=== PATIENT | female | born 1955 | race African-American/Black ===

== ENCOUNTER 2016-03-05 12:04 | Day surgery (SDC) | payer OTHER ==
[2016-03-05 13:49] LABS: MCH 26.9 pg (25.7-33.7); MCHC 32.5 g/dl (32.0-36.0); MEAN CELL VOLUME 82.9 fl (80-96); MEAN PLT VOLUME 6.5 fl (7.5-11.1); PLATELET COUNT 962 K/MM3 (134-434); RDW 23.3 % (11.6-15.6); WHITE BLOOD COUNT 10.6 K/mm3 (4.0-10.0)
[2016-03-05 14:25] LABS: PLATELET ESTIMATE INCREASED (NORMAL)
[2016-03-05 14:28] LABS: ANISOCYTOSIS 3+; HYPOCHROMIA 1+; MICROCYTOSIS 2+; POLYCHROMASIA RARE
[2016-03-05 14:29] LABS: FRAGMENTED CELL FEW; OVALOCYTES FEW
--- NOTE | 2016-03-05 14:46 | HP ---
[facility]ellite [facility] - Chief Complaint Chief Complaint: PAtient seen and examined. Denies any complaints. No fever/ chills/cough/s - Past Medical History Allergies/Adverse Reactions: Allergies Allergy/AdvReac Type Severity Reaction Status Date / Time No Known Allergies Allergy Verified 08/14/15 12:17 Gastrointestinal: Yes: Cancer, Ulcerative Colitis Heme/Onc: Yes: Anemia - Current Medications Current Medications: Medication Instructions Recorded Mesalamine [Apriso] 0.375 gm PO DAILY 06/08/13 Amlodipine Besylate [Norvasc -] 5 mg PO DAILY 05/09/15 Pantoprazole Sodium [Protonix] 40 mg PO DAILY 07/09/15 Tramadol HCl 50 mg PO DAILY 08/09/15 Lidocaine 5% Top. Ointment 1 applic TP DAILY #1 tube 08/14/15 [Xylocaine 5% Top. Ointment -] Satellite Physical Exam - Physical Examination General Appearance: Well Nourished, Alert & Oriented x3 Lung: Clear to auscultation, Normal air movement Heart: Regular rate & rhythm, Normal S1, Normal S2 Abdomen: Soft, No tenderness, Normal bowel sounds Extremities: No edema Neurological: Intact [facility]ellite Impression/Plan - Impression/Plan Impression: 60 y/o patient with metastatic breast cancer ER+/DC-/HEr2 - here for symptomatic anemia. To get PRBCs , each unt over 4hrs., irradiated, leukopoor
[2016-03-05 16:01] VITALS: BMI 26.4
[2016-03-05] MEDS ORDERED: ACETAMINOPHEN 325 MG TABLET (FP) PO PRN (20:16)
[2016-03-06 01:39] LABS: MCH 27.2 pg (25.7-33.7); MCHC 32.9 g/dl (32.0-36.0); MEAN CELL VOLUME 82.6 fl (80-96); MEAN PLT VOLUME 6.6 fl (7.5-11.1); PLATELET COUNT 910 K/MM3 (134-434); RDW 20.5 % (11.6-15.6); WHITE BLOOD COUNT 8.8 K/mm3 (4.0-10.0)
[2016-03-06 06:06] VITALS: BP 142/67; PULSE 89; TEMP 98.5
[2016-03-06 09:32] LABS: ALK PHOS 379 U/L (45-117); ANION GAP 15 (8-16); BILIRUBIN,TOTAL 0.4 mg/dL (0.2-1.0); CALCIUM 9.1 mg/dL (8.5-10.1); CO2 24 mmol/L (21-32); CREATININE 0.4 mg/dL (0.55-1.02); GLUCOSE,RANDOM 67 mg/dL (74-106); LDH 291 U/L (84-246); SGOT/AST 45 U/L (15-37); SGPT/ALT 10 U/L (12-78); TOT PROT 5.8 g/dl (6.4-8.2)
== END 2016-03-06 07:27 | disposition home or self-care (01) ==
LOC: JBLOOD 12:04 → J7W 12:06 → JBLOOD 03-06 07:27
PROVIDERS: ATTEND Internal Medicine Hematology & Oncology
PROC: 30233N1 Transfusion of Nonautologous Red Blood Cells into Peripheral Vein, Percutaneous Approach (ICD-10-PCS; principal; 2016-03-05)
DX: C50.919 Malignant neoplasm of unspecified site of unspecified female breast (principal); D63.8 Anemia in other chronic diseases classified elsewhere
CPT/HCPCS: 36415; 36430; 80053; 83010; 83615; 85027; 86850; 86900; 86901; 86922; P9058

== ENCOUNTER 2016-03-13 10:44 | Inpatient (IN) | payer OTHER ==
[2016-03-13] MEDS ORDERED: SODIUM CHLORIDE 1,000 ML IV STA (11:35)
--- NOTE | 2016-03-13 11:35 | PDOC ---
History of Present Illness - General History Source: Patient Exam Limitations: No Limitations - History of Present Illness Initial Comments: 03/13/16 11:45 The patient is a 60 year old female with significant past medical history of metastatic breast cancer, hypertension who presents to the emergency department with left facial palsy for 2 days. The patient saw Dr. Mon two days ago and was referred to the ED for further evaluation. She is currently not in any pain but does state that she feels dehydrated. The patient denies any headaches, vision changes, ear/eye pain, numbness and tingling or loss of sensation. The patient reports associated decreased appetite over the last 2 days and believes she has lost weight. She has never experienced symptoms like this before. She denies any abdominal pain, nausea, or vomiting. She denies any recent travel or sick contacts. She denies any fevers or chills. <Carli Coto - Last Filed: 03/13/16 13:31> <Connie Martinez - Last Filed: 03/17/16 07:41> - General Chief Complaint: Facial Droop Stated Complaint: FACIAL DROOPX2 DAYS Time Seen by Provider: 03/13/16 11:30 Past History <Carli Coto - Last Filed: 03/13/16 13:31> - Past Medical History Anemia: No Asthma: No Cancer: Yes (RT BREAST CA, Bone CA) Cardiac Disorders: No CVA: No COPD: No CHF: No Dementia: No Diabetes: No GI Disorders: Yes (ULCERATIVE COLITIS.) Disorders: No HTN: Yes Hypercholesterolemia: No Liver Disease: No Seizures: No Thyroid Disease: No - Surgical History Abdominal Surgery: No Appendectomy: No Cardiac Surgery: No Cholecystectomy: No Lung Surgery: No Neurologic Surgery: No Orthopedic Surgery: No - Psycho/Social/Smoking Cessation Hx Anxiety: No Suicidal Ideation: No Smoking Status: Yes Smoking History: Former smoker Have you smoked in the past 12 months: Yes Number of Cigarettes Smoked Daily: 0 If you are a former smoker, when did you quit?: 1 yr ago Information on smoking cessation initiated: No 'Breaking Loose' booklet given: 07/09/15 Hx Alcohol Use: No Drug/Substance Use Hx: No Substance Use Type: None Hx Substance Use Treatment: No <Connie Martinez - Last Filed: 03/17/16 07:41> - Past Medical History Allergies/Adverse Reactions: Allergies Allergy/AdvReac Type Severity Reaction Status Date / Time No Known Allergies Allergy Verified 03/13/16 11:04 Home Medications: Ambulatory Orders NK [No Known Home Medication] 03/13/16 Review of Systems - Review of Systems Able to Perform ROS?: Yes Comments:: 03/13/16 11:46 GENERAL/CONSTITUTIONAL: No fever or chills. No weakness. HEAD, EYES, EARS, NOSE AND THROAT: No change in vision. No ear pain or discharge. No sore throat. CARDIOVASCULAR: No chest pain or shortness of breath. RESPIRATORY: No cough, wheezing, or hemoptysis. GASTROINTESTINAL: No nausea, vomiting, diarrhea or constipation. GENITOURINARY: No dysuria, frequency, or change in urination. MUSCULOSKELETAL: No joint or muscle swelling or pain. No neck or back pain. SKIN: No rash NEUROLOGIC: No headache, vertigo, loss of consciousness, or change in strength/ sensation. ENDOCRINE: No increased thirst. No abnormal weight change. HEMATOLOGIC/LYMPHATIC: No anemia, easy bleeding, or history of blood clots. ALLERGIC/IMMUNOLOGIC: No hives or skin allergy. <Carli Coto - Last Filed: 03/13/16 13:31> *Physical Exam - Vital Signs Last Vital Signs Temp Pulse Resp BP Pulse Ox 98.7 F 133 H 19 131/79 97 03/13/16 11:04 03/13/16 11:04 03/13/16 11:04 03/13/16 11:04 03/13/16 11:04 - Physical Exam Comments: 03/13/16 11:46 GENERAL: +Left sided facial droop including the forehead. Awake, alert, and fully oriented, in no acute distress HEAD: No signs of trauma EYES: PERRLA, EOMI, sclera anicteric, conjunctiva clear ENT: Auricles normal inspection, hearing grossly normal, nares patent, oropharynx clear without exudates. Moist mucosa NECK: Normal ROM, supple, no lymphadenopathy, JVD, or masses LUNGS: Breath sounds equal, clear to auscultation bilaterally. No wheezes, and no crackles HEART: Regular rate and rhythm, normal S1 and S2, no murmurs, rubs or gallops ABDOMEN: Soft, nontender, normoactive bowel sounds. No guarding, no rebound. No masses EXTREMITIES: Normal range of motion, no edema. No clubbing or cyanosis. No cords, erythema, or tenderness NEUROLOGICAL: Cranial nerves II through XII grossly intact. Strength and sensation intact throughout. Normal speech, normal gait. SKIN: Warm, Dry, normal turgor, no rashes or lesions noted. <Carli Coto - Last Filed: 03/13/16 13:31> - Vital Signs Last Vital Signs Temp Pulse Resp BP Pulse Ox 98.7 F 133 H 19 131/79 97 03/13/16 11:04 03/13/16 11:04 03/13/16 11:04 03/13/16 11:04 03/13/16 11:04 <Connie Martinez - Last Filed: 03/17/16 07:41> Heart Score/ECG Review - ECG Impressions Comment:: EKG read 12:12- sinus tach 119 bpm, no acute St/T changes. <Connie Martinez - Last Filed: 03/17/16 07:41> ED Treatment Course - LABORATORY CBC & Chemistry Diagram: 03/13/16 11:48 03/13/16 11:48 <Carli Coto - Last Filed: 03/13/16 13:31> - LABORATORY CBC & Chemistry Diagram: 03/16/16 09:30 03/14/16 06:00 <Connie Martinez - Last Filed: 03/17/16 07:41> Medical Decision Making - Medical Decision Making 03/13/16 15:18 Case d/w Dr. Mon, we discussed the CT results, I have paged neuro to discuss MRI. 03/13/16 15:30 Case d/w Dr. Cortez- pt with history of prior brain lesion, unclear if related to current symptoms. However, recommended MRI brain with contrast to r/o mets. I have ordered. Pt agrees to inpatient admission for further workup. <Connie Martinez - Last Filed: 03/17/16 07:41> *DC/Admit/Observation/Transfer - Attestations Scribe Attestion: 03/13/16 11:46 Documentation prepared by Carli Coto, acting as medical services manager for Connie Martinez MD. <Carli Coto - Last Filed: 03/13/16 13:31> - Discharge Dispostion Admit: Yes <Connie Martinez - Last Filed: 03/17/16 07:41> Diagnosis at time of Disposition: Facial droop Breast cancer metastasized to multiple sites Qualifiers: Laterality: left Qualified Code(s): C50.912 - Malignant neoplasm of unspecified site of left female breast - Discharge Dispostion Condition at time of disposition: Stable - Referrals
[2016-03-13 12:33] LABS: MCH 26.7 pg (25.7-33.7); MCHC 31.8 g/dl (32.0-36.0); MEAN CELL VOLUME 83.8 fl (80-96); MEAN PLT VOLUME 6.6 fl (7.5-11.1); PLATELET COUNT 483 K/MM3 (134-434); RDW 20.9 % (11.6-15.6); WHITE BLOOD COUNT 15.9 K/mm3 (4.0-10.0)
[2016-03-13 12:44] LABS: ALBUMIN 2.2 g/dl (3.4-5.0); ANION GAP 16 (8-16); BILIRUBIN,TOTAL 0.6 mg/dL (0.2-1.0); CALCIUM 9.8 mg/dL (8.5-10.1); CO2 24 mmol/L (21-32); CREATININE 0.6 mg/dL (0.55-1.02); GLUCOSE,RANDOM 82 mg/dL (74-106); SGOT/AST 43 U/L (15-37); SGPT/ALT 10 U/L (12-78); TOT PROT 6.8 g/dl (6.4-8.2)
[2016-03-13 12:45] LABS: ALK PHOS 376 U/L (45-117)
[2016-03-13 14:22] LABS: METAMYELOCYTE 1 % (0-2)
--- NOTE | 2016-03-13 17:05 | PN ---
Teaching Attending Note Name of Resident: Susan Ortega ATTENDING PHYSICIAN STATEMENT I saw and evaluated the patient. I reviewed the resident's note and discussed the case with the resident. I agree with the resident's findings and plan as documented. SUBJECTIVE: Patient is lying in bed with no acute distress, left sided facial paralysis that happened 2 days ago when Going to The Dr's office, but patient refused to go to the emergency room . OBJECTIVE: Vital Signs Temperature 98.7 F 03/13/16 11:04 Pulse Rate 104 H 03/13/16 16:56 Respiratory Rate 18 03/13/16 16:56 Blood Pressure 128/79 03/13/16 16:56 O2 Sat by Pulse Oximetry (%) 98 03/13/16 16:56 GENERAL: +Left sided facial droop including the forehead. Awake, alert, and fully oriented, in no acute distress HEAD: No signs of trauma EYES: PERRLA, EOMI,mild Exophothalmos of left eye,unable to close the eye completely, sclera anicteric, conjunctiva clear ENT: oropharynx clear without exudates. Moist mucosa NECK: Normal ROM, supple, no lymphadenopathy, JVD, or masses LUNGS: Breath sounds equal, clear to auscultation bilaterally. No wheezes, and no crackles HEART: Regular rate and rhythm, normal S1 and S2, no murmurs, rubs or gallops ABDOMEN: Soft, nontender, normoactive bowel sounds. No guarding, no rebound. No masses EXTREMITIES: Normal range of motion, no edema. No clubbing or cyanosis. No cords, erythema, or tenderness NEUROLOGICAL: L facial droop, unable to close L eye completely, tongue ML, Cranial nerves VII palsy otherwise grossly intact. Normal gait. SKIN: Warm, Dry, normal turgor, no rashes or lesions noted. CBCD WBC 15.9 K/mm3 (4.0-10.0) H D 03/13/16 11:48 RBC 3.88 M/mm3 (3.60-5.2) 03/13/16 11:48 Hgb 10.3 GM/dL (10.7-15.3) L D 03/13/16 11:48 Hct 32.5 % (32.4-45.2) D 03/13/16 11:48 MCV 83.8 fl (80-96) 03/13/16 11:48 MCHC 31.8 g/dl (32.0-36.0) L 03/13/16 11:48 RDW 20.9 % (11.6-15.6) H 03/13/16 11:48 Plt Count 483 K/MM3 (134-434) H D 03/13/16 11:48 MPV 6.6 fl (7.5-11.1) L 03/13/16 11:48 CMP Sodium 138 mmol/L (136-145) 03/13/16 11:48 Potassium 3.8 mmol/L (3.5-5.1) 03/13/16 11:48 Chloride 98 mmol/L (98-107) 03/13/16 11:48 Carbon Dioxide 24 mmol/L (21-32) 03/13/16 11:48 Anion Gap 16 (8-16) 03/13/16 11:48 BUN 20 mg/dL (7-18) H D 03/13/16 11:48 Creatinine 0.6 mg/dL (0.55-1.02) D 03/13/16 11:48 Creat Clearance w eGFR > 60 (>60) 03/13/16 11:48 Random Glucose 82 mg/dL (74-106) D 03/13/16 11:48 Calcium 9.8 mg/dL (8.5-10.1) 03/13/16 11:48 Total Bilirubin 0.6 mg/dL (0.2-1.0) D 03/13/16 11:48 AST 43 U/L (15-37) H 03/13/16 11:48 ALT 10 U/L (12-78) L 03/13/16 11:48 Alkaline Phosphatase 376 U/L (45-117) H 03/13/16 11:48 Total Protein 6.8 g/dl (6.4-8.2) 03/13/16 11:48 Albumin 2.2 g/dl (3.4-5.0) L 03/13/16 11:48 Home Medications Medication Instructions Recorded NK [No Known Home Medication] 03/13/16 ASSESSMENT AND PLAN: The pt is a 60 year old female with PMHx of metastatic breast cancer, HTN who presents to the hospital referred from Oncologist office- Dr. Yaa when was noticed to have facial asymmetry 2 days ago but patient refused to come to the hospital 2 days ago. # Possible Metastatic Brain Cancer from Breast cancer vs Garner's palsy presentation , on IV steroid as per , IVF, MRI was done waiting for the result. r/o brain mets. f/u MRI brain, elevated Alk Phos. due to extensive mets to the bone -CT head done, no acute pathology, Neurology consultation 's office , Decadron 10mg IVPB once and then 4mg IVPB Q6h -Protonix 40mg po daily # Hx of breast cancer with mets. to the bone and r/o Brain mets on concult. DVT Px; Lovenox sq daily
--- NOTE | 2016-03-13 17:25 | HP ---
CHIEF COMPLAINT: Left facial droop. PCP: HISTORY OF PRESENT ILLNESS: The pt is a 60 year old female with PMH of metastatic breast cancer, HTN who presents to the hospital referred from Oncologist office- Dr. Mon. She noticed the facial asymmetry 2 days ago. On that day she was scheduled to start new chemotherapy treatment. After getting that she was seen by her physician and referred to the hospital. She is also complaining of lower lip numbness. The pt states that for the past several weeks she didn't have appetite and noticed loosing some weight. She denies having headache, vision changes, fever, chills, paresthesias, balance problems, weakness. She denies chest pain, SOB, cough, palpitations, dysuria, increased frequency, urgency. ER course was notable for: (1)CT head (2)WBC 15.9, Hgb 10.3 (3)Alk Phos 376 PAST MEDICAL HISTORY: HTN, breast cancer diagnosed 15-20 years ago,treated with radiation therapy, chemotherapy and lumpectomy. It relapsed last year and was treated with chemotherapy since December 2015. She states that her treatment schedule was 2 weeks on and 1 week off. She doesn't remember the name. PAST SURGICAL HISTORY: in 1992 Social History: Smoking: Former smoker. Quit last year. Smoked for 5 years 1 pack/week. Alcohol: Drinks 1 drink a month Drugs:Denies Family History: Mother: Breast cancer Father:Lung cancer Allergies: No Known Allergies Allergy (Verified 03/13/16 11:04) HOME MEDICATIONS: Home Medications Medication Instructions Recorded NK [No Known Home Medication] 03/13/16 REVIEW OF SYSTEMS CONSTITUTIONAL: loss of appetite Absent: fever, chills, diaphoresis, generalized weakness, malaise, weight change HEENT: Absent: rhinorrhea, nasal congestion, throat pain, throat swelling, difficulty swallowing, mouth swelling, ear pain, eye pain, visual changes CARDIOVASCULAR: Absent: chest pain, syncope, palpitations, irregular heart rate, lightheadedness , peripheral edema RESPIRATORY: Absent: cough, shortness of breath, dyspnea with exertion, orthopnea, wheezing, stridor, hemoptysis GASTROINTESTINAL: Absent: abdominal pain, abdominal distension, nausea, vomiting, diarrhea, constipation, melena, hematochezia GENITOURINARY: Absent: dysuria, frequency, urgency, hesitancy, hematuria, flank pain, genital pain MUSCULOSKELETAL: Absent: myalgia, arthralgia, joint swelling, back pain, neck pain SKIN: Absent: rash, itching, pallor HEMATOLOGIC/IMMUNOLOGIC: Absent: easy bleeding, easy bruising, lymphadenopathy, frequent infections ENDOCRINE: Absent: unexplained weight gain, unexplained weight loss, heat intolerance, cold intolerance NEUROLOGIC: lower lip numbness, left face droop Absent: headache, focal weakness or paresthesias, dizziness, unsteady gait, seizure, mental status changes, bladder or bowel incontinence PSYCHIATRIC: Absent: anxiety, depression, suicidal or homicidal ideation, hallucinations. PHYSICAL EXAMINATION Vital Signs - 24 hr 03/13/16 16:56 Pulse Rate [ 104 H Apical] Respiratory 18 Rate Blood Pressure 128/79 [Left Arm] O2 Sat by Pulse 98 Oximetry (%) GENERAL: Awake, alert, and fully oriented, in no acute distress. HEAD: Normal with no signs of trauma. EYES: Pupils equal, round and reactive to light, extraocular movements intact, sclera anicteric, conjunctiva clear. No lid lag. EARS, NOSE, THROAT: Ears normal, nares patent, oropharynx clear without exudates. Moist mucous membranes. NECK: Normal range of motion, supple without lymphadenopathy, JVD, or masses. LUNGS: Breath sounds equal, diminished bilaterally. No wheezes, and no crackles. No accessory muscle use. HEART: Regular rate and rhythm, normal S1 and S2 without murmur, rub or gallop. ABDOMEN: Soft, nontender, not distended, normoactive bowel sounds, no guarding, no rebound, no masses. No hepatomegaly or splenomegaly. MUSCULOSKELETAL: Normal range of motion at all joints. No bony deformities or tenderness. No CVA tenderness. UPPER EXTREMITIES: No peripheral edema. LOWER EXTREMITIES: No peripheral edema. NEUROLOGICAL: Left sided face paralysis, nasolabial fold absent on left side, no changes in sensation on the face. Normal speech. Romberg negative, Babinski negative, sensation to light touch and pinprick intact B/L. PSYCHIATRIC: Cooperative. Good eye contact. Appropriate mood and affect. SKIN: Warm, dry, normal turgor, no rashes, 2 cm scar on r eyebrow. ASSESSMENT/PLAN: The pt is a 60 year old female with PMH of metastatic breast cancer, HTN who presents to the hospital referred from Oncologist office- Dr. Mon. She noticed the facial asymmetry 2 days ago. On that day she was scheduled to start new chemotherapy treatment. After getting that she was seen by her physician and referred to the hospital. She is also complaining of lower lip numbness. The pt states that for the past several weeks she didn't have appetite and noticed loosing some weight. Left sided face paralysis: -possibly due to mets to the brain, other location or side effect of chemotherapy. -Oncology consultation; the pt is well known to Dr. Mon. According to her note: She was diagnosed with rt. breast cancer > 10 yrs. ago --s/p lumpectomy/ chemotherapy/RT/ hormiones--5yrs. of tamoxifen and 5yrs. of arimidex. She finished that 10 years ago, relepsed 18 months ago when she was found to have hypercalcemia ER35%, [place]-/Her2 neg. Biopsy of Lt. breast mass also revealed ER+/ [place]-/Her2 neg. She was treated with Taxol and them gemzar, zometa. 1 month ago she developed pain in her thighs, CT showed lytic lesions. Now she is complaining of left facial palsy She received taxol and them gemzar and zometa with stable disease over last 18months. Scan in 01/23 showed stable disease More recently over 1minth developed pain over both her thighs. CT scans showed lytic lesions in the thighs She then developed Lt. facial palsy.ast MRI brain was in 12/24 and was being followed by neurology. Lt. perimedullary cistern lesion -f/u MRI brain -elevated Alk Phos:[id number] -CT head done, no acute pathology -f/u Neurology consultation -steroids 10mg IVPB once and then 4mg IVPB Q6h -Protonix HTN: -no on medications F/E/N: NS/No changes/Regular Disposition: Admission to med surg Problem List - Problem (1) Breast cancer metastasized to multiple sites Code(s): C50.919 - MALIGNANT NEOPLASM OF UNSP SITE OF UNSPECIFIED FEMALE BREAST Qualifiers: Laterality: left Qualified Code(s): C50.912 - Malignant neoplasm of unspecified site of left female breast (2) Facial droop Code(s): R29.810 - FACIAL WEAKNESS (3) Dehydration, mild Code(s): E86.0 - DEHYDRATION (4) Depression (emotion) Code(s): F32.9 - MAJOR DEPRESSIVE DISORDER, SINGLE EPISODE, UNSPECIFIED Visit type - Emergency Visit Emergency Visit: Yes ED Registration Date: 03/13/16 Care time: The patient presented to the Emergency Department on the above date and was hospitalized for further evaluation of their emergent condition. - New Patient This patient is new to me today: Yes Date on this admission: 03/16/16 - Critical Care Critical Care patient: No
--- NOTE | 2016-03-13 17:42 | CONSULT ---
Consult - text type - Consultation Consultation Note: The patient is a 60 year old female with significant past medical history of metastatic breast cancer, hypertension who presents to the emergency department with left facial palsy for 2 days. She is currently not in any pain but does state that she feels dehydrated. The patient denies any headaches, vision changes, ear/eye pain, numbness and tingling or loss of sensation. The patient reports associated decreased appetite over the last 2 days and believes she has lost weight. She has never experienced symptoms like this before. She denies any abdominal pain, nausea, or vomiting. She denies any recent travel or sick contacts. She denies any fevers or chills. - Past Medical History Cancer: Yes (RT BREAST CA, Bone CA) GI Disorders: Yes (ULCERATIVE COLITIS.) HTN: Yes colitis - Psycho/Social/Smoking Cessation Hx Smoking Status: Yes Smoking History: Former smoker - Past Medical History Allergies/Adverse Reactions: Allergies Allergy/AdvReac Type Severity Reaction Status Date / Time No Known Allergies Allergy Verified 03/13/16 11:04 Home Medications: Ambulatory Orders NK [No Known Home Medication] 03/13/16 *Physical Exam - Vital Signs Last Vital Signs Temp Pulse Resp BP Pulse Ox 98.7 F 133 H 19 131/79 97 03/13/16 11:04 03/13/16 11:04 03/13/16 11:04 03/13/16 11:04 03/13/16 11:04 Oropharynx: No thrush, No mucositis Cor: RSR, No murmurs, No gallops Lungs: Clear to P&A Abd: Soft, Normal bowel sounds, No organomegaly Ext:No significant edema Skin: No rashes, Integument intact Abnormal Lab Results 03/13/16 03/13/16 11:48 11:48 WBC 15.9 H D Hgb 10.3 L D MCHC 31.8 L RDW 20.9 H Plt Count 483 H D MPV 6.6 L Lymphocytes % 7.0 L D Monocytes % 18.0 H BUN 20 H D AST 43 H ALT 10 L Alkaline Phosphatase 376 H Albumin 2.2 L A/P 60 year old female with significant past medical history of extensive metastatic breast cancer, hypertension who presents to the emergency department with left facial palsy for 2 days. Patient was diagnosed with rt. breast cancer > 10 yrs. ago --s/p lumpectomy/ chemotherapy/RT/ hormiones--5yrs. of tamoxifen and 5yrs. of arimidex. she completed it 10 yrs. ago She came in 18months ago with extensive bony disease and hypercalcemia ER35%, [place] -/Her2 neg. Biopsy of Lt. breast mass also revealed ER+/[place]-/Her2 neg. She received taxol and them gemzar and zometa with stable disease over last 18months. Scan in 01/23 showed stable disease More recently over 1minth developed pain over both her thighs. CT scans showed lytic lesions in the thighs Plan was to get Orthopaedic consult/Rad-onc consult She then developed Lt. facial palsy PAtients last MRI brain was in 01/07/16 and was being followed by neurology. Lt. perimedullary cistern lesion of ? etiology was unchanged Willl need neuro consult MRI brain steroids 10mg IVPB once and then 4mg IVPB Q6h Protonix discussed with neurology Would get orthopaedics consult regarding lytic lesions in the femurs
[2016-03-13] MEDS ORDERED: DEXAMETHASONE SOD PHOSPHATE 10 MG/1 ML VIAL IVPB ONE (18:12)
[2016-03-13 19:00] VITALS: BMI 26.1
[2016-03-13] MEDS ORDERED: SODIUM CHLORIDE 0.45% 1,000 ML IV SCH (20:15)
[2016-03-13] MEDS: SODIUM CHLORIDE 1,000 ML IV SCH (21:11)
[2016-03-13] MEDS: DEXAMETHASONE SOD PHOSPHATE 4 MG/1 ML VIAL IVPB SCH (22:11)
[2016-03-13 23:57] LABS: URINE APPEARANCE SLCLOUDY; URINE BILIRUBIN NEGATIVE (NEGATIVE); URINE BLOOD NEGATIVE (NEGATIVE); URINE COLOR YELLOW; URINE GLUCOSE (UA) NEGATIVE (NEGATIVE); URINE KETONE 1+ (NEGATIVE); URINE LEUK ESTERASE TRACE (NEGATIVE); URINE NITRITE NEGATIVE (NEGATIVE); URINE PROTEIN 1+ (NEGATIVE); URINE UROBILINOGEN 2.0 E.U/dl E.U./dl (0.2-1.0)
[2016-03-13 23:59] LABS: URINE BACTERIA RARE /hpf (NONE SEEN); URINE HYALINE CAST 9 /lpf; URINE MUCUS MANY; URINE RBC 6 /hpf (0-3); URINE WBC 20 /hpf (3-5)
[2016-03-14] MEDS: DEXAMETHASONE SOD PHOSPHATE 4 MG/1 ML VIAL IVPB SCH ×4 (03:11→21:59)
[2016-03-14 08:30] LABS: MCH 26.6 pg (25.7-33.7); MCHC 31.7 g/dl (32.0-36.0); PLATELET COUNT 415 K/MM3 (134-434); RDW 20.8 % (11.6-15.6); WHITE BLOOD COUNT 13.6 K/mm3 (4.0-10.0)
[2016-03-14] MEDS: PANTOPRAZOLE 40 MG TABLET (FP) PO SCH (09:00)
[2016-03-14 09:16] LABS: CALCIUM 9.1 mg/dL (8.5-10.1); CREATININE 0.3 mg/dL (0.55-1.02)
--- NOTE | 2016-03-14 09:37 | PN ---
Progress Note (short form) - Note Progress Note: NEUROSURGERY H/o metastatic R breast cancer, HTN noted with new facial asymmetry 2 days ago. She is also complaining of lower lip numbness. Pt states that for the past several weeks she didn't have appetite and noticed loosing some weight. She denies having headache, diplopia, fever, chills, paresthesias, balance problems , weakness, bowel/bladder incontinence chest pain, SOB. PE: AF, VSS Port in R chest Speech/mentation normal CN- L facial droop, unable to close L eye completely; mild L V2-V3 paresthesia, tongue ML, EMOF Motor- 5/5 without drift Sensation- intact LT DTR- hyporeflexia Brain CT- mild atrophy, no obvious bleed MRI- L lateral lisa-medullary 7 mm ring enhancing lesion; ? 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 whole brain XT vs gamma knife for L lisa-medullary cistern lesion discussed Pros and cons discussed Favor gamma knife given location and size, taking into account side effect profile Rad onc consult (pt treated by [facility] previously)- d/w Dr Hernández
[2016-03-14] MEDS ORDERED: PANTOPRAZOLE SODIUM 100 ML IVPB SCH (10:00)
--- NOTE | 2016-03-14 11:21 | PN ---
Physical Exam: SUBJECTIVE: Patient seen and examined Patient has no new complains, no shortness of breath, no nausea or vomiting, no abdominal pain. no vision changes. no double vision. Stated that she feels better. OBJECTIVE: Vital Signs Temperature 97.7 F 03/14/16 09:45 Pulse Rate 84 03/14/16 09:45 Respiratory Rate 18 03/14/16 09:45 Blood Pressure 142/75 03/14/16 09:45 O2 Sat by Pulse Oximetry (%) 97 03/13/16 21:00 GENERAL: +Left sided facial droop including the forehead. Awake, alert, and fully oriented, in no acute distress HEAD: No signs of trauma EYES: PERRLA, EOMI,mild left Exophothalmos of left eye improving from yesterday ,unable to close the eye completely, sclera anicteric, conjunctiva clear ENT: oropharynx clear without exudates. Moist mucosa NECK: Normal ROM, supple, no lymphadenopathy, JVD, or masses LUNGS: Breath sounds equal, clear to auscultation bilaterally. No wheezes, and no crackles HEART: Regular rate and rhythm, normal S1 and S2, no murmurs, rubs or gallops ABDOMEN: Soft, nontender, normoactive bowel sounds. No guarding, no rebound. No masses EXTREMITIES: Normal range of motion, no edema. No clubbing or cyanosis. No cords, erythema, or tenderness NEUROLOGICAL: L facial droop, unable to close L eye completely, tongue ML, Cranial nerves VII palsy otherwise grossly intact. Normal gait. SKIN: Warm, Dry, normal turgor, no rashes or lesions noted. Laboratory Results - last 24 hr 03/13/16 03/14/16 03/14/16 23:45 06:00 06:00 WBC 13.6 H RBC 3.34 L Hgb 8.9 L D Hct 28.1 L MCV 84.0 MCHC 31.7 L RDW 20.8 H Plt Count 415 MPV 7.0 L Sodium 138 Potassium 4.1 Chloride 99 Carbon Dioxide 22 Anion Gap 17 H BUN 19 H Creatinine 0.3 L D Random Glucose 84 Calcium 9.1 Urine Color Yellow Urine Appearance Slcloudy Urine pH 5.0 Ur Specific [place] 1.029 Urine Protein 1+ H Urine Glucose (UA) Negative Urine Ketones 1+ H Urine Blood Negative Urine Nitrite Negative Urine Bilirubin Negative Urine Urobilinogen 2.0 e.u/dl H Ur Leukocyte Esterase Trace H Urine RBC 6 Urine WBC 20 Ur Epithelial Cells Rare Urine Bacteria Rare Hyaline Casts 9 Urine Mucus Many Active Medications Generic Name Dose Route Start Last Admin Trade Name Brendonq PRN Reason Stop Dose Admin Dexamethasone Sodium Phosphate 4 mg 03/13/16 21:00 03/14/16 09:00 Decadron Injection - IVPB 4 mg Q6H-IV CYNTHIA Administration Sodium Chloride 1,000 mls @ 75 mls/hr 03/13/16 20:30 03/13/16 21:11 Normal Saline - IV 75 mls/hr ASDIR CYNTHIA Administration Pantoprazole Sodium 40 mg 03/14/16 10:00 03/14/16 09:00 Protonix - PO 40 mg DAILY CYNTHIA Administration : 1955 Age: 60 Sex: F [facility] Acct: [id number] Loc: J [id number] [facility] Exam Date: 03/13/16 Status: [place] [address] Unit Number: [id number] EXAM#: TYPE/EXAM: RESULT: [id number] MRI/BRAIN MRI W W/O CONTRAST Rule out brain metastasis. Breast cancer history was provided on prior examinations MRI of the brain without and following intravenous contrast. Multiplanar T1-T2 sequences were obtained followed by postcontrast T1 axial, coronal and sagittal images. 16 mm of Omniscan was intravenously injected Compared to prior CT scan of the head dated 03/13/2016 and prior contrast- enhanced MRI of the brain dated 01/07/2016 There remains [id number] volume loss and ventricular dilatation. Very minimal chronic microvascular ischemic changes are again seen. Previously described small ring-enhancing left perimedullary cistern lesion measuring approximately 7 mm again seen without interval change. Otherwise, no mass lesion, acute infarct or intracranial hemorrhage is identified. There is mild diffuse left meningeal enhancement that may have minimally worsened since the prior exam. Otherwise , no abnormal intracranial enhancement is seen. There is no shift of the midline structures. The craniocervical junction appears unremarkable. Flow voids are present within the central intracranial arterial circulation. There is minimal mucosal thickening in the ethmoid air cells. Right mastoid effusion is present. Note is made of focal increased T2 signal intensity in the left occipital bone, superiorly measuring approximately 8 mm without gross interval change which is nonspecific. Impression: Stable ring-enhancing extra-axial mass lesion measuring approximately 8 mm in the left perimedullary cistern. Mild diffuse left leptomeningeal enhancement that has minimally worsened since the prior exam. Rule out meningeal infiltration in view of the clinical history. Small focal abnormal signal in the left occipital bone, superiorly unchanged since the prior examination which is nonspecific. Technologist: Gee Lee Transcribed Date/Time: 03/13/162203 Burrer Machine: Hamilton Tong ASSESSMENT/PLAN: The pt is a 60 year old female with PMHx of metastatic breast cancer, HTN who presents to the hospital referred from Oncologist office- Dr. Mon when was noticed to have facial asymmetry 2 days ago but patient refused to come to the hospital 2 days ago. 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 whole brain XT vs gamma knife for L lisa-medullary cistern lesion. And was discussed Pros and cons to the patient as per neurosurgery's note. 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 MRI shows increased leptomeningeal enhancement suggesting that her new neurology is attributable to progression of her disease, vs a benign Garner's palsy. Noted that her prior known 8mm parenchymal lesion is unchanged. DVT Px: Lovenox Visit type - Emergency Visit Emergency Visit: Yes ED Registration Date: 03/13/16 Care time: The patient presented to the Emergency Department on the above date and was hospitalized for further evaluation of their emergent condition. - New Patient This patient is new to me today: No - Critical Care Critical Care patient: No - Discharge Referral Referred to [facility] Med P.C.: No
--- NOTE | 2016-03-14 11:31 | CONS ---
DATE OF CONSULTATION: 03/14/2016 CHIEF COMPLAINT: Brain metastasis. HISTORY OF PRESENT ILLNESS: The patient is a 60-year-old right-handed female with history of metastatic breast cancer who complains of left facial palsy for approximately 3 days' duration. The patient stated that she has no headache, diplopia, paresthesia, or numbness to her face. She is known to have right breast cancer, status post mastectomy followed by radiation and chemotherapy. She was also known to have metastatic bone disease. The patient stated that she has no weakness of her extremities nor is there is any imbalance. She has no fever or chills or any sign of recent infections. PAST MEDICAL HISTORY: Significant for breast CA, ulcerative colitis, hypertension even though she is not currently hypertensive by her report. MEDICATIONS: Currently include dexamethasone and Protonix. ALLERGIES: There is no known drug allergy. FAMILY HISTORY: Her mother does have a history of breast cancer as well. SOCIAL HISTORY: She is an ex-smoker. 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 She does not drink alcohol. She lives at home. REVIEW OF SYSTEMS: Otherwise negative for other major cardiovascular, pulmonary , gastrointestinal, genitourinary, endocrinologic, neurological, or psychological problem except for the above. PHYSICAL EXAMINATION:Vital Signs: Temperature is 97.7, blood pressure is 142/ 75 with a pulse rate of 84, O2 saturation is 97% on room air. HEENT: Shows her to be normocephalic, atraumatic, anicteric. Neck: Supple. Coronary: Demonstrated a regular rhythm. Lungs: Clear bilaterally. She has a port in the right chest area. Abdomen: Benign, with active bowel sounds. Extremities: Showed no signs of DVT. Neurologic: She is awake, alert, and oriented x4. Her speech is normal. Her mentation is normal. Cranial nerve examination shows a left facial droop of 3 divisions of the left face. There is slight paresthesia to palpation in the cheek area. Tongue is midline. Hearing is intact. Extraocular movement is also intact. Her deep tendon reflexes are hyporeflexive throughout. There is no pathological long tract sign. Gait is stable. LABORATORY EXAMINATION: Shows the white blood cell count to be 13,600, hemoglobin is 8.9, and hematocrit is 28.1, platelet count is 415,000. BUN is 19, creatinine 0.3, sodium 138, and potassium is 4.1. LFTs show a slight elevation in the alkaline phosphatase at 376 and decreased albumin of 2.2. Urinalysis shows trace leukocyte esterase. There are 6 RBCs and 20 WBCs. Blood culture is pending. CT scan of the head performed yesterday demonstrated no evidence of acute bleed, edema, fracture, or midline shift. There is no infarct. MRI of the brain with and without gadolinium performed yesterday demonstrated a left lateral perimedullary cistern 7-mm ring-enhancing lesion. There is mild leptomeningeal enhancement at the basal cistern. There is no other significant parenchymal lesion or hydrocephalus. IMPRESSION: 1. 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 2. Skeletal metastases. RECOMMENDATIONS: The patient presents with worsening left facial droop. She is not able to close her left eyelid completely even at this time because of the facial droop. Extraocular movement is intact and it does not appear that other cranial nerves are significantly involved. It is likely that the basal meningeal involvement including the left perimedullary cistern lesion is causing irritation to the left VII cranial nerve. The treatment options of microsurgery versus whole-brain radiation versus gamma knife treatment possibly with or without adjuvant whole brain were discussed with patient at bedside. Because of the location and the basal disease process, microsurgery is not recommended at this time. I would favor gamma knife with or without adjuvant regional radiation because of the higher position targeting and less radiation side effects to the surrounding brain tissue and brainstem. The pros and cons of treatment approaches were discussed with the patient in detail , and she appears to understand. Baseline radiation oncology consultation is requested from Dr. Wil Godfrey. The patient had been seen by their practice previously and had reportedly performed the breast radiation previously. JORGE MAHAJAN M.D. [id number] MTDD
--- NOTE | 2016-03-14 13:49 | PN ---
Progress Note (short form) - Note Progress Note: Patient seen in follow up. No new complaints. Believes that the facial weakness is improved. Neurosurgery consult noted. Meds reviewed. Current Medications Generic Name Dose Route Start Last Admin Trade Name Maksim PRN Reason Stop Dose Admin Dexamethasone Sodium Phosphate 4 mg 03/13/16 21:00 03/14/16 09:00 Decadron Injection - IVPB 4 mg Q6H-IV CYNTHIA Administration Sodium Chloride 1,000 mls @ 75 mls/hr 03/13/16 20:30 03/13/16 21:11 Normal Saline - IV 75 mls/hr ASDIR CYNTHIA Administration Pantoprazole Sodium 40 mg 03/14/16 10:00 03/14/16 09:00 Protonix - PO 40 mg DAILY CYNTHIA Administration On exam: Last Vital Signs Temp Pulse Resp BP Pulse Ox 97.7 F 84 18 142/75 97 03/14/16 09:45 03/14/16 09:45 03/14/16 09:45 03/14/16 09:45 03/14/16 09:00 Lying comfortably in bed. Well hydrated, no pallor or icterus. No dependant edema Chest: good AE BL, clear. CVS: S1, S2, no gallop or murmur. Abdomen: soft non-tender, no masses or organomegaly. Neuro: Alert and oriented. L VII paralysis. No other focal neurological signs. CBC, BMP 03/14/16 06:00 03/14/16 06:00 Assessment. Metastatic breast cancer, with new CNVII palsy. MRI shows increased leptomeningeal enhancement suggesting that her new neurology is attributable to progression of her disease, (as opposed to a benign Garner's palsy.) Noted that prior known 8mm parenchymal lesion is unchanged. Awaiting opinion neurology and radiation oncology. Continue steroids. Drs. Lopez/Yaa to consider escalation of systemic therapy if appropriate.
--- NOTE | 2016-03-14 17:47 | PN ---
Progress Note (short form) - Note Progress Note: Ortho Attempted to evaluate pt. She was not in room. Went down to MRI and was in the middle of scan will peform full consult in the near future a/p- lytic lesions distal femur- h/o Breast CA will evaluate for pain RT full consult once pt is able to evaluated
--- NOTE | 2016-03-14 18:56 | PN ---
Progress Note (short form) - Note Progress Note: Radiation Oncology Patient seen and examined. consult dictated. I will discuss case with physicians caring for her and follow up on mri's.
--- NOTE | 2016-03-14 20:02 | CONS ---
DATE OF CONSULTATION: DATE OF DICTATION: 03/14/2016 HISTORY OF PRESENT ILLNESS: She was admitted for left facial weakness, which developed about 2 days ago. She also has numbness on her upper lip. REVIEW OF SYSTEMS: She denies any other neurologic symptoms. No headache, double vision, blurred vision. No history of seizures. No cardiac, respiratory, gastrointestinal, genitourinary, neurologic, musculoskeletal, or allergic complaints. A few days ago, she was complaining of pain over both her thighs. On admission , she had a CAT scan of the brain on March 13 that did not show any evidence of acute intracranial hemorrhage, edema, shift, mass effect or skull fracture and no evidence of infarction. An MRI of the brain was done on the same day and identified a stable, ring-enhancing, extra-axial mass lesion, 8 mm, in the left perimedullary cistern. This was also noted on an MRI done on January 07, 2016. She does show some mild diffuse left leptomeningeal enhancement, minimally worsened since prior examination. There is a lesion in the left occipital bone, unchanged since the prior examination. PAST MEDICAL HISTORY: She has had a breast cancer dating back at least to 1999. She had surgery and postoperative radiation to the breast. She received 6,000 cGy. She has been on a number of medications including 5 years of tamoxifen, 5 years of Arimidex, more recently because of recurrent disease in the bone noted about a year or so ago. She has been on Taxol, Gemzar, and Zometa. 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 She quit smoking more than 20 years ago but she smoked about a pack a week for many years. No alcohol or drugs. ALLERGIES: None. FAMILY HISTORY: Father of throat cancer. Mother of breast cancer. She has one brother who is okay and one son who is healthy. MEDICATIONS: Currently she is not on any medications. PHYSICAL EXAMINATION: Vital Signs: Include blood pressure of 123/78, pulse 72, respiratory rate 20, KPS is 100. Head, Eyes, Ears, Nose, and Throat: Her face shows drooping on the left side. Her eyes show conjugate gaze on visual field testing. It is a full visual field. When she raises her eyebrows, the right one is able to go up, the left not. She has trouble gritting her teeth and blowing out her cheeks, particularly on the left side. LYMPHATICS: No adenopathy in the neck, axilla, or groin. HEART: Normal heart sounds are present. LUNGS: Clear. ABDOMEN: Soft. BREASTS: No masses. NEUROLOGIC: As mentioned above. In addition, she can walk on her heels and toes without a problem. She can also walk in a straight line with some difficulty. She has problems with balance. She can appreciate position sense with soft and sharp objects and Babinski negative. HEART: Normal heart sounds are present. LUNGS: Clear. ABDOMEN: Soft, bowel sounds are present. EXTREMITIES: No edema. IMPRESSION/PLAN: Follow up on her workup of her spine. An MRI was done. Reports are not available. Review the scans of her brain and discuss her case with her primary care doctors. The meningeal findings and the clinical picture suggests disease in the brain and the patient would benefit from palliative radiation. MARIAJOSE FARIA M.D. [id number] MTDD
[2016-03-14] MEDS: SODIUM CHLORIDE 1,000 ML IV SCH (20:37)
[2016-03-15] MEDS: DEXAMETHASONE SOD PHOSPHATE 4 MG/1 ML VIAL IVPB SCH ×4 (03:37→21:20)
[2016-03-15] MEDS: SODIUM CHLORIDE 1,000 ML IV SCH ×2 (06:38→21:19)
[2016-03-15] MEDS: PANTOPRAZOLE 40 MG TABLET (FP) PO SCH (09:04)
--- NOTE | 2016-03-15 10:36 | PN ---
Progress Note (short form) - Note Progress Note: NEUROSURGERY No H/A, N/V Appreciate rad onc input PE: AF, VSS Speech/mentation normal CN- EOMF, L facial droop, unable to close L eye completely; mild L V2-V3 paresthesia, tongue ML Motor- 5/5 without drift Sensation- intact LT DTR- hyporeflexia Brain CT- mild atrophy, no obvious bleed/HCP MRI- L lateral lisa-medullary 7-8 mm ring enhancing lesion; ? 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 whole brain XT vs gamma knife vs no specific tx/observation for L lisa-medullary cistern lesion discussed L Garner's palsy possible but would be too coincidental given brain MRI findings Pros and cons discussed,as well as risks and potential benefits Care d/w Dr Hernández Pt will d/w Dr Mon and Dr Hernández re: tx options
[2016-03-15] MEDS: valACYclovir HCL 500 MG TABLET (FP) PO SCH ×2 (12:23→21:21)
--- NOTE | 2016-03-15 12:29 | PN ---
Progress Note (short form) - Note Progress Note: Patient is doing better, no new symptoms, no shortness of breath, no nausea or vomiting, no headache. very optimistic. Family at bedside. Temperature 98.7 F 03/15/16 05:51 Pulse Rate 68 03/15/16 05:51 Respiratory Rate 18 03/15/16 05:51 Blood Pressure 137/85 03/15/16 05:51 O2 Sat by Pulse Oximetry (%) 97 03/14/16 22:41 GENERAL: +Left sided facial droop including the forehead. Awake, alert, and fully oriented, in no acute distress HEAD: No signs of trauma EYES: PERRLA, EOMI,mild left Exophothalmos of left eye improving from yesterday ,unable to close the eye completely, sclera anicteric, conjunctiva clear ENT: oropharynx clear without exudates. Moist mucosa NECK: Normal ROM, supple, no lymphadenopathy, JVD, or masses LUNGS: Breath sounds equal, clear to auscultation bilaterally. No wheezes, and no crackles HEART: Regular rate and rhythm, normal S1 and S2, no murmurs, rubs or gallops ABDOMEN: Soft, nontender, normoactive bowel sounds. No guarding, no rebound. No masses EXTREMITIES: Normal range of motion, no edema. No clubbing or cyanosis. No cords, erythema, or tenderness NEUROLOGICAL: L facial droop, unable to close L eye completely, tongue ML, Cranial nerves VII palsy otherwise grossly intact. Normal gait. SKIN: Warm, Dry, normal turgor, no rashes or lesions noted. CBCD WBC 13.6 K/mm3 (4.0-10.0) H 03/14/16 06:00 RBC 3.34 M/mm3 (3.60-5.2) L 03/14/16 06:00 Hgb 8.9 GM/dL (10.7-15.3) L D 03/14/16 06:00 Hct 28.1 % (32.4-45.2) L 03/14/16 06:00 MCV 84.0 fl (80-96) 03/14/16 06:00 MCHC 31.7 g/dl (32.0-36.0) L 03/14/16 06:00 RDW 20.8 % (11.6-15.6) H 03/14/16 06:00 Plt Count 415 K/MM3 (134-434) 03/14/16 06:00 MPV 7.0 fl (7.5-11.1) L 03/14/16 06:00 CMP Sodium 138 mmol/L (136-145) 03/14/16 06:00 Potassium 4.1 mmol/L (3.5-5.1) 03/14/16 06:00 Chloride 99 mmol/L (98-107) 03/14/16 06:00 Carbon Dioxide 22 mmol/L (21-32) 03/14/16 06:00 Anion Gap 17 (8-16) H 03/14/16 06:00 BUN 19 mg/dL (7-18) H 03/14/16 06:00 Creatinine 0.3 mg/dL (0.55-1.02) L D 03/14/16 06:00 Creat Clearance w eGFR > 60 (>60) 03/13/16 11:48 Random Glucose 84 mg/dL (74-106) 03/14/16 06:00 Calcium 9.1 mg/dL (8.5-10.1) 03/14/16 06:00 Total Bilirubin 0.6 mg/dL (0.2-1.0) D 03/13/16 11:48 AST 43 U/L (15-37) H 03/13/16 11:48 ALT 10 U/L (12-78) L 03/13/16 11:48 Alkaline Phosphatase 376 U/L (45-117) H 03/13/16 11:48 Total Protein 6.8 g/dl (6.4-8.2) 03/13/16 11:48 Albumin 2.2 g/dl (3.4-5.0) L 03/13/16 11:48 Current Medications Generic Name Dose Route Start Last Admin Trade Name Freq PRN Reason Stop Dose Admin Dexamethasone Sodium Phosphate 4 mg 03/13/16 21:00 03/15/16 08:52 Decadron Injection - IVPB 4 mg Q6H-IV CYNTHIA Administration Sodium Chloride 1,000 mls @ 75 mls/hr 03/13/16 20:30 03/15/16 06:38 Normal Saline - IV 75 mls/hr ASDIR CYNTHIA Administration Pantoprazole Sodium 40 mg 03/14/16 10:00 03/15/16 09:04 Protonix - PO 40 mg DAILY CYNTHIA Administration Valacyclovir HCl 500 mg 03/15/16 12:00 03/15/16 12:23 Valtrex - PO 500 mg BID CYNTHIA Administration Home Medications Medication Instructions Recorded NK [No Known Home Medication] 03/13/16 A/P: The pt is a 60 year old female with PMHx of metastatic breast cancer, HTN who presents to the hospital referred from Oncologist office- Dr. Mno when was noticed to have facial asymmetry 2 days ago but patient refused to come to the hospital 2 days ago. 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 MRI shows increased leptomeningeal enhancement suggesting that her new neurology is attributable to progression of her disease, vs a benign Garner's palsy ; neurology added acyclovir to her regimen. Noted that her prior known 8mm parenchymal lesion is unchanged. Neurosurgeon was consulted Dr.Tom Schmidt, as per Neurosurgeon's recommendation , Dr.Tom Schmidt, Microsurgery vs. whole brain XT vs gamma knife for L lisa-medullary cistern lesion. And was discussed Pros and cons to the patient as per neurosurgery's note. Neurosurgeon Favors gamma knife given location and size, taking into account side effect profile; Rad onc consult requested Dr Hernández DVT Px: Lovenox Visit type - Emergency Visit Emergency Visit: Yes ED Registration Date: 03/13/16 Care time: The patient presented to the Emergency Department on the above date and was hospitalized for further evaluation of their emergent condition. - New Patient This patient is new to me today: No - Critical Care Critical Care patient: No - Discharge Referral Referred to [facility] Med P.C.: No
--- NOTE | 2016-03-15 13:09 | PN ---
Progress Note (short form) - Note Progress Note: Patient seen in follow up. No new complaints. Denies any adverse effects on steroids. Meds reviewed. Current Medications Generic Name Dose Route Start Last Admin Trade Name Maksim PRN Reason Stop Dose Admin Dexamethasone Sodium Phosphate 4 mg 03/13/16 21:00 03/15/16 08:52 Decadron Injection - IVPB 4 mg Q6H-IV CYNTHIA Administration Sodium Chloride 1,000 mls @ 75 mls/hr 03/13/16 20:30 03/15/16 06:38 Normal Saline - IV 75 mls/hr ASDIR CYNTHIA Administration Pantoprazole Sodium 40 mg 03/14/16 10:00 03/15/16 09:04 Protonix - PO 40 mg DAILY CYNTHIA Administration Valacyclovir HCl 500 mg 03/15/16 12:00 03/15/16 12:23 Valtrex - PO 500 mg BID CYNTHIA Administration On exam: Last Vital Signs Temp Pulse Resp BP Pulse Ox 98.7 F 68 18 137/85 97 03/15/16 05:51 03/15/16 05:51 03/15/16 05:51 03/15/16 05:51 03/14/16 22:41 Lying comfortably in bed. Well hydrated, no pallor or icterus. No dependant edema Chest: good AE BL, clear. CVS: S1, S2, no gallop or murmur. Abdomen: soft non-tender, no masses or organomegaly. Neuro: Alert and oriented. L VII paralysis. No other focal neurological signs. CBC, BMP 03/14/16 06:00 03/14/16 06:00 Assessment. Metastatic breast cancer, with new CNVII palsy. MRI shows increased leptomeningeal enhancement suggesting that her new neurology is attributable to progression of her disease, (as opposed to a benign Garner's palsy.) Noted that prior known 8mm parenchymal lesion is unchanged. Awaiting determination neurology, neurosurgery, and radiation oncology regarding appropriate management, RTX vs surgery (unclear benefit surgery - not clear that visible 8mm lesion is progressing or clinically significant) Steroids for possible [place] palsy - unlikely. Drs. Lopez/Yaa to consider escalation of systemic therapy if appropriate.
--- NOTE | 2016-03-15 17:24 | CON.NEURO ---
Consult Consult Specialty:: NEUROLOGY Reason for Consultation:: left facial droop - History of Present Illness History of Present Illness: 60 year old female with significant past medical history of metastatic breast cancer, hypertension who presents to the emergency department with left facial palsy for 2 days. The patient denies any headaches, vision changes, ear/eye pain , numbness and tingling or loss of sensation. She has never experienced symptoms like this before. She denies any abdominal pain, nausea, or vomiting. She denies any recent travel or sick contacts. She denies any fevers or chills. 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 History of Recent Travel: No Home Medications - Allergies Allergies/Adverse Reactions: Allergies Allergy/AdvReac Type Severity Reaction Status Date / Time No Known Allergies Allergy Verified 03/13/16 11:04 - Home Medications Home Medications: Ambulatory Orders NK [No Known Home Medication] 03/13/16 Family Disease History - Family Disease History Family Disease History: CA: Mother Review of Systems - Review of Systems Constitutional: reports: No Symptoms Eyes: reports: No Symptoms HENT: reports: No Symptoms Neck: reports: No Symptoms Cardiovascular: reports: No Symptoms Respiratory: reports: No Symptoms Gastrointestinal: reports: No Symptoms Genitourinary: reports: No Symptoms Breasts: reports: No Symptoms Reported Musculoskeletal: reports: No Symptoms Integumentary: reports: No Symptoms Neurological: reports: No Symptoms Endocrine: reports: No Symptoms Hematology/Lymphatic: reports: No Symptoms Psychiatric: reports: No Symptoms Physical Exam-Neuro Vital Signs: Vital Signs Temperature 97.8 F 03/15/16 14:59 Pulse Rate 78 03/15/16 14:59 Respiratory Rate 20 03/15/16 14:59 Blood Pressure 141/79 03/15/16 14:59 O2 Sat by Pulse Oximetry (%) 97 03/14/16 22:41 Constitutional: Yes: No Distress, Calm Neck: Yes: Supple, Trachea Midline Cardiovascular: Yes: Regular Rate and Rhythm, S1, S2 Respiratory: Yes: Regular, CTA Bilaterally Gastrointestinal: Yes: Normal Bowel Sounds, Soft Renal/: Yes: WNL Musculoskeletal: Yes: WNL Psychiatric: Yes: Alert, Oriented Labs: CBC, BMP 03/14/16 06:00 03/14/16 06:00 - Neuro Exam Level Of Consciousness: Yes: Oriented to Person, Oriented to Place, Oriented to Time Eyes: Yes: PERRLA Speech: WNL Dominant Hand: Right Cranial Nerves II-XII Intact: No (left peripheral Greene's palsy, she can't close completely left eye, left facial droop, left forehead weakness.) Gag: Present DTR's: 1+ Left Bicep, 1+ Right Bicep, 1+ Left Tricep, 1+ Right Tricep, 1+ Left Brachioradialis, 1+ Right Brachioradialis, 1+ Left Achilles, 1+ Right Achilles Babinski: Absent Response to light touch: Normal Response to pain prick: Normal Response to temperature: Normal Response to vibration: Normal Coordination: Normal: Finger to Nose Motor Strength: 5/5: Left Arm, Right Arm, Left Leg, Right Leg Gait: Normal Imaging - Results MRI: Report Reviewed, Image Reviewed Problem List - Problems (1) Breast cancer metastasized to multiple sites Code(s): C50.919 - MALIGNANT NEOPLASM OF UNSP SITE OF UNSPECIFIED FEMALE BREAST Qualifiers: Laterality: left Qualified Code(s): C50.912 - Malignant neoplasm of unspecified site of left female breast (2) Facial droop due to stroke Code(s): I63.9 - CEREBRAL INFARCTION, UNSPECIFIED R29.810 - FACIAL WEAKNESS (3) Greene's palsy Code(s): G51.0 - GREENE'S PALSY Assessment/Plan 60 year old female with significant past medical history of metastatic breast cancer, on radiotherapy, chemotherapy last time time in 2015, hypertension who presents to the emergency department with left facial palsy for 2 days. She was seen in her PMD office and she complained of sudden left facial droop on Wednesday. The patient denies any headaches, vision changes, ear /eye pain, numbness and tingling or loss of sensation. She has never experienced symptoms like this before. She denies any abdominal pain, nausea, or vomiting. She denies any recent travel or sick contacts. She denies any fevers or chills. The patient was started on decadron iv. in the hospital. MRI brain w/wo contrast shows stable left ring enhancement lesion in the left peripeduncular cystern , similar with the previous MRI brain. 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 However the MRI findings are similar with the previous MRI when she didn't have the facial droop so I inclined more to a viral left facial palsy. Plan: - continues steroids iv. for five more days - start Valacyclovir 500mg. po bid for seven days. - it is a little late - her weakness started on wednesday, three days ago but I would like to cover with antiviral medication. - DVT prophylaxis. - follow up with her oncologist. thank you for this consult.
[2016-03-16] MEDS: DEXAMETHASONE SOD PHOSPHATE 4 MG/1 ML VIAL IVPB SCH ×4 (03:13→21:23)
--- NOTE | 2016-03-16 08:59 | CON.ORTH ---
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 History of Recent Travel: No Home Medications - Allergies Allergies/Adverse Reactions: Allergies Allergy/AdvReac Type Severity Reaction Status Date / Time No Known Allergies Allergy Verified 03/13/16 11:04 - Home Medications Home Medications: Ambulatory Orders NK [No Known Home Medication] 03/13/16 Family Disease History - Family Disease History Family Disease History: CA: Mother Physical Exam for Ortho Vital Signs: Vital Signs Temperature 97.5 F L 03/16/16 06:00 Pulse Rate 64 03/16/16 06:00 Respiratory Rate 18 03/16/16 06:00 Blood Pressure 149/63 03/16/16 06:00 O2 Sat by Pulse Oximetry (%) 98 03/15/16 21:00 Labs: CBC, BMP 03/14/16 06:00 03/14/16 06:00 - Lower Extremity Knee: Yes: Exam WNL, Left, Right, Other (nontender, full ROM, nvi) Imaging - Results Cat Scan: Report Reviewed, Image Reviewed Other: Report Reviewed, Image Reviewed Assessment/Plan 60 year old female with PMH of metastatic breast cancer, HTN who presented to the hospital referred from Oncologist office- Dr. Mon. She noticed the facial asymmetry 2 days ago. On that day she was scheduled to start new chemotherapy treatment. After getting that she was seen by her physician and referred to the hospital. Had a bone scan and CT of LE that showed metastatic lesions. Denies any pain. a/p Bilateral femur and proximal tibia metastatic lesions-asymptomatic As patient is having no pain- will observe Heme/Onc f/u eval for RT Orthopedically stable d/w Dr. Calderón
[2016-03-16] MEDS: PANTOPRAZOLE 40 MG TABLET (FP) PO SCH (09:29)
[2016-03-16] MEDS: valACYclovir HCL 500 MG TABLET (FP) PO SCH ×2 (09:29→21:24)
[2016-03-16 09:41] LABS: MCH 26.7 pg (25.7-33.7); MCHC 31.6 g/dl (32.0-36.0); MEAN CELL VOLUME 84.2 fl (80-96); MEAN PLT VOLUME 6.7 fl (7.5-11.1); PLATELET COUNT 424 K/MM3 (134-434); RDW 20.7 % (11.6-15.6); WHITE BLOOD COUNT 19.2 K/mm3 (4.0-10.0)
--- NOTE | 2016-03-16 10:38 | PN ---
Progress Note (short form) - Note Progress Note: NEUROSURGERY No H/A, N/V Neurology input noted PE: AF, VSS Speech/mentation normal CN- EOMF, L facial droop, unable to close L eye completely; mild L V2-V3 paresthesia, tongue ML Motor- 5/5 without drift Sensation- intact LT DTR- hyporeflexia Brain CT- mild atrophy, no obvious bleed/HCP MRI- L lateral lisa-medullary 7-8 mm ring enhancing lesion; ? 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 whole brain XT vs gamma knife vs no specific tx/observation for L lisa-medullary cistern lesion discussed (microsurgery not recommended given location of tumor) L Garner's palsy possible but would be too coincidental given brain MRI findings of L lateral lisa-medullary cistern lesion (though it was previously visualized on the MRI as well) Pros and cons of treatment approaches (including no treatment) discussed,as well as risks and potential benefits Pt will d/w Dr Mon and Dr Hernández re: tx options Eye drops for OS
--- NOTE | 2016-03-16 11:59 | CONSULT ---
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 She has no other neurological complaints and no headache. She was seen by NS who has reviewed the neuro- imaging studies with specific treatment options discussed. Please refer to NS consultation. Per discussion with the oncologist, the team is requesting a neurological opinion regarding the CSF evaluation and empirical methotrexate pending CSF cytology evaluation. 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 History of Recent Travel: No Home Medications - Allergies Allergies/Adverse Reactions: Allergies Allergy/AdvReac Type Severity Reaction Status Date / Time No Known Allergies Allergy Verified 03/13/16 11:04 - Home Medications Home Medications: Ambulatory Orders NK [No Known Home Medication] 03/13/16 Family Disease History - Family Disease History Family Disease History: CA: Mother Physical Exam Vital Signs: Vital Signs Temperature 97.5 F L 03/16/16 06:00 Pulse Rate 64 03/16/16 06:00 Respiratory Rate 18 03/16/16 06:00 Blood Pressure 149/63 03/16/16 06:00 O2 Sat by Pulse Oximetry (%) 98 03/15/16 21:00 Constitutional: Yes: Well Nourished, No Distress, Calm Eyes: Yes: Conjunctiva Clear, EOM Intact, Ptosis (right sided lid weakness with associated severe right sided lower motor neuron facial weakness with sensation intact.) HENT: Yes: Atraumatic Neck: Yes: Supple Neurological: Yes: Alert, Oriented, Babinski negative, Cran Nerves II-XII Intact (except right-sided pure lower motor neuron weakness.). No: Aphasia, Ataxia, Loss of Sensation (MS 5/5 with normal tone. Sensation intact to LT and vibration. DTR 1/4 with downgoing plantar responses. 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 Will assist in arranging IR LP for CSF evaluation. Contact IR and informed radiologist was working with the oncologist for scheduling LP and the delivery of chemotherpeutic agent intrathecially.
[2016-03-16] MEDS: SODIUM CHLORIDE 1,000 ML IV SCH ×2 (13:04→20:52)
--- NOTE | 2016-03-16 14:13 | PN ---
Progress Note (short form) - Note Progress Note: PAtient seen and examined Lt. facial droop is slightly improved Last Vital Signs Temp Pulse Resp BP Pulse Ox 97.5 F L 64 18 149/63 98 03/16/16 06:00 03/16/16 06:00 03/16/16 06:00 03/16/16 06:00 03/15/16 21:00 Cor: RSR, No murmurs, No gallops Lungs: Clear to P&A Abd: Soft, Normal bowel sounds, No organomegaly Ext:No significant edema Skin: No rashes, Integument intact Abnormal Lab Results 03/16/16 09:30 WBC 19.2 H D RBC 3.54 L Hgb 9.4 L Hct 29.8 L MCHC 31.6 L RDW 20.7 H MPV 6.7 L Current Medications Artificial Tears (Artificial Tears) 1 drop OS QID [facility] Dexamethasone Sodium Phosphate (Decadron Injection -) 4 mg IVPB Q6H-IV [facility] Last Admin: 03/16/16 09:29 Dose: 4 mg Sodium Chloride (Normal Saline -) 1,000 mls @ 75 mls/hr IV ASDIR [facility] Last Admin: 03/16/16 13:04 Dose: 75 mls/hr Pantoprazole Sodium (Protonix -) 40 mg PO DAILY [facility] Last Admin: 03/16/16 09:29 Dose: 40 mg Valacyclovir HCl (Valtrex -) 500 mg PO BID [facility] Last Admin: 03/16/16 09:29 Dose: 500 mg A/P 60 y/o patient with extensive metastatic breast cancer, with left facial droop Lt. perimedullary cistern lesion --stable --? cause of symptoms concern for leptomeningeal disease based on MRI discussed with all teams--neuro surgery/neurology/rad-onc and IR Plan for LP on 03/18 Explained in great detail to patient about consideration for RT ? perimedullary lesion + intrathecal chemotherapy. Switching to xeloda for systemic therapy She understands. She is yet to consent to intrathecal chemotherapy She understands her overall situation spent >40mins. coordinating her care and discussing plan with patient
[2016-03-16] MEDS ORDERED: PT OWN MED DRAWER 7, Y5N ONE (15:06)
[2016-03-16 15:07] LABS: INR 1.27 (0.82-1.09)
[2016-03-16 15:10] LABS: ACTIVATED PTT 31.1 SECONDS (26.9-34.4)
--- NOTE | 2016-03-16 15:57 | PN ---
Physical Exam: SUBJECTIVE: Patient seen and examined. She is still complaining of facial asymmetry, dry left eye. She used eye drops for that. Denies numbness in lower lip, dizziness, numbness, paresthesias, LOC. OBJECTIVE: Vital Signs Period Temp Pulse Resp BP Sys/Mulligan Pulse Ox Last 24 Hr 97.4 F-97.6 F 64-86 18-20 138-149/63-82 98 GENERAL: The patient is awake, alert, and fully oriented, in no acute distress. HEAD: Normal with no signs of trauma. EYES: sclera anicteric, conjunctiva clear. No ptosis. ENT: moist mucous membranes. NECK: Trachea midline,supple. LUNGS: Breath sounds equal, clear to auscultation bilaterally, no wheezes, no crackles, no accessory muscle use. HEART: Regular rate and rhythm, S1, S2 without murmur, rub or gallop. ABDOMEN: Soft, nontender, nondistended, normoactive bowel sounds, no guarding, no rebound, no hepatosplenomegaly, no masses. EXTREMITIES: no edema. NEUROLOGICAL: Left nerve palsy, normal speech, gait not observed. PSYCH: Normal mood, normal affect. SKIN: Warm, dry, normal turgor, no rashes. Laboratory Results - last 24 hr 03/16/16 03/16/16 09:30 13:00 WBC 19.2 H D RBC 3.54 L Hgb 9.4 L Hct 29.8 L MCV 84.2 MCHC 31.6 L RDW 20.7 H Plt Count 424 MPV 6.7 L INR 1.27 H PTT (Actin FS) 31.1 Active Medications Generic Name Dose Route Start Last Admin Trade Name Freq PRN Reason Stop Dose Admin Artificial Tears 1 drop 03/16/16 14:00 Artificial Tears OS QID [facility] Dexamethasone Sodium Phosphate 4 mg 03/13/16 21:00 03/16/16 15:10 Decadron Injection - IVPB 4 mg Q6H-IV [facility] Administration Sodium Chloride 1,000 mls @ 75 mls/hr 03/13/16 20:30 03/16/16 13:04 Normal Saline - IV 75 mls/hr ASDIR [facility] Administration Pantoprazole Sodium 40 mg 03/14/16 10:00 03/16/16 09:29 Protonix - PO 40 mg DAILY [facility] Administration Valacyclovir HCl 500 mg 03/15/16 12:00 03/16/16 09:29 Valtrex - PO 500 mg BID [facility] Administration MRI brain was in 12/24 and was being followed by neurology. Lt. perimedullary cistern lesion CT head: no acute pathology. ASSESSMENT/PLAN: The pt is a 60 year old female with PMH of metastatic breast cancer, HTN who presents to the hospital referred from Oncologist office- Dr. Mon. She noticed the facial asymmetry 2 days ago. On that day she was scheduled to start new chemotherapy treatment. After getting that she was seen by her physician and referred to the hospital. She is also complaining of lower lip numbness. The pt states that for the past several weeks she didn't have appetite and noticed loosing some weight. Left sided face paralysis: -possibly due to mets to the brain, will also obtain LP as per neuro recommendation, started on Valacyclovir. MRI shows increased leptomeningeal enhancement suggesting that her new neurology is attributable to progression of her disease, vs a benign Garner's palsy. - Neurosurgeon was consulted Dr.Tom Schmidt. Microsurgery vs. whole brain XT vs gamma knife for L lisa-medullary cistern lesion are recommended. Discussed with the pt. -f/u Oncology consultation; the pt is well known to Dr. Mon. -steroids 4mg IVPB Q6h -Protonix HTN: -no on medications F/E/N: NS/No changes/Regular Disposition: Med surg Problem List - Problems (1) Breast cancer metastasized to multiple sites Code(s): C50.919 - MALIGNANT NEOPLASM OF UNSP SITE OF UNSPECIFIED FEMALE BREAST Qualifiers: Laterality: left Qualified Code(s): C50.912 - Malignant neoplasm of unspecified site of left female breast (2) Facial droop Code(s): R29.810 - FACIAL WEAKNESS (3) Dehydration, mild Code(s): E86.0 - DEHYDRATION (4) Depression (emotion) Code(s): F32.9 - MAJOR DEPRESSIVE DISORDER, SINGLE EPISODE, UNSPECIFIED Visit type - Emergency Visit Emergency Visit: Yes ED Registration Date: 03/13/16 Care time: The patient presented to the Emergency Department on the above date and was hospitalized for further evaluation of their emergent condition. - New Patient This patient is new to me today: No - Critical Care Critical Care patient: No - Discharge Referral Referred to [facility] Med P.C.: No
--- NOTE | 2016-03-16 16:11 | PN ---
Teaching Attending Note Name of Resident: Susan Ortega ATTENDING PHYSICIAN STATEMENT I saw and evaluated the patient. I reviewed the resident's note and discussed the case with the resident. I agree with the resident's findings and plan as documented. SUBJECTIVE: Patient is comfortable has no new complains. Very nice female. OBJECTIVE: Vital Signs Temperature 97.4 F L 03/16/16 14:21 Pulse Rate 68 03/16/16 14:21 Respiratory Rate 20 03/16/16 14:21 Blood Pressure 145/82 03/16/16 14:21 O2 Sat by Pulse Oximetry (%) 98 03/16/16 09:00 GENERAL: +Left sided facial droop including the forehead. Awake, alert, and fully oriented, in no acute distress HEAD: No signs of trauma EYES: PERRLA, EOMI,mild left Exophothalmos of left eye improving from yesterday ,unable to close the eye completely, sclera anicteric, conjunctiva clear ENT: oropharynx clear without exudates. Moist mucosa NECK: Normal ROM, supple, no lymphadenopathy, JVD, or masses LUNGS: Breath sounds equal, clear to auscultation bilaterally. No wheezes, and no crackles HEART: Regular rate and rhythm, normal S1 and S2, no murmurs, rubs or gallops ABDOMEN: Soft, nontender, normoactive bowel sounds. No guarding, no rebound. No masses EXTREMITIES: Normal range of motion, no edema. No clubbing or cyanosis. No erythema, or tenderness NEUROLOGICAL: L facial droop, unable to close L eye completely, tongue ML, Cranial nerves VII palsy otherwise grossly intact. Normal gait. SKIN: Warm, Dry, normal turgor, no rashes or lesions noted. CBCD WBC 19.2 K/mm3 (4.0-10.0) H D 03/16/16 09:30 RBC 3.54 M/mm3 (3.60-5.2) L 03/16/16 09:30 Hgb 9.4 GM/dL (10.7-15.3) L 03/16/16 09:30 Hct 29.8 % (32.4-45.2) L 03/16/16 09:30 MCV 84.2 fl (80-96) 03/16/16 09:30 MCHC 31.6 g/dl (32.0-36.0) L 03/16/16 09:30 RDW 20.7 % (11.6-15.6) H 03/16/16 09:30 Plt Count 424 K/MM3 (134-434) 03/16/16 09:30 MPV 6.7 fl (7.5-11.1) L 03/16/16 09:30 CMP Sodium 138 mmol/L (136-145) 03/14/16 06:00 Potassium 4.1 mmol/L (3.5-5.1) 03/14/16 06:00 Chloride 99 mmol/L (98-107) 03/14/16 06:00 Carbon Dioxide 22 mmol/L (21-32) 03/14/16 06:00 Anion Gap 17 (8-16) H 03/14/16 06:00 BUN 19 mg/dL (7-18) H 03/14/16 06:00 Creatinine 0.3 mg/dL (0.55-1.02) L D 03/14/16 06:00 Creat Clearance w eGFR > 60 (>60) 03/13/16 11:48 Random Glucose 84 mg/dL (74-106) 03/14/16 06:00 Calcium 9.1 mg/dL (8.5-10.1) 03/14/16 06:00 Total Bilirubin 0.6 mg/dL (0.2-1.0) D 03/13/16 11:48 AST 43 U/L (15-37) H 03/13/16 11:48 ALT 10 U/L (12-78) L 03/13/16 11:48 Alkaline Phosphatase 376 U/L (45-117) H 03/13/16 11:48 Total Protein 6.8 g/dl (6.4-8.2) 03/13/16 11:48 Albumin 2.2 g/dl (3.4-5.0) L 03/13/16 11:48 Current Medications Generic Name Dose Route Start Last Admin Trade Name Freq PRN Reason Stop Dose Admin Artificial Tears 1 drop 03/16/16 14:00 Artificial Tears OS QID [facility] Dexamethasone Sodium Phosphate 4 mg 03/13/16 21:00 03/16/16 15:10 Decadron Injection - IVPB 4 mg Q6H-IV [facility] Administration Sodium Chloride 1,000 mls @ 75 mls/hr 03/13/16 20:30 03/16/16 13:04 Normal Saline - IV 75 mls/hr ASDIR [facility] Administration Pantoprazole Sodium 40 mg 03/14/16 10:00 03/16/16 09:29 Protonix - PO 40 mg DAILY [facility] Administration Valacyclovir HCl 500 mg 03/15/16 12:00 03/16/16 09:29 Valtrex - PO 500 mg BID [facility] Administration Home Medications Medication Instructions Recorded NK [No Known Home Medication] 03/13/16 ASSESSMENT AND PLAN: The pt is a 60 year old female with PMHx of metastatic breast cancer, HTN who presents to the hospital referred from Oncologist office- Dr. Mon when was noticed to have facial asymmetry 2 days ago but patient refused to come to the hospital 2 days ago. 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 MRI shows increased leptomeningeal enhancement suggesting that her neurological symptoms facial droop due to the MRI findings vs a benign Garner's palsy ; neurology added acyclovir to her regimen. Noted that her prior known 8mm parenchymal lesion is unchanged. Neurosurgeon was consulted Dr.Tom Schmidt, as per Neurosurgeon's recommendation , Dr.Tom Schmidt, Microsurgery vs. whole brain XT vs gamma knife for L lisa-medullary cistern lesion. And was discussed Pros and cons to the patient as per neurosurgery's note. Neurosurgeon Favors gamma knife given location and size, taking into account side effect profile; Rad onc consult requested Dr Hernández As per Oncologist to have for LP on 03/18, and possible consideration for RT ? perimedullary lesion + intrathecal chemotherapy. and starting the patient as per to Xeloda for systemic therapy. DVT Px: Lovenox
[2016-03-16] MEDS: ARTIFICIAL TEARS (POLYVINYL ALCOHOL 1.4%) OPTH DROPS OS SCH ×3 (18:08→21:24)
[2016-03-17] MEDS: DEXAMETHASONE SOD PHOSPHATE 4 MG/1 ML VIAL IVPB SCH ×4 (02:34→21:20)
[2016-03-17] MEDS: SODIUM CHLORIDE 1,000 ML IV SCH ×2 (02:35→21:20)
--- NOTE | 2016-03-17 08:11 | PN ---
Progress Note (short form) - Note Progress Note: NEUROSURGERY Care d/w Dr Mon yesterday- role of XRT and adjuvant tx No H/A, N/V PE: AF, VSS Speech/mentation normal CN- EOMF, L facial droop, unable to close L eye completely; mild L V2-V3 paresthesia, tongue ML Motor- 5/5 without drift Sensation- intact LT DTR- hyporeflexia Brain CT- mild atrophy, no obvious bleed/HCP MRI- L lateral lisa-medullary 7-8 mm ring enhancing lesion; ? 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 whole brain XT vs gamma knife vs no specific tx/observation for L lisa-medullary cistern lesion discussed (microsurgery not recommended given location of tumor) L Garner's palsy possible but would be too coincidental given brain MRI findings of L lateral lisa-medullary cistern lesion (though it was previously visualized on prior MRI as well) Pros and cons of treatment approaches (including no treatment) discussed,as well as risks and potential benefits Scheduled for LP per Dr Mon this Wednesday Eye drops for OS Q6h
[2016-03-17] MEDS ORDERED: PT OWN MED DRAWER 7, Y5N ONE ×4 (08:50→19:53)
[2016-03-17] MEDS: PANTOPRAZOLE 40 MG TABLET (FP) PO SCH (09:22)
[2016-03-17] MEDS: valACYclovir HCL 500 MG TABLET (FP) PO SCH ×2 (09:22→21:24)
[2016-03-17] MEDS: ARTIFICIAL TEARS (POLYVINYL ALCOHOL 1.4%) OPTH DROPS OS SCH ×4 (09:22→21:24)
--- NOTE | 2016-03-17 15:59 | PN ---
Teaching Attending Note Name of Resident: Susan Ortega ATTENDING PHYSICIAN STATEMENT I saw and evaluated the patient. I reviewed the resident's note and discussed the case with the resident. I agree with the resident's findings and plan as documented. SUBJECTIVE: Patient is feeling better, no new event. Very nice female. OBJECTIVE: Vital Signs Temperature 98.4 F 03/17/16 15:05 Pulse Rate 63 03/17/16 15:05 Respiratory Rate 18 03/17/16 15:05 Blood Pressure 137/73 03/17/16 15:05 O2 Sat by Pulse Oximetry (%) 100 03/17/16 09:00 GENERAL: +Left sided facial droop including the forehead. Awake, alert, and fully oriented, in no acute distress HEAD: No signs of trauma EYES: PERRLA, EOMI, mild left Exophothalmos of left eye improving from yesterday ,unable to close the eye completely, sclera anicteric, conjunctiva clear ENT: oropharynx clear without exudates. Moist mucosa NECK: Normal ROM, supple, no lymphadenopathy, JVD, or masses LUNGS: Breath sounds equal, clear to auscultation bilaterally. No wheezes, and no crackles HEART: Regular rate and rhythm, normal S1 and S2, no murmurs, rubs or gallops ABDOMEN: Soft, nontender, normoactive bowel sounds. No guarding, no rebound. No masses EXTREMITIES: Normal range of motion, no edema. No clubbing or cyanosis. No erythema, or tenderness NEUROLOGICAL: L facial droop no change , unable to close L eye completely, tongue ML, Cranial nerves VII palsy otherwise grossly intact. Normal gait. SKIN: Warm, Dry, normal turgor, no rashes or lesions noted. CBCD WBC 19.2 K/mm3 (4.0-10.0) H D 03/16/16 09:30 RBC 3.54 M/mm3 (3.60-5.2) L 03/16/16 09:30 Hgb 9.4 GM/dL (10.7-15.3) L 03/16/16 09:30 Hct 29.8 % (32.4-45.2) L 03/16/16 09:30 MCV 84.2 fl (80-96) 03/16/16 09:30 MCHC 31.6 g/dl (32.0-36.0) L 03/16/16 09:30 RDW 20.7 % (11.6-15.6) H 03/16/16 09:30 Plt Count 424 K/MM3 (134-434) 03/16/16 09:30 MPV 6.7 fl (7.5-11.1) L 03/16/16 09:30 CMP Sodium 138 mmol/L (136-145) 03/14/16 06:00 Potassium 4.1 mmol/L (3.5-5.1) 03/14/16 06:00 Chloride 99 mmol/L (98-107) 03/14/16 06:00 Carbon Dioxide 22 mmol/L (21-32) 03/14/16 06:00 Anion Gap 17 (8-16) H 03/14/16 06:00 BUN 19 mg/dL (7-18) H 03/14/16 06:00 Creatinine 0.3 mg/dL (0.55-1.02) L D 03/14/16 06:00 Creat Clearance w eGFR > 60 (>60) 03/13/16 11:48 Random Glucose 84 mg/dL (74-106) 03/14/16 06:00 Calcium 9.1 mg/dL (8.5-10.1) 03/14/16 06:00 Total Bilirubin 0.6 mg/dL (0.2-1.0) D 03/13/16 11:48 AST 43 U/L (15-37) H 03/13/16 11:48 ALT 10 U/L (12-78) L 03/13/16 11:48 Alkaline Phosphatase 376 U/L (45-117) H 03/13/16 11:48 Total Protein 6.8 g/dl (6.4-8.2) 03/13/16 11:48 Albumin 2.2 g/dl (3.4-5.0) L 03/13/16 11:48 Current Medications Generic Name Dose Route Start Last Admin Trade Name Freq PRN Reason Stop Dose Admin Artificial Tears 1 drop 03/16/16 14:00 03/17/16 09:22 Artificial Tears OS 1 drop QID CYNTHIA Administration Dexamethasone Sodium Phosphate 4 mg 03/13/16 21:00 03/17/16 09:22 Decadron Injection - IVPB 4 mg Q6H-IV CYNTHIA Administration Sodium Chloride 1,000 mls @ 75 mls/hr 03/13/16 20:30 03/17/16 02:35 Normal Saline - IV 75 mls/hr ASDIR CYNTHIA Administration Pantoprazole Sodium 40 mg 03/14/16 10:00 03/17/16 09:22 Protonix - PO 40 mg DAILY CYNTHIA Administration Valacyclovir HCl 500 mg 03/15/16 12:00 03/17/16 09:22 Valtrex - PO 500 mg BID CYNTHIA Administration Home Medications Medication Instructions Recorded NK [No Known Home Medication] 03/13/16 ASSESSMENT AND PLAN: The pt is a 60 year old female with PMHx of metastatic breast cancer, HTN who presents to the hospital referred from Oncologist office- Dr. Mon when was noticed to have facial asymmetry 2 days ago but patient refused to come to the hospital. 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 MRI shows increased leptomeningeal enhancement suggesting that her neurological symptoms facial droop due to the MRI findings vs a benign Garner's palsy ; neurology added acyclovir to her regimen will continue. is unchanged. Neurosurgeon was consulted Dr.Tom Schmidt, as per Neurosurgeon's recommendation , Dr.Tom Schmidt, Microsurgery vs. whole brain XT vs gamma knife for L lisa-medullary cistern lesion. And was discussed Pros and cons to the patient as per neurosurgery's note. Neurosurgeon Favors gamma knife given location and size, taking into account side effect profile; Rad onc consult requested Dr Hernández Noted that her prior study known to have 8mm parenchymal lesion is unchanged. As per Oncologist wants the patient to have for LP in am , and possible consideration for RT ? perimedullary lesion + intrathecal chemotherapy. and starting the patient as per to Xeloda for systemic therapy. Discussed with the patient will discuss with again. DVT Px: Lovenox will hold ot for LP
--- NOTE | 2016-03-17 17:25 | PN ---
Physical Exam: SUBJECTIVE: Patient seen and examined. She is feeling good. She denies weakness , vision problems,dizziness, numbness. OBJECTIVE: Vital Signs Period Temp Pulse Resp BP Sys/Mulligan Pulse Ox Last 24 Hr 97.4 F-98.4 F 60-66 18-18 137-146/72-84 100-100 GENERAL: The patient is awake, alert, and fully oriented, in no acute distress. HEAD: Normal with no signs of trauma. EYES: sclera anicteric, conjunctiva clear. ENT: oropharynx clear without exudates, moist mucous membranes. NECK: Trachea midline, supple. LUNGS: Breath sounds equal, clear to auscultation bilaterally, no wheezes, no crackles, no accessory muscle use, SQ post in right chest. HEART: Regular rate and rhythm, S1, S2 without murmur, rub or gallop. ABDOMEN: Soft, nontender, nondistended, normoactive bowel sounds, no guarding, no rebound, no hepatosplenomegaly, no masses. EXTREMITIES: no edema. NEUROLOGICAL: L facial palsy, left nasolabial fold absent, normal speech, gait not observed. PSYCH: Normal mood, normal affect. SKIN: Warm, dry, normal turgor, no rashes or lesions noted Active Medications Generic Name Dose Route Start Last Admin Trade Name Freq PRN Reason Stop Dose Admin Artificial Tears 1 drop 03/16/16 14:00 03/17/16 16:12 Artificial Tears OS 1 drop QID CYNTHIA Administration Dexamethasone Sodium Phosphate 4 mg 03/13/16 21:00 03/17/16 16:12 Decadron Injection - IVPB 4 mg Q6H-IV CYNTHIA Administration Sodium Chloride 1,000 mls @ 75 mls/hr 03/13/16 20:30 03/17/16 02:35 Normal Saline - IV 75 mls/hr ASDIR CYNTHIA Administration Pantoprazole Sodium 40 mg 03/14/16 10:00 03/17/16 09:22 Protonix - PO 40 mg DAILY CYNTHIA Administration Valacyclovir HCl 500 mg 03/15/16 12:00 03/17/16 09:22 Valtrex - PO 500 mg BID CYNTHIA Administration MRI brain was in 12/24 and was being followed by neurology. Lt. perimedullary cistern lesion CT head: no acute pathology. ASSESSMENT/PLAN: The pt is a 60 year old female with PMH of metastatic breast cancer, HTN who presents to the hospital referred from Oncologist office- Dr. Mon. She noticed the facial asymmetry 2 days ago. On that day she was scheduled to start new chemotherapy treatment. After getting that she was seen by her physician and referred to the hospital. She is also complaining of lower lip numbness. The pt states that for the past several weeks she didn't have appetite and noticed loosing some weight. Left sided face paralysis: -possibly due to mets to the brain, will obtain LP tomorrow (cytology and MTX inj.) -as per neuro recommendation, started on Valacyclovir. MRI shows increased leptomeningeal enhancement suggesting that her new neurology is attributable to progression of her disease, vs a benign Garner's palsy. - Neurosurgeon was consulted Dr.Tom Schmidt. Microsurgery vs. whole brain XT vs gamma knife for L lisa-medullary cistern lesion are recommended. Discussed with the pt. -f/u Oncology consultation; the pt is well known to Dr. Mon. -steroids 4mg IVPB Q6h -Protonix HTN: -no on medications F/E/N: NS/No changes/Regular Disposition: Med surg Problem List - Problems (1) Breast cancer metastasized to multiple sites Code(s): C50.919 - MALIGNANT NEOPLASM OF UNSP SITE OF UNSPECIFIED FEMALE BREAST Qualifiers: Laterality: left Qualified Code(s): C50.912 - Malignant neoplasm of unspecified site of left female breast (2) Facial droop Code(s): R29.810 - FACIAL WEAKNESS (3) Dehydration, mild Code(s): E86.0 - DEHYDRATION (4) Depression (emotion) Code(s): F32.9 - MAJOR DEPRESSIVE DISORDER, SINGLE EPISODE, UNSPECIFIED Visit type - Emergency Visit Emergency Visit: Yes ED Registration Date: 03/13/16 Care time: The patient presented to the Emergency Department on the above date and was hospitalized for further evaluation of their emergent condition. - New Patient This patient is new to me today: No - Critical Care Critical Care patient: No - Discharge Referral Referred to [facility] Med P.C.: No
--- NOTE | 2016-03-17 18:07 | PN ---
Progress Note (short form) - Note Progress Note: Patient seen and examined. Last Vital Signs Temp Pulse Resp BP Pulse Ox 98.4 F 63 18 137/73 100 03/17/16 15:05 03/17/16 15:05 03/17/16 15:05 03/17/16 15:05 03/17/16 09:00 Small 8 mm [employer] tumor. ? 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 For L.P. for cytology . If feasible for IT methotrexate at same time . Unfortunately a negative LP does not rule out the diagnosis of leptomeningeal carcinomatosis, since it may take multiple taps to get a positive cytology. HEENT: Widened palpebral fissure Oropharynx: No thrush, No mucositis Neck: Supple Cor: RSR, No murmurs, No gallop Lungs: Clear to P&A Abd: Soft, Normal bowel sounds, No organomegaly Ext:No significant edema Skin: No rashes, Integument intact Tongue deviated to left Facial VII weakness CBC, BMP 03/16/16 09:30 03/14/16 06:00 Impression: For L.P for CSF cytology and hopefully IT MTX at same time.
[2016-03-18] MEDS: DEXAMETHASONE SOD PHOSPHATE 4 MG/1 ML VIAL IVPB SCH ×2 (03:45→09:18)
[2016-03-18] MEDS: SODIUM CHLORIDE 1,000 ML IV SCH (06:09)
[2016-03-18 08:53] LABS: MCH 26.8 pg (25.7-33.7); MEAN CELL VOLUME 83.5 fl (80-96); MEAN PLT VOLUME 6.8 fl (7.5-11.1); PLATELET COUNT 438 K/MM3 (134-434); RDW 21.2 % (11.6-15.6); WHITE BLOOD COUNT 20.7 K/mm3 (4.0-10.0)
[2016-03-18] MEDS ORDERED: PT OWN MED DRAWER 7, Y5N ONE (08:58)
[2016-03-18] MEDS: ARTIFICIAL TEARS (POLYVINYL ALCOHOL 1.4%) OPTH DROPS OS SCH ×4 (09:19→22:21)
[2016-03-18] MEDS: PANTOPRAZOLE 40 MG TABLET (FP) PO SCH (09:19)
[2016-03-18] MEDS: valACYclovir HCL 500 MG TABLET (FP) PO SCH ×2 (09:19→22:18)
[2016-03-18 10:32] LABS: INR 1.26 (0.82-1.09); PROTHROMBIN TIME (PATIENT) 13.9 SEC (9.98-11.88)
[2016-03-18 10:35] LABS: ACTIVATED PTT 29.4 SECONDS (26.9-34.4)
--- NOTE | 2016-03-18 10:46 | PN ---
Progress Note (short form) - Note Progress Note: Ortho Pt seen and examined, denies any knee or LE pain nontender, full rom nvi a/p NTD RT orthopedically stable d/w Dr. Calderón
--- NOTE | 2016-03-18 11:06 | PN ---
Progress Note (short form) - Note Progress Note: NEUROSURGERY Care d/w Dr Mon previously No H/A, N/V PE: AF, VSS Speech/mentation normal CN- EOMF, L facial droop, unable to close L eye completely; mild L V2-V3 paresthesia, tongue ML Motor- 5/5 without drift Sensation- intact LT DTR- hyporeflexia Brain CT- mild atrophy, no obvious bleed/HCP MRI- L lateral lisa-medullary 7-8 mm ring enhancing lesion; ? minimal basal meningeal enhancement WBC 13.6; Hgb 8.9 Metastatic CA to brain from breast LP pending for cytology pending/mtx per oncology Eye drops for OS Q6h
[2016-03-18 12:51] LABS: METAMYELOCYTE 4 % (0-2)
[2016-03-18 12:52] LABS: PLATELET ESTIMATE ADEQUATE (NORMAL)
--- NOTE | 2016-03-18 13:59 | EKG ---
Test Reason : Blood Pressure : / mmHG Vent. Rate : 119 BPM Atrial Rate : 119 BPM P-R Int : 148 ms QRS Dur : 078 ms QT Int : 344 ms P-R-T Axes : -16 005 014 degrees QTc Int : 483 ms SINUS TACHYCARDIA MINIMAL VOLTAGE CRITERIA FOR LVH, MAY BE NORMAL VARIANT NONSPECIFIC ST ABNORMALITY ABNORMAL ECG WHEN COMPARED WITH ECG OF 01-DEC-2014 12:16, VENT. RATE HAS INCREASED BY [address] NOW DEPRESSED IN INFERIOR LEADS T WAVE INVERSION NOW EVIDENT IN INFERIOR LEADS Confirmed by RENAY SANTOS, MAICOL ([id number]) on 03/18/2016 1:59:19 PM Referred By: Confirmed By:MAICOL NIÑO MD
--- NOTE | 2016-03-18 14:25 | PN ---
Physical Exam: SUBJECTIVE: Patient seen and examined. She is feeling good today. Denies vision problems, numbness, balance problems, headache, weakness, problems with swallowing, fever, chills. OBJECTIVE: Vital Signs Period Temp Pulse Resp BP Sys/Mulligan Pulse Ox Last 24 Hr 97.8 F-98.4 F 59-72 18-18 137-143/55-78 98 GENERAL: The patient is awake, alert, and fully oriented, in no acute distress. HEAD: Normal with no signs of trauma. EYES: PERRL, extraocular movements intact, sclera anicteric, conjunctiva clear. Left eye-difficulty closing. ENT: moist mucous membranes. NECK: Trachea midline, full range of motion, supple. LUNGS: Breath sounds equal, clear to auscultation bilaterally, no wheezes, no crackles, no accessory muscle use. HEART: Regular rate and rhythm, S1, S2 without murmur, rub or gallop. BREAST: left breast mass, left axillary adenopathy ABDOMEN: Soft, nontender, nondistended, normoactive bowel sounds, no guarding, no rebound, no hepatosplenomegaly, no masses. EXTREMITIES: 2+ pulses, warm, well-perfused, no edema. NEUROLOGICAL: Nerve VII paralysis, left nasolabial fold absent, left eye has difficulty with closing, no sensation changes to light touch,the rest of CN intact. Nl DTR: brachial, knee achilles. Motor strenth 5/5 in all 4 extremities. Normal speech, gait not observed. PSYCH: Normal mood, normal affect. SKIN: Warm, dry, normal turgor, no rashes, port in right chest. Laboratory Results - last 24 hr 03/18/16 03/18/16 08:25 09:55 WBC 20.7 H RBC 3.59 L Hgb 9.6 L Hct 30.0 L MCV 83.5 MCHC 32.0 RDW 21.2 H Plt Count 438 H MPV 6.8 L Neutrophils % 70.0 Lymphocytes % 8.0 Monocytes % 3.0 L D Eosinophils % 0.0 D Basophils % 0.0 Band Neutrophils 4.0 D Metamyelocytes 4 H D Myelocytes 10 H D Differential Comment Manual diff done Platelet Estimate Adequate INR 1.26 H PTT (Actin FS) 29.4 Active Medications Generic Name Dose Route Start Last Admin Trade Name Freq PRN Reason Stop Dose Admin Artificial Tears 1 drop 03/16/16 14:00 03/18/16 09:19 Artificial Tears OS 1 drop QID CYNTHIA Administration Dexamethasone Sodium Phosphate 4 mg 03/13/16 21:00 03/18/16 09:18 Decadron Injection - IVPB 4 mg Q6H-IV CYNTHIA Administration Pantoprazole Sodium 40 mg 03/14/16 10:00 03/18/16 09:19 Protonix - PO 40 mg DAILY CYNTHIA Administration Valacyclovir HCl 500 mg 03/15/16 12:00 03/18/16 09:19 Valtrex - PO 500 mg BID CYNTHIA Administration MRI brain- L lateral lisa-medullary 7-8 mm ring enhancing lesion; ? minimal basal meningeal enhancement CT head: no acute pathology. ASSESSMENT/PLAN: The pt is a 60 year old female with PMH of metastatic breast cancer, HTN who presents to the hospital referred from Oncologist office- Dr. Mon. She noticed the facial asymmetry 2 days ago. On that day she was scheduled to start new chemotherapy treatment. After getting that she was seen by her physician and referred to the hospital. Adfmitted to med surg for left face drooping. Left sided face paralysis: -possibly due to mets to the brain, will obtain LP results. The procedure was done today. MTX injections done as well. -as per neuro recommendation, started on Valacyclovir for possible Garner's palsy due to viral infection. - Neurosurgeon was consulted Dr.Tom Schmidt. Microsurgery vs. whole brain XT vs gamma knife for L lisa-medullary cistern lesion are recommended. Discussed with the pt. -consulted IR, -f/u Oncology consultation; the pt is well known to Dr. Mon. She will start new chemotherapy. -steroids 4mg IVPB Q6h, will continue -cont. Protonix Leucotytosis: -increased over the course of hospitalization to 20.7 -possibly due to steroids, no sign of infection Mild dehydration; -IVF stopped today -will recheck BMP HTN: -no on medications F/E/N: NS/No changes/Regular Disposition: Med surg Problem List - Problems (1) Breast cancer metastasized to multiple sites Code(s): C50.919 - MALIGNANT NEOPLASM OF UNSP SITE OF UNSPECIFIED FEMALE BREAST Qualifiers: Laterality: left Qualified Code(s): C50.912 - Malignant neoplasm of unspecified site of left female breast (2) Facial droop Code(s): R29.810 - FACIAL WEAKNESS (3) Dehydration, mild Code(s): E86.0 - DEHYDRATION (4) Depression (emotion) Code(s): F32.9 - MAJOR DEPRESSIVE DISORDER, SINGLE EPISODE, UNSPECIFIED Visit type - Emergency Visit Emergency Visit: Yes ED Registration Date: 03/13/16 Care time: The patient presented to the Emergency Department on the above date and was hospitalized for further evaluation of their emergent condition. - New Patient This patient is new to me today: No - Critical Care Critical Care patient: No - Discharge Referral Referred to [facility] Med P.C.: No
--- NOTE | 2016-03-18 15:21 | PN ---
Progress Note (short form) - Note Progress Note: PAtient seen and examined Lt. facial droop persistent. slightly improved Last Vital Signs Temp Pulse Resp BP Pulse Ox 98.3 F 59 L 18 143/78 98 03/18/16 05:32 03/18/16 05:32 03/18/16 05:32 03/18/16 05:32 03/17/16 21:00 Cor: RSR, No murmurs, No gallops Lungs: Clear to P&A Abd: Soft, Normal bowel sounds, No organomegaly Ext:No significant edema Skin: No rashes, Integument intact Abnormal Lab Results 03/16/16 09:30 WBC 19.2 H D RBC 3.54 L Hgb 9.4 L Hct 29.8 L MCHC 31.6 L RDW 20.7 H MPV 6.7 L Current Medications Artificial Tears (Artificial Tears) 1 drop OS QID [facility] Dexamethasone Sodium Phosphate (Decadron Injection -) 4 mg IVPB Q6H-IV [facility] Last Admin: 03/16/16 09:29 Dose: 4 mg Sodium Chloride (Normal Saline -) 1,000 mls @ 75 mls/hr IV ASDIR [facility] Last Admin: 03/16/16 13:04 Dose: 75 mls/hr Pantoprazole Sodium (Protonix -) 40 mg PO DAILY [facility] Last Admin: 03/16/16 09:29 Dose: 40 mg Valacyclovir HCl (Valtrex -) 500 mg PO BID [facility] Last Admin: 03/16/16 09:29 Dose: 500 mg A/P 60 y/o patient with extensive metastatic breast cancer, with left facial droop Lt. perimedullary cistern lesion --stable --? cause of symptoms concern for leptomeningeal disease based on MRI discussed with all teams--neuro surgery/neurology/rad-onc and IR on 03/16 Explained in great detail to patient about consideration for RT ? perimedullary lesion + intrathecal chemotherapy. Switching to xeloda for systemic therapy discussed side effects of intrathecal chemotherapy including low blood counts, confusion, sizures, coma, blindness, paresis, headache, infection etc. she consented and procedure was done by IR. IT MTX was administered. Patietn tolerated procedure well will switch to xeloda for systemic rherapy
[2016-03-18] MEDS ORDERED: ONDANSETRON 4 MG/2 ML VIAL IVPB ONE (15:35)
[2016-03-18 15:50] LABS: CSF APPEARANCE CLEAR; CSF COLOR COLORLESS; CSF RBC 14 /mm3
[2016-03-18 15:55] LABS: GLUCOSE,CSF 65 mg/dL (50-80)
--- NOTE | 2016-03-18 15:56 | PN ---
Teaching Attending Note Name of Resident: Susan Ortega ATTENDING PHYSICIAN STATEMENT I saw and evaluated the patient. I reviewed the resident's note and discussed the case with the resident. I agree with the resident's findings and plan as documented. SUBJECTIVE: seen at around 11 am no fever ro chills, feels a little better today , denies any weakness , numbness or tingling in ext or in face. no diplopia . OBJECTIVE: NAD CV: RRR, no MRG Lungs : CATB Ext : shreya nidhi or erythema Neuro : L lower facial droop, can't close L eye completely , flat fore head. unable to elevate L eye brow. nl sensation of the face.EOMI, round equal pupils, tongue at mid line . and reactive to light . strength 5/5 in upper and lower ext proximally and distally, sensation to light touch NL. reflexes : 2+ knee jerk and biceps b/l . Breast exam: L breast solid mass measuring 2x2 cm at 2 Oclock. with 3x2 cm Lymph node in L axilla . no discharge form nipple . no masses in R breast. ASSESSMENT AND PLAN: 60 y/o lady with h/o Breast cancer s/p lumpectomy who presented with L facial asymmetry . 1- L upper and lower facial droop, which is due to peripheral CNVII injury. Likely due to metastatic disease given MRI findings . unlikely HSV infection . - cont steroids - cont valcyclovir empirically - systemic chemo/intrathecal chemo - LP today , will follow results . send for cyto 2-Breast cancer , with mass in L breast and LAP in L axilla . mets to meninges - appreciate Onc help - systemic and intrathecal chemo 3- leukocytosis : likely due to steroids . no evidence of infection urine with 20 WBC but no urinary sx . monitor dispo " HLOC
[2016-03-18] MEDS: DEXAMETHASONE 4 MG TABLET (FP) PO SCH ×2 (16:40→22:18)
[2016-03-19] MEDS: DEXAMETHASONE 4 MG TABLET (FP) PO SCH ×3 (06:37→21:10)
[2016-03-19 08:31] LABS: MCH 26.8 pg (25.7-33.7); MCHC 32.3 g/dl (32.0-36.0); MEAN CELL VOLUME 82.9 fl (80-96); MEAN PLT VOLUME 6.9 fl (7.5-11.1); PLATELET COUNT 518 K/MM3 (134-434); WHITE BLOOD COUNT 22.4 K/mm3 (4.0-10.0)
[2016-03-19 08:50] LABS: CALCIUM 8.8 mg/dL (8.5-10.1); CREATININE 0.5 mg/dL (0.55-1.02)
[2016-03-19] MEDS ORDERED: PT OWN MED DRAWER 7, Y5N ONE ×2 (09:47→20:12)
[2016-03-19] MEDS: ARTIFICIAL TEARS (POLYVINYL ALCOHOL 1.4%) OPTH DROPS OS SCH ×4 (09:51→21:11)
[2016-03-19] MEDS: LEUCOVORIN CALCIUM 5 MG TABLET PO SCH ×2 (09:52→21:12)
[2016-03-19] MEDS: valACYclovir HCL 500 MG TABLET (FP) PO SCH ×2 (09:53→21:10)
[2016-03-19] MEDS: PANTOPRAZOLE 40 MG TABLET (FP) PO SCH (09:53)
--- NOTE | 2016-03-19 12:34 | PATH ---
Cytology Non-Gynecological Report Patient Name: TWIN TOTH Med. Rec. #: [id number] /Age/Gender: 1955 (Age: 60) / F Account: [id number] Location: [facility] MED/SURG Taken: 03/18/2016 Received: 03/18/2016 Reported: 03/19/2016 Physicians: Yaa Seals M.D. Specimen(s) Received CEREBRAL SPINAL FLUID Clinical History Meningitis carcinomatosis Final Diagnosis CSF FOR CYTOLOGY: SATISFACTORY FOR EVALUATION. BENIGN (NO MALIGNANT CELLS IDENTIFIED). HYPOCELLULAR SPECIMEN WITH SCANT LYMPHOCYTES AND RED BLOOD CELLS PRESENT. Comment: Recommend correlation with clinical and radiologic findings and follow up as clinically indicated. Electronically Signed Prince Howell M.D. Gross Description Approximately 4 cc of yellow fluid received fresh. Four cytofunnels prepared (3 pap and 1 diff-quik).
--- NOTE | 2016-03-19 13:52 | PN ---
Teaching Attending Note Name of Resident: Susan Ortega ATTENDING PHYSICIAN STATEMENT I saw and evaluated the patient. I reviewed the resident's note and discussed the case with the resident. I agree with the resident's findings and plan as documented. SUBJECTIVE: no fever or chills, no Abd pain , no new weakness or tingling . OBJECTIVE: NAD CV: RRR, no MRG Lungs : CATB Ext : no edema or erythema Neuro : L lower facial droop, can't close L eye completely , flat fore head. unable to elevate L eye brow. nl sensation of the face.EOMI, round equal pupils , tongue at mid line . and reactive to light . strength 5/5 in upper and lower ext proximally and distally, sensation to light touch NL. reflexes : 1+ knee jerk and 2+ biceps b/l . ASSESSMENT AND PLAN: 60 y/o lady with h/o Breast cancer s/p lumpectomy who presented with L facial asymmetry . 1- L upper and lower facial droop, which is due to peripheral CNVII injury. Likely due to metastatic disease given MRI findings . unlikely HSV infection . - cont steroids - cont valcyclovir empirically - systemic chemo/intrathecal chemo - CSF analysis reviewed, no evidence of infection . Cytology pending 2-Breast cancer , with mass in L breast and LAP in L axilla . mets to meninges - appreciate Onc help - systemic and intrathecal chemo 3- leukocytosis : likely due to steroids . no evidence of infection urine with 20 WBC but no urinary sx . monitor dispo : HLOC
--- NOTE | 2016-03-19 15:29 | PN ---
Physical Exam: SUBJECTIVE: Patient seen and examined. She denies numbness, paresthesias, weakness, balance problems. OBJECTIVE: Vital Signs Period Temp Pulse Resp BP Sys/Mulligan Pulse Ox Last 24 Hr 97.5 F-98.7 F 59-69 18-18 125-149/74-94 98 GENERAL: The patient is awake, alert, and fully oriented, in no acute distress. HEAD: Normal with no signs of trauma. EYES: PERRL, extraocular movements intact, sclera anicteric, conjunctiva clear. Left eye:difficulty closing. ENT: oropharynx clear without exudates, moist mucous membranes. NECK: full range of motion, supple. LUNGS: Breath sounds equal, clear to auscultation bilaterally, no wheezes, no crackles, no accessory muscle use. HEART: Regular rate and rhythm, S1, S2 without murmur, rub or gallop. ABDOMEN: Soft, nontender, nondistended, normoactive bowel sounds, no guarding, no rebound. EXTREMITIES: no edema. NEUROLOGICAL: CN VII; left sided paralysis, no nasolabial fold on left side. CN 2-6, 8-12 intact. Normal speech, gait not observed. Motor; normal 5/5 in all4 extremities, Sensation: no changes to light touch. DTRs intact: biceps and knee. Romberg negative. PSYCH: Normal mood, normal affect. SKIN: Warm, dry, normal turgor, no rashes or lesions noted Laboratory Results - last 24 hr 03/18/16 03/19/16 03/19/16 15:15 08:10 08:10 WBC 22.4 H RBC 3.61 Hgb 9.7 L Hct 30.0 L MCV 82.9 MCHC 32.3 RDW 21.0 H Plt Count 518 H MPV 6.9 L Sodium 137 Potassium 4.0 Chloride 100 Carbon Dioxide 27 D Anion Gap 10 BUN 13 D Creatinine 0.5 L D Random Glucose 89 Calcium 8.8 CSF Appearance Clear CSF Color Colorless CSF WBC 0 CSF RBC 14 CSF Neutrophils Y CSF Glucose 65 CSF Total Protein 26 Active Medications Generic Name Dose Route Start Last Admin Trade Name Freq PRN Reason Stop Dose Admin Artificial Tears 1 drop 03/16/16 14:00 03/19/16 09:51 Artificial Tears OS 1 drop QID CYNTHIA Administration Dexamethasone 4 mg 03/18/16 15:30 03/19/16 06:37 Decadron - PO 4 mg TID CYNTHIA Administration Leucovorin Calcium 10 mg 03/19/16 10:00 03/19/16 09:52 Leucovorin - PO 03/20/16 22:01 10 mg BID CYNTHIA Administration Pantoprazole Sodium 40 mg 03/14/16 10:00 03/19/16 09:53 Protonix - PO 40 mg DAILY CYNTHIA Administration Valacyclovir HCl 500 mg 03/15/16 12:00 03/19/16 09:53 Valtrex - PO 500 mg BID CYNTHIA Administration MRI brain- L lateral lisa-medullary 7-8 mm ring enhancing lesion; ? minimal basal meningeal enhancement CT head: no acute pathology. ASSESSMENT/PLAN: The pt is a 60 year old female with PMH of metastatic breast cancer, HTN who presents to the hospital referred from Oncologist office- Dr. Mon. She noticed the facial asymmetry 2 days ago. Admitted to med surg for left face drooping. Left sided face paralysis: -possibly due to mets to the brain, LP results: CSF cell count and cytology nl. MTX injections done as well, Leucovorin started. 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 -Neurosurgeon was consulted Dr.Tom Schmidt. Microsurgery vs. whole brain XT vs gamma knife for L lisa-medullary cistern lesion are recommended. -consulted IR, -f/u Oncology consultation; the pt is well known to Dr. Mon. I called her, she will start new chemotherapy;Xeloda. -steroids 4mg IVPB Q6h, will continue -cont. Protonix Leucotytosis: -increased over the course of hospitalization to 22.4. -due to steroids, no sign of infection Mild dehydration; -IVF stopped -f/u BMP HTN: -no ambulatory medications F/E/N: NS/No changes/Regular Disposition: Med surg, possible discharge tomorrow Problem List - Problems (1) Breast cancer metastasized to multiple sites Code(s): C50.919 - MALIGNANT NEOPLASM OF UNSP SITE OF UNSPECIFIED FEMALE BREAST Qualifiers: Laterality: left Qualified Code(s): C50.912 - Malignant neoplasm of unspecified site of left female breast (2) Facial droop Code(s): R29.810 - FACIAL WEAKNESS (3) Dehydration, mild Code(s): E86.0 - DEHYDRATION (4) Depression (emotion) Code(s): F32.9 - MAJOR DEPRESSIVE DISORDER, SINGLE EPISODE, UNSPECIFIED Visit type - Emergency Visit Emergency Visit: Yes ED Registration Date: 03/13/16 Care time: The patient presented to the Emergency Department on the above date and was hospitalized for further evaluation of their emergent condition. - New Patient This patient is new to me today: No - Critical Care Critical Care patient: No - Discharge Referral Referred to [facility] Med P.C.: No
--- NOTE | 2016-03-19 19:36 | PN ---
Progress Note (short form) - Note Progress Note: NEUROSURGERY Care d/w Dr Carmen S/p LP for cytology and IT MTX PE: AF, VSS Speech/mentation normal CN- EOMF, L facial droop, unable to close L eye completely; mild L V2-V3 paresthesia Motor- 5/5 without drift Sensation- intact LT MRI- L lateral lisa-medullary 7-8 mm ring enhancing lesion; ? 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
--- NOTE | 2016-03-19 23:23 | PN ---
Progress Note (short form) - Note Progress Note: PAtient seen and examined Lt. facial droop persistent. slightly improved afvss Cor: RSR, No murmurs, No gallops Lungs: Clear to P&A Abd: Soft, Normal bowel sounds, No organomegaly Ext:No significant edema Skin: No rashes, Integument intact Current Medications Artificial Tears (Artificial Tears) 1 drop OS QID [facility] Last Admin: 03/19/16 21:11 Dose: 1 drop Dexamethasone (Decadron -) 4 mg PO TID [facility] Last Admin: 03/20/16 06:21 Dose: 4 mg Leucovorin Calcium (Leucovorin -) 10 mg PO BID [facility] Stop: 03/20/16 22:01 Last Admin: 03/19/16 21:12 Dose: 10 mg Pantoprazole Sodium (Protonix -) 40 mg PO DAILY [facility] Last Admin: 03/19/16 09:53 Dose: 40 mg Valacyclovir HCl (Valtrex -) 500 mg PO BID [facility] Last Admin: 03/19/16 21:10 Dose: 500 mg Abnormal Lab Results 03/19/16 03/19/16 03/20/16 08:10 08:10 06:00 WBC 22.4 H 21.1 H Hgb 9.7 L 9.6 L Hct 30.0 L 30.6 L MCHC 31.3 L RDW 21.0 H 21.0 H Plt Count 518 H 529 H MPV 6.9 L 7.0 L Creatinine 0.5 L D A/P 60 y/o patient with extensive metastatic breast cancer, with left facial droop Lt. perimedullary cistern lesion --stable --? cause of symptoms concern for leptomeningeal disease based on MRI discussed with all teams--neuro surgery/neurology/rad-onc and IR on 03/16 Explained in great detail to patient about consideration for RT ? perimedullary lesion + intrathecal chemotherapy. will switch to xeloda for systemic rherapy IT MTX ---given 03/19 patient deciding about IT versus ommaya will discuss with rui-onc regarding rt to perimedullary lesion taper steroid to 4mg q12h
[2016-03-20] MEDS: DEXAMETHASONE 4 MG TABLET (FP) PO SCH (06:21)
[2016-03-20 07:42] LABS: MCH 26.4 pg (25.7-33.7); MCHC 31.3 g/dl (32.0-36.0); MEAN CELL VOLUME 84.3 fl (80-96); PLATELET COUNT 529 K/MM3 (134-434); WHITE BLOOD COUNT 21.1 K/mm3 (4.0-10.0)
--- NOTE | 2016-03-20 08:04 | PN ---
Progress Note (short form) - Note Progress Note: NEUROSURGERY Care d/w Dr Mon previously S/p LP for cytology and IT MTX; cytology pending PE: AF, VSS Speech/mentation normal CN- EOMF, L facial droop, unable to close L eye completely; mild L V2-V3 paresthesia Motor- 5/5 without drift Sensation- intact LT MRI- L lateral lisa-medullary 7-8 mm ring enhancing lesion; ? minimal basal meningeal enhancement CSF- 0 WBC 14 RBC; G/P 65/26; gram stain negative; culture pending; cytology pending Metastatic CA to brain Eye drops for OS Q6h
[2016-03-20] MEDS ORDERED: PT OWN MED DRAWER 7, Y5N ONE (09:11)
[2016-03-20] MEDS: ARTIFICIAL TEARS (POLYVINYL ALCOHOL 1.4%) OPTH DROPS OS SCH (09:53)
[2016-03-20] MEDS: LEUCOVORIN CALCIUM 5 MG TABLET PO SCH (09:53)
[2016-03-20] MEDS: valACYclovir HCL 500 MG TABLET (FP) PO SCH (09:54)
[2016-03-20] MEDS: PANTOPRAZOLE 40 MG TABLET (FP) PO SCH (09:54)
[2016-03-20] MEDS ORDERED: DEXAMETHASONE 4 MG TABLET (FP) PO SCH ×2 (10:00→18:00)
--- NOTE | 2016-03-20 13:28 | PN ---
Progress Note (short form) - Note Progress Note: Patient seen and examined Offers no complaints . No difficulty swallowing, vision improved with eye patch, no headches, nausea , emesis. No untoward effect of L.P. Last Vital Signs Temp Pulse Resp BP Pulse Ox 97.9 F 65 20 128/71 99 03/20/16 10:00 03/20/16 10:00 03/20/16 10:00 03/20/16 10:00 03/20/16 09:00 HEENT: left eye patch Oropharynx: No thrush, No mucositis, right facial Cor: RSR, No murmurs, No gallops Lungs: Clear to P&A Abd: Soft, Normal bowel sounds, No organomegaly Ext:No significant edema Skin: No rashes, Integument intact CBC, BMP 03/20/16 06:00 03/19/16 08:10 Abnormal Lab Results 03/20/16 06:00 WBC 21.1 H Hgb 9.6 L Hct 30.6 L MCHC 31.3 L RDW 21.0 H Plt Count 529 H MPV 7.0 L CSF cytology -pending Current Medications Generic Name Dose Route Start Last Admin Trade Name Freq PRN Reason Stop Dose Admin Artificial Tears 1 drop 03/16/16 14:00 03/20/16 09:53 Artificial Tears OS 1 drop QID CYNTHIA Administration Dexamethasone 4 mg 03/20/16 18:00 Decadron - PO BID@0600,1800 CYNTHIA Leucovorin Calcium 10 mg 03/19/16 10:00 03/20/16 09:53 Leucovorin - PO 03/20/16 22:01 10 mg BID CYNTHIA Administration Pantoprazole Sodium 40 mg 03/14/16 10:00 03/20/16 09:54 Protonix - PO 40 mg DAILY CYNTHIA Administration Valacyclovir HCl 500 mg 03/15/16 12:00 03/20/16 09:54 Valtrex - PO 500 mg BID CYNTHIA Administration Impression: Breast ca [employer] involvement Cortical/leptomeningeal involvement S/P LP and I.T. MTX Plan: Outpatient follow up Awaiting CSF cytology.
--- NOTE | 2016-03-20 13:58 | PN ---
Teaching Attending Note Name of Resident: Susan Ortega ATTENDING PHYSICIAN STATEMENT I saw and evaluated the patient. I reviewed the resident's note and discussed the case with the resident. I agree with the resident's findings and plan as documented. SUBJECTIVE: no fever or chills, no abd pain , no weakness or numbness in limbs . no new weakness in face OBJECTIVE: NAD CV: RRR, no MRG Lungs : CATB Ext : no edema or erythema Neuro : L lower facial droop, can't close L eye completely , flat fore head. unable to elevate L eye brow. nl sensation of the face.EOMI, round equal pupils , tongue at mid line . and reactive to light . strength 5/5 in upper and lower ext proximally and distally, sensation to light touch NL. reflexes : 1+ knee jerk and 2+ biceps b/l . ASSESSMENT AND PLAN: 60 y/o lady with h/o Breast cancer s/p lumpectomy who presented with L facial asymmetry . 1- L upper and lower facial droop, which is due to peripheral CNVII injury. Likely due to metastatic disease given MRI findings . less likely HSV infection . - cont steroids . orally at dc . to be tapered by ONC - cont valcyclovir empirically fro total of 10 days - systemic chemo/intrathecal chemo -CSF cytology prelim report , Neg for malignancy . final to be followed 2-Breast cancer , with mass in L breast and LAP in L axilla . mets to meninges - appreciate Onc help - systemic and intrathecal chemo 3- leukocytosis : likely due to steroids . no evidence of infection monitor as outpt dispo : sd home today
[2016-03-20 14:51] VITALS: BP 136/69; PULSE 68; TEMP 98.8
--- NOTE | 2016-03-20 17:41 | DS ---
Physical Exam: SUBJECTIVE: Patient seen and examined. The pt is feeling good today. She denies numbness, dizziness, balance problems. OBJECTIVE: Vital Signs Period Temp Pulse Resp BP Sys/Mulligan Pulse Ox Last 24 Hr 97.9 F-98.8 F 65-72 16-20 125-136/63-72 99-99 PHYSICAL EXAM GENERAL: The patient is awake, alert, and fully oriented, in no acute distress. HEAD: Normal with no signs of trauma. EYES: PERRL, extraocular movements intact, sclera anicteric, conjunctiva clear. Left eye:difficulty closing. ENT: oropharynx clear without exudates, moist mucous membranes. NECK: full range of motion, supple. LUNGS: Breath sounds equal, clear to auscultation bilaterally, no wheezes, no crackles, no accessory muscle use. HEART: Regular rate and rhythm, S1, S2 without murmur, rub or gallop. ABDOMEN: Soft, nontender, nondistended, normoactive bowel sounds, no guarding, no rebound. EXTREMITIES: no edema. NEUROLOGICAL: CN VII; left sided paralysis, no nasolabial fold on left side. CN 2-6, 8-12 intact. Normal speech, gait not observed. Motor; normal 5/5 in all4 extremities, Sensation: no changes to light touch. DTRs intact: biceps and knee. Romberg negative. PSYCH: Normal mood, normal affect. SKIN: Warm, dry, normal turgor, no rashes or lesions noted LABS Laboratory Results - last 24 hr 03/20/16 06:00 WBC 21.1 H RBC 3.64 Hgb 9.6 L Hct 30.6 L MCV 84.3 MCHC 31.3 L RDW 21.0 H Plt Count 529 H MPV 7.0 L HOSPITAL COURSE: Date of Admission:03/13/16 Date of Discharge: 03/20/16 Minutes to complete discharge: 50 Discharge Summary Reason For Visit: CARCINOMA OF BREAST TO MULTIPLE SITES, FACIAL WEAK Hospital Course: The pt is a 60 year old female with PMH of metastatic breast cancer, HTN who presents to the hospital referred from Oncologist office- Dr. Mon. She noticed the facial asymmetry 2 days ago. On that day she was scheduled to start new chemotherapy treatment. After getting that she was seen by her physician and referred to the hospital. She is also complaining of lower lip numbness. The pt states that for the past several weeks she didn't have appetite and noticed loosing some weight. She denies having headache, vision changes, fever, chills, paresthesias, balance problems, weakness. She denies chest pain, SOB, cough, palpitations, dysuria, increased frequency, urgency. Hospital course:Left sided face paralysis due to mets to the brain, LP cytology and cell count was nl. Ct no acute pathology. As per neurology recommendation, started Valacyclovir. MRI shows increased leptomeningeal enhancement suggesting that her new neurology is attributable to progression of her disease, vs a benign Garner's palsy. Neurosurgeon was consulted Dr.Tom Schmidt, no surgery recommended now. Oncology consultated. Will f/u as outpatient, continue steroids and Valacyclovir. Condition: Improved - Instructions Diet, Activity, Other Instructions: Please see Oncologist and your primary care doctor within a week. Take your medications everyday. Please put eye drops on your left eye and gauze at night to prevent drying of your eye. If you have weakness, numbness, problems with swallowing, blurred vision, balance problems, bleeding, come to Emergency Room as soon as possible. TAke dexamethasone and valacyclovir as prescribed Blood work in 1 week to be faxed to Dr. Lopez Referrals: Dat Linder MD [Primary Care Provider] - 1 Week Dave Schmidt MD [Staff Physician] - 1 Week Yaa Seals MD [Staff Physician] - 1 Week Disposition: HOME - Home Medications Comprehensive Discharge Medication List: Ambulatory Orders Dexamethasone [Decadron -] 4 mg PO BID #30 tablet 03/20/16 Leucovorin - 10 mg PO BID #30 tablet 03/20/16 Miscellaneous Drug Not In Syst [Outpatient Lab Test] 1 each ASDIR #1 misc 11/24 Polyvinyl Alcohol [Artificial Tears] 1 drop OS QID #1 drops 03/20/16 Valacyclovir HCl [Valtrex -] 500 mg PO BID #8 tablet 03/20/16 Problem List - Problems (1) Breast cancer metastasized to multiple sites Code(s): C50.919 - MALIGNANT NEOPLASM OF UNSP SITE OF UNSPECIFIED FEMALE BREAST Qualifiers: Laterality: left Qualified Code(s): C50.912 - Malignant neoplasm of unspecified site of left female breast (2) Facial droop Code(s): R29.810 - FACIAL WEAKNESS (3) Dehydration, mild Code(s): E86.0 - DEHYDRATION This patient is new to me today: No Emergency Visit: Yes ED Registration Date: 03/13/16 Care time: The patient presented to the Emergency Department on the above date and was hospitalized for further evaluation of their emergent condition. Critical Care patient: No - Discharge Referral Referred to [facility] Med P.C.: No
== END 2016-03-20 17:15 | disposition home or self-care (01) | DRG 55 ==
LOC: JER 10:44 → JERBED 15:49 → J7W 18:08
PROVIDERS: ADMIT Internal Medicine; ATTEND Internal Medicine
PROC: 009U3ZX Drainage of Spinal Canal, Percutaneous Approach, Diagnostic (ICD-10-PCS; principal; 2016-03-18)
PROC: B01BZZZ Fluoroscopy of Spinal Cord (ICD-10-PCS; 2016-03-18)
DX: C79.31 Secondary malignant neoplasm of brain (principal); K51.80 Other ulcerative colitis without complications; C50.919 Malignant neoplasm of unspecified site of unspecified female breast; I10 Essential (primary) hypertension; F32.9 Major depressive disorder, single episode, unspecified; E86.0 Dehydration; E83.52 Hypercalcemia; G51.0 Bell's palsy; Z87.891 Personal history of nicotine dependence
CPT/HCPCS: 36415; 62272; 70450-TC; 70553-TC; 72156-TC; 72157-TC; 72158-TC; 76000-TC; 76098-TC; 80048; 80053; 81003; 81015; 82945; 84157; 85025; 85027; 85610; 85730; 87040; 87070; 87205; 87899; 88108; 89050; 93005; 93010; 99285-25; A9576; C1887

== ENCOUNTER 2016-04-02 06:20 | Day surgery (SDC) | payer OTHER ==
[2016-04-02] MEDS ORDERED: ZOLEDRONIC ACID 4 MG in SODIUM CHLORIDE 100 ML IVPB ONE (08:00)
[2016-04-02 11:22] LABS: MCH 27.9 pg (25.7-33.7); MCHC 32.2 g/dl (32.0-36.0); MEAN CELL VOLUME 86.5 fl (80-96); MEAN PLT VOLUME 7.3 fl (7.5-11.1)
[2016-04-02 11:45] LABS: ALBUMIN 2.6 g/dl (3.4-5.0); ALK PHOS 750 U/L (45-117); ANION GAP 12 (8-16); BILIRUBIN,TOTAL 0.9 mg/dL (0.2-1.0); CALCIUM 8.1 mg/dL (8.5-10.1); CO2 22 mmol/L (21-32); CREATININE 0.5 mg/dL (0.55-1.02); GLUCOSE,RANDOM 70 mg/dL (74-106); SGOT/AST 23 U/L (15-37); SGPT/ALT 15 U/L (12-78); TOT PROT 5.8 g/dl (6.4-8.2)
[2016-04-02] MEDS ORDERED: SODIUM CHLORIDE 1,000 ML IV SCH (12:45)
[2016-04-02 13:30] LABS: ANISOCYTOSIS 3+; HYPOCHROMIA 2+; PLATELET ESTIMATE ADEQUATE (NORMAL); POIKILOCYTOSIS 2+
[2016-04-02 13:31] LABS: MICROCYTOSIS 1+; OVALOCYTES 1+; TEAR DROP CELLS 1+
[2016-04-02 16:55] VITALS: BP 111/62; PULSE 81; TEMP 98.2; BMI 25.5
== END 2016-04-02 08:00 | disposition home or self-care (01) ==
LOC: JONCCHEMO 06:20 → J7W 11:22
PROVIDERS: ATTEND Internal Medicine Hematology & Oncology
PROC: 3E03305 Introduction of Other Antineoplastic into Peripheral Vein, Percutaneous Approach (ICD-10-PCS; principal; 2016-04-02)
PROC: 3E0337Z Introduction of Electrolytic and Water Balance Substance into Peripheral Vein, Percutaneous Approach (ICD-10-PCS; 2016-04-02)
DX: Z51.11 Encounter for antineoplastic chemotherapy (principal); C50.412 Malignant neoplasm of upper-outer quadrant of left female breast
CPT/HCPCS: 36415; 80053; 85025; 96361; 96368; 96413; 96417; J3489

== ENCOUNTER 2016-04-30 07:00 | Day surgery (SDC) | payer OTHER ==
[2016-04-30] MEDS ORDERED: ZOLEDRONIC ACID 4 MG in SODIUM CHLORIDE 100 ML IVPB ONE (08:00)
[2016-04-30 10:41] LABS: MCH 30.8 pg (25.7-33.7); MCHC 32.2 g/dl (32.0-36.0); MEAN CELL VOLUME 95.6 fl (80-96); MEAN PLT VOLUME 7.4 fl (7.5-11.1); PLATELET COUNT 218 K/MM3 (134-434); RDW 30.2 % (11.6-15.6); WHITE BLOOD COUNT 6.5 K/mm3 (4.0-10.0)
[2016-04-30 11:14] LABS: ALBUMIN 2.6 g/dl (3.4-5.0); ANION GAP 11 (8-16); CALCIUM 8.5 mg/dL (8.5-10.1); CO2 20 mmol/L (21-32); CREATININE 0.5 mg/dL (0.55-1.02); GLUCOSE,RANDOM 97 mg/dL (74-106); MAGNESIUM 2.4 mg/dL (1.8-2.4); SGOT/AST 30 U/L (15-37); SGPT/ALT 18 U/L (12-78); TOT PROT 5.7 g/dl (6.4-8.2)
[2016-04-30 11:16] LABS: BILIRUBIN,DIRECT < 0.1 mg/dL (0.0-0.2); BILIRUBIN,TOTAL 0.5 mg/dL (0.2-1.0)
[2016-04-30 12:09] LABS: METAMYELOCYTE 1 % (0-2)
[2016-04-30 12:13] LABS: PLATELET ESTIMATE ADEQUATE (NORMAL)
[2016-04-30 12:14] LABS: ANISOCYTOSIS 3+; HYPOCHROMIA 1+; MICROCYTOSIS 2+; POLYCHROMASIA 1+; TEAR DROP CELLS 1+
[2016-04-30 12:23] LABS: ALK PHOS 1409 U/L (45-117)
[2016-04-30 14:30] VITALS: TEMP 97.7
[2016-04-30 14:32] VITALS: BP 125/60; PULSE 90
[2016-04-30] MEDS ORDERED: PORTA CATH FLUSH 10 ML IVPUSH ONE (14:32)
== END 2016-04-30 12:00 | disposition home or self-care (01) ==
LOC: JONCCHEMO 07:00 → J7W 11:00 → JONCCHEMO 12:00
PROVIDERS: ATTEND Internal Medicine Hematology & Oncology
DX: C50.412 Malignant neoplasm of upper-outer quadrant of left female breast (principal)
CPT/HCPCS: 96365; J3489; 36415; 80053; 80076; 83735; 85025

== ENCOUNTER 2016-05-28 07:11 | Day surgery (SDC) | payer OTHER ==
[2016-05-28] MEDS ORDERED: ZOLEDRONIC ACID 4 MG in SODIUM CHLORIDE 100 ML IVPB ONE (08:00)
[2016-05-28 10:12] LABS: BASOPHIL 1.1 % (0-2.0); EOSINOPHIL 1.8 % (0-4.5); MCH 31.6 pg (25.7-33.7); MCHC 33.3 g/dl (32.0-36.0); MEAN PLT VOLUME 7.3 fl (7.5-11.1); NEUTROPHILS 52.4 % (42.8-82.8); PLATELET COUNT 199 K/MM3 (134-434); RDW 23.9 % (11.6-15.6); WHITE BLOOD COUNT 4.3 K/mm3 (4.0-10.0)
[2016-05-28 11:20] VITALS: BP 124/69; PULSE 81; TEMP 98.9
[2016-05-28 11:30] LABS: ALBUMIN 2.8 g/dl (3.4-5.0); ANION GAP 7 (8-16); CALCIUM 8.5 mg/dL (8.5-10.1); CO2 23 mmol/L (21-32); CREATININE 0.4 mg/dL (0.55-1.02); GLUCOSE,RANDOM 83 mg/dL (74-106); MAGNESIUM 2.4 mg/dL (1.8-2.4); SGPT/ALT 15 U/L (12-78); TOT PROT 5.7 g/dl (6.4-8.2)
[2016-05-28 11:32] LABS: SGOT/AST 25 U/L (15-37)
[2016-05-28 11:35] LABS: BILIRUBIN,TOTAL 0.5 mg/dL (0.2-1.0)
[2016-05-28 11:56] LABS: ALK PHOS 105 U/L (45-117)
== END 2016-05-28 18:58 | disposition home or self-care (01) ==
LOC: JONCCHEMO 07:11 → J7W 10:39 → JONCCHEMO 18:58
PROVIDERS: ATTEND Internal Medicine Hematology & Oncology
PROC: 3E033GC Introduction of Other Therapeutic Substance into Peripheral Vein, Percutaneous Approach (ICD-10-PCS; principal; 2016-05-28)
DX: C50.412 Malignant neoplasm of upper-outer quadrant of left female breast (principal)
CPT/HCPCS: 96365; J3489; 36415; 80053; 83735; 85025

== ENCOUNTER 2016-06-25 07:38 | Day surgery (SDC) | payer OTHER ==
[2016-06-25] MEDS ORDERED: ZOLEDRONIC ACID 4 MG in SODIUM CHLORIDE 100 ML IVPB ONE (08:00)
[2016-06-25 11:10] LABS: MCH 30.9 pg (25.7-33.7); MCHC 33.1 g/dl (32.0-36.0); MEAN CELL VOLUME 93.3 fl (80-96); MEAN PLT VOLUME 6.9 fl (7.5-11.1); PLATELET COUNT 259 K/MM3 (134-434); RDW 20.5 % (11.6-15.6); WHITE BLOOD COUNT 4.5 K/mm3 (4.0-10.0)
[2016-06-25 11:31] LABS: ANION GAP 10 (8-16); BILIRUBIN,TOTAL 0.5 mg/dL (0.2-1.0); CO2 24 mmol/L (21-32); COCKROFT - GAULT 140.5305; CREATININE 0.5 mg/dL (0.55-1.02); GLUCOSE,RANDOM 83 mg/dL (74-106); MAGNESIUM 2.4 mg/dL (1.8-2.4); SGOT/AST 23 U/L (15-37); SGPT/ALT 9 U/L (12-78); TOT PROT 6.3 g/dl (6.4-8.2)
[2016-06-25 11:43] LABS: ALK PHOS 945 U/L (45-117)
[2016-06-25 12:18] VITALS: PULSE 81
[2016-06-25] MEDS ORDERED: PORTA CATH FLUSH 10 ML IVPUSH ONE (13:18)
[2016-06-25 13:30] VITALS: BP 120/74; TEMP 98.7
[2016-06-25 14:38] LABS: METAMYELOCYTE 1 % (0-2); PLATELET ESTIMATE ADEQUATE (NORMAL)
== END 2016-06-25 14:01 | disposition home or self-care (01) ==
LOC: JONCCHEMO 07:38 → J7W 12:03 → JONCCHEMO 14:01
PROVIDERS: ATTEND Internal Medicine Hematology & Oncology
PROC: 3E033GC Introduction of Other Therapeutic Substance into Peripheral Vein, Percutaneous Approach (ICD-10-PCS; principal; 2016-06-25)
DX: C79.51 Secondary malignant neoplasm of bone (principal)
CPT/HCPCS: 36415; 80053; 83735; 85025; 96365; J3489

== ENCOUNTER 2016-07-23 07:39 | Day surgery (SDC) | payer OTHER ==
[2016-07-23] MEDS ORDERED: ZOLEDRONIC ACID 4 MG in SODIUM CHLORIDE 100 ML IVPB ONE (10:00)
[2016-07-23 10:33] LABS: MCHC 32.2 g/dl (32.0-36.0); MEAN CELL VOLUME 93.1 fl (80-96); MEAN PLT VOLUME 6.4 fl (7.5-11.1); PLATELET COUNT 296 K/MM3 (134-434); RDW 19.8 % (11.6-15.6); WHITE BLOOD COUNT 5.2 K/mm3 (4.0-10.0)
[2016-07-23 11:27] LABS: COCKROFT - GAULT 117.1045; CREATININE 0.6 mg/dL (0.55-1.02); GLUCOSE,RANDOM 87 mg/dL (74-106)
[2016-07-23] MEDS ORDERED: PORTA CATH FLUSH 10 ML IVPUSH ONE (11:27)
[2016-07-23 11:28] LABS: ALBUMIN 2.6 g/dl (3.4-5.0); ANION GAP 9 (8-16); BILIRUBIN,TOTAL 0.4 mg/dL (0.2-1.0); CALCIUM 8.8 mg/dL (8.5-10.1); CO2 25 mmol/L (21-32); MAGNESIUM 2.4 mg/dL (1.8-2.4); SGOT/AST 21 U/L (15-37); SGPT/ALT 8 U/L (12-78); TOT PROT 6.5 g/dl (6.4-8.2)
[2016-07-23 11:29] LABS: ALK PHOS 856 U/L (45-117)
[2016-07-23 11:37] LABS: HYPOCHROMIA 2+; METAMYELOCYTE 3 % (0-2); PLATELET ESTIMATE ADEQUATE (NORMAL); POLYCHROMASIA 1+
[2016-07-23 11:38] LABS: ANISOCYTOSIS 1+; TEAR DROP CELLS 2+
[2016-07-23 12:07] LABS: BILIRUBIN,DIRECT 0.1 mg/dL (0.0-0.2)
[2016-07-23 13:14] VITALS: BP 102/62; PULSE 83; TEMP 98.4
== END 2016-07-23 13:35 | disposition home or self-care (01) ==
LOC: JONCCHEMO 07:39 → J7W 10:55 → JONCCHEMO 13:35
PROVIDERS: ATTEND Internal Medicine Hematology & Oncology
PROC: 3E033GC Introduction of Other Therapeutic Substance into Peripheral Vein, Percutaneous Approach (ICD-10-PCS; principal; 2016-07-23)
DX: C50.919 Malignant neoplasm of unspecified site of unspecified female breast (principal); C79.51 Secondary malignant neoplasm of bone
CPT/HCPCS: 36415; 80053; 80076; 83735; 85025; 96365; 96417; J3489

== ENCOUNTER 2016-08-20 07:28 | Day surgery (SDC) | payer OTHER ==
[2016-08-20] MEDS ORDERED: ZOLEDRONIC ACID 4 MG in SODIUM CHLORIDE 100 ML IVPB ONE (08:00)
[2016-08-20 11:46] VITALS: PULSE 86
[2016-08-20] MEDS ORDERED: PORTA CATH FLUSH 10 ML IVPUSH ONE (11:46)
[2016-08-20 12:05] LABS: MCH 29.8 pg (25.7-33.7); MCHC 33.1 g/dl (32.0-36.0); MEAN CELL VOLUME 90.1 fl (80-96); MEAN PLT VOLUME 6.4 fl (7.5-11.1); PLATELET COUNT 325 K/MM3 (134-434); RDW 21.4 % (11.6-15.6); WHITE BLOOD COUNT 3.2 K/mm3 (4.0-10.0)
[2016-08-20 12:32] LABS: ALBUMIN 2.9 g/dl (3.4-5.0); ANION GAP 8 (8-16); BILIRUBIN,TOTAL 0.7 mg/dL (0.2-1.0); CALCIUM 8.9 mg/dL (8.5-10.1); CO2 23 mmol/L (21-32); CREATININE 0.6 mg/dL (0.55-1.02); GLUCOSE,RANDOM 79 mg/dL (74-106); SGOT/AST 21 U/L (15-37); SGPT/ALT 7 U/L (12-78); TOT PROT 6.6 g/dl (6.4-8.2)
[2016-08-20 12:33] LABS: ALK PHOS 833 U/L (45-117)
[2016-08-20] MEDS ORDERED: ACETAMINOPHEN 325 MG TABLET (FP) PO ONE (12:45)
[2016-08-20 13:33] VITALS: BP 103/60; TEMP 98.6
== END 2016-08-20 14:48 | disposition home or self-care (01) ==
LOC: JONCCHEMO 07:28 → J7W 11:30 → JONCCHEMO 14:48
PROVIDERS: ATTEND Internal Medicine Hematology & Oncology
PROC: 3E033GC Introduction of Other Therapeutic Substance into Peripheral Vein, Percutaneous Approach (ICD-10-PCS; principal; 2016-08-20)
DX: C50.919 Malignant neoplasm of unspecified site of unspecified female breast (principal); C79.51 Secondary malignant neoplasm of bone
CPT/HCPCS: 36415; 80053; 85027; 96365; 96417; J3489

== ENCOUNTER 2016-09-17 07:40 | Day surgery (SDC) | payer OTHER ==
[2016-09-17 09:52] LABS: BASOPHIL 0.4 % (0-2.0); EOSINOPHIL 1.2 % (0-4.5); MCH 28.8 pg (25.7-33.7); MCHC 32.3 g/dl (32.0-36.0); MEAN CELL VOLUME 89.1 fl (80-96); MEAN PLT VOLUME 6.3 fl (7.5-11.1); NEUTROPHILS 48.5 % (42.8-82.8); PLATELET COUNT 413 K/MM3 (134-434)
[2016-09-17] MEDS ORDERED: ZOLEDRONIC ACID 4 MG in SODIUM CHLORIDE 100 ML IVPB ONE (10:00)
[2016-09-17 10:18] LABS: ALK PHOS 853 U/L (45-117); ANION GAP 9 (8-16); BILIRUBIN,DIRECT 0.2 mg/dL (0.0-0.2); BILIRUBIN,TOTAL 0.8 mg/dL (0.2-1.0); CALCIUM 9.3 mg/dL (8.5-10.1); CO2 24 mmol/L (21-32); CREATININE 0.6 mg/dL (0.55-1.02); GLUCOSE,RANDOM 87 mg/dL (74-106); MAGNESIUM 2.3 mg/dL (1.8-2.4); SGOT/AST 17 U/L (15-37); SGPT/ALT 7 U/L (12-78); TOT PROT 6.9 g/dl (6.4-8.2)
[2016-09-17] MEDS ORDERED: SODIUM CHLORIDE 1,000 ML IV SCH (11:45)
[2016-09-17] MEDS ORDERED: ACETAMINOPHEN 325 MG TABLET (FP) PO ONE (12:28)
[2016-09-17 14:44] VITALS: BP 122/79; PULSE 98; TEMP 98.8
== END 2016-09-17 15:20 | disposition home or self-care (01) ==
LOC: JONCCHEMO 07:40 → J7W 11:20 → JONCCHEMO 15:20
PROVIDERS: ATTEND Internal Medicine Hematology & Oncology
PROC: 3E033GC Introduction of Other Therapeutic Substance into Peripheral Vein, Percutaneous Approach (ICD-10-PCS; principal; 2016-09-17)
PROC: 3E0337Z Introduction of Electrolytic and Water Balance Substance into Peripheral Vein, Percutaneous Approach (ICD-10-PCS; 2016-09-17)
DX: C50.519 Malignant neoplasm of lower-outer quadrant of unspecified female breast (principal); C79.51 Secondary malignant neoplasm of bone
CPT/HCPCS: 36415; 80053; 80076; 83735; 85025; 96361; 96365; 96366; 96417; J3489

== ENCOUNTER 2016-10-20 07:26 | Day surgery (SDC) | payer OTHER ==
[~2016-10-20 07:26] MED LIST: ZOLEDRONIC ACID 4 MG in SODIUM CHLORIDE 100 ML IVPB ONE
[2016-10-20] MEDS ORDERED: ZOLEDRONIC ACID 4 MG in SODIUM CHLORIDE 100 ML IVPB ONE (08:00)
[2016-10-20 08:53] LABS: BASOPHIL 0.5 % (0-2.0); MCH 27.6 pg (25.7-33.7); MCHC 31.8 g/dl (32.0-36.0); MEAN CELL VOLUME 86.9 fl (80-96); MEAN PLT VOLUME 6.6 fl (7.5-11.1); NEUTROPHILS 71.2 % (42.8-82.8); PLATELET COUNT 301 K/MM3 (134-434); RDW 23.2 % (11.6-15.6); WHITE BLOOD COUNT 3.1 K/mm3 (4.0-10.0)
[2016-10-20 09:19] LABS: ALBUMIN 2.5 g/dl (3.4-5.0); ALK PHOS 456 U/L (45-117); ANION GAP 12 (8-16); CALCIUM 9.4 mg/dL (8.5-10.1); CO2 23 mmol/L (21-32); CREATININE 0.8 mg/dL (0.55-1.02); GLUCOSE,RANDOM 138 mg/dL (74-106); MAGNESIUM 2.3 mg/dL (1.8-2.4); SGOT/AST 20 U/L (15-37); SGPT/ALT < 6 U/L (12-78); TOT PROT 6.6 g/dl (6.4-8.2)
[2016-10-20 09:53] LABS: BILIRUBIN,DIRECT 0.2 mg/dL (0.0-0.2)
[2016-10-20] MEDS ORDERED: SODIUM CHLORIDE 1,000 ML IV SCH (10:00)
[2016-10-20 10:31] LABS: ANISOCYTOSIS 2+; HYPOCHROMIA 2+; MACROCYTOSIS 2+
[2016-10-20 11:32] VITALS: TEMP 98.5
[2016-10-20] MEDS ORDERED: PORTA CATH FLUSH 10 ML IVPUSH ONE (11:32)
[2016-10-20 15:42] VITALS: BP 115/78; PULSE 85
== END 2016-10-20 15:51 | disposition home or self-care (01) ==
LOC: JONCCHEMO 07:26 → J7W 09:38 → JONCCHEMO 15:51
PROVIDERS: ATTEND Internal Medicine Hematology & Oncology
PROC: 3E033GC Introduction of Other Therapeutic Substance into Peripheral Vein, Percutaneous Approach (ICD-10-PCS; principal; 2016-10-20)
PROC: 3E0337Z Introduction of Electrolytic and Water Balance Substance into Peripheral Vein, Percutaneous Approach (ICD-10-PCS; 2016-10-20)
DX: C50.519 Malignant neoplasm of lower-outer quadrant of unspecified female breast (principal); C79.51 Secondary malignant neoplasm of bone
CPT/HCPCS: 36415; 80053; 80076; 83735; 85025; 96361; 96417; J3489

== ENCOUNTER 2016-10-30 12:09 | Day surgery (SDC) | payer OTHER ==
[2016-10-30 12:58] LABS: MCH 27.4 pg (25.7-33.7); MCHC 31.7 g/dl (32.0-36.0); MEAN CELL VOLUME 86.7 fl (80-96); MEAN PLT VOLUME 6.3 fl (7.5-11.1); PLATELET COUNT 296 K/MM3 (134-434); RDW 25.1 % (11.6-15.6); WHITE BLOOD COUNT 7.7 K/mm3 (4.0-10.0)
--- NOTE | 2016-10-30 13:39 | HP ---
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 Here for blood transfusion. She says she feels tired and fatigued. Also feels she has poor appetite. History Source: Patient, Medical Record Limitations to Obtaining History: No Limitations - Past Medical History Allergies/Adverse Reactions: Allergies Allergy/AdvReac Type Severity Reaction Status Date / Time No Known Allergies Allergy Verified 03/13/16 11:04 Gastrointestinal: Yes: Cancer, Ulcerative Colitis Heme/Onc: Yes: Anemia - Current Medications Current Medications: Home Medications Medication Instructions Recorded Dexamethasone [Decadron -] 4 mg PO BID #30 tablet 03/20/16 Leucovorin - 10 mg PO BID #30 tablet 03/20/16 Polyvinyl Alcohol [Artificial 1 drop OS QID #1 drops 03/20/16 Tears] Valacyclovir HCl [Valtrex -] 500 mg PO BID #8 tablet 03/20/16 [facility] Physical Exam - Physical Examination General Appearance: Well Developed, Alert & Oriented x3, Calm Lung: Clear to auscultation Heart: Regular rate & rhythm, Normal S1, Normal S2 Abdomen: Soft, No tenderness Extremities: No edema [facility]ellite Impression/Plan - Impression/Plan Impression: for 2 U PRBC. anticipated d/c in the am
[2016-10-30] MEDS ORDERED: ACETAMINOPHEN 325 MG TABLET (FP) PO ONE (18:15)
[2016-10-31] MEDS ORDERED: ONDANSETRON 4 MG/2 ML VIAL IVPB ONE (03:30)
[2016-10-31] MEDS ORDERED: ACETAMINOPHEN 325 MG TABLET (FP) PO ONE (07:10)
[2016-10-31 09:15] VITALS: BP 119/68; PULSE 97; TEMP 98.7
== END 2016-10-31 09:19 | disposition home or self-care (01) ==
LOC: JONCCHEMO 12:09 → J7W 12:10 → JONCCHEMO 10-31 09:19
PROVIDERS: ATTEND Internal Medicine Hematology & Oncology
PROC: 30233N1 Transfusion of Nonautologous Red Blood Cells into Peripheral Vein, Percutaneous Approach (ICD-10-PCS; principal; 2016-10-30)
DX: D64.9 Anemia, unspecified (principal); C50.919 Malignant neoplasm of unspecified site of unspecified female breast; C79.49 Secondary malignant neoplasm of other parts of nervous system
CPT/HCPCS: 36415; 36430; 85027; 86850; 86900; 86901; 86922; P9038; P9058

== ENCOUNTER 2016-11-17 07:40 | Day surgery (SDC) | payer OTHER ==
[2016-11-17] MEDS ORDERED: ZOLEDRONIC ACID 4 MG in SODIUM CHLORIDE 100 ML IVPB ONE (08:00)
[2016-11-17 09:19] LABS: BASOPHIL 0.4 % (0-2.0); EOSINOPHIL 0.9 % (0-4.5); MCHC 31.8 g/dl (32.0-36.0); MEAN PLT VOLUME 6.4 fl (7.5-11.1); NEUTROPHILS 58.2 % (42.8-82.8); PLATELET COUNT 293 K/MM3 (134-434); RDW 20.4 % (11.6-15.6); WHITE BLOOD COUNT 2.6 K/mm3 (4.0-10.0)
[2016-11-17 09:50] LABS: ALBUMIN 2.5 g/dl (3.4-5.0); ANION GAP 12 (8-16); BILIRUBIN,DIRECT 0.2 mg/dL (0.0-0.2); BILIRUBIN,TOTAL 0.6 mg/dL (0.2-1.0); CALCIUM 8.9 mg/dL (8.5-10.1); CO2 28 mmol/L (21-32); CREATININE 0.9 mg/dL (0.55-1.02); GLUCOSE,RANDOM 113 mg/dL (74-106); MAGNESIUM 2.6 mg/dL (1.8-2.4); SGOT/AST 80 U/L (15-37); SGPT/ALT 8 U/L (12-78)
[2016-11-17 09:51] LABS: ALK PHOS 370 U/L (45-117)
[2016-11-17] MEDS ORDERED: SODIUM CHLORIDE 1,000 ML IV SCH (11:00)
[2016-11-17] MEDS ORDERED: POTASSIUM CHLORIDE TABS 20 MEQ TABLET.ER (FP) PO ONE ×2 (11:45→15:45)
[2016-11-17] MEDS ORDERED: ACETAMINOPHEN 325 MG TABLET (FP) PO ONE (13:30)
[2016-11-17 13:47] VITALS: TEMP 98.5
[2016-11-17] MEDS ORDERED: PORTA CATH FLUSH 10 ML IVPUSH ONE (14:17)
[2016-11-17 16:23] VITALS: BP 100/59; PULSE 94
== END 2016-11-17 15:42 | disposition home or self-care (01) ==
LOC: JONCCHEMO 07:40 → J7W 10:23 → JONCCHEMO 15:42
PROVIDERS: ATTEND Internal Medicine Hematology & Oncology
PROC: 3E033GC Introduction of Other Therapeutic Substance into Peripheral Vein, Percutaneous Approach (ICD-10-PCS; principal; 2016-11-17)
DX: C50.519 Malignant neoplasm of lower-outer quadrant of unspecified female breast (principal); C79.51 Secondary malignant neoplasm of bone
CPT/HCPCS: 36415; 80053; 80076; 83735; 85025; 96361; 96417; J3489

== ENCOUNTER 2016-12-15 06:58 | Day surgery (SDC) | payer OTHER ==
[2016-12-15 09:44] LABS: MCHC 32.4 g/dl (32.0-36.0); MEAN CELL VOLUME 83.4 fl (80-96); MEAN PLT VOLUME 6.1 fl (7.5-11.1); PLATELET COUNT 336 K/MM3 (134-434); RDW 23.2 % (11.6-15.6); WHITE BLOOD COUNT 5.7 K/mm3 (4.0-10.0)
[2016-12-15] MEDS ORDERED: ZOLEDRONIC ACID 4 MG in SODIUM CHLORIDE 100 ML IVPB ONE (10:00)
[2016-12-15 10:21] LABS: ALBUMIN 2.2 g/dl (3.4-5.0); ALK PHOS 489 U/L (45-117); ANION GAP 11 (8-16); BILIRUBIN,DIRECT 0.2 mg/dL (0.0-0.2); BILIRUBIN,TOTAL 0.5 mg/dL (0.2-1.0); CALCIUM 8.7 mg/dL (8.5-10.1); CO2 25 mmol/L (21-32); CREATININE 0.7 mg/dL (0.55-1.02); GLUCOSE,RANDOM 101 mg/dL (74-106); MAGNESIUM 2.2 mg/dL (1.8-2.4); SGOT/AST 30 U/L (15-37); SGPT/ALT < 6 U/L (12-78); TOT PROT 6.7 g/dl (6.4-8.2)
[2016-12-15] MEDS ORDERED: PORTA CATH FLUSH 10 ML IVPUSH ONE (11:29)
[2016-12-15] MEDS ORDERED: SODIUM CHLORIDE 1,000 ML IV SCH (11:30)
[2016-12-15 12:50] LABS: ANISOCYTOSIS 3+; METAMYELOCYTE 2 % (0-2); MYELOCYTE 6 % (0-2); NUCLEATED RED BLOOD CELL 2 % (0-0); TOTAL CELLS COUNTED 100
[2016-12-15 12:51] LABS: MICROCYTOSIS 1+
[2016-12-15 20:58] VITALS: BP 124/66; PULSE 97; TEMP 98.6
== END 2016-12-15 21:00 | disposition home or self-care (01) ==
LOC: JONCCHEMO 06:58 → J7W 10:26 → JONCCHEMO 21:00
PROVIDERS: ATTEND Internal Medicine Hematology & Oncology
PROC: 3E033GC Introduction of Other Therapeutic Substance into Peripheral Vein, Percutaneous Approach (ICD-10-PCS; principal; 2016-12-15)
PROC: 30233N1 Transfusion of Nonautologous Red Blood Cells into Peripheral Vein, Percutaneous Approach (ICD-10-PCS; 2016-12-15)
DX: C50.519 Malignant neoplasm of lower-outer quadrant of unspecified female breast (principal); C79.51 Secondary malignant neoplasm of bone; D64.81 Anemia due to antineoplastic chemotherapy
CPT/HCPCS: 36415; 36430; 80053; 80076; 83735; 85025; 86850; 86900; 86901; 86922; 96417; J3489; P9038; P9058

== ENCOUNTER 2017-01-06 14:17 | Inpatient (IN) | payer OTHER ==
--- NOTE | 2017-01-06 14:23 | PDOC ---
Rapid Medical Evaluation Time Seen by Provider: 01/06/17 14:21 Medical Evaluation: Allergies Allergy/AdvReac Type Severity Reaction Status Date / Time No Known Allergies Allergy Verified 03/13/16 11:04 01/06/17 14:22 I have performed a brief in-person evaluation of this patient. The patient presents with a chief complaint of:sob,weakness and anorexia. H/o metastatic breast cancer on chemo, f/u with Dr Mon who referred pt to ED Pertinent physical exam findings:chronically ill appearing female w/ hypotension to 70s/40s, triage nurse unable to get temp I have ordered the following:cbc/chem/ua/ekg/cxr The patient will proceed to the ED for further evaluation. 01/06/17 14:23 01/06/17 14:25 01/06/17 14:27
--- NOTE | 2017-01-06 14:55 | PDOC ---
History of Present Illness - General Chief Complaint: Weakness Stated Complaint: Weakness Time Seen by Provider: 01/06/17 14:21 - History of Present Illness Initial Comments: 01/06/17 16:29 Ms. 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 Per she has not eaten / drinked anything for the last 2-3 days. Patient reports she has stomach pains whenever she eats and she has not made urine in at least a day or two. The patient denies chest pain, shortness of breath, headache and dizziness. Denies fever, chills, nausea, vomit, diarrhea and constipation. Denies dysuria, frequency, urgency and hematuria. Allergies: NKDA Past History - Past Medical History Allergies/Adverse Reactions: Allergies Allergy/AdvReac Type Severity Reaction Status Date / Time No Known Allergies Allergy Verified 01/06/17 14:28 Home Medications: Ambulatory Orders Amlodipine Besylate 5 mg PO DAILY 01/06/17 Capecitabine 500 mg PO ASDIR 01/06/17 Loperamide HCl [Loperamide] 2 mg PO PRN 01/06/17 Pantoprazole Sodium 40 mg PO DAILY 01/06/17 Potassium Chloride 20 meq PO ASDIR 01/06/17 Anemia: No Asthma: No Cancer: Yes (RT BREAST CA, Bone CA) Cardiac Disorders: No CVA: No COPD: No CHF: No Dementia: No Diabetes: No GI Disorders: Yes (ULCERATIVE COLITIS.) Disorders: No HTN: Yes Hypercholesterolemia: No Liver Disease: No Seizures: No Thyroid Disease: No - Surgical History Abdominal Surgery: No Appendectomy: No Cardiac Surgery: No Cholecystectomy: No Lung Surgery: No Neurologic Surgery: No Orthopedic Surgery: No - Suicide/Smoking/Psychosocial Hx Smoking Status: Yes Smoking History: Former smoker Have you smoked in the past 12 months: No Number of Cigarettes Smoked Daily: 0 If you are a former smoker, when did you quit?: 15 YRS Information on smoking cessation initiated: No 'Breaking Loose' booklet given: 07/09/15 Hx Alcohol Use: No Drug/Substance Use Hx: No Substance Use Type: None Hx Substance Use Treatment: No Review of Systems - Review of Systems Comments:: 01/06/17 16:32 GENERAL/CONSTITUTIONAL: +Generalized weakness as described. HEAD, EYES, EARS, NOSE AND THROAT: No change in vision. No ear pain or discharge. No sore throat. CARDIOVASCULAR: No chest pain or shortness of breath RESPIRATORY: No cough, wheezing, or hemoptysis. GASTROINTESTINAL: No nausea, vomiting, diarrhea or constipation. GENITOURINARY: No dysuria, frequency, or change in urination. MUSCULOSKELETAL: No joint or muscle swelling or pain. No neck or back pain. SKIN: No rash NEUROLOGIC: No headache, vertigo, loss of consciousness, or change in strength/ sensation. ENDOCRINE: No increased thirst. No abnormal weight change HEMATOLOGIC/LYMPHATIC: No anemia, easy bleeding, or history of blood clots. ALLERGIC/IMMUNOLOGIC: No hives or skin allergy. *Physical Exam - Vital Signs Last Vital Signs Temp Pulse Resp BP Pulse Ox 84 20 75/42 97 01/06/17 14:21 01/06/17 14:21 01/06/17 14:21 01/06/17 14:21 - Physical Exam Comments: 01/06/17 16:33 GENERAL: +Frail appearing requiring assistance to sit up. Awake, alert, and fully oriented HEAD: No signs of trauma, normocephalic, atraumatic EYES: PERRLA, EOMI, sclera anicteric, conjunctiva clear ENT: Auricles normal inspection, hearing grossly normal, nares patent, oropharynx clear without exudates. Moist mucosa NECK: Normal ROM, supple, no lymphadenopathy, JVD, or masses LUNGS: No distress, speaks full sentences, clear to auscultation bilaterally HEART: +Tachycardic. Regular rhythm, normal S1 and S2, no murmurs, rubs or gallops, peripheral pulses normal and equal bilaterally. ABDOMEN: Soft, nontender, normoactive bowel sounds. No guarding, no rebound. No masses EXTREMITIES: Normal inspection, Normal range of motion, no edema. No clubbing or cyanosis. NEUROLOGICAL: Cranial nerves II through XII grossly intact. Normal speech, normal gait, no focal sensorimotor deficits SKIN: Warm, Dry, normal turgor, no rashes or lesions noted. ED Treatment Course - LABORATORY CBC & Chemistry Diagram: 01/06/17 14:36 01/06/17 14:36 Medical Decision Making - Medical Decision Making 01/06/17 18:32 Discussed patient with oncologist (Dr. Mon). Related that patient has had metastatic cancer for 2 1/2 years and was found to have brain mets by MRI on the . Patient is as yet unaware as Dr. Mon did not want to ruin her thanksgiving. Patient has known leptomeningeal disease for the last 8-9 months but had no mass effect as of [address] Mon would like to involve neurology (Jose Manuel), rad onc (Shakeel), and GI (Heydi) in care. Upon reinterview patient related she has not made urine in at least a day or two. Patient's blood pressure increased significantly with fluids. Concern for sepsis lessoned. Will admit patient for failure to thrive, hypokalemia, and prolonged QTc. 01/06/17 19:53 Updated oncologist regarding new onset headache. Recommended Decadron 4mg Q8. Will comply. *DC/Admit/Observation/Transfer Diagnosis at time of Disposition: Hypokalemia, Long QT interval Failure to thrive Qualifiers: Failure to thrive age range: in adult Qualified Code(s): R62.7 - Adult failure to thrive - Discharge Dispostion Admit: Yes - Referrals Referrals: Dat Linder MD [Primary Care Provider] - - Patient Instructions - Post Discharge Activity
[2017-01-06 14:58] LABS: MCH 27.2 pg (25.7-33.7); MCHC 31.2 g/dl (32.0-36.0); MEAN CELL VOLUME 87.3 fl (80-96); MEAN PLT VOLUME 6.5 fl (7.5-11.1); PLATELET COUNT 185 K/MM3 (134-434); RDW 19.8 % (11.6-15.6)
[2017-01-06] MEDS ORDERED: PIPERACIL/TAZOB 3.375 GM 3.375 GM/50 ML PREMIX IVPB ONE (15:17)
[2017-01-06] MEDS ORDERED: VANCOMYCIN 1 GRAM (PRE-DOCKED) 1,000 MG/250 ML BAG IVPB ONE ×2 (15:18→15:58)
[2017-01-06 15:22] LABS: ALBUMIN 2.1 g/dl (3.4-5.0); ANION GAP 19 (8-16); BILIRUBIN,TOTAL 0.9 mg/dL (0.2-1.0); CALCIUM 8.9 mg/dL (8.5-10.1); CO2 23 mmol/L (21-32); CREATININE 1.7 mg/dL (0.55-1.02); GLUCOSE,RANDOM 182 mg/dL (74-106); SGOT/AST 45 U/L (15-37); SGPT/ALT 6 U/L (12-78); TOT PROT 6.1 g/dl (6.4-8.2)
[2017-01-06 15:25] LABS: ALK PHOS 463 U/L (45-117); CPK 47 IU/L (26-192); TROPONIN I < 0.02 ng/ml (0.00-0.05)
[2017-01-06] MEDS ORDERED: PIPERACILLIN/TAZOB 3.375 GM 3.375 GM in DEXTROSE 5%-WATER - 50 ML IVPB ONE (15:30)
[2017-01-06] MEDS ORDERED: SODIUM CHLORIDE 0.9% 500 ML INFUS.BAG IV ONE (15:38)
[2017-01-06] MEDS ORDERED: POTASSIUM CHLORIDE TABS 20 MEQ TABLET.ER (FP) PO ONE (16:21)
[2017-01-06] MEDS ORDERED: POTASSIUM CHLORIDE TABS 10 MEQ TABLET.ER (FP) ONE (16:25)
--- NOTE | 2017-01-06 16:40 | PDOC ---
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 She presents 4 day history of extreme generalized weakness. <Dwayne David - Last Filed: 01/06/17 18:59> - Resident Resident Name: Jack Velásquez - ED Attending Attestation I have performed the following: I have examined & evaluated the patient, The case was reviewed & discussed with the resident, I agree w/resident's findings & plan, Exceptions are as noted - Physicial Exam PE: 01/06/17 20:45 Patient is awake and alert, frail-appearing, in no distress. On initial evaluation, patient noted to be hypotensive. nc, atr perrla, eomi, proptosis b/l cta rrr sft, nt, nd - Medical Decision Making 01/06/17 20:46 Patient is a frail-appearing 61-year-old female with history of metastatic breast CA who presents to the ER with decreased intake of by mouth liquids and solids, increased weakness, somnolence and malaise. In the ER, patient is afebrile, hypotensive on initial evaluation with signs of clinical dehydration. Blood and urine cultures been obtained. Patient received IV Zosyn and vancomycin for suspected sepsis. IV fluid resuscitation was initiated. EKG revealed prolonged QTC likely related to hypokalemia of 3.1. By mouth Kader and IV KCl was administered. Hematology/oncology consulted regarding Decadron for brain metastases. Will admit. <Cam Cook - Last Filed: 01/06/17 20:47>
[2017-01-06 16:59] LABS: MAGNESIUM 2.2 mg/dL (1.8-2.4); URIC ACID 9.9 mg/dL (2.6-7.2)
[2017-01-06] MEDS ORDERED: ACETAMINOPHEN 1000 MG/100 ML VIAL (NON FORMULARY) IVPB ONE (18:16)
[2017-01-06] MEDS ORDERED: ACETAMINOPHEN INJECTION 100 ML IVPB ONE (18:17)
[2017-01-06] MEDS ORDERED: D5-1/2NS+40 MEQ KCL - 40 MEQ/1,000 ML INFUS.BAG IV SCH (19:00)
[2017-01-06] MEDS ORDERED: SODIUM CHLORIDE 500 ML IV STA (19:14)
--- NOTE | 2017-01-06 19:58 | HP ---
CHIEF COMPLAINT: Generalized weakness; PO intolerance PCP: Dr. Linder HISTORY OF PRESENT ILLNESS: 61yo F with significant history of Rt. Breast carcinoma (first diagnosed in 1998 via lumpectomy followed by RT/chemo/5yrs of tamoxifen and arimedex with multiple mets including brain found in 03/2016) who presented to the ED for PO intolerance and generalized weakness. Pt states she hasn't felt like eating or drinking for the past 3-4 days. She states she had some dull minimal transient stomach pain during this course. Pt states she also hasn't voided or had a BM in about 1-2 days, but attributes it to not eating or drinking. Pt is also reporting maxillary sinus pressure with new onset L frontal headache. Pt states she was given tylenol in ED and her headache has improved since she was first seen. Pt denies fever/chills, diplopia, ear ache, rhinorrhea, sore throat, dysphagia, nausea/vomiting, CP/discomfort, SOB, and current abdominal pain. ER course was notable for: (1) LA showing 7.8, K showing 3.1, Hgb showing 7.8 (2) EKG - prolonged Qtc (3) Recent Travel: Denies PAST MEDICAL HISTORY: Rt Breast Carcinoma with extensive metastases including brain (first dx 1998 , brain mets found in 03/2016) PAST SURGICAL HISTORY: Social History: Smoking: Former smoker; quit 1 year previously, smoked 5 years about 1pack per week Alcohol: None Drugs: None Family History: Mother: Breast Ca Father: Lung Ca Allergies No Known Allergies Allergy (Verified 01/06/17 14:28) HOME MEDICATIONS: Home Medications Medication Instructions Recorded Amlodipine Besylate 5 mg PO DAILY 01/06/17 Capecitabine 500 mg PO ASDIR 01/06/17 Loperamide HCl [Loperamide] 2 mg PO PRN 01/06/17 Pantoprazole Sodium 40 mg PO DAILY 01/06/17 Potassium Chloride 20 meq PO ASDIR 01/06/17 REVIEW OF SYSTEMS CONSTITUTIONAL: Present: Loss of appetite, generalized weakness Absent: fever, chills, diaphoresis, malaise HEENT: Absent: rhinorrhea, nasal congestion, throat pain, throat swelling, difficulty swallowing, mouth swelling, ear pain, eye pain, visual changes CARDIOVASCULAR: Absent: chest pain, syncope, palpitations, irregular heart rate, lightheadedness , peripheral edema RESPIRATORY: Absent: cough, shortness of breath, dyspnea with exertion, orthopnea, wheezing, stridor, hemoptysis GASTROINTESTINAL: Absent: abdominal distension, nausea, vomiting, diarrhea, constipation, melena, hematochezia GENITOURINARY: Absent: dysuria, frequency, urgency, hesitancy, hematuria, flank pain MUSCULOSKELETAL: Absent: myalgia, arthralgia, joint swelling, back pain, neck pain SKIN: Absent: rash, itching, pallor HEMATOLOGIC/IMMUNOLOGIC: Absent: easy bleeding, easy bruising, lymphadenopathy, frequent infections ENDOCRINE: Absent: unexplained weight gain, unexplained weight loss, heat intolerance, cold intolerance NEUROLOGIC: Present: Headache Absent: focal weakness or paresthesias, dizziness, unsteady gait, seizure, mental status changes, bladder or bowel incontinence PSYCHIATRIC: Absent: anxiety, depression, suicidal or homicidal ideation, hallucinations. PHYSICAL EXAMINATION Vital Signs - 24 hr 01/06/17 01/06/17 01/06/17 14:21 15:39 15:46 Temperature Pulse Rate 84 Pulse Rate [ 116 H Apical] Respiratory 20 20 Rate Blood Pressure 75/42 Blood Pressure 101/75 [Right Arm] O2 Sat by Pulse 97 98 99 Oximetry (%) 01/06/17 01/06/17 01/06/17 15:54 17:00 18:35 Temperature 98 F Pulse Rate Pulse Rate [ 98 H Apical] Respiratory 18 Rate Blood Pressure Blood Pressure 115/86 [Right Arm] O2 Sat by Pulse 100 100 Oximetry (%) 01/06/17 19:39 Temperature 98.1 F Pulse Rate Pulse Rate [ 99 H Apical] Respiratory 16 Rate Blood Pressure Blood Pressure 126/71 [Right Arm] O2 Sat by Pulse 96 Oximetry (%) GENERAL: NAD, awake, alert, lying comfortably in bed, Thin appearing HEENT: EOMI, DEXTER, No JVD, No sinus pain upon palpation of maxillary or frontal sinus, Dry mucous membranes with normal structures of mouth LUNGS: CTA bilaterally. No wheezes, rhonchi, rales. No accessory muscle use. HEART: RRR, normal S1 and S2 without murmur Breast: L outer upper quadrant nodule noted ABDOMEN: Soft, nontender, nondistended, hypoactive bowel sounds, no guarding. No hepatomegaly. MUSCULOSKELETAL: No CVA tenderness. EXTREMITIES: 2+ pulses throughout, No edema noted, cap refill<2sec NEUROLOGICAL: Cranial nerves II-XII intact. Strength symmetrical with 4/5 throughout. Sensation intact diffusely. Normal speech. Gait not observed PSYCHIATRIC: Cooperative. Good eye contact. Appropriate mood and affect. SKIN: Thin skin, Warm, no rashes noted, L vulvar open lesion without any purulence or erythema noted. Laboratory Results - last 24 hr 01/06/17 01/06/17 01/06/17 14:36 14:36 16:00 WBC 16.8 H D RBC 2.89 L Hgb 7.9 L Hct 25.2 L MCV 87.3 MCH 27.2 MCHC 31.2 L RDW 19.8 H D Plt Count 185 D MPV 6.5 L Neutrophils % No Result Required. Lymphocytes % No Result Required. Sodium 135 L Potassium 3.1 L Chloride 93 L Carbon Dioxide 23 Anion Gap 19 H BUN 57 H D Creatinine 1.7 H D Creat Clearance w eGFR 30.76 Random Glucose 182 H D Lactic Acid Uric Acid Calcium 8.9 Magnesium Total Bilirubin 0.9 D AST 45 H D ALT 6 L Alkaline Phosphatase 463 H LD Total 505 H D Creatine Kinase 47 Troponin I < 0.02 Total Protein 6.1 L Albumin 2.1 L 01/06/17 01/06/17 01/06/17 16:00 16:00 16:24 WBC RBC Hgb Hct MCV MCH MCHC RDW Plt Count MPV Neutrophils % Lymphocytes % Sodium Potassium Chloride Carbon Dioxide Anion Gap BUN Creatinine Creat Clearance w eGFR Random Glucose Lactic Acid 7.8 H* Uric Acid 9.9 H Calcium Magnesium 2.2 Cancelled Total Bilirubin AST ALT Alkaline Phosphatase LD Total Creatine Kinase Troponin I Total Protein Albumin ASSESSMENT/PLAN: 61yo F with significant history of Rt. Breast carcinoma (first diagnosed in 1998 via lumpectomy followed by RT/chemo/5yrs of tamoxifen and arimedex with multiple mets including brain found in 03/2016) who presented to the ED for PO intolerance and generalized weakness. 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 Carmen consulted --Pt is currently taking Xeloda, however unknown dosing --Defer to Oncology and appreciate recommendations; palliative treatment at this point 5) Microcytic anemia --Acute decrease in Hgb with transfusion threshold of <7.0 --Component of chronic disease 6) Genital Ulcer --Rougly 4-cm nonhealing lesion with clean margins --No purulence or other signs of infection noted --Bactroban ointment to area with clean bandag --Will cover with PO Augmentin in light of leukocystosis of 16 currently despite lack of infectious symptoms; no fevers noted --Wound Cx ordered FEN: Fluids: D5-1/2NS + 40mEq of potassium @ 100cc/hr Electrolyte abnormalities: Hypokalemia as above Nutrition: Regular diet; unrestrictd PPX DVT - Heparin 5000U SQ TID; no evidence of active bleeding and pt in hypercoaguable state GI - Not indicated but pt on home Protonix anyway Dispo: M/S Case discussed with Dr. Paul Thomas, DO - Internal Medicine PGY-1 Visit type - Emergency Visit Emergency Visit: Yes ED Registration Date: 01/06/17 Care time: The patient presented to the Emergency Department on the above date and was hospitalized for further evaluation of their emergent condition. - New Patient This patient is new to me today: Yes Date on this admission: 01/06/17 - Critical Care Critical Care patient: No
[2017-01-06] MEDS ORDERED: DEXAMETHASONE SOD PHOSPHATE 4 MG/1 ML VIAL IVPUSH ONE ×2 (20:13→20:45)
[2017-01-06] MEDS ORDERED: DEXAMETHASONE 4 MG TABLET (FP) PO ONE (20:15)
--- NOTE | 2017-01-06 20:25 | PN ---
Teaching Attending Note Name of Resident: Dakota Thomas ATTENDING PHYSICIAN STATEMENT I saw and evaluated the patient. I reviewed the resident's note and discussed the case with the resident. I agree with the resident's findings and plan as documented. SUBJECTIVE: 61 year old female with PMH below presents today after being seen by her oncologist with c/o worsening generalized weakness, decreased appetite and progressive weight loss. ROS is significant for genital labial wound no fevers no cough no dysuria she has chronic Left facial weakness since 03/27 when she was first diagnosed with brain metastatic disease PMH Breast Cancer Diagnosed in 1998 via biopsy ( ER+/MO-/Her2-)=> Right Lumpectomy+ adj XRT + tamoxifen followed 5 years of Arimidex 11/2014 - relapse , new Left Breast Mass and bone metastatic disease ( skull/ femur/ribs/pelvis)=> gemzar + zometa 03/2016 - progression of the disease manifested as Left facial palsy with newly diagnosed brain metastatic disease and suspected meningeal carcinomatosis=> intrathecal methotrexate and XRT HTN DM Home Medication List Medication Instructions Recorded Confirmed Type Amlodipine Besylate 5 mg PO DAILY 01/06/17 01/06/17 History Capecitabine 500 mg PO ASDIR 01/06/17 01/06/17 History Loperamide HCl [Loperamide] 2 mg PO PRN 01/06/17 01/06/17 History Pantoprazole Sodium 40 mg PO DAILY 01/06/17 01/06/17 History Potassium Chloride 20 meq PO ASDIR 01/06/17 01/06/17 History Active Medications Generic Name Dose Route Start Last Admin Trade Name Freq PRN Reason Stop Dose Admin Amlodipine Besylate 5 mg 01/07/17 10:00 Norvasc - PO DAILY CYNTHIA Dextrose/Sodium Chloride 40 meq in 1,000 mls @ 125 mls/hr 01/06/17 19:00 20:08 D5-1/2ns+40 Meq Kcl - IV 125 mls/hr ASDIR CYNTHIA Administration Mupirocin 1 applic 01/06/17 20:15 Bactroban 2% Ointment - TP BID CYNTHIA Pantoprazole Sodium 40 mg 01/07/17 10:00 Protonix - PO DAILY CYNTHIA OBJECTIVE: Vital Signs Temperature 98.1 F 01/06/17 19:39 Pulse Rate 99 H 01/06/17 19:39 Respiratory Rate 16 01/06/17 19:39 Blood Pressure 126/71 01/06/17 19:39 O2 Sat by Pulse Oximetry (%) 96 01/06/17 19:39 HEENT - PERRL, Dry mucous membranes CVS S1 S2 WNL, No MRG , RRR RS CTA b/l Abd soft NT , BS positive , ? incontinence Gen : left labial ulcer , approc 4 cm in diameter, clean base , deep not heeling Neuro mild left nasolabial fold flattening , CMP Sodium 135 mmol/L (136-145) L 01/06/17 14:36 Potassium 3.1 mmol/L (3.5-5.1) L 01/06/17 14:36 Chloride 93 mmol/L (98-107) L 01/06/17 14:36 Carbon Dioxide 23 mmol/L (21-32) 01/06/17 14:36 Anion Gap 19 (8-16) H 01/06/17 14:36 BUN 57 mg/dL (7-18) H D 01/06/17 14:36 Creatinine 1.7 mg/dL (0.55-1.02) H D 01/06/17 14:36 Creat Clearance w eGFR 30.76 (>60) 01/06/17 14:36 Random Glucose 182 mg/dL (74-106) H D 01/06/17 14:36 Lactic Acid 7.8 mmol/L (0.4-2.0) H* 01/06/17 16:00 Uric Acid 9.9 mg/dL (2.6-7.2) H 01/06/17 16:00 Calcium 8.9 mg/dL (8.5-10.1) 01/06/17 14:36 Magnesium Cancelled 01/06/17 16:24 Total Bilirubin 0.9 mg/dL (0.2-1.0) D 01/06/17 14:36 AST 45 U/L (15-37) H D 01/06/17 14:36 ALT 6 U/L (12-78) L 01/06/17 14:36 Alkaline Phosphatase 463 U/L (45-117) H 01/06/17 14:36 LD Total 505 U/L (84-246) H D 01/06/17 16:00 Creatine Kinase 47 IU/L (26-192) 01/06/17 14:36 Troponin I < 0.02 ng/ml (0.00-0.05) 01/06/17 14:36 Total Protein 6.1 g/dl (6.4-8.2) L 01/06/17 14:36 Albumin 2.1 g/dl (3.4-5.0) L 01/06/17 14:36 CBC, BMP 01/06/17 14:36 01/06/17 14:36 ASSESSMENT AND PLAN: 1. Acute Renal Failure - likely pre renal/dehydration . This is secondary to decreased PO intake. - IVF -UA - if no improvement will obtain US renal 2. Advanced metastatic breast cancer with meningeal carcinomatosis - no acute neurological deficit. Paliative treatment per oncology team . 3. Hypokalemia - - will supplement 4. HTN - appropriately controlled 5. Anemia - AOCD - transfuse if drop less then 7 6. Genital Ulcer - non healing - wound care consult - Augmentin PO although does not appear infected 7. DVT PPX - - heparin SC
[2017-01-06 21:04] LABS: PLATELET COMMENTS NO CLUMPING NOTED
[2017-01-06 21:05] LABS: METAMYELOCYTE 5 % (0-2)
[2017-01-06 21:06] LABS: HYPOCHROMIA 2+; NUCLEATED RED BLOOD CELL 12 % (0-0); POLYCHROMASIA 2+; SMUDGE CELLS FEW
[2017-01-06 21:07] LABS: ANISOCYTOSIS 2+
[2017-01-06] MEDS ORDERED: DEXAMETHASONE SOD PHOSPHATE 4 MG/1 ML VIAL ONE (21:24)
[2017-01-06] MEDS ORDERED: morphine CARPU-JECT 2 MG/1 ML DISP.SYRIN IVPUSH ONE (22:22)
[2017-01-06] MEDS ORDERED: morphine SULFATE 4 MG/ML VIAL ONE (22:31)
[2017-01-06] MEDS: AMOX TR/POT CLAV 500MG/125MG TABLETS (FP) PO SCH (23:08)
[2017-01-06] MEDS: MUPIROCIN 2% TOPICAL OINTMENT 22 GM TUBE TP SCH ×2 (23:10)
--- NOTE | 2017-01-06 23:33 | CONSULT ---
Consult - text type - Consultation Consultation Note: Patient seen and examined at 8:30pm Says she is feeling slightly better since hydration. comes in with generalized weakness, poor appetite, failure to thrive. Declining performance status No fever/chills/SOB/Cough/SOB/abdominal pain/diarrhea/urinary symptoms PMH metastatic breast cancer Ulcerative colitis HTN PSH lumpectomy Last Vital Signs Temp Pulse Resp BP Pulse Ox 98.1 F 99 H 16 126/71 96 01/06/17 19:39 01/06/17 19:39 01/06/17 19:39 01/06/17 19:39 01/06/17 19:39 Breasts: Left breast mass Cor: RSR, No murmurs, No gallops Lungs: Clear to P&A Abd: Soft, Normal bowel sounds, No organomegaly Ext:No significant edema Skin: No rashes, Integument intact Abnormal Lab Results 01/06/17 01/06/17 01/06/17 14:36 14:36 16:00 WBC 19.0 H D RBC 2.89 L Hgb 7.9 L Hct 25.2 L MCHC 31.2 L RDW 19.8 H D MPV 6.5 L Nucleated RBC % 12 H* Metamyelocytes 5 H D Sodium 135 L Potassium 3.1 L Chloride 93 L Anion Gap 19 H BUN 57 H D Creatinine 1.7 H D Random Glucose 182 H D Lactic Acid Uric Acid AST 45 H D ALT 6 L Alkaline Phosphatase 463 H LD Total 505 H D Total Protein 6.1 L Albumin 2.1 L 01/06/17 01/06/17 16:00 16:00 WBC RBC Hgb Hct MCHC RDW MPV Nucleated RBC % Metamyelocytes Sodium Potassium Chloride Anion Gap BUN Creatinine Random Glucose Lactic Acid 7.8 H* Uric Acid 9.9 H AST ALT Alkaline Phosphatase LD Total Total Protein Albumin A/P 61 y/o female with extensive , metastatic breast cancer, with several bone mets diagnosed 11/22 when she presented with severe hypercalcemia. She has remote h/ o r.t breast cancer s/p lumpectomy/RT/chemotherapy and 10 yrs. off hormonal therapy. She presented 11/22 with severe hypercalcemia/extensive bone mets. ER+/MI+/Her2- s/p taxol weekly, s/p gemzar and most recently 03/27 developed progression of leptomeningeal disease Had been on xeloda for 9 months with good control and quality of life. also got RT to Rt. femur Now comes in with failure to thrive over last month. worsening functional status. Recnet scans 12/22 showed progression of brain mets--multiple , small foci. no edema. Also with extensive skeletal mets/new pleural nodularity/no visceral mets/+ colitis Would get rad-omc consult regarding progressiv ebrain/leptomeningeal disease Hold Xeloda renal failure--? pre renal due topoor PO intake IV hydration Anemia of chronic disease--transfuse PRBCS Colitis--check stool for c.diff/ ova and parastites GI DR. Soliz consult as patient with h/o colitis discussed with patient==made her aware of CT findings will follow
[2017-01-07 00:39] LABS: ANION GAP 10 (8-16); CALCIUM 8.4 mg/dL (8.5-10.1); CO2 27 mmol/L (21-32); CREATININE 1.3 mg/dL (0.55-1.02); GLUCOSE,RANDOM 119 mg/dL (74-106); PHOSPHOROUS 2.2 mg/dL (2.5-4.9)
[2017-01-07 01:05] LABS: URINE APPEARANCE CLOUDY; URINE BILIRUBIN NEGATIVE (NEGATIVE); URINE BLOOD 1+ (NEGATIVE); URINE COLOR AMBER; URINE GLUCOSE (UA) NEGATIVE (NEGATIVE); URINE KETONE NEGATIVE (NEGATIVE); URINE NITRITE NEGATIVE (NEGATIVE)
[2017-01-07 01:07] LABS: URINE PROTEIN 1+ (NEGATIVE)
[2017-01-07 01:08] LABS: URINE HYALINE CAST 16 /lpf; URINE MUCUS RARE; URINE RBC 4 /hpf (0-3); URINE WBC 12 /hpf (3-5)
[2017-01-07 03:50] VITALS: BMI 23.9
[2017-01-07] MEDS: HEPARIN NA (PORCINE) 5,000 UNITS/ML 1ML VIAL SQ SCH ×3 (07:03→23:41)
[2017-01-07] MEDS: AMOX TR/POT CLAV 500MG/125MG TABLETS (FP) PO SCH ×2 (07:33→18:02)
[2017-01-07 08:11] LABS: MCH 27.8 pg (25.7-33.7); MCHC 32.6 g/dl (32.0-36.0); MEAN CELL VOLUME 85.3 fl (80-96); MEAN PLT VOLUME 6.7 fl (7.5-11.1); PLATELET COUNT 143 K/MM3 (134-434); RDW 19.8 % (11.6-15.6); WHITE BLOOD COUNT 17.7 K/mm3 (4.0-10.0)
[2017-01-07 08:38] LABS: URIC ACID 8.2 mg/dL (2.6-7.2)
[2017-01-07] MEDS: PANTOPRAZOLE 40 MG TABLET (FP) PO SCH (09:47)
[2017-01-07] MEDS: amLODIPine BESYLATE 5 MG TABLET (FP) PO SCH (09:47)
[2017-01-07 09:52] LABS: ANION GAP 9 (8-16); CO2 26 mmol/L (21-32); GLUCOSE,RANDOM 134 mg/dL (74-106); TOTAL CELLS COUNTED 100
[2017-01-07 09:53] LABS: METAMYELOCYTE 4 % (0-2); NUCLEATED RED BLOOD CELL 3 % (0-0)
[2017-01-07 11:22] LABS: URINE LEUK ESTERASE 1+ (NEGATIVE)
--- NOTE | 2017-01-07 12:58 | EKG ---
Test Reason : Blood Pressure : / mmHG Vent. Rate : 116 BPM Atrial Rate : 116 BPM P-R Int : 136 ms QRS Dur : 078 ms QT Int : 370 ms P-R-T Axes : 074 025 076 degrees QTc Int : 514 ms SINUS TACHYCARDIA NONSPECIFIC T WAVE ABNORMALITY ABNORMAL ECG WHEN COMPARED WITH ECG OF 13-MAR-2016 11:59, ST NO LONGER DEPRESSED IN INFERIOR LEADS NON-SPECIFIC CHANGE IN ST SEGMENT IN ANTERIOR LEADS T WAVE INVERSION NO LONGER EVIDENT IN INFERIOR LEADS NONSPECIFIC T WAVE ABNORMALITY, WORSE IN LATERAL LEADS Confirmed by STEFANY SANTOS, DONNIE ([id number]) on 01/07/2017 12:57:48 PM Referred By: Confirmed By:DONNIE MCCALL MD
--- NOTE | 2017-01-07 15:25 | PN ---
Physical Exam: SUBJECTIVE: Patient seen and examined. States she feels much better, less weak. Appetite not completey back to normal. Labial ulcer has been there since "forever". OBJECTIVE: Vital Signs Period Temp Pulse Resp BP Sys/Mulligan Pulse Ox Last 24 Hr 97.4 F-98.1 F 76-116 16-20 101-128/71-86 96-100 GEN: AAOx3, NAD, Not ill appearing, not cachectic HEENT: PERRLA, EOMi CV: S1, S2, RRR LUNG: CTABL ABD: Soft, NT, ND, normoactive BS : 4cm soft tissue ulceration in the external labial skin, not in the vulva. Non purulent, non erythematous. No surrounding erythema or pustules MSK: No edema, no erythema NEURO: No sensation or MSK deficits. No facial droop Laboratory Last Values WBC 17.7 K/mm3 (4.0-10.0) H 01/07/17 06:00 Corrected WBC (auto) 16.96 K/mm3 01/06/17 14:36 RBC 2.35 M/mm3 (3.60-5.2) L 01/07/17 06:00 Hgb 6.6 GM/dL (10.7-15.3) L* D 01/07/17 06:00 Hct 20.1 % (32.4-45.2) L D 01/07/17 06:00 MCV 85.3 fl (80-96) 01/07/17 06:00 MCH 27.8 pg (25.7-33.7) 01/07/17 06:00 MCHC 32.6 g/dl (32.0-36.0) 01/07/17 06:00 RDW 19.8 % (11.6-15.6) H 01/07/17 06:00 Plt Count 143 K/MM3 (134-434) D 01/07/17 06:00 MPV 6.7 fl (7.5-11.1) L 01/07/17 06:00 Total Counted 100 01/07/17 06:00 Neutrophils % No Result Required. 01/07/17 06:00 Neutrophils % (Manual) 81.0 % (42.8-82.8) D 01/07/17 06:00 Band Neutrophils % 11.0 % 01/07/17 06:00 Lymphocytes % No Result Required. 01/07/17 06:00 Lymphocytes % (Manual) 3.0 % (8-40) L D 01/07/17 06:00 Monocytes % (Manual) 5 % (3.8-10.2) 01/06/17 14:36 Nucleated RBC % 3 % (0-0) H 01/07/17 06:00 Metamyelocytes 4 % (0-2) H 01/07/17 06:00 Smudge Cells Few 01/06/17 14:36 Other Cell Type 1 01/06/17 14:36 Hypochromia 2+ 01/06/17 14:36 Platelet Comment No clumping noted 01/06/17 14:36 Polychromasia 2+ 01/06/17 14:36 Anisocytosis 2+ 01/06/17 14:36 Sodium 134 mmol/L (136-145) L 01/07/17 06:00 Potassium 4.1 mmol/L (3.5-5.1) 01/07/17 06:00 Chloride 99 mmol/L (98-107) 01/07/17 06:00 Carbon Dioxide 26 mmol/L (21-32) 01/07/17 06:00 Anion Gap 9 (8-16) 01/07/17 06:00 BUN 53 mg/dL (7-18) H 01/07/17 06:00 Creatinine 1.0 mg/dL (0.55-1.02) D 01/07/17 06:00 Creat Clearance w eGFR 30.76 (>60) 01/06/17 14:36 Random Glucose 134 mg/dL (74-106) H 01/07/17 06:00 Lactic Acid 1.7 mmol/L (0.4-2.0) 01/06/17 23:40 Uric Acid 8.2 mg/dL (2.6-7.2) H 01/07/17 06:00 Calcium 8.0 mg/dL (8.5-10.1) L 01/07/17 06:00 Phosphorus 2.2 mg/dL (2.5-4.9) L D 01/06/17 23:40 Magnesium Cancelled 01/06/17 16:24 Total Bilirubin 0.9 mg/dL (0.2-1.0) D 01/06/17 14:36 AST 45 U/L (15-37) H D 01/06/17 14:36 ALT 6 U/L (12-78) L 01/06/17 14:36 Alkaline Phosphatase 463 U/L (45-117) H 01/06/17 14:36 LD Total 505 U/L (84-246) H D 01/06/17 16:00 Creatine Kinase 47 IU/L (26-192) 01/06/17 14:36 Troponin I < 0.02 ng/ml (0.00-0.05) 01/06/17 14:36 Total Protein 6.1 g/dl (6.4-8.2) L 01/06/17 14:36 Albumin 2.1 g/dl (3.4-5.0) L 01/06/17 14:36 Urine Color Aundrea 01/07/17 00:53 Urine Appearance Cloudy 01/07/17 00:53 Urine pH 5.0 (5.0-8.0) 01/07/17 00:53 Ur Specific Benton 1.026 (1.001-1.035) 01/07/17 00:53 Urine Protein 1+ (NEGATIVE) H 01/07/17 00:53 Urine Glucose (UA) Negative (NEGATIVE) 01/07/17 00:53 Urine Ketones Negative (NEGATIVE) 01/07/17 00:53 Urine Blood 1+ (NEGATIVE) H 01/07/17 00:53 Urine Nitrite Negative (NEGATIVE) 01/07/17 00:53 Urine Bilirubin Negative (NEGATIVE) 01/07/17 00:53 Urine Urobilinogen 2.0 mg/dL (0.2-1.0) H 01/07/17 00:53 Ur Leukocyte Esterase 1+ (NEGATIVE) H 01/07/17 00:53 Urine WBC (Auto) 12 /hpf (3-5) 01/07/17 00:53 Urine RBC (Auto) 4 /hpf (0-3) 01/07/17 00:53 Ur Epithelial Cells Rare /HPF (FEW) 01/07/17 00:53 Hyaline Casts 16 /lpf 01/07/17 00:53 Urine Mucus Rare 01/07/17 00:53 Blood Type A POSITIVE 01/07/17 01:20 Antibody Screen Negative 01/07/17 01:20 Direct Antiglob Test Negative (NEGATIVE) 01/07/17 06:00 Crossmatch See Detail 01/07/17 06:00 Generic Name Dose Route Start Last Admin Trade Name Maksim PRN Reason Stop Dose Admin Amlodipine Besylate 5 mg 01/07/17 10:00 01/07/17 09:47 Norvasc - PO 5 mg DAILY CYNTHIA Administration Amoxicillin/Clavulanate Potassium 1 tab 01/06/17 23:00 01/07/17 07:33 Augmentin - 500mg Tablet PO 1 tab BID@0800,1730 CYNTHIA Administration Heparin Sodium (Porcine) 5,000 unit 01/07/17 06:00 01/07/17 14:01 Heparin - SQ 5,000 unit TID CYNTHIA Administration Dextrose/Sodium Chloride 40 meq in 1,000 mls @ 75 mls/hr 01/07/17 10:00 D5-1/2ns+40 Meq Kcl - IV ASDIR CYNTHIA Mupirocin 1 applic 01/06/17 20:15 01/06/17 23:10 Bactroban 2% Ointment - TP 1 applic BID CYNTHIA Administration Pantoprazole Sodium 40 mg 01/07/17 10:00 01/07/17 09:47 Protonix - PO 40 mg DAILY CYNTHIA Administration ASSESSMENT/PLAN: 61yo F with significant history of Rt. Breast carcinoma (first diagnosed in 1998 via lumpectomy followed by RT/chemo/5yrs of tamoxifen and arimedex with multiple mets including brain found in 03/2016) who presented to the ED for PO intolerance and generalized weakness. # Dehydration- secondary to loss of appetite and poor PO intake. Doing better on IVF. Reduced IVF to 75cc/hr. Appetite has improved slightly, but not returned to normal. Discussed possibility of Marinol as an appetite stimulant. Pt will consider for now. # Prerenal LUIS ALBERTO - secondary to prerenal dehydration. Improving well with IVF, will continue to monitor # R Breast CA with Advanced Mets - Mets to leptomeninges, brain. Patient is unaware of these mets at this time. Oncology consulted who asked Rad-Onc to see patient and palliative to recommend further care. Currently off Xeloda for time being. # Normocytic Anemia - Likely mix between anemia of chronic disease and dilution from IVF. s/p 2u PRBC. Will repeat CBC this evening. # Labial Ulcer - Superficial, doesnt appear infected. F/u GC and Chlamydia. Pt is immunocompromised, so infection is on differential. Patient may not be able to mount WBC and fever. Will continue Augmentin 500 BID for now. F/u wound culture # FEN - D5 1/2 NS + 40meq K at 75cc/hr; elec wnl; regular diet # PPx - HSQ TID, no bleeds, PT ordered # Dispo - Acute dehydration has improved. On PO abx for labial ulcer. f/u Onc, rad-onc, and palliative care Tanya Underwood MD - PGY1 Internal Medicine Visit type - Emergency Visit Emergency Visit: No - New Patient This patient is new to me today: No - Critical Care Critical Care patient: No - Discharge Referral Referred to [facility] Med [facility] No
[2017-01-07] MEDS ORDERED: PT OWN MED DRAWER 7, Y5N ONE ×2 (16:33→18:01)
--- NOTE | 2017-01-07 17:38 | PN ---
Teaching Attending Note Name of Resident: Tanya Underwood ATTENDING PHYSICIAN STATEMENT I saw and evaluated the patient. I reviewed the resident's note and discussed the case with the resident. I agree with the resident's findings and plan as documented. SUBJECTIVE:asymptomatic. requesting to go home. admits to poor appetite over the past few weeks. states she has vaginal sore that opens up every few months and then heals on its own. denies any vaginal vessicles or denies CP, SOB, fever , chills, N/V/C/D OBJECTIVE: Last Vital Signs Temp Pulse Resp BP Pulse Ox 98.2 F 80 16 124/62 100 01/07/17 15:24 01/07/17 15:24 01/07/17 15:24 01/07/17 15:24 01/07/17 09:00 General NAD CV S1 S2 RRR no murmur/rub/gallop Lungs CTA B/L no wheezing/rales/rhonchi Abdomen soft NT/ND Genital large 2x2 cm ulcer on external L labia majora. good granulation tissue no active drainage. area not painful. +LN R groin. ASSESSMENT AND PLAN: 61yo F with PMH R breast ca with (mets to brain, bone, pleura) s/p lumpectomy, RTx and Chemo whom completed hormonal therapy and on Xeloda currently every other week presented with generalized weakness and anorexia 1. Generalized weakness- likely due to dehydration vs progression of disease. currently feeling improve with IVF. will cont until eating well. 2. Lactic acidosis- due to high tumor burden. elevated LD. now resolved 3. Acute anemia- likely anemia of chronic disease with dilutional component. reports no bleeding. will transfuse 1 unit PRBC and repeat 4. Genital ulcer- area not painful. denies STD in past. high concern for syphillis based on single appearance and hx of it self resolving and returning. check GC/chlamydia/ RPR. will d/c augmentin. consider ID consult pending RPR result 5. Anorexia- likely due to malignancy. offered to start appetite stimulant of which pt refused. stated she thinks her appetite will improve.will wait for now. 6. LUIS ALBERTO- dehydration. now improved 7. Hypokalemia- Kcl in IVF. now resolved 8. Leukocytosis- less likely reactive vs from malignancy. CXR negative. no current source. Cx sent. hold abx at this time 9. Hypotension- likely dehydration. now resolved 10. DVT ppx- place SCD. hold pharmacolgic anticoagulation.
[2017-01-07] MEDS: D5-1/2NS+40 MEQ KCL - 40 MEQ/1,000 ML INFUS.BAG IV SCH (18:36)
[2017-01-07] MEDS: MUPIROCIN 2% TOPICAL OINTMENT 22 GM TUBE TP SCH ×2 (18:36→23:41)
--- NOTE | 2017-01-07 19:16 | PN ---
Progress Note (short form) - Note Progress Note: Patient seen and examined Feels well Denies any complaints Last Vital Signs Temp Pulse Resp BP Pulse Ox 98.0 F 84 20 132/73 100 01/07/17 18:20 01/07/17 18:20 01/07/17 18:20 01/07/17 18:20 01/07/17 09:00 Cor: RSR, No murmurs, No gallops Lungs: Clear to P&A Abd: Soft, Normal bowel sounds, No organomegaly Ext:No significant edema Abnormal Lab Results 01/06/17 01/06/17 01/07/17 14:36 23:40 00:53 WBC 19.0 H D RBC Hgb Hct RDW MPV Lymphocytes % (Manual) Nucleated RBC % 12 H* Metamyelocytes 5 H D Sodium 135 L BUN 56 H Creatinine 1.3 H D Random Glucose 119 H D Uric Acid Calcium 8.4 L Phosphorus 2.2 L D Urine Protein 1+ H Urine Blood 1+ H Urine Urobilinogen 2.0 H Ur Leukocyte Esterase 1+ H Crossmatch 01/07/17 01/07/17 01/07/17 01:20 06:00 06:00 WBC 17.7 H RBC 2.35 L Hgb 6.6 L* D Hct 20.1 L D RDW 19.8 H MPV 6.7 L Lymphocytes % (Manual) 3.0 L D Nucleated RBC % 3 H Metamyelocytes 4 H Sodium BUN Creatinine Random Glucose Uric Acid Calcium Phosphorus Urine Protein Urine Blood Urine Urobilinogen Ur Leukocyte Esterase Crossmatch See Detail See Detail 01/07/17 06:00 WBC RBC Hgb Hct RDW MPV Lymphocytes % (Manual) Nucleated RBC % Metamyelocytes Sodium 134 L BUN 53 H Creatinine Random Glucose 134 H Uric Acid 8.2 H Calcium 8.0 L Phosphorus Urine Protein Urine Blood Urine Urobilinogen Ur Leukocyte Esterase Crossmatch Active Medications Generic Name Dose Route Start Last Admin Trade Name Freq PRN Reason Stop Dose Admin Amlodipine Besylate 5 mg 01/07/17 10:00 01/07/17 09:47 Norvasc - PO 5 mg DAILY CYNTHIA Administration Heparin Sodium (Porcine) 5,000 unit 01/07/17 06:00 01/07/17 14:01 Heparin - SQ 5,000 unit TID CYNTHIA Administration Dextrose/Sodium Chloride 40 meq in 1,000 mls @ 75 mls/hr 01/07/17 10:00 01/07 18:36 D5-1/2ns+40 Meq Kcl - IV 75 mls/hr ASDIR CYNTHIA Administration Mupirocin 1 applic 01/06/17 20:15 01/07/17 18:36 Bactroban 2% Ointment - TP 1 applic BID CYNTHIA Administration Pantoprazole Sodium 40 mg 01/07/17 10:00 01/07/17 09:47 Protonix - PO 40 mg DAILY CYNTHIA Administration A?P 61 y/o patient with metastatic breast cancer, progressive brain mets, comes in with failure to thrive gentle hydration Rad-onc consult
[2017-01-07 19:53] LABS: MCHC 33.2 g/dl (32.0-36.0); MEAN CELL VOLUME 87.3 fl (80-96); MEAN PLT VOLUME 7.2 fl (7.5-11.1); PLATELET COUNT 148 K/MM3 (134-434); RDW 18.3 % (11.6-15.6)
[2017-01-08 00:12] LABS: METAMYELOCYTE 3 % (0-2); MYELOCYTE 7 % (0-2); NUCLEATED RED BLOOD CELL 10 % (0-0); PROMYELOCYTE 3 % (0-2); REACTIVE LYMPHOCYTES 6 % (0-80); TOTAL CELLS COUNTED 100
[2017-01-08 00:13] LABS: PLATELET ESTIMATE ADEQUATE
[2017-01-08] MEDS: D5-1/2NS+40 MEQ KCL - 40 MEQ/1,000 ML INFUS.BAG IV SCH ×2 (03:02→10:06)
[2017-01-08] MEDS: HEPARIN NA (PORCINE) 5,000 UNITS/ML 1ML VIAL SQ SCH ×2 (06:54→13:24)
[2017-01-08 08:04] LABS: MCH 28.5 pg (25.7-33.7); MCHC 32.6 g/dl (32.0-36.0); MEAN CELL VOLUME 87.7 fl (80-96); MEAN PLT VOLUME 6.7 fl (7.5-11.1); PLATELET COUNT 135 K/MM3 (134-434)
[2017-01-08 08:33] LABS: ANION GAP 7 (8-16); CO2 27 mmol/L (21-32); GLUCOSE,RANDOM 68 mg/dL (74-106)
[2017-01-08 08:34] LABS: CREATININE 0.6 mg/dL (0.55-1.02)
--- NOTE | 2017-01-08 08:44 | PN ---
Physical Exam: SUBJECTIVE: Patient seen and examined. Appetite is the same. Ate half of her lunch, half of her dinner. Will consider Marinol again, wants to wait till breakfast. No fevers, chills. No SOB, CP. Rad onc and palliative to see. New complaint of bloody BM, similar to prior UC flairs. OBJECTIVE: Vital Signs Period Temp Pulse Resp BP Sys/Mulligan Pulse Ox Last 24 Hr 97.4 F-98.6 F 78-89 16-20 122-132/62-77 100-100 GEN: AAOx3, NAD, Not ill appearing, not cachectic HEENT: PERRLA, EOMi CV: S1, S2, RRR LUNG: CTABL ABD: Soft, NT, ND, normoactive BS : 4cm soft tissue ulceration in the external labial skin, not in the vulva. Non purulent, non erythematous. No surrounding erythema or pustules MSK: No edema, no erythema NEURO: No sensation or MSK deficits. No facial droop Active Medications Generic Name Dose Route Start Last Admin Trade Name Maksim PRN Reason Stop Dose Admin Amlodipine Besylate 5 mg 01/07/17 10:00 01/08/17 10:06 Norvasc - PO 5 mg DAILY CYNTHIA Administration Dronabinol 2.5 mg 01/08/17 10:00 01/08/17 10:06 Marinol - PO 2.5 mg DAILY@0800 CYNTHIA Administration Dextrose/Sodium Chloride 40 meq in 1,000 mls @ 75 mls/hr 01/07/17 10:00 01/08 10:06 D5-1/2ns+40 Meq Kcl - IV Not Given ASDIR CYNTHIA Mesalamine 800 mg 01/08/17 13:15 Asacol Hd - PO TID CYNTHIA Mupirocin 1 applic 01/06/17 20:15 01/08/17 10:07 Bactroban 2% Ointment - TP 1 applic BID CYNTHIA Administration Pantoprazole Sodium 40 mg 01/07/17 10:00 01/08/17 10:06 Protonix - PO 40 mg DAILY CYNTHIA Administration ASSESSMENT/PLAN: 61yo F with significant history of Rt. Breast carcinoma (first diagnosed in 1998 via lumpectomy followed by RT/chemo/5yrs of tamoxifen and arimedex with multiple mets including brain found in 03/2016) who presented to the ED for PO intolerance and generalized weakness which has improved with diet and fluids. 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 Rad-Onc seen patient, explained to patient about brain mets, recommends WBRT as an outpatient. Currently off Xeloda for time being. # Ulcerative Colitis - Hx of UC as per patient, not on maintenance therapy. GI started patient on Mesalamine 800 TID. Colonoscopy for Wednesday # Dehydration - Secondary to loss of appetite and poor PO intake likely from cancer + chemo. Doing better with diet and IVF 75cc/hr. Will start low dose Marinol to increase appetite, patient in agreement # Prerenal LUIS ALBERTO - Resolved with fluids and increased appetite. # Normocytic Anemia - Anemia of chronic disease, improved s/p 1 PRBC. COntinue to monitor with bloody BM # Labial Ulcer - Superficial, doesn't appear infected. But growing pending organism, very rare. F/u GC and Chlamydia. RPR nonreactive. Pt is immunocompromised. Not on abx for time being. Will follow for now # FEN - D5 02/09 NS + 40meq K at 75cc/hr; elec wnl; regular diet # PPx - No pharmacologic AC due to extensive brain mets as per Onc, PT ordered # Dispo - Acute dehydration and LUIS ALBERTO has resolved, however GI to do colonoscopy on Wednesday d/w Dr Lane Underwood MD - PGY1 Internal Medicine Visit type - Emergency Visit Emergency Visit: No - New Patient This patient is new to me today: No - Critical Care Critical Care patient: No - Discharge Referral Referred to [facility] Med P.C.: No
[2017-01-08] MEDS: amLODIPine BESYLATE 5 MG TABLET (FP) PO SCH (10:06)
[2017-01-08] MEDS: PANTOPRAZOLE 40 MG TABLET (FP) PO SCH (10:06)
[2017-01-08] MEDS: DRONABINOL 2.5 MG CAPSULE PO SCH (10:06)
[2017-01-08] MEDS: MUPIROCIN 2% TOPICAL OINTMENT 22 GM TUBE TP SCH ×2 (10:07→21:55)
--- NOTE | 2017-01-08 10:43 | CON.GI ---
Consult Consult Specialty:: GI Referred by:: Hospitalist - History of Present Illness History of Present Illness: Chart reviewed. Events and consults noted. 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 Clinically improved with hydration and supportive care. Being evaluated for metastatic ca treatment options. The patient reported to medical records secretary an episode of of hematochezia overnight, as per note. The patient has history of ulcerative colitis treated with uceris and 5 ASA "years" ago. She had a colonoscopy at the time of diagnosis. Stopped taking the medication when run out and never went back to refill or follow up. Reports occasionally brown-colored blood in otherwise brown stools. The patient' s nurse reports no melena, hematochezia overnight. 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 History of Recent Travel: No Home Medications - Allergies Allergies/Adverse Reactions: Allergies Allergy/AdvReac Type Severity Reaction Status Date / Time No Known Allergies Allergy Verified 01/06/17 14:28 - Home Medications Home Medications: Ambulatory Orders Amlodipine Besylate 5 mg PO DAILY 01/06/17 Capecitabine 500 mg PO ASDIR 01/06/17 Loperamide HCl [Loperamide] 2 mg PO PRN 01/06/17 Pantoprazole Sodium 40 mg PO DAILY 01/06/17 Potassium Chloride 20 meq PO ASDIR 01/06/17 Family Disease History - Family Disease History Family History: Unremarkable (non-contributory) Family Disease History: CA: Mother Review of Systems Findings/Remarks: please refer to H&P Physical Exam-GI Vital Signs: Vital Signs Temperature 98.4 F 01/08/17 10:00 Pulse Rate 90 01/08/17 10:00 Respiratory Rate 20 01/08/17 10:00 Blood Pressure 127/74 01/08/17 10:00 O2 Sat by Pulse Oximetry (%) 100 01/07/17 21:00 Constitutional: Yes: No Distress, Calm Eyes: Yes: Conjunctiva Clear HENT: Yes: Atraumatic Neck: Yes: Supple Cardiovascular: Yes: Regular Rate and Rhythm Respiratory: Yes: Regular ...Auscultate: Yes: Normoactive Bowel Sounds ...Palpate: Yes: Soft. No: Firm/Rigid, Guarding, Mass, Tenderness Neurological: Yes: Alert, Oriented Labs: CBC, BMP 01/08/17 06:00 01/08/17 06:00 Laboratory Results - last 24 hr 01/07/17 01/07/17 01/07/17 00:53 06:00 18:20 WBC RBC 2.94 L D Hgb 8.5 L D Hct 25.7 L D MCV 87.3 MCH 29.0 MCHC 33.2 RDW 18.3 H Plt Count 148 MPV 7.2 L Total Counted 100 Neutrophils % (Manual) 81.0 D 58.0 D Band Neutrophils % 14.0 Lymphocytes % (Manual) 10.0 D Monocytes % (Manual) 4 Myelocytes % (Man) 7 H Promyelocytes % (Man) 3 H Nucleated RBC % 10 H Metamyelocytes 3 H D Differential Comment Man diff performed Manual Slide Review Platelet Estimate Adequate Sodium Potassium Chloride Carbon Dioxide Anion Gap BUN Creatinine Random Glucose Calcium Ur Leukocyte Esterase 1+ H RPR Titer 01/07/17 01/08/17 01/08/17 18:20 06:00 06:00 WBC 17.0 H RBC 2.91 L Hgb 8.3 L Hct 25.5 L MCV 87.7 MCH 28.5 MCHC 32.6 RDW 18.0 H Plt Count 135 MPV 6.7 L Total Counted Neutrophils % (Manual) Band Neutrophils % Lymphocytes % (Manual) Monocytes % (Manual) Myelocytes % (Man) Promyelocytes % (Man) Nucleated RBC % Metamyelocytes Differential Comment Manual Slide Review Platelet Estimate Sodium 134 L Potassium 4.8 Chloride 100 Carbon Dioxide 27 Anion Gap 7 L BUN 36 H D Creatinine 0.6 D Random Glucose 68 L D Calcium 8.0 L Ur Leukocyte Esterase RPR Titer Nonreactive Imaging - Results Cat Scan: Report Reviewed (A CT on Dec 19 showed thickened left colon and unchanged from 08/24 dilated intrahepatic biliary ducts.) Problem List - Problems (1) Hematochezia Code(s): K92.1 - MELENA (2) Anemia Code(s): D64.9 - ANEMIA, UNSPECIFIED (3) Ulcerative colitis Code(s): K51.90 - ULCERATIVE COLITIS, UNSPECIFIED, WITHOUT COMPLICATIONS Assessment/Plan A 61 yof with hematochezia and history of UC. Not on maintenance medications and not up to date on surveillance. A colonoscopy is indicated and can be either done on this admission, or as an outpatient in the next 1-2 weeks. This was discussed with the patient and she is in agreement. I would start a mall dose 5-ASA now pending colonoscopy results. The management will be contingent on underlying metastatic disease prognosis and management. Isolated, elevated ALP is likely related to metastatic bone disease. Mets to the liver also possible and can present with an isolated ALP. Metastatic breast carcinoma to GI tract i.e colon is rear, but can occur. A CT on Dec 19 showed thickened left colon and unchanged from 08/24 dilated intrahepatic biliary ducts, no other liver findings reported. Do not suspect upper GI bleeding. Monitor for worsening bleeding Asacol HD 800 mg po TID and follow with lipase, and Cr in 1 week Colonoscopy on Wednesday Discussed with the patient and oncology
[2017-01-08 11:01] LABS: WHITE BLOOD COUNT 16.3 K/mm3 (4.0-10.0)
--- NOTE | 2017-01-08 13:02 | PN ---
Progress Note (short form) - Note Progress Note: pt seen and examined, Pt feels tired. General Appearance: thin Lung: Clear to auscultation, Normal air movement Heart: Regular rate & rhythm, Normal S1, Normal S2 Abdomen: Soft, No tenderness, Normal bowel sounds Extremities: Other Neurological: AAOX3. CN intact. LE motor 5/5 Chronic facial droop present. Last Vital Signs Temp Pulse Resp BP Pulse Ox 98.4 F 90 20 127/74 100 01/08/17 10:00 01/08/17 10:00 01/08/17 10:00 01/08/17 10:00 01/07/17 21:00 CBC, BMP 01/08/17 06:00 01/08/17 06:00 Current Medications Generic Name Dose Route Start Last Admin Trade Name Freq PRN Reason Stop Dose Admin Amlodipine Besylate 5 mg 01/07/17 10:00 01/08/17 10:06 Norvasc - PO 5 mg DAILY CYNTHIA Administration Dronabinol 2.5 mg 01/08/17 10:00 01/08/17 10:06 Marinol - PO 2.5 mg DAILY@0800 CYNTHIA Administration Heparin Sodium (Porcine) 5,000 unit 01/07/17 06:00 01/08/17 06:54 Heparin - SQ 5,000 unit TID CYNTHIA Administration Dextrose/Sodium Chloride 40 meq in 1,000 mls @ 75 mls/hr 01/07/17 10:00 01/08 10:06 D5-1/2ns+40 Meq Kcl - IV Not Given ASDIR CYNTHIA Mupirocin 1 applic 01/06/17 20:15 01/08/17 10:07 Bactroban 2% Ointment - TP 1 applic BID CYNTHIA Administration Pantoprazole Sodium 40 mg 01/07/17 10:00 01/08/17 10:06 Protonix - PO 40 mg DAILY CYNTHIA Administration 61 y/o patient with metastatic breast cancer, progressive brain mets, comes in with failure to thrive gentle hydration Rad-onc consult appreciate GI c/s In the setting of bleeding (GI) and multiple new brain mets, favor DC DVT Heparin ppx. for SCD repeat labs. ( added LDH/Uric acid). transfusion as needed palliative care for support.
--- NOTE | 2017-01-08 14:07 | PN ---
Progress Note (short form) - Note Progress Note: Radiation Oncology Seen last night and this morning, full consult dictated. 61 yo with progressive metastatic breast cancer on xeloda s/p RT to RLE with increasing ANIMAL KEEPER HEAD mets admitted for FTT. MRI shows multiple new small brain mets without edema, reviewed with Dr. Tello who felt LMD is equivocal on MR and LP would be more definitive. I spoke to patient about WBRT vs GKS (would need to r/ o LMD however) and she is favoring WBRT to help control ANIMAL KEEPER HEAD disease. Discussed with Dr. Seals and given rapidly declining PS, will consider inpatient RT if she cannot be safely discharged. Await hospital approval.
[2017-01-08] MEDS: MESALAMINE 800 MG TABLET.DR PO SCH ×3 (14:59→21:56)
--- NOTE | 2017-01-08 16:06 | PN ---
Teaching Attending Note Name of Resident: Tanya Underwood ATTENDING PHYSICIAN STATEMENT I saw and evaluated the patient. I reviewed the resident's note and discussed the case with the resident. I agree with the resident's findings and plan as documented. SUBJECTIVE:asymptomatic. states she was told by nursing informatics analyst she had bloody BM this am but does not recall having any at home. has hx of UC but not on medications. unclear why. states her appetite improved but willing to try appetite stimulant. denies CP, SOB, fever, chills, N/V/C/D or abdominal pain OBJECTIVE: Last Vital Signs Temp Pulse Resp BP Pulse Ox 98.1 F 70 16 111/82 100 01/08/17 15:06 01/08/17 15:06 01/08/17 15:06 01/08/17 15:06 01/07/17 21:00 General NAD CV S1 S2 RRR no murmur/rub/gallop Lungs CTA B/L no wheezing/rales/rhonchi Abdomen soft NT/ND rectal no bleeding noted, no hemrrhoids. brown stool in rectal vault. subcentimeter ulceration on gluteal fold, non tender no bleeding or oozing ASSESSMENT AND PLAN: 61yo F with PMH R breast ca with (mets to brain, bone, pleura) s/p lumpectomy, RTx and Chemo whom completed hormonal therapy and on Xeloda currently every other week presented with generalized weakness and anorexia 1. Generalized weakness- likely due to dehydration vs progression of disease. improved. PT assessment. dietary assessment 2. Lactic acidosis- due to high tumor burden. elevated LD. now resolved 3. Acute anemia- likely anemia of chronic disease with dilutional component. s/ p 1 unit PRBC this admission with good response. Hgb stable despite report of BRBPR. will repeat CBC this afternoon. no indication for txn at this time. 4. BRBPR- hx of ulcerative colitis not on medications. no abdominal pain, 1 episode. GI consult. 5. Genital ulcer- stable. RPR negative. will monitor. 6. Anorexia- likely due to malignancy. improved. ate half her meals since yesterday. start marinol. 7. LUIS ALBERTO- dehydration. now improved 8. Hypokalemia- resolved 9. Leukocytosis- less likely reactive vs from malignancy. CXR negative. no current source. Cx sent. hold abx at this time 10. Hypotension- likely dehydration. now resolved 11. DVT ppx- place SCD. hold pharmacolgic anticoagulation.
--- NOTE | 2017-01-08 16:28 | CONS ---
DATE OF CONSULTATION: 01/08/2017 REFERRING PHYSICIAN: Yaa Seals MD REASON FOR CONSULTATION: Progressive brain metastases. HISTORY OF PRESENT ILLNESS: The patient is a 61-year-old woman with history of stage IV breast cancer with bone and brain metastases. She received palliative radiation therapy to right lower extremity bone metastases earlier this year with good relief of her hip pain. She had a periventricular brain metastasis that has been monitored. She has been receiving Xeloda most recently. She is admitted for a 1-month history of failure to thrive. She has progressively gotten weaker and is admitted for further management. Recent MRI of the brain showed increasing brain metastases measuring 2-3 mm each and up to 5-6 lesions that are enhancing without surrounding edema or mass effect. The left perimedullary cistern enhancing nodule is stable, measuring 8 mm without edema. She again has persistent dural thickening and enhancement diffusely, suggestive of leptomeningeal involvement. She denies headaches, dizziness, nausea, vomiting, or blurry vision. She does note loss of appetite. Denies recent fevers, chills, chest pain, cough, shortness of breath, abdominal pain, diarrhea , or dysuria. PAST MEDICAL HISTORY: Ulcerative colitis, hypertension. PAST SURGICAL HISTORY: Breast conservation therapy including lumpectomy, followed by postoperative radiation therapy in 1999, when she received 6000 cGy to the right breast. PAST CHEMOTHERAPY HISTORY: Five years of tamoxifen, followed by 5 years of Arimidex, Taxol, Gemzar, Zometa, and most recently Xeloda. ALLERGIES: No known drug allergies. CURRENT MEDICATIONS: Bactroban, Norvasc, Protonix. SOCIAL HISTORY: She is . She worked for [employer]. She quit smoking over 20 years ago, one pack per day. No significant alcohol use. FAMILY HISTORY: Father of a throat cancer. Mother of a breast cancer. She has a son who is healthy. PHYSICAL EXAMINATION: General: Well-appearing female appearing her stated age, in no acute distress. Vital Signs: Temperature 97.4, blood pressure 122/74, pulse 78, respiratory rate 20, SaO2 of 100% on room air. HEENT: Normocephalic, atraumatic. Moist mucous membranes. Mild pallor. No scleral icterus. Oral cavity is clear. Neck: No adenopathy. Chest: Clear. Cardiovascular: Regular. Abdomen: Soft, nontender, nondistended, with active bowel sounds. Extremities: No significant edema. Musculoskeletal: No spine tenderness. Neurologic: Alert and oriented. Cranial nerves 2-12 are intact. Sensation to light touch is intact. Deep tendon reflex: Toes mute. Motor 5/5 in the upper extremities, 4/5 in the left lower extremity, 3/5 in the right lower extremity. RADIOLOGIC DATA: MRI of the brain: See HPI. CT C/A/P: Right breast skin thickening with a 1.3-cm nodule in the upper outer quadrant of the right breast. Pleural nodularity, nonspecific. No evidence of intrathoracic, intraabdominal, or pelvic metastasis. Diffuse osseous metastatic disease, unchanged from August 28, 2016. Long-segment bowel wall thickening in the descending colon through the rectum consistent with infectious versus inflammatory proctocolitis. Prominent perirectal lymph node, may be reactive. Biliary ductal dilatation is unchanged. LABORATORY DATA: WBC 17, hemoglobin 8.3, platelets 135,000. BUN 36, creatinine is 0.6. Electrolytes within normal limits. Calcium 8.0. IMPRESSION: A 61-year-old woman with metastatic breast cancer status post palliative radiation to the right lower extremity with good symptom control, now with progressive brain metastases and possibility of leptomeningeal disease. She has had recent declining performance status on chemotherapy. Her medical workup is ongoing. I recommended palliative radiation therapy for her progressive central nervous system metastases. Although the lesions are small and not causing mass effect, she may have more diffuse disease, i.e. leptomeningeal involvement. I will review the MRI with the radiologist to confirm or r/o LMD. She will likely be a candidate for whole-brain radiation therapy versus Gamma Knife radiosurgery. Treatment as inpatient versus outpatient will be determined based on her progress and improvement of performance status. I will further discuss her care the medical oncologist. As always, I appreciate the opportunity to participate in the care of this patient. GEORGE DUPONT M.D. [id number] MTDD
[2017-01-08] MEDS: DEXTROSE 5%-0.45% SALINE 1,000 ML IV SCH (16:49)
[2017-01-08] MEDS: AMINO ACIDS/PROTEIN HYDROLYS 30 ML LIQUID.PKT PO SCH (16:50)
[2017-01-08 17:02] LABS: MEAN CELL VOLUME 87.7 fl (80-96); MEAN PLT VOLUME 7.3 fl (7.5-11.1); PLATELET COUNT 144 K/MM3 (134-434); RDW 18.3 % (11.6-15.6); WHITE BLOOD COUNT 14.8 K/mm3 (4.0-10.0)
[2017-01-08 18:44] LABS: LDH 1183 U/L (91-180); URIC ACID 5.9 mg/dl (2.6-7.2)
[2017-01-09] MEDS: MESALAMINE 800 MG TABLET.DR PO SCH ×3 (06:31→22:34)
[2017-01-09] MEDS: DRONABINOL 2.5 MG CAPSULE PO SCH (08:03)
[2017-01-09] MEDS: AMINO ACIDS/PROTEIN HYDROLYS 30 ML LIQUID.PKT PO SCH ×2 (08:03→17:08)
[2017-01-09 08:14] LABS: MCH 28.8 pg (25.7-33.7); MCHC 32.6 g/dl (32.0-36.0); MEAN CELL VOLUME 88.3 fl (80-96); MEAN PLT VOLUME 6.5 fl (7.5-11.1); PLATELET COUNT 112 K/MM3 (134-434); RDW 18.5 % (11.6-15.6)
[2017-01-09 08:23] LABS: ANION GAP 11 (8-16); CALCIUM 8.1 mg/dL (8.5-10.1); CO2 27 mmol/L (21-32); CREATININE 0.6 mg/dL (0.55-1.02); GLUCOSE,RANDOM 62 mg/dL (74-106)
--- NOTE | 2017-01-09 09:12 | PN ---
Progress Note (short form) - Note Progress Note: currently asymptomatic. states her appetite has improved. denies Cp, SOB, fever , chills, N/V/C/D, melena or BRBPR. RN confirms no BRBPR Current Medications Generic Name Dose Route Start Last Admin Trade Name Freq PRN Reason Stop Dose Admin Amino Acids 30 ml 01/08/17 17:30 01/09/17 08:03 Prosource No Carb Liquid Pkt PO 30 ml BID@0800,1730 CYNTHIA Administration Amlodipine Besylate 5 mg 01/07/17 10:00 01/08/17 10:06 Norvasc - PO 5 mg DAILY CYNTHIA Administration Bisacodyl 20 mg 01/10/17 16:15 Dulcolax - PO 01/10/17 16:16 ONCE ONE Dronabinol 2.5 mg 01/08/17 10:00 01/09/17 08:03 Marinol - PO 2.5 mg DAILY@0800 CYNTHIA Administration IV Flush 10 ml 01/08/17 19:00 Kirill-Cath Flush IVPUSH PRN PRN flush kirill cath Dextrose/Sodium Chloride 1,000 mls @ 42 mls/hr 01/08/17 16:15 01/08/17 16:49 D5-1/2ns - IV 42 mls/hr ASDIR CYNTHIA Administration Mesalamine 800 mg 01/08/17 13:15 01/09/17 06:31 Asacol Hd - PO 800 mg TID CYNTHIA Administration Mupirocin 1 applic 01/06/17 20:15 01/08/17 21:55 Bactroban 2% Ointment - TP 1 applic BID CYNTHIA Administration Pantoprazole Sodium 40 mg 01/07/17 10:00 01/08/17 10:06 Protonix - PO 40 mg DAILY CYNTHIA Administration Polyethylene Glycol/Electrolytes 4,000 ml 01/10/17 18:00 Golytely Solution - PO 01/10/17 18:01 ONCE ONE Last Vital Signs Temp Pulse Resp BP Pulse Ox 98.5 F 95 H 20 116/68 100 01/09/17 07:44 01/09/17 07:44 01/09/17 07:44 01/09/17 07:44 01/08/17 21:00 General NAD CV S1 S2 RRR no murmur/rub/gallop Lungs CTA B/L no wheezing/rales/rhonchi Abdomen soft NT/ND CBCD WBC 14.0 K/mm3 (4.0-10.0) H 01/09/17 06:00 RBC 2.68 M/mm3 (3.60-5.2) L 01/09/17 06:00 Hgb 7.7 GM/dL (10.7-15.3) L 01/09/17 06:00 Hct 23.6 % (32.4-45.2) L 01/09/17 06:00 MCV 88.3 fl (80-96) 01/09/17 06:00 MCHC 32.6 g/dl (32.0-36.0) 01/09/17 06:00 RDW 18.5 % (11.6-15.6) H 01/09/17 06:00 Plt Count 112 K/MM3 (134-434) L D 01/09/17 06:00 MPV 6.5 fl (7.5-11.1) L D 01/09/17 06:00 CMP Sodium 138 mmol/L (136-145) 01/09/17 06:00 Potassium 4.1 mmol/L (3.5-5.1) 01/09/17 06:00 Chloride 100 mmol/L (98-107) 01/09/17 06:00 Carbon Dioxide 27 mmol/L (21-32) 01/09/17 06:00 Anion Gap 11 (8-16) 01/09/17 06:00 BUN 23 mg/dL (7-18) H D 01/09/17 06:00 Creatinine 0.6 mg/dL (0.55-1.02) 01/09/17 06:00 Creat Clearance w eGFR 30.76 (>60) 01/06/17 14:36 Calcium 8.1 mg/dL (8.5-10.1) L 01/09/17 06:00 Total Bilirubin 0.9 mg/dL (0.2-1.0) D 01/06/17 14:36 AST 45 U/L (15-37) H D 01/06/17 14:36 ALT 6 U/L (12-78) L 01/06/17 14:36 Alkaline Phosphatase 463 U/L (45-117) H 01/06/17 14:36 Total Protein 6.1 g/dl (6.4-8.2) L 01/06/17 14:36 Albumin 2.1 g/dl (3.4-5.0) L 01/06/17 14:36 Microbiology 01/06/17 16:00 Blood Culture - Preliminary Blood - Peripheral Venous NO GROWTH OBTAINED AFTER 48 HOURS, INCUBATION TO CONTINUE FOR 3 DAYS. 01/06/17 16:00 Blood Culture - Preliminary Blood - Peripheral Venous NO GROWTH OBTAINED AFTER 48 HOURS, INCUBATION TO CONTINUE FOR 3 DAYS. 01/06/17 23:39 Gram Stain - Final Wound Wound Culture - Preliminary Pending Organism 01/07/17 00:53 Urine Culture - Final Urine - Urine Clean Catch ASSESSMENT AND PLAN: 61yo F with PMH R breast ca with (mets to brain, bone, pleura) s/p lumpectomy, RTx and Chemo whom completed hormonal therapy and on Xeloda currently every other week presented with generalized weakness and anorexia 1. Generalized weakness- likely due to dehydration vs progression of disease. improved. PT assessment. dietary assessment 2. Lactic acidosis- due to high tumor burden. elevated LD. oncology on board 3. Acute anemia- likely anemia of chronic disease with dilutional component. s/ p 1 unit PRBC this admission with good response. Hgb slowly trending down. had BRBPR yesterday. no repeat episodes. pt is asymptoamtic at this time. will repeat CBC this afternoon. txn as needed. 4. BRBPR- hx of ulcerative colitis not on medications. no repeat BRBPR. NPO tomorrow night for colonoscopy on Wednesday. re-started on mesalamine 5. Genital ulcer- stable. RPR negative. will monitor. 6. Malnutrition- due to body habitus with temporal wasting, prominent clavicles and significant weight loss. likely due to malignancy. started on marinol will titrate to optimize response. cont ensures and prosource 7. LUIS ALBERTO- dehydration. now improved 8. Hypokalemia- resolved 9. Leukocytosis- less likely reactive vs from malignancy. CXR negative. no current source. Cx sent. hold abx at this time 10. Hypotension- likely dehydration. now resolved 11. DVT ppx- place SCD. hold pharmacolgic anticoagulation. Visit type - Emergency Visit Emergency Visit: Yes ED Registration Date: 01/06/17 Care time: The patient presented to the Emergency Department on the above date and was hospitalized for further evaluation of their emergent condition. - New Patient This patient is new to me today: No - Critical Care Critical Care patient: No - Discharge Referral Referred to [facility] No
[2017-01-09] MEDS: amLODIPine BESYLATE 5 MG TABLET (FP) PO SCH (10:05)
[2017-01-09] MEDS: PANTOPRAZOLE 40 MG TABLET (FP) PO SCH (10:05)
[2017-01-09] MEDS: MUPIROCIN 2% TOPICAL OINTMENT 22 GM TUBE TP SCH ×2 (10:05→22:35)
[2017-01-09 11:03] LABS: METAMYELOCYTE 8 % (0-2); NUCLEATED RED BLOOD CELL 5 % (0-0); PLATELET ESTIMATE DECREASED; TOTAL CELLS COUNTED 100
--- NOTE | 2017-01-09 12:22 | PN ---
Progress Note, Physician History of Present Illness: feels tired. no events, no melena, hematochezia, per patient - Current Medication List Current Medications: Active Medications Amino Acids (Prosource No Carb Liquid Pkt) 30 ml PO BID@0800,1730 [facility] Last Admin: 01/09/17 08:03 Dose: 30 ml Amlodipine Besylate (Norvasc -) 5 mg PO DAILY [facility] Last Admin: 01/09/17 10:05 Dose: 5 mg Bisacodyl (Dulcolax -) 20 mg PO ONCE ONE Stop: 01/10/17 16:16 Dronabinol (Marinol -) 2.5 mg PO DAILY@0800 [facility] Last Admin: 01/09/17 08:03 Dose: 2.5 mg IV Flush (Kirill-Cath Flush) 10 ml IVPUSH PRN PRN PRN Reason: flush kirill cath Dextrose/Sodium Chloride (D5-1/2ns -) 1,000 mls @ 42 mls/hr IV ASDIR [facility] Last Admin: 01/08/17 16:49 Dose: 42 mls/hr Mesalamine (Asacol Hd -) 800 mg PO TID [facility] Last Admin: 01/09/17 06:31 Dose: 800 mg Mupirocin (Bactroban 2% Ointment -) 1 applic TP BID [facility] Last Admin: 01/09/17 10:05 Dose: 1 applic Pantoprazole Sodium (Protonix -) 40 mg PO DAILY [facility] Last Admin: 01/09/17 10:05 Dose: 40 mg Polyethylene Glycol/Electrolytes (Golytely Solution -) 4,000 ml PO ONCE ONE Stop: 01/10/17 18:01 - Objective Vital Signs: Vital Signs Temperature 98.1 F 01/09/17 08:15 Pulse Rate 101 H 01/09/17 08:15 Respiratory Rate 18 01/09/17 08:15 Blood Pressure 124/70 01/09/17 08:15 O2 Sat by Pulse Oximetry (%) 100 01/08/17 21:00 Constitutional: Yes: No Distress, Cachectic Eyes: Yes: Conjunctiva Clear Neck: Yes: Supple Cardiovascular: Yes: Regular Rate and Rhythm Respiratory: Yes: Regular Gastrointestinal: Yes: Soft. No: Melena, Rectal Bleeding, Tenderness Neurological: Yes: Alert, Oriented Labs: CBC, BMP 01/09/17 06:00 01/09/17 06:00 Laboratory Results - last 24 hr 01/06/17 01/08/17 01/08/17 16:00 06:00 13:40 WBC Corrected WBC (auto) RBC Hgb Hct MCV MCH MCHC RDW Plt Count MPV Total Counted Neutrophils % Neutrophils % (Manual) Band Neutrophils % Lymphocytes % Lymphocytes % (Manual) Monocytes % (Manual) Nucleated RBC % Metamyelocytes Manual Slide Review Platelet Estimate Platelet Comment Haptoglobin 234 H Sodium 134 L Potassium 4.8 Chloride 100 Carbon Dioxide 27 Anion Gap 7 L BUN 36 H D Creatinine 0.6 D Random Glucose 68 L D Uric Acid 5.9 Cancelled Calcium 8.0 L LD Total 1183 H* Cancelled 01/08/17 01/08/17 01/09/17 15:00 17:00 06:00 WBC 14.8 H Cancelled 14.0 H Corrected WBC (auto) Cancelled RBC 2.77 L Cancelled 2.68 L Hgb 8.0 L Cancelled 7.7 L Hct 24.3 L Cancelled 23.6 L MCV 87.7 Cancelled 88.3 MCH 29.0 Cancelled 28.8 MCHC 33.0 Cancelled 32.6 RDW 18.3 H Cancelled 18.5 H Plt Count 144 Cancelled 112 L D MPV 7.3 L Cancelled 6.5 L D Total Counted 100 Neutrophils % No Result Required. Neutrophils % (Manual) 68.0 Band Neutrophils % 1.0 Lymphocytes % No Result Required. Lymphocytes % (Manual) 10.0 Monocytes % (Manual) 9 D Nucleated RBC % 5 H Metamyelocytes 8 H D Manual Slide Review Cancelled Platelet Estimate Decreased Platelet Comment Cancelled Haptoglobin Sodium Potassium Chloride Carbon Dioxide Anion Gap BUN Creatinine Random Glucose Uric Acid Calcium LD Total 01/09/17 06:00 WBC Corrected WBC (auto) RBC Hgb Hct MCV MCH MCHC RDW Plt Count MPV Total Counted Neutrophils % Neutrophils % (Manual) Band Neutrophils % Lymphocytes % Lymphocytes % (Manual) Monocytes % (Manual) Nucleated RBC % Metamyelocytes Manual Slide Review Platelet Estimate Platelet Comment Haptoglobin Sodium 138 Potassium 4.1 Chloride 100 Carbon Dioxide 27 Anion Gap 11 BUN 23 H D Creatinine 0.6 Random Glucose 62 L Uric Acid Calcium 8.1 L LD Total Problem List - Problems (1) Hematochezia Code(s): K92.1 - MELENA (2) Anemia Code(s): D64.9 - ANEMIA, UNSPECIFIED (3) Ulcerative colitis Code(s): K51.90 - ULCERATIVE COLITIS, UNSPECIFIED, WITHOUT COMPLICATIONS Assessment/Plan Monitor for worsening bleeding Asacol HD 800 mg po TID and follow with lipase, and Cr in 1 week Colonoscopy on Wednesday Discussed with the patient, and the nurse
[2017-01-09 13:09] LABS: MCH 28.4 pg (25.7-33.7); MCHC 32.4 g/dl (32.0-36.0); MEAN CELL VOLUME 87.6 fl (80-96); MEAN PLT VOLUME 6.5 fl (7.5-11.1); PLATELET COUNT 112 K/MM3 (134-434); WHITE BLOOD COUNT 14.2 K/mm3 (4.0-10.0)
[2017-01-09] MEDS: DEXTROSE 5%-0.45% SALINE 1,000 ML IV SCH (17:10)
[2017-01-09] MEDS ORDERED: PT OWN MED DRAWER 7, Y5N ONE (21:21)
[2017-01-10] MEDS ORDERED: PT OWN MED DRAWER 7, Y5N ONE ×3 (05:42→13:40)
[2017-01-10] MEDS: MESALAMINE 800 MG TABLET.DR PO SCH ×3 (05:45→21:11)
[2017-01-10] MEDS: AMINO ACIDS/PROTEIN HYDROLYS 30 ML LIQUID.PKT PO SCH ×2 (08:23→17:26)
[2017-01-10] MEDS: DRONABINOL 2.5 MG CAPSULE PO SCH ×2 (08:23→17:26)
--- NOTE | 2017-01-10 08:31 | PN ---
Teaching Attending Note Name of Resident: Norma Arriola ATTENDING PHYSICIAN STATEMENT I saw and evaluated the patient. I reviewed the resident's note and discussed the case with the resident. I agree with the resident's findings and plan as documented. SUBJECTIVE:asymptomatic. deneis Cp, SOB, fever, chills, N/V/C/D. no repeated episdoes of melena or BRBPR OBJECTIVE: Last Vital Signs Temp Pulse Resp BP Pulse Ox 98.7 F 91 H 18 108/75 96 01/10/17 00:00 01/10/17 00:00 01/10/17 00:00 01/10/17 00:00 01/09/17 21:00 General NAD CV S1 S2 RRR no murmur/rub/gallop Lungs CTA B/L no wheezing/crackles/rales ASSESSMENT AND PLAN: 61yo F with PMH R breast ca with (mets to brain, bone, pleura) s/p lumpectomy, RTx and Chemo whom completed hormonal therapy and on Xeloda currently every other week presented with generalized weakness and anorexia 1. Generalized weakness- likely due to dehydration vs progression of disease. improved. PT assessment. dietary assessment 2. Lactic acidosis- due to high tumor burden. elevated LD. oncology on board 3. Acute anemia- likely anemia of chronic disease with dilutional component. s/ p 1 unit PRBC this admission with good response. Hgb stable. f/u todays Hgb. txn as needed. no repeated episodes of melena. plan for colonoscopy tomorrow. txn as needed. 4. BRBPR- hx of ulcerative colitis not on medications. no repeat BRBPR. NPO tonight for colonoscopy tomorrow. on mesalamine 5. Genital ulcer- +MSSA from the wound. will re-start augmentin although doesnt look infected as pt is immunocompromised. RPR negative. 6. Malnutrition- due to body habitus with temporal wasting, prominent clavicles and significant weight loss. likely due to malignancy. started on marinol will titrate to optimize response. cont ensures and prosource, gentle hydration. 7. LUIS ALBERTO- dehydration. now improved 8. Hypokalemia- resolved 9. Leukocytosis- less likely reactive vs from malignancy. CXR negative. started augmentin for +MSSA in genital wound 10. Hypotension- likely dehydration. now resolved 11. DVT ppx- place SCD. hold pharmacolgic anticoagulation.
[2017-01-10 08:34] LABS: MCH 28.7 pg (25.7-33.7); MCHC 32.7 g/dl (32.0-36.0); MEAN CELL VOLUME 87.7 fl (80-96); MEAN PLT VOLUME 6.6 fl (7.5-11.1); PLATELET COUNT 86 K/MM3 (134-434); RDW 18.6 % (11.6-15.6); WHITE BLOOD COUNT 12.9 K/mm3 (4.0-10.0)
[2017-01-10] MEDS: PANTOPRAZOLE 40 MG TABLET (FP) PO SCH (09:42)
[2017-01-10] MEDS: amLODIPine BESYLATE 5 MG TABLET (FP) PO SCH (09:42)
[2017-01-10] MEDS: AMOX TR/POT CLAV 875MG/125MG TABLETS (FP) PO SCH ×2 (09:42→17:25)
[2017-01-10] MEDS: MUPIROCIN 2% TOPICAL OINTMENT 22 GM TUBE TP SCH ×2 (09:42→21:12)
--- NOTE | 2017-01-10 15:38 | PN ---
Progress Note, Physician History of Present Illness: no events, no melena, hematochezia, per patient - Current Medication List Current Medications: Active Medications Amino Acids (Prosource No Carb Liquid Pkt) 30 ml PO BID@0800,1730 [facility] Last Admin: 01/10/17 08:23 Dose: 30 ml Amlodipine Besylate (Norvasc -) 5 mg PO DAILY [facility] Last Admin: 01/10/17 09:42 Dose: 5 mg Amoxicillin/Clavulanate Potassium (Augmentin - 875mg Tablet) 1 tab PO BID@0800, 1730 [facility] Last Admin: 01/10/17 09:42 Dose: 1 tab Bisacodyl (Dulcolax -) 20 mg PO ONCE ONE Stop: 01/10/17 16:16 Dronabinol (Marinol -) 2.5 mg PO BIDWM [facility] IV Flush (Kirill-Cath Flush) 10 ml IVPUSH PRN PRN PRN Reason: flush kirill cath Dextrose/Sodium Chloride (D5-1/2ns -) 1,000 mls @ 42 mls/hr IV ASDIR [facility] Last Admin: 01/09/17 17:10 Dose: 42 mls/hr Mesalamine (Asacol Hd -) 800 mg PO TID [facility] Last Admin: 01/10/17 13:43 Dose: 800 mg Mupirocin (Bactroban 2% Ointment -) 1 applic TP BID [facility] Last Admin: 01/10/17 09:42 Dose: 1 applic Pantoprazole Sodium (Protonix -) 40 mg PO DAILY [facility] Last Admin: 01/10/17 09:42 Dose: 40 mg Polyethylene Glycol/Electrolytes (Golytely Solution -) 4,000 ml PO ONCE ONE Stop: 01/10/17 18:01 - Objective Vital Signs: Vital Signs Temperature 98.1 F 01/10/17 08:00 Pulse Rate 107 H 01/10/17 08:00 Respiratory Rate 18 01/10/17 08:00 Blood Pressure 122/66 01/10/17 08:00 O2 Sat by Pulse Oximetry (%) 96 01/09/17 21:00 Gastrointestinal: Yes: Soft. No: Melena, Rectal Bleeding, Tenderness Labs: CBC, BMP 01/10/17 06:00 01/09/17 06:00 Problem List - Problems (1) Hematochezia Code(s): K92.1 - MELENA (2) Anemia Code(s): D64.9 - ANEMIA, UNSPECIFIED (3) Ulcerative colitis Code(s): K51.90 - ULCERATIVE COLITIS, UNSPECIFIED, WITHOUT COMPLICATIONS Assessment/Plan Monitor for worsening bleeding Asacol HD 800 mg po TID and follow with lipase, and Cr in 1 week Colonoscopy on Wednesday Discussed with the patient, and the nurse
[2017-01-10] MEDS ORDERED: BISACODYL 5 MG TABLET.DR (FP) PO ONE (16:15)
[2017-01-10] MEDS: DEXTROSE 5%-0.45% SALINE 1,000 ML IV SCH (18:00)
[2017-01-10] MEDS ORDERED: PEG 3350/NA SULF BICARB CL/KCL 4000 ML SOLN.RECON PO ONE (18:00)
--- NOTE | 2017-01-10 18:04 | PN ---
Physical Exam: SUBJECTIVE: Patient seen and examined, no events overnight, no new complaints. Admits to slightly improved appetite. Afebrile, denies nausea, vomiting, abdominal pain, leg edema. OBJECTIVE: Vital Signs Period Temp Pulse Resp BP Sys/Mulligan Pulse Ox Last 24 Hr 97.9 F-98.7 F 91-119 18-20 108-122/63-75 96 GENERAL: The patient is awake, alert, and fully oriented, in no acute distress. LUNGS: Breath sounds equal, clear to auscultation bilaterally, no wheezes, no crackles, no accessory muscle use. HEART: tachy and reg rhythm, S1, S2 without murmur, rub or gallop. ABDOMEN: Soft, nontender, nondistended, normoactive bowel sounds, no guarding, no rebound, no hepatosplenomegaly, no masses. EXTREMITIES: 2+ pulses, warm, well-perfused, no edema. NEUROLOGICAL: Cranial nerves II through XII grossly intact. Normal speech, gait not observed. PSYCH: Normal mood, normal affect. SKIN: Warm, dry, normal turgor, no rashes or lesions noted Laboratory Results - last 24 hr 01/07/17 01/10/17 01:20 06:00 WBC 12.9 H RBC 2.66 L Hgb 7.6 L Hct 23.3 L MCV 87.7 MCH 28.7 MCHC 32.7 RDW 18.6 H Plt Count 86 L D MPV 6.6 L Blood Type A POSITIVE Antibody Screen Negative Crossmatch See Detail Active Medications Generic Name Dose Route Start Last Admin Trade Name Freq PRN Reason Stop Dose Admin Amino Acids 30 ml 01/08/17 17:30 01/10/17 17:26 Prosource No Carb Liquid Pkt PO 30 ml BID@0800,1730 CYNTHIA Administration Amlodipine Besylate 5 mg 01/07/17 10:00 01/10/17 09:42 Norvasc - PO 5 mg DAILY CYNTHIA Administration Amoxicillin/Clavulanate Potassium 1 tab 01/10/17 09:45 01/10/17 17:25 Augmentin - 875mg Tablet PO 1 tab BID@0800,1730 CYNTHIA Administration Dronabinol 2.5 mg 01/10/17 17:30 01/10/17 17:26 Marinol - PO 2.5 mg BIDWM CYNTHIA Administration IV Flush 10 ml 01/08/17 19:00 Kirill-Cath Flush IVPUSH PRN PRN flush kirill cath Dextrose/Sodium Chloride 1,000 mls @ 42 mls/hr 01/08/17 16:15 01/10/17 18:00 D5-1/2ns - IV 42 mls/hr ASDIR CYNTHIA Administration Mesalamine 800 mg 01/08/17 13:15 01/10/17 13:43 Asacol Hd - PO 800 mg TID CYNTHIA Administration Mupirocin 1 applic 01/06/17 20:15 01/10/17 09:42 Bactroban 2% Ointment - TP 1 applic BID CYNTHIA Administration Pantoprazole Sodium 40 mg 01/07/17 10:00 01/10/17 09:42 Protonix - PO 40 mg DAILY CYNTHIA Administration ASSESSMENT/PLAN: This is a 61 year old female with right breast cancer with mets to the brain, bone treated with radiation and chemotherapy. #generalized weakness/failure thrive secondary to dehydration/malnutrition/ disease progression: improving -appetite has slightly improved; on marinol 2.5mg po bid, ensure, prosource -dietary consult\ -slight improvement with PT; #Lactic acidosis secondary to tumor burden vs +MSSA from vaginal ulcer -cont augmentin 875po bid #anemia;chronic vs ulcerative colitis: -for colonoscopy tomorrow -npo after midnight -cont asacol 800mg po tid #genital ulcer: MSSA +; cont po antibiotic DVT proph: scds GI proph: ppi Disposition: colonscopy stefan Visit type - Emergency Visit Emergency Visit: Yes ED Registration Date: 01/06/17 Care time: The patient presented to the Emergency Department on the above date and was hospitalized for further evaluation of their emergent condition. - New Patient This patient is new to me today: Yes Date on this admission: 01/10/17 - Critical Care Critical Care patient: No
[2017-01-11] MEDS: MESALAMINE 800 MG TABLET.DR PO SCH ×3 (06:07→21:31)
[2017-01-11 07:49] LABS: MCH 29.4 pg (25.7-33.7); MCHC 33.9 g/dl (32.0-36.0); MEAN CELL VOLUME 86.9 fl (80-96); MEAN PLT VOLUME 6.7 fl (7.5-11.1); PLATELET COUNT 85 K/MM3 (134-434); RDW 18.1 % (11.6-15.6); WHITE BLOOD COUNT 8.9 K/mm3 (4.0-10.0)
[2017-01-11 08:07] LABS: INR 1.47 (0.82-1.09); PROTHROMBIN TIME (PATIENT) 16.6 SEC (9.98-11.88)
[2017-01-11 08:15] LABS: ALBUMIN 1.3 g/dl (3.4-5.0); ANION GAP 12 (8-16); BILIRUBIN,TOTAL 0.7 mg/dL (0.2-1.0); CO2 26 mmol/L (21-32); GLUCOSE,RANDOM 72 mg/dL (74-106); PHOSPHOROUS 2.7 mg/dL (2.5-4.9); TOT PROT 4.5 g/dl (6.4-8.2)
[2017-01-11 08:20] LABS: ALK PHOS 603 U/L (45-117); CREATININE 0.5 mg/dL (0.55-1.02); MAGNESIUM 1.3 mg/dL (1.8-2.4); SGOT/AST 54 U/L (15-37); SGPT/ALT 10 U/L (12-78)
[2017-01-11] MEDS: AMOX TR/POT CLAV 875MG/125MG TABLETS (FP) PO SCH ×2 (08:21→17:45)
[2017-01-11] MEDS: AMINO ACIDS/PROTEIN HYDROLYS 30 ML LIQUID.PKT PO SCH ×2 (08:21→17:44)
[2017-01-11] MEDS ORDERED: BISACODYL 5 MG TABLET.DR (FP) PO ONE ×2 (08:21→13:15)
--- NOTE | 2017-01-11 08:21 | PN ---
Progress Note (short form) - Note Progress Note: No events. Drank 1/2 of the prep. last BM last night was formed, per patient. Continue to drink golyte today Dulcolax Clear liquid diet today, NPO after midnight. Colonoscopy tomorrow. Discussed with the patient and the nurse Problem List - Problems (1) Hematochezia Code(s): K92.1 - MELENA (2) Anemia Code(s): D64.9 - ANEMIA, UNSPECIFIED (3) Ulcerative colitis Code(s): K51.90 - ULCERATIVE COLITIS, UNSPECIFIED, WITHOUT COMPLICATIONS
--- NOTE | 2017-01-11 08:22 | PN ---
Physical Exam: SUBJECTIVE: Patient seen and examined. Doing well, asymptomatic. Not anxious. Feels as if appetite has improved. Patient did not drink all the prep last night. Encouraged her to drink prep. Dr Bell will do scope tmrw. OBJECTIVE: Vital Signs Period Temp Pulse Resp BP Sys/Mulligan Pulse Ox Last 24 Hr 98.0 F-98.3 F 112-120 18-18 109-120/63-71 98 GEN: AAOx3, NAD, Not ill appearing, not cachectic HEENT: PERRLA, EOMi CV: S1, S2, tachycardic rate and rhythm LUNG: CTABL ABD: Soft, NT, ND, normoactive BS : 4cm soft tissue ulceration in the external labial skin, not in the vulva. Non purulent, non erythematous. No surrounding erythema or pustules MSK: No edema, no erythema NEURO: No sensation or MSK deficits. No facial droop Active Medications Generic Name Dose Route Start Last Admin Trade Name Freq PRN Reason Stop Dose Admin Amino Acids 30 ml 01/08/17 17:30 01/11/17 08:21 Prosource No Carb Liquid Pkt PO 30 ml BID@0800,1730 CYNTHIA Administration Amlodipine Besylate 5 mg 01/07/17 10:00 01/11/17 10:21 Norvasc - PO 5 mg DAILY CYNTHIA Administration Amoxicillin/Clavulanate Potassium 1 tab 01/10/17 09:45 01/11/17 08:21 Augmentin - 875mg Tablet PO 1 tab BID@0800,1730 CYNTHIA Administration IV Flush 10 ml 01/08/17 19:00 Mikel-Cath Flush IVPUSH PRN PRN flush mikel cath Dextrose/Sodium Chloride 40 meq in 1,000 mls @ 42 mls/hr 01/11/17 08:30 D5-1/2ns+40 Meq Kcl - IV ASDIR CYNTHIA Megestrol Acetate 40 mg 01/11/17 14:00 Megace - PO QID CYNTHIA Mesalamine 800 mg 01/08/17 13:15 01/11/17 06:07 Asacol Hd - PO Not Given TID CYNTHIA Mupirocin 1 applic 01/06/17 20:15 01/11/17 10:22 Bactroban 2% Ointment - TP 1 applic BID CYNTHIA Administration Ranitidine HCl 150 mg 01/12/17 10:00 Zantac - PO DAILY CYNTHIA ASSESSMENT/PLAN: 61yo F with significant history of Rt. Breast carcinoma (first diagnosed in 1998 via lumpectomy followed by RT/chemo/5yrs of tamoxifen and arimedex with multiple mets including brain found in 03/2016) who presented to the ED for PO intolerance and generalized weakness which has improved with diet and fluids. # Weakness - Secondary to dehydration from loss of appetite and poor PO intake likely from cancer + chemo. Started marinol for malnutrition. But since then has been tachycardic, possible sfx, so Marinol was d/c'd switched to Megace 40 TID. # Sinus Tachycardia - 110s-120s for past 3 days. EKG shows sinus tach. Not anxious. BP stable. Could be sfx of Marinol, dc'd. Could be related to possible underlying hemolytic process but H/H is stable. # Hypokalemia - Likely from the bowel prep and BMs. Added 40meq to fluids, and 3 runs of 10meq KCl. # Normocytic Anemia - Anemia of chronic disease, improved s/p 1 PRBC. Had one bloody BM this hospitalization, resolved. # Ulcerative Colitis - Hx of UC as per patient, not on maintenance therapy. GI started patient on Mesalamine 800 TID. No further bleeds. Colonoscopy tmrw if patient can drink her PO golytly prep. # Thrombocytopenia - PLTs are 86, below her baseline. Switched protonix to ranitidine. Discussed with Dr Mon who states that though LDH is high, it is unlikely hemolysis because haptoglobin would be low. It is likely due to tumor burden and end-stage disease. 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 Rad-Onc recommends outpatient WBRT. Currently off Xeloda for time being. # Prerenal LUIS ALBERTO - Resolved with fluids and increased appetite. # Labial Ulcer - Cultures growing MSSA, doesn't look infected, ?skin marilou, restarted Augmentin due to immunocomp state # FEN - D5 1/2 NS w/ 40meq KCl at 42 cc/hr; elec wnl; regular diet # PPx - No pharmacologic AC due to extensive brain mets as per Onc, PT ordered # Dispo - Colonoscopy tomorrow bc patient did not drink prep. Will discuss thrombocytopenia with heme d/w Dr Sherman and Dr Arabella Underwood MD - PGY1 Internal Medicine Visit type - Emergency Visit Emergency Visit: No - New Patient This patient is new to me today: No - Critical Care Critical Care patient: No - Discharge Referral Referred to [facility] No
[2017-01-11] MEDS ORDERED: KCL 10 MEQ IVPB 10 MEQ/100 ML INFUS.BAG IVPB SCH (08:30)
[2017-01-11] MEDS ORDERED: MAGNESIUM SULF 50% (8.12 MEQ/2 ML-1 GM VIAL) IVPB ONE (08:31)
[2017-01-11] MEDS ORDERED: POTASSIUM CHLORIDE 30 MEQ in SODIUM CHLORIDE 300 ML IVPB ONE (08:45)
[2017-01-11] MEDS: amLODIPine BESYLATE 5 MG TABLET (FP) PO SCH (10:21)
[2017-01-11] MEDS: MUPIROCIN 2% TOPICAL OINTMENT 22 GM TUBE TP SCH ×2 (10:22→21:31)
[2017-01-11] MEDS: DRONABINOL 2.5 MG CAPSULE PO SCH (10:22)
[2017-01-11] MEDS: PANTOPRAZOLE 40 MG TABLET (FP) PO SCH (10:23)
[2017-01-11 11:15] LABS: METAMYELOCYTE 7 % (0-2); MYELOCYTE 6 % (0-2)
[2017-01-11 11:16] LABS: NUCLEATED RED BLOOD CELL 5 % (0-0); PLATELET COMMENTS NO CLUMPING NOTED; PLATELET ESTIMATE DECREASED
--- NOTE | 2017-01-11 12:48 | PN ---
Teaching Attending Note Name of Resident: Tanya Underwood ATTENDING PHYSICIAN STATEMENT I saw and evaluated the patient. I reviewed the resident's note and discussed the case with the resident. I agree with the resident's findings and plan as documented. SUBJECTIVE:c/o generalized weakness. denies CP, SOB, fever, chills, N/V/C/D. was unable to complete bowel prep. As per RN pt is not eating well. no more melanotic stools OBJECTIVE: Last Vital Signs Temp Pulse Resp BP Pulse Ox 98.3 F 112 H 18 109/63 98 01/11/17 06:00 01/11/17 06:00 01/11/17 06:00 01/11/17 06:00 01/10/17 21:00 General NAD CV S1 S2 RRR no murmur/rub/gallop Lungs CTA B/L no wheezing/crackles/rales ASSESSMENT AND PLAN: 61yo F with PMH R breast ca with (mets to brain, bone, pleura) s/p lumpectomy, RTx and Chemo whom completed hormonal therapy and on Xeloda currently every other week presented with generalized weakness and anorexia 1. Generalized weakness- likely due to dehydration vs progression of disease. will transfuse 1 unit PRBC for symptomatic anemia. PT assessment today 2. Thrombocytopenia- no active bleeding. will d/c protonix. switch to H2 roly. augmentin can also lead to thrombocytopenia however onyl started yesterday and less likely cause. all other abx could also cause same reaction. will cont at this time but may need to consider switching. no indication for txn as no active bleeding. will d/c hematology 3. Acute anemia- likely anemia of chronic disease. now symptomatic. will transfuse 1 unit PRBC. no repeat episodes of melena however high concern bleeding or hemolyzing. will speak with hematology. check post-txn CBC. 4. BRBPR- hx of ulcerative colitis not on medications. no repeat BRBPR. unable to complete bowel prep. NPO tonight for colonoscopy tomorrow. on mesalamine 5. Genital ulcer- +MSSA from the wound. on augmentin day 2. will treat despite it not appearing infected due to leukocytosis and immunocomprimsed. RPR negative. 6. Malnutrition- due to body habitus with temporal wasting, prominent clavicles and significant weight loss. likely due to malignancy. no response to marinol. will switch to megace as pt is tachycardic which may be side effect. cont ensures and prosource, gentle hydration. 7. Hypomagnesemia- Mg 2g 8. Hypokalemia- possible due to GI losses. KCl IV. repeat. 9. Leukocytosis- less likely reactive vs from malignancy. CXR negative. started augmentin for +MSSA in genital wound. now resolved 10. Hypotension- likely dehydration. now resolved 11. DVT ppx- place SCD. hold pharmacolgic anticoagulation.
--- NOTE | 2017-01-11 13:12 | EKG ---
Test Reason : Blood Pressure : / mmHG Vent. Rate : 108 BPM Atrial Rate : 108 BPM P-R Int : 132 ms QRS Dur : 072 ms QT Int : 378 ms P-R-T Axes : 049 011 071 degrees QTc Int : 506 ms SINUS TACHYCARDIA OTHERWISE NORMAL ECG WHEN COMPARED WITH ECG OF 06-JAN-2017 15:27, T WAVE VARIATION Confirmed by HANNA NEWBERRY MD ([id number]) on 01/11/2017 1:12:24 PM Referred By: Confirmed By:HANNA NEWBERRY MD
[2017-01-11] MEDS: MEGESTROL ACETATE 40 MG TABLET PO SCH ×3 (14:09→21:31)
[2017-01-11] MEDS ORDERED: PT OWN MED DRAWER 7, Y5N ONE ×2 (17:43→21:06)
[2017-01-11] MEDS: D5-1/2NS+40 MEQ KCL - 40 MEQ/1,000 ML INFUS.BAG IV SCH (17:44)
--- NOTE | 2017-01-11 22:53 | PN ---
Progress Note (short form) - Note Progress Note: Patient seen and examined Feels well Denies any complaints AFVSS Cor: RSR, No murmurs, No gallops Lungs: Clear to P&A Abd: Soft, Normal bowel sounds, No organomegaly Ext:No significant edema Labs/meds reviewed A/P 61 y/o patient with metastatic breast cancer, progressive brain mets, comes in with failure to thrive gentle hydration Rad-onc consult For gi w/u will discuss with rad-onc patient with advnced disease, extensive bony disease suspect anemia of chronic disease elevated LDH from disease burden Haptoglobin high No obvious hemolysis Need to monitor
[2017-01-12 01:15] LABS: MCH 29.1 pg (25.7-33.7); MCHC 33.5 g/dl (32.0-36.0); MEAN CELL VOLUME 86.8 fl (80-96); RDW 17.7 % (11.6-15.6); WHITE BLOOD COUNT 6.9 K/mm3 (4.0-10.0)
[2017-01-12 01:45] LABS: ANION GAP 11 (8-16); CALCIUM 7.3 mg/dL (8.5-10.1); CO2 28 mmol/L (21-32); CREATININE 0.4 mg/dL (0.55-1.02); GLUCOSE,RANDOM 86 mg/dL (74-106)
[2017-01-12 02:16] LABS: MEAN PLT VOLUME 7.2 fl (7.5-11.1); METAMYELOCYTE 1 % (0-2); NUCLEATED RED BLOOD CELL 8 % (0-0); PLATELET COUNT 91 K/MM3 (134-434)
[2017-01-12] MEDS ORDERED: POTASSIUM CHLORIDE 30 MEQ in SODIUM CHLORIDE 300 ML IVPB ONE ×2 (02:30→02:45)
[2017-01-12] MEDS ORDERED: KCL 10 MEQ IVPB 10 MEQ/100 ML INFUS.BAG IVPB SCH ×2 (02:30→02:45)
[2017-01-12] MEDS ORDERED: PT OWN MED DRAWER 7, Y5N ONE ×5 (05:24→21:46)
[2017-01-12] MEDS: MESALAMINE 800 MG TABLET.DR PO SCH ×3 (06:05→21:54)
[2017-01-12 07:42] LABS: MCHC 33.9 g/dl (32.0-36.0); MEAN CELL VOLUME 85.5 fl (80-96); MEAN PLT VOLUME 6.8 fl (7.5-11.1); PLATELET COUNT 95 K/MM3 (134-434); RDW 18.3 % (11.6-15.6)
--- NOTE | 2017-01-12 07:59 | PN ---
Physical Exam: SUBJECTIVE: Patient seen and examined. Slept well last night. Did not drink full prep but had enemas with clear output. States she is asymptomatic. Says she will try to walk well with PT today OBJECTIVE: Vital Signs Period Temp Pulse Resp BP Sys/Mulligan Pulse Ox Last 24 Hr 97.3 F-99.2 F 103-120 16-20 107-128/55-74 98-98 GEN: AAOx3, NAD, Not ill appearing, not cachectic HEENT: PERRLA, EOMi CV: S1, S2, tachycardic rate and rhythm LUNG: CTABL ABD: Soft, NT, ND, normoactive BS : 4cm soft tissue ulceration in the external labial skin, not in the vulva. Non purulent, non erythematous. No surrounding erythema or pustules MSK: No edema, no erythema NEURO: No sensation or MSK deficits. No facial droop Active Medications Generic Name Dose Route Start Last Admin Trade Name Freq PRN Reason Stop Dose Admin Amino Acids 30 ml 01/08/17 17:30 01/11/17 17:44 Prosource No Carb Liquid Pkt PO 30 ml BID@0800,1730 CYNTHIA Administration Amlodipine Besylate 5 mg 01/07/17 10:00 01/11/17 10:21 Norvasc - PO 5 mg DAILY CYNTHIA Administration Amoxicillin/Clavulanate Potassium 1 tab 01/10/17 09:45 01/11/17 17:45 Augmentin - 875mg Tablet PO 1 tab BID@0800,1730 CYNTHIA Administration IV Flush 10 ml 01/08/17 19:00 Mikel-Cath Flush IVPUSH PRN PRN flush mikel cath Dextrose/Sodium Chloride 40 meq in 1,000 mls @ 42 mls/hr 01/11/17 08:30 01/11 17:44 D5-1/2ns+40 Meq Kcl - IV 42 mls/hr ASDIR CYNTHIA Administration Megestrol Acetate 40 mg 01/11/17 14:00 01/11/17 21:31 Megace - PO 40 mg QID CYNTHIA Administration Mesalamine 800 mg 01/08/17 13:15 01/12/17 06:05 Asacol Hd - PO 800 mg TID CYNTHIA Administration Mupirocin 1 applic 01/06/17 20:15 01/11/17 21:31 Bactroban 2% Ointment - TP 1 applic BID CYNTHIA Administration Ranitidine HCl 150 mg 01/12/17 10:00 Zantac - PO DAILY [facility] ASSESSMENT/PLAN: 61yo F with significant history of Rt. Breast carcinoma (first diagnosed in 1998 via lumpectomy followed by RT/chemo/5yrs of tamoxifen and arimedex with multiple mets including brain found in 03/2016) who presented to the ED for PO intolerance and generalized weakness which has improved with diet and fluids. # Weakness - Secondary to dehydration from loss of appetite and poor PO intake likely from cancer + chemo. Started marinol for malnutrition. But since then has been tachycardic, possible sfx, so Marinol was d/c'd switched to Megace 40 TID. # Ulcerative Colitis - Colonoscopy shows moderate colitis from distal sigmoid to rectum. Needs to take Mesalamine PO 800 TID and enema as outpatient as per GI , f/u as outpatient # Sinus Tachycardia - Improved since we switched Marinol to Megace. Could have been side effect of Marinol. Now 100s instead of 120s. Less likely PE since good O2 sat and no chest pain # Hypokalemia - Likely from the bowel prep and BMs. Repleting slowly. # Normocytic Anemia - Anemia of chronic disease, improved s/p 1 PRBC. Had one bloody BM this hospitalization, resolved. # Thrombocytopenia - PLTs are below her baseline. Switched protonix to ranitidine. 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 Rad-Onc recommends outpatient WBRT. Currently off Xeloda for time being. # Prerenal LUIS ALBERTO - Resolved with fluids and increased appetite. # Labial Ulcer - Cultures growing MSSA, doesn't look infected, ?skin marilou, can complete 7 day course of Augmentin. # FEN - D5 1/2 NS w/ 40meq KCl at 42 cc/hr; elec wnl; regular diet # PPx - No pharmacologic AC due to extensive brain mets as per Onc, Not walking well with PT, continue PT # Dispo - Discussed with Dr Harper (Radiation Oncology) and Dr. Hobson ( Medical Oncology). Options for dispo include Inpatient whole brain radiation therapy with physical therapy (awaiting approval by administration). If patient goes to an inpatient subacute rehabilitation facility, she will likely not get radiation for a couple of weeks. Ideally, would like to start radiation therapy sooner. Will await approval. d/w Dr Rachel Underwood MD - PGY1 Internal Medicine Visit type - Emergency Visit Emergency Visit: No - New Patient This patient is new to me today: No - Critical Care Critical Care patient: No - Discharge Referral Referred to [facility] Med P.C.: No
[2017-01-12 08:04] LABS: CALCIUM 7.8 mg/dL (8.5-10.1)
[2017-01-12 08:09] LABS: ALBUMIN 1.3 g/dl (3.4-5.0); ALK PHOS 513 U/L (45-117); ANION GAP 10 (8-16); BILIRUBIN,TOTAL 1.4 mg/dL (0.2-1.0); CO2 28 mmol/L (21-32); CREATININE 0.4 mg/dL (0.55-1.02); GLUCOSE,RANDOM 78 mg/dL (74-106); MAGNESIUM 1.7 mg/dL (1.8-2.4); PHOSPHOROUS 1.9 mg/dL (2.5-4.9); SGOT/AST 59 U/L (15-37); SGPT/ALT 10 U/L (12-78); TOT PROT 4.5 g/dl (6.4-8.2)
[2017-01-12] MEDS: AMOX TR/POT CLAV 875MG/125MG TABLETS (FP) PO SCH ×2 (08:46→18:01)
[2017-01-12] MEDS: AMINO ACIDS/PROTEIN HYDROLYS 30 ML LIQUID.PKT PO SCH ×2 (08:48→18:01)
--- NOTE | 2017-01-12 10:17 | PROC ---
Endoscopy Procedure Endoscopy procedure completed. Please see scanned procedure report. Moderate colitis from distal sigmoid to rectum, biopsied taken from total colon and terminal ileum. Add mesalamine enema to the regiment
[2017-01-12] MEDS: RANITIDINE HCL 150 MG TABLET (FP) PO SCH (10:44)
[2017-01-12] MEDS: MEGESTROL ACETATE 40 MG TABLET PO SCH ×4 (10:44→21:54)
[2017-01-12] MEDS: amLODIPine BESYLATE 5 MG TABLET (FP) PO SCH (10:44)
[2017-01-12] MEDS: MUPIROCIN 2% TOPICAL OINTMENT 22 GM TUBE TP SCH ×2 (10:45→22:02)
[2017-01-12] MEDS: D5-1/2NS+40 MEQ KCL - 40 MEQ/1,000 ML INFUS.BAG IV SCH (10:45)
[2017-01-12 11:27] LABS: METAMYELOCYTE 7 % (0-2); TOTAL CELLS COUNTED 100
--- NOTE | 2017-01-12 13:04 | PN ---
Teaching Attending Note Name of Resident: Tanya Underwood ATTENDING PHYSICIAN STATEMENT Time of evaluation: 11:30 AM I saw and evaluated the patient. I reviewed the resident's note and discussed the case with the resident. I agree with the resident's findings and plan as documented. SUBJECTIVE: Patient seen and examined, just got back from colonoscopy, reports some lower abdominal pain, attributes to procedure, no chest pain, palpitations, dyspnea, leg pain, or urinary symptoms. OBJECTIVE: Vital Signs Period Temp Pulse Resp BP Sys/Mulligan Pulse Ox Last 24 Hr 98 F-99.2 F 103-120 18-20 100-128/55-77 98-99 Intake & Output 01/09/17 01/10/17 01/11/17 01/12/17 23:59 23:59 23:59 23:59 Intake Total 2692 1020 1390 700 Balance 2692 1020 1390 700 General: sitting in bed in no acute distress, tired from colonoscopy CVS:S1s2 regular Chest: CTAB, no rales or wheezing Abdomen: soft, mild lower abdominal tenderness, no voluntary or involuntary guarding or rigidity, positive bowel sounds extremities: no edema Genitals; Left labial clean base ulcer with granulation, non warm non tender, no discharge noted Home Medication List Medication Instructions Recorded Confirmed Type Amlodipine Besylate 5 mg PO DAILY 01/06/17 01/06/17 History Capecitabine 500 mg PO ASDIR 01/06/17 01/07/17 History Loperamide HCl [Loperamide] 2 mg PO PRN 01/06/17 01/07/17 History Pantoprazole Sodium 40 mg PO DAILY 01/06/17 01/06/17 History Potassium Chloride 20 meq PO ASDIR 01/06/17 01/07/17 History Active Medications Generic Name Dose Route Start Last Admin Trade Name Freq PRN Reason Stop Dose Admin Amino Acids 30 ml 01/08/17 17:30 01/12/17 08:48 Prosource No Carb Liquid Pkt PO Not Given BID@0800,1730 CYNTHIA Amlodipine Besylate 5 mg 01/07/17 10:00 01/12/17 10:44 Norvasc - PO Not Given DAILY [facility] Amoxicillin/Clavulanate Potassium 1 tab 01/10/17 09:45 01/12/17 08:46 Augmentin - 875mg Tablet PO Not Given BID@0800,1730 CYNTHIA IV Flush 10 ml 01/08/17 19:00 Mikel-Cath Flush IVPUSH PRN PRN flush mikel cath Dextrose/Sodium Chloride 40 meq in 1,000 mls @ 42 mls/hr 01/11/17 08:30 01/12 10:45 D5-1/2ns+40 Meq Kcl - IV Not Given ASDIR [facility] Megestrol Acetate 40 mg 01/11/17 14:00 01/12/17 10:44 Megace - PO Not Given QID [facility] Mesalamine 800 mg 01/08/17 13:15 01/12/17 06:05 Asacol Hd - PO 800 mg TID [facility] Administration Mesalamine 4 gm 01/12/17 21:00 Rowasa Enema - [place] DAILY [facility] Mupirocin 1 applic 01/06/17 20:15 01/12/17 10:45 Bactroban 2% Ointment - TP Not Given BID [facility] Ranitidine HCl 150 mg 01/12/17 10:00 01/12/17 10:44 Zantac - PO Not Given DAILY [facility] Microbiology 01/06/17 16:00 Blood - Peripheral Venous Blood Culture - Final NO GROWTH AFTER 5 DAYS INCUBATION 01/06/17 16:00 Blood - Peripheral Venous Blood Culture - Final NO GROWTH AFTER 5 DAYS INCUBATION 01/06/17 23:39 Wound Gram Stain - Final 01/06/17 23:39 Wound Wound Culture - Final Staphylococcus Aureus 01/07/17 00:53 Urine - Urine Clean Catch Urine Culture - Final ASSESSMENT AND PLAN: 61yo F with significant history of Rt. Breast carcinoma (first diagnosed in 1998 via lumpectomy followed by RT/chemo/5yrs of tamoxifen and arimedex with multiple mets including brain found in 03/2016) who presented to the ED for PO intolerance and generalized weakness which has improved with diet and fluids. also with ulcerative colitis flare, electrolyte abnormalities. -Generalized weakness -Failure to thrive -ACute ulcerative colitis flare -Acute on chronic anemia, suspect from hematochezia/Anemia of chronic disease -Thrombocytopenia -Genital ulcer, healed with no concerns for infection -severe hypokalemia, from bowel prep -Hypomagnesemia -Hypophosphatemia -Leucocytosis, likely reactive, resolved, -Hypotension, from hypovolumia -Sinus tachycardia, suspect multifactorial from hypovolumia, marinol, BRBPR, anemia, UC flare. No hypoxia, chest pain, respiratory symptoms and with a strong explanation for her tachycardia currently make PE unlikely Plan: Approprite response to PRBC transfusion, H/h stable. Colonoscopy suggestive of UC flare, patient informed. Start mesalamine enema, continue PO mesalamine. Oncology input appreciated. CBC stable now, further w/u and follow up outpatient. No concerns for hemolysis. ?chemotherapy contributory. PLan for outpatient WBRT. Augmentin 2 week course, outpatient follow up Replete K, phos, Mg aggressively. Encourage oral intake, marinol d/alyson. Megace, nutrition input. PT eval. D/c planning in 24 hours pending PT eval if no new concerns. Plan discussed with patient in detail, all questions answered.
[2017-01-12 13:44] LABS: WHITE BLOOD COUNT 7.1 K/mm3 (4.0-10.0)
[2017-01-12 13:45] LABS: NUCLEATED RED BLOOD CELL 10 % (0-0)
[2017-01-12] MEDS ORDERED: MAGNESIUM SULF 50% (8.12 MEQ/2 ML-1 GM VIAL) IVPB ONE (14:12)
[2017-01-12] MEDS ORDERED: NAPH,MB-DB/K PH,MBDB POWDER PACKET PO ONE (14:12)
[2017-01-12] MEDS: PORTA CATH FLUSH 10 ML IVPUSH PRN (14:41)
[2017-01-12] MEDS ORDERED: PORTA CATH FLUSH 10 ML IVPUSH PRN (16:14)
--- NOTE | 2017-01-12 17:12 | PN ---
Progress Note (short form) - Note Progress Note: Progress Note: Patient seen and examined Cor: RSR, No murmurs, No gallops Lungs: Clear to P&A Abd: Soft, Normal bowel sounds, No organomegaly Ext:No significant edema Labs/meds reviewed Last Vital Signs Temp Pulse Resp BP Pulse Ox 98.5 F 100 H 20 122/66 99 01/12/17 17:01 01/12/17 17:01 01/12/17 17:01 01/12/17 17:01 01/12/17 11:00 CBC, BMP 01/12/17 07:21 01/12/17 07:21 INR, PTT INR 1.47 (0.82-1.09) H 01/11/17 06:40 A/P RadOnc c/s PT eval TSH high , order T4 Current Medications Generic Name Dose Route Start Last Admin Trade Name Freq PRN Reason Stop Dose Admin Amino Acids 30 ml 01/08/17 17:30 01/12/17 08:48 Prosource No Carb Liquid Pkt PO Not Given BID@0800,1730 [facility] Amlodipine Besylate 5 mg 01/07/17 10:00 01/12/17 10:44 Norvasc - PO Not Given DAILY [facility] Amoxicillin/Clavulanate Potassium 1 tab 01/10/17 09:45 01/12/17 08:46 Augmentin - 875mg Tablet PO Not Given BID@0800,1730 CYNTHIA IV Flush 10 ml 01/08/17 19:00 01/12/17 14:41 Kirill-Cath Flush IVPUSH 10 ml PRN PRN Administration flush kirill cath IV Flush 10 ml 01/12/17 16:14 Kirill-Cath Flush IVPUSH PRN PRN after each use Dextrose/Sodium Chloride 40 meq in 1,000 mls @ 42 mls/hr 01/11/17 08:30 01/12 10:45 D5-1/2ns+40 Meq Kcl - IV Not Given ASDIR CYNTHIA Megestrol Acetate 40 mg 01/11/17 14:00 01/12/17 14:37 Megace - PO 40 mg QID CYNTHIA Administration Mesalamine 800 mg 01/08/17 13:15 01/12/17 14:41 Asacol Hd - PO Not Given TID CYNTHIA Mesalamine 4 gm 01/12/17 21:00 Rowasa Enema - [place] DAILY [facility] Mupirocin 1 applic 01/06/17 20:15 01/12/17 10:45 Bactroban 2% Ointment - TP Not Given BID [facility] Ranitidine HCl 150 mg 01/12/17 10:00 01/12/17 10:44 Zantac - PO Not Given DAILY CYNTHIA for likely IP RT supportive care
[2017-01-12] MEDS: MESALAMINE 4 GM/60 ML ENEMA PR SCH ×2 (21:53→22:16)
[2017-01-13] MEDS ORDERED: PT OWN MED DRAWER 7, Y5N ONE (05:20)
[2017-01-13] MEDS: MESALAMINE 800 MG TABLET.DR PO SCH ×3 (05:52→21:46)
[2017-01-13] MEDS: D5-1/2NS+40 MEQ KCL - 40 MEQ/1,000 ML INFUS.BAG IV SCH ×2 (05:53→12:24)
--- NOTE | 2017-01-13 07:36 | PN ---
Physical Exam: SUBJECTIVE: Patient seen and examined. Appetite still poor. Asymptomatic. OBJECTIVE: Vital Signs Period Temp Pulse Resp BP Sys/Mulligan Pulse Ox Last 24 Hr 97.4 F-98.6 F 97-116 16-20 100-130/65-77 96-99 GEN: AAOx3, NAD, Not ill appearing, not cachectic HEENT: PERRLA, EOMi CV: S1, S2, tachycardic rate and rhythm LUNG: CTABL ABD: Soft, NT, ND, normoactive BS : 4cm soft tissue ulceration in the external labial skin, not in the vulva. Non purulent, non erythematous. No surrounding erythema or pustules MSK: No edema, no erythema NEURO: No sensation or MSK deficits. No facial droop Active Medications Generic Name Dose Route Start Last Admin Trade Name Freq PRN Reason Stop Dose Admin Amino Acids 30 ml 01/08/17 17:30 01/12/17 18:01 Prosource No Carb Liquid Pkt PO 30 ml BID@0800,1730 CYNTHIA Administration Amlodipine Besylate 5 mg 01/07/17 10:00 01/12/17 10:44 Norvasc - PO Not Given DAILY [facility] Amoxicillin/Clavulanate Potassium 1 tab 01/10/17 09:45 01/12/17 18:01 Augmentin - 875mg Tablet PO 1 tab BID@0800,1730 CYNTHIA Administration IV Flush 10 ml 01/08/17 19:00 01/12/17 14:41 Mikel-Cath Flush IVPUSH 10 ml PRN PRN Administration flush mikel cath IV Flush 10 ml 01/12/17 16:14 Mikel-Cath Flush IVPUSH PRN PRN after each use Dextrose/Sodium Chloride 40 meq in 1,000 mls @ 42 mls/hr 01/11/17 08:30 01/13 05:53 D5-1/2ns+40 Meq Kcl - IV 42 mls/hr ASDIR CYNTHIA Administration Megestrol Acetate 40 mg 01/11/17 14:00 01/12/17 21:54 Megace - PO 40 mg QID [facility] Administration Mesalamine 800 mg 01/08/17 13:15 01/13/17 05:52 Asacol Hd - PO 800 mg TID CYNTHIA Administration Mesalamine 4 gm 01/12/17 21:00 01/12/17 22:16 Rowasa Enema - [place] Not Given DAILY [facility] Mupirocin 1 applic 01/06/17 20:15 01/12/17 22:02 Bactroban 2% Ointment - TP Not Given BID [facility] Ranitidine HCl 150 mg 01/12/17 10:00 01/12/17 10:44 Zantac - PO Not Given DAILY [facility] ASSESSMENT/PLAN: 61yo F with significant history of Rt. Breast carcinoma (first diagnosed in 1998 via lumpectomy followed by RT/chemo/5yrs of tamoxifen and arimedex with multiple mets including brain found in 03/2016) who presented to the ED for PO intolerance and generalized weakness which has improved with diet and fluids. # Weakness - Secondary to dehydration from loss of appetite and poor PO intake likely from cancer + chemo. On Megace 40 TID for low PO intake, slowly improving. # Ulcerative Colitis - Colonoscopy shows moderate colitis from distal sigmoid to rectum. 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 Undergoing WBRT. Currently off Xeloda for time being. Not on prednisone. # Sinus Tachycardia - Improved since we switched Marinol to Megace. # Hypokalemia - Likely from the bowel prep and BMs. Repleting daily # Normocytic Anemia - Anemia of chronic disease, improved s/p 1 PRBC. Had one bloody BM this hospitalization, resolved. # Thrombocytopenia - Improving. Switched protonix to ranitidine. Likely from tumor burden not hemolysis # Labial Ulcer - Cultures growing MSSA, doesn't look infected, ?skin marilou, can complete 7 day course of Augmentin. # FEN - D5 1/2 NS w/ 40meq KCl at 42 cc/hr; elec wnl; regular diet # PPx - No pharmacologic AC due to extensive brain mets as per Onc. # Dispo - Patient will have daily whole brain radiation treatments x10. First treatment 01/13. Will continue PT while in house. After 10 days, will d/c home or SNF depending on PT eval. to d/w Dr Rachel Underwood MD - PGY1 Internal Medicine Visit type - Emergency Visit Emergency Visit: No - New Patient This patient is new to me today: No - Critical Care Critical Care patient: No - Discharge Referral Referred to [facility] Med P.C.: No
--- NOTE | 2017-01-13 08:05 | PN ---
Progress Note (short form) - Note Progress Note: Radiation Oncology Chart reviewed. Colonoscopic eval for BRBPR reveals rectosigmoid colitis. No further bleeding episodes. s/p transfusion. No headaches but appetite remains poor. Has tried to ambulate with assistance. 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 Discussed previously with Dr. Mon and also with housestaff. Inpt RT was approved and will begin today for total of 10 treatments. Risks, benefits, side effects discussed with pt who agrees. Cont decadron. Cont PT. D/C planning.
--- NOTE | 2017-01-13 08:41 | PN ---
Progress Note, Physician History of Present Illness: no events, no melena, hematochezia - Current Medication List Current Medications: Active Medications Amino Acids (Prosource No Carb Liquid Pkt) 30 ml PO BID@0800,1730 [facility] Last Admin: 01/12/17 18:01 Dose: 30 ml Amlodipine Besylate (Norvasc -) 5 mg PO DAILY [facility] Last Admin: 01/12/17 10:44 Dose: Not Given Amoxicillin/Clavulanate Potassium (Augmentin - 875mg Tablet) 1 tab PO BID@0800, 1730 [facility] Last Admin: 01/12/17 18:01 Dose: 1 tab IV Flush (Kirill-Cath Flush) 10 ml IVPUSH PRN PRN PRN Reason: flush kirill cath Last Admin: 01/12/17 14:41 Dose: 10 ml IV Flush (Kirill-Cath Flush) 10 ml IVPUSH PRN PRN PRN Reason: after each use Dextrose/Sodium Chloride (D5-1/2ns+40 Meq Kcl -) 40 meq in 1,000 mls @ 42 mls/ hr IV ASDIR [facility] Last Admin: 01/13/17 05:53 Dose: 42 mls/hr Megestrol Acetate (Megace -) 40 mg PO QID [facility] Last Admin: 01/12/17 21:54 Dose: 40 mg Mesalamine (Asacol Hd -) 800 mg PO TID [facility] Last Admin: 01/13/17 05:52 Dose: 800 mg Mesalamine (Rowasa Enema -) 4 gm AR DAILY [facility] Last Admin: 01/12/17 22:16 Dose: Not Given Mupirocin (Bactroban 2% Ointment -) 1 applic TP BID [facility] Last Admin: 01/12/17 22:02 Dose: Not Given Ranitidine HCl (Zantac -) 150 mg PO DAILY [facility] Last Admin: 01/12/17 10:44 Dose: Not Given - Objective Vital Signs: Vital Signs Temperature 97.7 F 01/13/17 05:56 Pulse Rate 97 H 01/13/17 05:56 Respiratory Rate 18 01/13/17 05:56 Blood Pressure 130/74 01/13/17 05:56 O2 Sat by Pulse Oximetry (%) 96 01/12/17 21:00 Constitutional: Yes: No Distress, Calm, Cachectic Eyes: Yes: Conjunctiva Clear HENT: Yes: Atraumatic Neck: Yes: Supple Cardiovascular: Yes: Regular Rate and Rhythm Respiratory: Yes: Regular Neurological: Yes: Alert Labs: INR, PTT INR 1.47 (0.82-1.09) H 01/11/17 06:40 Laboratory Results - last 24 hr 01/12/17 01/12/17 07:21 07:21 WBC 7.1 Corrected WBC (auto) 6.50 Total Counted 100 Neutrophils % (Manual) 70.0 Band Neutrophils % 4.0 Lymphocytes % (Manual) 16.0 D Monocytes % (Manual) 3 L Nucleated RBC % 10 H Metamyelocytes 7 H D TSH 4.13 H D Problem List - Problems (1) Ulcerative colitis Code(s): K51.90 - ULCERATIVE COLITIS, UNSPECIFIED, WITHOUT COMPLICATIONS (2) Hematochezia Code(s): K92.1 - MELENA (3) Anemia Code(s): D64.9 - ANEMIA, UNSPECIFIED Assessment/Plan Asacol HD 800 mg po TID +Rowasa qhd. Monitor lipase, and Cr
[2017-01-13 08:44] LABS: MCH 28.6 pg (25.7-33.7); MCHC 33.2 g/dl (32.0-36.0); MEAN CELL VOLUME 86.1 fl (80-96); MEAN PLT VOLUME 6.8 fl (7.5-11.1); PLATELET COUNT 109 K/MM3 (134-434); RDW 18.1 % (11.6-15.6); WHITE BLOOD COUNT 6.7 K/mm3 (4.0-10.0)
[2017-01-13] MEDS: AMOX TR/POT CLAV 875MG/125MG TABLETS (FP) PO SCH ×2 (08:44→16:36)
[2017-01-13] MEDS: AMINO ACIDS/PROTEIN HYDROLYS 30 ML LIQUID.PKT PO SCH ×3 (08:44→16:37)
--- NOTE | 2017-01-13 09:22 | PN ---
Progress Note (short form) - Note Progress Note: Patient seen and examined Cor: RSR, No murmurs, No gallops Lungs: Clear to P&A Abd: Soft, Normal bowel sounds, No organomegaly Ext:No significant edema Labs/meds reviewed Last Vital Signs Temp Pulse Resp BP Pulse Ox 97.7 F 97 H 18 130/74 96 01/13/17 05:56 01/13/17 05:56 01/13/17 05:56 01/13/17 05:56 01/12/17 21:00 CBC, BMP 01/13/17 08:10 Current Medications Generic Name Dose Route Start Last Admin Trade Name Freq PRN Reason Stop Dose Admin Amino Acids 30 ml 01/08/17 17:30 01/13/17 08:44 Prosource No Carb Liquid Pkt PO 30 ml BID@0800,1730 CYN[facility] Administration Amlodipine Besylate 5 mg 01/07/17 10:00 01/12/17 10:44 Norvasc - PO Not Given DAILY [facility] Amoxicillin/Clavulanate Potassium 1 tab 01/10/17 09:45 01/13/17 08:44 Augmentin - 875mg Tablet PO 1 tab BID@0800,1730 CYN[facility] Administration IV Flush 10 ml 01/08/17 19:00 01/12/17 14:41 Kirill-Cath Flush IVPUSH 10 ml PRN PRN Administration flush kirill cath IV Flush 10 ml 01/12/17 16:14 Kirill-Cath Flush IVPUSH PRN PRN after each use Dextrose/Sodium Chloride 40 meq in 1,000 mls @ 42 mls/hr 01/11/17 08:30 01/13 05:53 D5-1/2ns+40 Meq Kcl - IV 42 mls/hr ASDIR CYNTHIA Administration Megestrol Acetate 40 mg 01/11/17 14:00 01/12/17 21:54 Megace - PO 40 mg QID [facility] Administration Mesalamine 800 mg 01/08/17 13:15 01/13/17 05:52 Asacol Hd - PO 800 mg TID [facility] Administration Mesalamine 4 gm 01/12/17 21:00 01/12/17 22:16 Rowasa Enema - [place] Not Given DAILY [facility] Mupirocin 1 applic 01/06/17 20:15 01/12/17 22:02 Bactroban 2% Ointment - TP Not Given BID [facility] Ranitidine HCl 150 mg 01/12/17 10:00 01/12/17 10:44 Zantac - PO Not Given DAILY [facility] Assessment/Plan: metastatic Breast Ca (advanced disease, extensive bony disease) Brain mets ( likely LMD too) FTT Anemia/Thrombocytopenia UC flare -appreciate GI/RadOnc -UC flare Rx per GI -supportive transfusions as needed -for IP WBRT to be started today
[2017-01-13 09:40] LABS: ALBUMIN 1.2 g/dl (3.4-5.0); ALK PHOS 462 U/L (45-117); ANION GAP 11 (8-16); BILIRUBIN,TOTAL 0.6 mg/dL (0.2-1.0); CALCIUM 7.8 mg/dL (8.5-10.1); CO2 27 mmol/L (21-32); CREATININE 0.3 mg/dL (0.55-1.02); GLUCOSE,RANDOM 63 mg/dL (74-106); MAGNESIUM 1.7 mg/dL (1.8-2.4); SGOT/AST 39 U/L (15-37); SGPT/ALT 8 U/L (12-78); TOT PROT 4.8 g/dl (6.4-8.2)
[2017-01-13] MEDS ORDERED: NAPH,MB-DB/K PH,MBDB POWDER PACKET PO SCH (10:00)
[2017-01-13] MEDS ORDERED: KCL 10 MEQ IVPB 10 MEQ/100 ML INFUS.BAG IVPB SCH (10:00)
[2017-01-13] MEDS: RANITIDINE HCL 150 MG TABLET (FP) PO SCH (10:04)
[2017-01-13] MEDS: amLODIPine BESYLATE 5 MG TABLET (FP) PO SCH (10:04)
[2017-01-13] MEDS: MEGESTROL ACETATE 40 MG TABLET PO SCH ×4 (10:05→21:46)
[2017-01-13] MEDS ORDERED: POTASSIUM CHLORIDE 30 MEQ in SODIUM CHLORIDE 300 ML IVPB ONE (10:30)
[2017-01-13] MEDS ORDERED: MAGNESIUM OXIDE 400 MG TABLET (FP) PO ONE (10:30)
[2017-01-13] MEDS ORDERED: POTASSIUM CHLORIDE TABS 20 MEQ TABLET.ER (FP) PO ONE (10:30)
[2017-01-13 11:24] LABS: TOTAL CELLS COUNTED 100
[2017-01-13 11:25] LABS: METAMYELOCYTE 7 % (0-2); MYELOCYTE 6 % (0-2); NUCLEATED RED BLOOD CELL 5 % (0-0); PLATELET ESTIMATE DECREASED
[2017-01-13] MEDS: PORTA CATH FLUSH 10 ML IVPUSH PRN (12:20)
[2017-01-13] MEDS: MUPIROCIN 2% TOPICAL OINTMENT 22 GM TUBE TP SCH ×2 (12:20→21:44)
[2017-01-13] MEDS: MESALAMINE 4 GM/60 ML ENEMA PR SCH (12:21)
--- NOTE | 2017-01-13 13:13 | PN ---
Teaching Attending Note Name of Resident: Tanya Underwood ATTENDING PHYSICIAN STATEMENT Time of evaluation : 10:25 AM I saw and evaluated the patient. I reviewed the resident's note and discussed the case with the resident. I agree with the resident's findings and plan as documented. SUBJECTIVE: Patient seen and examined. No complaints, denies any pain currently, overall weakness better. OBJECTIVE: Vital Signs Period Temp Pulse Resp BP Sys/Mulligan Pulse Ox Last 24 Hr 97.4 F-98.5 F 97-108 18-20 122-130/65-74 96 Intake & Output 01/10/17 01/11/17 01/12/17 01/13/17 23:59 23:59 23:59 23:59 Intake Total 1020 1390 1874 200 Balance 1020 1390 1874 200 General: Sitting in bed in no acute distress CVS:S1S2 regular Chest: CTAB, no rales or wheezing Abdomen: soft, NT currently, ND, positive bowel sounds Home Medication List Medication Instructions Recorded Confirmed Type Amlodipine Besylate 5 mg PO DAILY 01/06/17 01/06/17 History Capecitabine 500 mg PO ASDIR 01/06/17 01/07/17 History Loperamide HCl [Loperamide] 2 mg PO PRN 01/06/17 01/07/17 History Pantoprazole Sodium 40 mg PO DAILY 01/06/17 01/06/17 History Potassium Chloride 20 meq PO ASDIR 01/06/17 01/07/17 History Active Medications Generic Name Dose Route Start Last Admin Trade Name Freq PRN Reason Stop Dose Admin Amino Acids 30 ml 01/08/17 17:30 01/13/17 08:44 Prosource No Carb Liquid Pkt PO 30 ml BID@0800,1730 CYNTHIA Administration Amlodipine Besylate 5 mg 01/07/17 10:00 01/13/17 10:04 Norvasc - PO 5 mg DAILY CYNTHIA Administration Amoxicillin/Clavulanate Potassium 1 tab 01/10/17 09:45 01/13/17 08:44 Augmentin - 875mg Tablet PO 1 tab BID@0800,1730 CYNTHIA Administration IV Flush 10 ml 01/08/17 19:00 01/13/17 12:20 Mikel-Cath Flush IVPUSH 10 ml PRN PRN Administration flush mikel cath IV Flush 10 ml 01/12/17 16:14 Mikel-Cath Flush IVPUSH PRN PRN after each use Dextrose/Sodium Chloride 40 meq in 1,000 mls @ 42 mls/hr 01/11/17 08:30 01/13 12:24 D5-1/2ns+40 Meq Kcl - IV 42 mls/hr ASDIR CYNTHIA Administration Potassium Chloride 30 meq/ 315 mls @ 105 mls/hr 01/13/17 10:30 01/13/17 12:24 Sodium Chloride IVPB 01/13/17 13:29 105 mls/hr ONCE ONE Administration Megestrol Acetate 40 mg 01/11/17 14:00 01/13/17 10:05 Megace - PO 40 mg QID CYNTHIA Administration Mesalamine 800 mg 01/08/17 13:15 01/13/17 05:52 Asacol Hd - PO 800 mg TID CYNTHIA Administration Mesalamine 4 gm 01/12/17 21:00 01/13/17 12:21 Rowasa Enema - [place] 4 gm DAILY CYNTHIA Administration Mupirocin 1 applic 01/06/17 20:15 01/13/17 12:20 Bactroban 2% Ointment - TP 1 applic BID CYNTHIA Administration Ranitidine HCl 150 mg 01/12/17 10:00 01/13/17 10:04 Zantac - PO 150 mg DAILY CYNTHIA Administration Laboratory Results - last 24 hr 01/12/17 01/12/17 01/13/17 07:21 07:21 08:10 WBC 7.1 6.7 Corrected WBC (auto) 6.50 RBC 2.83 L Hgb 8.1 L Hct 24.4 L MCV 86.1 MCH 28.6 MCHC 33.2 RDW 18.1 H Plt Count 109 L MPV 6.8 L Total Counted 100 100 Neutrophils % No Result Required. Neutrophils % (Manual) 70.0 73.0 Band Neutrophils % 4.0 2.0 Lymphocytes % No Result Required. Lymphocytes % (Manual) 16.0 D 12.0 D Monocytes % (Manual) 3 L Myelocytes % (Man) 6 H Nucleated RBC % 10 H 5 H Metamyelocytes 7 H D 7 H Platelet Estimate Decreased Sodium Potassium Chloride Carbon Dioxide Anion Gap BUN Creatinine Creat Clearance w eGFR Random Glucose Calcium Phosphorus Magnesium Total Bilirubin AST ALT Alkaline Phosphatase Total Protein Albumin TSH 4.13 H D Free T4 01/13/17 01/13/17 08:10 08:10 WBC Corrected WBC (auto) RBC Hgb Hct MCV MCH MCHC RDW Plt Count MPV Total Counted Neutrophils % Neutrophils % (Manual) Band Neutrophils % Lymphocytes % Lymphocytes % (Manual) Monocytes % (Manual) Myelocytes % (Man) Nucleated RBC % Metamyelocytes Platelet Estimate Sodium 138 Potassium 2.6 L* D Chloride 100 Carbon Dioxide 27 Anion Gap 11 BUN 10 D Creatinine 0.3 L D Creat Clearance w eGFR > 60 Random Glucose 63 L Calcium 7.8 L Phosphorus 2.0 L Magnesium 1.7 L Total Bilirubin 0.6 D AST 39 H D ALT 8 L Alkaline Phosphatase 462 H Total Protein 4.8 L Albumin 1.2 L TSH Free T4 1.26 ASSESSMENT AND PLAN: 61yo F with significant history of Rt. Breast carcinoma (first diagnosed in 1998 via lumpectomy followed by RT/chemo/5yrs of tamoxifen and arimedex with multiple mets including brain found in 03/2016) who presented to the ED for PO intolerance and generalized weakness which has improved with diet and fluids. also with ulcerative colitis flare, electrolyte abnormalities. -Generalized weakness -Failure to thrive -ACute ulcerative colitis flare -Acute on chronic anemia, suspect from hematochezia/Anemia of chronic disease -Thrombocytopenia -Genital ulcer, healed with no concerns for infection -severe hypokalemia, from bowel prep -Hypomagnesemia -Hypophosphatemia -Leucocytosis, likely reactive, resolved, -Hypotension, from hypovolumia -Sinus tachycardia, suspect multifactorial from hypovolumia, marinol, BRBPR, anemia, UC flare. No hypoxia, chest pain, respiratory symptoms and with a strong explanation for her tachycardia currently make PE unlikely Plan: Started on WBRT inpatient, discuss with oncology to place on decadron as mentioned by rad onc. Approprite response to PRBC transfusion, H/h stable. Colonoscopy suggestive of UC flare, patient informed. continue PO mesalamine, refused mesalamine enema, encouraged, agreable to try. Oncology input appreciated. CBC stable now, further w/u and follow up outpatient. No concerns for hemolysis. ?chemotherapy contributory. PLan for outpatient WBRT. Augmentin 2 week course, outpatient follow up Replete K, phos, Mg aggressively. Encourage oral intake, marinol d/alyson. Megace, nutrition input. PT eval. D/c planning to SNF when disposition arranged. Inpatient WBRT for now. Plan discussed with patient in detail, all questions answered.
--- NOTE | 2017-01-13 15:51 | PATH ---
Surgical Pathology Report Patient Name: [facility]. Rec. #: [id number] /Age/Gender: 1955 (Age: 61) / F Account: [id number] Location: [facility] MED/SURG Taken: 01/12/2017 Received: 01/12/2017 Reported: 01/13/2017 Physicians: Eliel Bell M.D. Specimen(s) Received A: BX TERMINAL ILEUM B: ASCENDING COLON POLYP C: BX TRANSVERSE COLON D: BX DESENDING COLON E: BX PROXIMAL SIGMOID F: BX DISTAL SIGMOID G: BX RECTUM Clinical History Preoperative diagnosis: Ulcerative colitis Final Diagnosis A. TERMINAL ILEUM, BIOPSY: ILEAL MUCOSA WITH NO PATHOLOGIC FINDINGS. B. ASCENDING COLON, POLYP, BIOPSY: COLONIC MUCOSA SHOWING FOCAL ACTIVE COLITIS AND MILD SURFACE HYPERPLASTIC CHANGE. C. TRANSVERSE COLON, BIOPSY: MILD CHRONIC ACTIVE COLITIS. NEGATIVE FOR DYSPLASIA. D. DESCENDING COLON, BIOPSY: MODERATE CHRONIC ACTIVE COLITIS. NEGATIVE FOR DYSPLASIA. E. PROXIMAL SIGMOID, BIOPSY: MODERATE CHRONIC ACTIVE COLITIS. NEGATIVE FOR DYSPLASIA. F. DISTAL SIGMOID, BIOPSY: SEVERE CHRONIC ACTIVE COLITIS. NEGATIVE FOR DYSPLASIA. G. RECTUM, BIOPSY: SEVERE CHRONIC ACTIVE PROCTITIS. NEGATIVE FOR DYSPLASIA. Electronically Signed Aundrea Mosher M.D. Gross Description A. Received in formalin, labeled "biopsy terminal ileum" is a sheriff, irregular portion of soft tissue measuring 0.5 cm. in greatest dimension. The specimen is submitted in toto in one cassette. B. Received in formalin, labeled "biopsy ascending colon" are 4 sheriff, irregular portions of soft tissue ranging from 0.1-0.2 cm. in greatest dimension. The specimens are submitted in toto in one cassette. C. Received in formalin, labeled "biopsy transverse colon" is a sheriff, irregular portion of soft tissue measuring 0.4 cm. in greatest dimension. The specimen is submitted in toto in one cassette. D. Received in formalin, labeled "biopsy descending colon" are 3 sheriff, irregular portions of soft tissue ranging from 0.1-0.3 cm. in greatest dimension. The specimens are submitted in toto in one cassette. E. Received in formalin, labeled "biopsy proximal sigmoid" are 2 sheriff, irregular portions of soft tissue averaging 0.2 cm. in greatest dimension. The specimens are submitted in toto in one cassette. F. Received in formalin, labeled "biopsy distal sigmoid" are 3 sheriff, irregular portions of soft tissue ranging from 0.1-0.3 cm. in greatest dimension. The specimens are submitted in toto in one cassette. G. Received in formalin, labeled "biopsy rectum" are 5 sheriff, irregular portions of soft tissue ranging from 0.1-0.3 cm. in greatest dimension. The specimens are submitted in toto in one cassette. 01/12/201701/12/2017
[2017-01-13 21:13] LABS: ANION GAP 6 (8-16); CALCIUM 7.3 mg/dL (8.5-10.1); CO2 28 mmol/L (21-32); CREATININE 0.3 mg/dL (0.55-1.02); GLUCOSE,RANDOM 78 mg/dL (74-106); MAGNESIUM 1.7 mg/dL (1.8-2.4)
[2017-01-14] MEDS ORDERED: MAGNESIUM SULF 50% (8.12 MEQ/2 ML-1 GM VIAL) IVPB ONE (00:30)
[2017-01-14] MEDS ORDERED: POTASSIUM CHLORIDE TABS 20 MEQ TABLET.ER (FP) PO ONE ×2 (06:08→13:00)
[2017-01-14] MEDS: MESALAMINE 800 MG TABLET.DR PO SCH ×3 (06:51→22:18)
[2017-01-14 08:00] LABS: MCH 28.8 pg (25.7-33.7); MCHC 33.5 g/dl (32.0-36.0); MEAN CELL VOLUME 86.1 fl (80-96); PLATELET COUNT 123 K/MM3 (134-434); RDW 18.3 % (11.6-15.6); WHITE BLOOD COUNT 6.3 K/mm3 (4.0-10.0)
[2017-01-14 08:07] LABS: ALBUMIN 1.3 g/dl (3.4-5.0); ANION GAP 9 (8-16); CALCIUM 7.5 mg/dL (8.5-10.1); CO2 26 mmol/L (21-32); GLUCOSE,RANDOM 63 mg/dL (74-106); MAGNESIUM 1.9 mg/dL (1.8-2.4); SGOT/AST 31 U/L (15-37)
[2017-01-14 08:10] LABS: ALK PHOS 381 U/L (45-117); BILIRUBIN,TOTAL 0.5 mg/dL (0.2-1.0); CREATININE 0.2 mg/dL (0.55-1.02); PHOSPHOROUS 2.1 mg/dL (2.5-4.9); SGPT/ALT 8 U/L (12-78); TOT PROT 4.5 g/dl (6.4-8.2)
--- NOTE | 2017-01-14 08:10 | PN ---
Teaching Attending Note Name of Resident: Tanya Underwood ATTENDING PHYSICIAN STATEMENT I saw and evaluated the patient. I reviewed the resident's note and discussed the case with the resident. I agree with the resident's findings and plan as documented. SUBJECTIVE: Patient seen and examined. No complaints, ABout to have some breakfast. Encouraged working with PT, agreable. OBJECTIVE: Vital Signs Period Temp Pulse Resp BP Sys/Mulligan Pulse Ox Last 24 Hr 98 F-99.1 F 98-110 16-20 117-135/69-79 96-96 Intake & Output 01/11/17 01/12/17 01/13/17 01/14/17 23:59 23:59 23:59 23:59 Intake Total 1390 1874 1760 322 Balance 1390 1874 1760 322 General: sitting in bed in no acute distress Chest: decreased effort, no rales or wheezing Abdomen:soft, NT, ND, positive bowel sounds Extremities: no edema Home Medication List Medication Instructions Recorded Confirmed Type Amlodipine Besylate 5 mg PO DAILY 01/06/17 01/06/17 History Capecitabine 500 mg PO ASDIR 01/06/17 01/07/17 History Loperamide HCl [Loperamide] 2 mg PO PRN 01/06/17 01/07/17 History Pantoprazole Sodium 40 mg PO DAILY 01/06/17 01/06/17 History Potassium Chloride 20 meq PO ASDIR 01/06/17 01/07/17 History Active Medications Generic Name Dose Route Start Last Admin Trade Name Freq PRN Reason Stop Dose Admin Amino Acids 30 ml 01/08/17 17:30 01/13/17 16:37 Prosource No Carb Liquid Pkt PO Not Given BID@0800,1730 CYNTHIA Amlodipine Besylate 5 mg 01/07/17 10:00 01/13/17 10:04 Norvasc - PO 5 mg DAILY CYNTHIA Administration Amoxicillin/Clavulanate Potassium 1 tab 01/10/17 09:45 01/13/17 16:36 Augmentin - 875mg Tablet PO 1 tab BID@0800,1730 CYNTHIA Administration IV Flush 10 ml 01/08/17 19:00 01/13/17 12:20 Mikel-Cath Flush IVPUSH 10 ml PRN PRN Administration flush mikel cath IV Flush 10 ml 01/12/17 16:14 Mikel-Cath Flush IVPUSH PRN PRN after each use Dextrose/Sodium Chloride 40 meq in 1,000 mls @ 42 mls/hr 01/11/17 08:30 01/13 12:24 D5-1/2ns+40 Meq Kcl - IV 42 mls/hr ASDIR CYNTHIA Administration Megestrol Acetate 40 mg 01/11/17 14:00 01/13/17 21:46 Megace - PO 40 mg QID CYNTHIA Administration Mesalamine 800 mg 01/08/17 13:15 01/14/17 06:51 Asacol Hd - PO 800 mg TID CYNTHIA Administration Mesalamine 4 gm 01/12/17 21:00 01/13/17 12:21 Rowasa Enema - [place] 4 gm DAILY CYNTHIA Administration Mupirocin 1 applic 01/06/17 20:15 01/13/17 21:44 Bactroban 2% Ointment - TP 1 applic BID CYNTHIA Administration Ranitidine HCl 150 mg 01/12/17 10:00 01/13/17 10:04 Zantac - PO 150 mg DAILY CYNTHIA Administration Microbiology Laboratory Results - last 24 hr 01/13/17 01/13/17 01/13/17 08:10 08:10 08:10 WBC 6.7 RBC 2.83 L Hgb 8.1 L Hct 24.4 L MCV 86.1 MCH 28.6 MCHC 33.2 RDW 18.1 H Plt Count 109 L MPV 6.8 L Total Counted 100 Neutrophils % No Result Required. Neutrophils % (Manual) 73.0 Band Neutrophils % 2.0 Lymphocytes % No Result Required. Lymphocytes % (Manual) 12.0 D Myelocytes % (Man) 6 H Nucleated RBC % 5 H Metamyelocytes 7 H Platelet Estimate Decreased Sodium 138 Potassium 2.6 L* D Chloride 100 Carbon Dioxide 27 Anion Gap 11 BUN 10 D Creatinine 0.3 L D Creat Clearance w eGFR > 60 Random Glucose 63 L Calcium 7.8 L Phosphorus 2.0 L Magnesium 1.7 L Total Bilirubin 0.6 D AST 39 H D ALT 8 L Alkaline Phosphatase 462 H Total Protein 4.8 L Albumin 1.2 L Free T4 1.26 01/13/17 01/14/17 20:15 06:00 WBC 6.3 RBC 2.69 L Hgb 7.7 L Hct 23.1 L MCV 86.1 MCH 28.8 MCHC 33.5 RDW 18.3 H Plt Count 123 L MPV 7.0 L Total Counted Neutrophils % No Result Required. Neutrophils % (Manual) Band Neutrophils % Lymphocytes % No Result Required. Lymphocytes % (Manual) Myelocytes % (Man) Nucleated RBC % Metamyelocytes Platelet Estimate Sodium 136 Potassium 3.4 L D Chloride 102 Carbon Dioxide 28 Anion Gap 6 L BUN 14 D Creatinine 0.3 L Creat Clearance w eGFR Random Glucose 78 D Calcium 7.3 L Phosphorus Magnesium 1.7 L Total Bilirubin AST ALT Alkaline Phosphatase Total Protein Albumin Free T4 01/06/17 16:00 Blood - Peripheral Venous Blood Culture - Final NO GROWTH AFTER 5 DAYS INCUBATION 01/06/17 16:00 Blood - Peripheral Venous Blood Culture - Final NO GROWTH AFTER 5 DAYS INCUBATION 01/06/17 23:39 Wound Gram Stain - Final 01/06/17 23:39 Wound Wound Culture - Final Staphylococcus Aureus 01/07/17 00:53 Urine - Urine Clean Catch Urine Culture - Final ASSESSMENT AND PLAN: 61yo F with significant history of Rt. Breast carcinoma (first diagnosed in 1998 via lumpectomy followed by RT/chemo/5yrs of tamoxifen and arimedex with multiple mets including brain found in 03/2016) who presented to the ED for PO intolerance and generalized weakness which has improved with diet and fluids. also with ulcerative colitis flare, electrolyte abnormalities. -Generalized weakness -Failure to thrive -Acute ulcerative colitis flare -Acute on chronic anemia, suspect from hematochezia/Anemia of chronic disease -Thrombocytopenia -Genital ulcer, healed with no concerns for infection -severe hypokalemia, from bowel prep -Hypomagnesemia -Hypophosphatemia -Leucocytosis, likely reactive, resolved, -Hypotension, from hypovolumia -Sinus tachycardia, improved, suspect multifactorial from hypovolumia, marinol, BRBPR, anemia, UC flare. No hypoxia, chest pain, respiratory symptoms and with a strong explanation for her tachycardia currently make PE unlikely Plan: Started on WBRT inpatient 01/13, discuss with oncology if needs steroids. Approprite response to PRBC transfusion, H/h stable. Colonoscopy suggestive of UC flare, patient informed. continue PO mesalamine, mesalamine enema. Oncology input appreciated. CBC stable now, further w/u and follow up outpatient. No concerns for hemolysis. ?chemotherapy contributory. PLan for outpatient WBRT. Augmentin 2 week course, outpatient follow up Replete K, phos, Mg aggressively as needed Encourage oral intake, marinol d/alyson. Sully, nutrition input. PT sagar. Encouraged patient to work with PT D/c planning to SNF when disposition arranged. Inpatient WBRT for now. Plan discussed with patient in detail, all questions answered.
--- NOTE | 2017-01-14 08:36 | PN ---
Physical Exam: SUBJECTIVE: Patient seen and examined. Appetite still not improving. States she feels weak. Refused PT yesterday. No bloody BM yesterday OBJECTIVE: Vital Signs Period Temp Pulse Resp BP Sys/Mulligan Pulse Ox Last 24 Hr 98 F-99.1 F 98-110 16-20 117-135/69-79 96-96 GEN: AAOx3, NAD, Not ill appearing, not cachectic HEENT: PERRLA, EOMi CV: S1, S2, tachycardic rate and rhythm LUNG: CTABL ABD: Soft, NT, ND, normoactive BS : 4cm soft tissue ulceration in the external labial skin, not in the vulva. Non purulent, non erythematous. No surrounding erythema or pustules MSK: No edema, no erythema NEURO: No sensation or MSK deficits. No facial droop Active Medications Generic Name Dose Route Start Last Admin Trade Name Freq PRN Reason Stop Dose Admin Amino Acids 30 ml 01/08/17 17:30 01/13/17 16:37 Prosource No Carb Liquid Pkt PO Not Given BID@0800,1730 CYNTHIA Amlodipine Besylate 5 mg 01/07/17 10:00 01/13/17 10:04 Norvasc - PO 5 mg DAILY CYNTHIA Administration Amoxicillin/Clavulanate Potassium 1 tab 01/10/17 09:45 01/13/17 16:36 Augmentin - 875mg Tablet PO 1 tab BID@0800,1730 CYNTHIA Administration IV Flush 10 ml 01/08/17 19:00 01/13/17 12:20 Mikel-Cath Flush IVPUSH 10 ml PRN PRN Administration flush mikel cath IV Flush 10 ml 01/12/17 16:14 Mikel-Cath Flush IVPUSH PRN PRN after each use Dextrose/Sodium Chloride 40 meq in 1,000 mls @ 42 mls/hr 01/11/17 08:30 01/13 12:24 D5-1/2ns+40 Meq Kcl - IV 42 mls/hr ASDIR CYNTHIA Administration Megestrol Acetate 40 mg 01/11/17 14:00 01/13/17 21:46 Megace - PO 40 mg QID CYNTHIA Administration Mesalamine 800 mg 01/08/17 13:15 01/14/17 06:51 Asacol Hd - PO 800 mg TID CYNTHIA Administration Mesalamine 4 gm 01/12/17 21:00 01/13/17 12:21 Rowasa Enema - [place] 4 gm DAILY CYNTHIA Administration Mupirocin 1 applic 01/06/17 20:15 01/13/17 21:44 Bactroban 2% Ointment - TP 1 applic BID CYNTHIA Administration Ranitidine HCl 150 mg 01/12/17 10:00 01/13/17 10:04 Zantac - PO 150 mg DAILY CYNTHIA Administration ASSESSMENT/PLAN: 61yo F with significant history of Rt. Breast carcinoma (first diagnosed in 1998 via lumpectomy followed by RT/chemo/5yrs of tamoxifen and arimedex with multiple mets including brain found in 03/2016) who presented to the ED for PO intolerance and generalized weakness which has improved with diet and fluids. # Weakness - Poor appetite, likely from metastatic cancer, on Megace 40 TID # Ulcerative Colitis - Panulcerative rectosigmoid colitis on scope. On Mesalamine PO 800 TID and enema. # R Breast CA with Mets - Includes multiple brain mets. Undergoing WBRT. Currently off Xeloda for time being. Not on prednisone. # Sinus Tachycardia - Improved since we switched Marinol to Megace. # Hypokalemia - Likely from the bowel prep and BMs. Repleting daily # Normocytic Anemia - Anemia of chronic disease, improved s/p 1 PRBC. Had one bloody BM this hospitalization, resolved. # Thrombocytopenia - Improving. Switched protonix to ranitidine. Likely from tumor burden not hemolysis # Labial Ulcer - Cultures growing MSSA, doesn't look infected, ?skin marilou, can complete 7 day course of Augmentin. # FEN - D5 1/2 NS w/ 40meq KCl at 42 cc/hr; elec wnl; regular diet # PPx - No pharmacologic AC due to extensive brain mets as per Onc. # Dispo - Patient will have daily whole brain radiation treatments x10. First treatment 01/13. After encouragement with PT pt walked 35 feet. d/w Dr Rachel Underwood MD - PGY1 Internal Medicine Visit type - Emergency Visit Emergency Visit: No - New Patient This patient is new to me today: No - Critical Care Critical Care patient: No - Discharge Referral Referred to [facility] Med P.C.: No
[2017-01-14] MEDS: AMINO ACIDS/PROTEIN HYDROLYS 30 ML LIQUID.PKT PO SCH ×2 (08:46→17:23)
[2017-01-14] MEDS: AMOX TR/POT CLAV 875MG/125MG TABLETS (FP) PO SCH ×2 (08:46→17:22)
[2017-01-14] MEDS: D5-1/2NS+40 MEQ KCL - 40 MEQ/1,000 ML INFUS.BAG IV SCH (08:46)
--- NOTE | 2017-01-14 10:01 | PN ---
Progress Note (short form) - Note Progress Note: Biopsies reviewed. Gregorio-ulerative colitis. Contineu current medication regiment ( PO/KS) as prescribed. Low residual diet. Problem List - Problems (1) Ulcerative colitis Code(s): K51.90 - ULCERATIVE COLITIS, UNSPECIFIED, WITHOUT COMPLICATIONS (2) Hematochezia Code(s): K92.1 - MELENA (3) Anemia Code(s): D64.9 - ANEMIA, UNSPECIFIED
[2017-01-14 11:43] LABS: ANISOCYTOSIS 1+; BAND % 12.4 %; HYPOCHROMIA 0; MACROCYTOSIS 0; METAMYELOCYTE 1 % (0-2); MICROCYTOSIS 1+; MYELOCYTE 2 % (0-2); OVALOCYTE 1+; POIKILOCYTOSIS 0; POLYCHROMASIA 0; REACTIVE LYMPHOCYTES 1 % (0-80)
[2017-01-14 11:46] LABS: PLATELET COMMENTS PRESENT
[2017-01-14] MEDS: amLODIPine BESYLATE 5 MG TABLET (FP) PO SCH (12:06)
[2017-01-14] MEDS: RANITIDINE HCL 150 MG TABLET (FP) PO SCH (12:06)
[2017-01-14] MEDS ORDERED: PT OWN MED DRAWER 7, Y5N ONE ×2 (12:15→17:31)
[2017-01-14] MEDS: MUPIROCIN 2% TOPICAL OINTMENT 22 GM TUBE TP SCH ×2 (12:18→22:18)
[2017-01-14] MEDS: MESALAMINE 4 GM/60 ML ENEMA PR SCH (12:18)
[2017-01-14] MEDS: MEGESTROL ACETATE 40 MG TABLET PO SCH ×4 (12:18→22:18)
--- NOTE | 2017-01-14 12:48 | PN ---
Progress Note (short form) - Note Progress Note: Patient seen and examined Feels well Denies any complaints Last Vital Signs Temp Pulse Resp BP Pulse Ox 98 F 101 H 18 132/75 96 01/14/17 05:59 01/14/17 05:59 01/14/17 05:59 01/14/17 05:59 01/13/17 21:00 Cor: RSR, No murmurs, No gallops Lungs: Clear to P&A Abd: Soft, Normal bowel sounds, No organomegaly Ext:No significant edema Abnormal Lab Results 01/13/17 01/14/17 01/14/17 20:15 06:00 06:00 RBC 2.69 L Hgb 7.7 L Hct 23.1 L RDW 18.3 H Plt Count 123 L MPV 7.0 L Monocytes % (Manual) 0 L D Potassium 3.4 L D 3.1 L Anion Gap 6 L Creatinine 0.3 L 0.2 L D Random Glucose 63 L Calcium 7.3 L 7.5 L Phosphorus 2.1 L Magnesium 1.7 L ALT 8 L Alkaline Phosphatase 381 H Total Protein 4.5 L Albumin 1.3 L Active Medications Generic Name Dose Route Start Last Admin Trade Name Freq PRN Reason Stop Dose Admin Amino Acids 30 ml 01/08/17 17:30 01/14/17 08:46 Prosource No Carb Liquid Pkt PO 30 ml BID@0800,1730 CYNTHIA Administration Amlodipine Besylate 5 mg 01/07/17 10:00 01/14/17 12:06 Norvasc - PO 5 mg DAILY CYNTHIA Administration Amoxicillin/Clavulanate Potassium 1 tab 01/10/17 09:45 01/14/17 08:46 Augmentin - 875mg Tablet PO 1 tab BID@0800,1730 CYNTHIA Administration IV Flush 10 ml 01/08/17 19:00 01/13/17 12:20 Kirill-Cath Flush IVPUSH 10 ml PRN PRN Administration flush kirill cath IV Flush 10 ml 01/12/17 16:14 Kirill-Cath Flush IVPUSH PRN PRN after each use Dextrose/Sodium Chloride 40 meq in 1,000 mls @ 42 mls/hr 01/11/17 08:30 01/14 08:46 D5-1/2ns+40 Meq Kcl - IV Not Given ASDIR CYNTHIA Megestrol Acetate 40 mg 01/11/17 14:00 01/14/17 12:18 Megace - PO 40 mg QID CYNTHIA Administration Mesalamine 800 mg 01/08/17 13:15 01/14/17 06:51 Asacol Hd - PO 800 mg TID CYNTHIA Administration Mesalamine 4 gm 01/12/17 21:00 01/14/17 12:18 Rowasa Enema - [place] Not Given DAILY [facility] Mupirocin 1 applic 01/06/17 20:15 01/14/17 12:18 Bactroban 2% Ointment - TP 1 applic BID CYNTHIA Administration Potassium Chloride 40 meq 01/14/17 13:00 01/14/17 12:06 K-Dur - PO 01/14/17 13:01 40 meq ONCE ONE Administration Ranitidine HCl 150 mg 01/12/17 10:00 01/14/17 12:06 Zantac - PO 150 mg DAILY CYNTHIA Administration A/P 61 y/o patient with metastatic breast cancer, progressive brain mets, comes in with failure to thrive gentle hydration Rad-onc consult For gi w/u will discuss with rad-onc patient with advnced disease, extensive bony disease suspect anemia of chronic disease elevated LDH from disease burden Haptoglobin high No obvious hemolysis Need to monitor
--- NOTE | 2017-01-14 13:42 | PN ---
Progress Note, Physician History of Present Illness: no events, no melena, hematochezia. Pancolitis including rectum sparing TI. UC - Current Medication List Current Medications: Active Medications Amino Acids (Prosource No Carb Liquid Pkt) 30 ml PO BID@0800,1730 [facility] Last Admin: 01/14/17 08:46 Dose: 30 ml Amlodipine Besylate (Norvasc -) 5 mg PO DAILY [facility] Last Admin: 01/14/17 12:06 Dose: 5 mg Amoxicillin/Clavulanate Potassium (Augmentin - 875mg Tablet) 1 tab PO BID@0800, 1730 [facility] Last Admin: 01/14/17 08:46 Dose: 1 tab IV Flush (Kirill-Cath Flush) 10 ml IVPUSH PRN PRN PRN Reason: flush kirill cath Last Admin: 01/13/17 12:20 Dose: 10 ml IV Flush (Kirill-Cath Flush) 10 ml IVPUSH PRN PRN PRN Reason: after each use Dextrose/Sodium Chloride (D5-1/2ns+40 Meq Kcl -) 40 meq in 1,000 mls @ 42 mls/ hr IV ASDIR [facility] Last Admin: 01/14/17 08:46 Dose: Not Given Megestrol Acetate (Megace -) 40 mg PO QID [facility] Last Admin: 01/14/17 12:18 Dose: 40 mg Mesalamine (Asacol Hd -) 800 mg PO TID [facility] Last Admin: 01/14/17 06:51 Dose: 800 mg Mesalamine (Rowasa Enema -) 4 gm [place] DAILY [facility] Last Admin: 01/14/17 12:18 Dose: Not Given Mupirocin (Bactroban 2% Ointment -) 1 applic TP BID [facility] Last Admin: 01/14/17 12:18 Dose: 1 applic Ranitidine HCl (Zantac -) 150 mg PO DAILY [facility] Last Admin: 01/14/17 12:06 Dose: 150 mg - Objective Vital Signs: Vital Signs Temperature 98.8 F 01/14/17 10:00 Pulse Rate 101 H 01/14/17 10:00 Respiratory Rate 18 01/14/17 10:00 Blood Pressure 130/76 01/14/17 10:00 O2 Sat by Pulse Oximetry (%) 96 01/13/17 21:00 Constitutional: Yes: No Distress, Calm Gastrointestinal: Yes: Soft. No: Melena, Rectal Bleeding, Tenderness, Tenderness, Rebound, Vomiting Neurological: Yes: Alert, Oriented Labs: CBC, BMP 01/14/17 06:00 01/14/17 06:00 INR, PTT INR 1.47 (0.82-1.09) H 01/11/17 06:40 Laboratory Results - last 24 hr 01/13/17 01/14/17 01/14/17 20:15 06:00 06:00 WBC 6.3 RBC 2.69 L Hgb 7.7 L Hct 23.1 L MCV 86.1 MCH 28.8 MCHC 33.5 RDW 18.3 H Plt Count 123 L MPV 7.0 L Neutrophils % No Result Required. Neutrophils % (Manual) 74.2 Band Neutrophils % 12.4 Lymphocytes % No Result Required. Lymphocytes % (Manual) 8.3 D Monocytes % (Manual) 0 L D Basophils % (Manual) 1.0 D Myelocytes % (Man) 2 D Metamyelocytes 1 D Hypochromia 0 Platelet Estimate l Platelet Comment Present Polychromasia 0 Poikilocytosis 0 Anisocytosis 1+ Microcytosis 1+ Macrocytosis 0 Ovalocytes 1+ Sodium 136 138 Potassium 3.4 L D 3.1 L Chloride 102 103 Carbon Dioxide 28 26 Anion Gap 6 L 9 BUN 14 D 12 Creatinine 0.3 L 0.2 L D Creat Clearance w eGFR > 60 Random Glucose 78 D 63 L Calcium 7.3 L 7.5 L Phosphorus 2.1 L Magnesium 1.7 L 1.9 Total Bilirubin 0.5 AST 31 D ALT 8 L Alkaline Phosphatase 381 H Total Protein 4.5 L Albumin 1.3 L Problem List - Problems (1) Ulcerative colitis Code(s): K51.90 - ULCERATIVE COLITIS, UNSPECIFIED, WITHOUT COMPLICATIONS (2) Hematochezia Code(s): K92.1 - MELENA (3) Anemia Code(s): D64.9 - ANEMIA, UNSPECIFIED Assessment/Plan Biopsy results were discussed with the patient Asacol HD 800 mg po TID +Rowasa qhd. Monitor lipase, and Cr Office in 1-2 weeks
[2017-01-14] MEDS ORDERED: SODIUM PHOSPHATE IVPB ONE (15:00)
[2017-01-14] MEDS ORDERED: SODIUM CHLORIDE IVPB ONE (15:00)
--- NOTE | 2017-01-14 20:44 | PN ---
Progress Note (short form) - Note Progress Note: Radiation Oncology Tolerating WBRT @ 6Gy No headaches but appetite remains poor. Stage IV breast cancer with progression of [employer] mets and probable LMD. Will cont RT as tolerated, 8 fx remaining. Cont PT. D/C planning.
--- NOTE | 2017-01-14 22:20 | PN ---
Progress Note (short form) - Note Progress Note: Patient seen and examined Feels well Denies any complaints Last Vital Signs Temp Pulse Resp BP Pulse Ox 98 F 101 H 18 132/75 96 01/14/17 05:59 01/14/17 05:59 01/14/17 05:59 01/14/17 05:59 01/13/17 21:00 Cor: RSR, No murmurs, No gallops Lungs: Clear to P&A Abd: Soft, Normal bowel sounds, No organomegaly Ext:No significant edema Abnormal Lab Results 01/13/17 01/14/17 01/14/17 20:15 06:00 06:00 RBC 2.69 L Hgb 7.7 L Hct 23.1 L RDW 18.3 H Plt Count 123 L MPV 7.0 L Monocytes % (Manual) 0 L D Potassium 3.4 L D 3.1 L Anion Gap 6 L Creatinine 0.3 L 0.2 L D Random Glucose 63 L Calcium 7.3 L 7.5 L Phosphorus 2.1 L Magnesium 1.7 L ALT 8 L Alkaline Phosphatase 381 H Total Protein 4.5 L Albumin 1.3 L Active Medications Generic Name Dose Route Start Last Admin Trade Name Freq PRN Reason Stop Dose Admin Amino Acids 30 ml 01/08/17 17:30 01/14/17 08:46 Prosource No Carb Liquid Pkt PO 30 ml BID@0800,1730 CYNTHIA Administration Amlodipine Besylate 5 mg 01/07/17 10:00 01/14/17 12:06 Norvasc - PO 5 mg DAILY CYNTHIA Administration Amoxicillin/Clavulanate Potassium 1 tab 01/10/17 09:45 01/14/17 08:46 Augmentin - 875mg Tablet PO 1 tab BID@0800,1730 CYNTHIA Administration IV Flush 10 ml 01/08/17 19:00 01/13/17 12:20 Kirill-Cath Flush IVPUSH 10 ml PRN PRN Administration flush kirill cath IV Flush 10 ml 01/12/17 16:14 Kirill-Cath Flush IVPUSH PRN PRN after each use Dextrose/Sodium Chloride 40 meq in 1,000 mls @ 42 mls/hr 01/11/17 08:30 01/14 08:46 D5-1/2ns+40 Meq Kcl - IV Not Given ASDIR CYNTHIA Megestrol Acetate 40 mg 01/11/17 14:00 01/14/17 12:18 Megace - PO 40 mg QID CYNTHIA Administration Mesalamine 800 mg 01/08/17 13:15 01/14/17 06:51 Asacol Hd - PO 800 mg TID CYNTHIA Administration Mesalamine 4 gm 01/12/17 21:00 01/14/17 12:18 Rowasa Enema - CT Not Given DAILY [facility] Mupirocin 1 applic 01/06/17 20:15 01/14/17 12:18 Bactroban 2% Ointment - TP 1 applic BID CYNTHIA Administration Potassium Chloride 40 meq 01/14/17 13:00 01/14/17 12:06 K-Dur - PO 01/14/17 13:01 40 meq ONCE ONE Administration Ranitidine HCl 150 mg 01/12/17 10:00 01/14/17 12:06 Zantac - PO 150 mg DAILY [facility]IA Administration A/P 61 y/o patient with metastatic breast cancer, progressive brain mets, comes in with failure to thrive started WBRT--will discuss with rad-onc diarrhea inproved physical therapy ? stop augmentin
[2017-01-15] MEDS: MESALAMINE 800 MG TABLET.DR PO SCH ×3 (06:15→22:49)
[2017-01-15 07:45] LABS: MCH 29.2 pg (25.7-33.7); MCHC 33.7 g/dl (32.0-36.0); MEAN CELL VOLUME 86.7 fl (80-96); MEAN PLT VOLUME 6.9 fl (7.5-11.1); PLATELET COUNT 129 K/MM3 (134-434); RDW 18.3 % (11.6-15.6); WHITE BLOOD COUNT 6.4 K/mm3 (4.0-10.0)
[2017-01-15 08:03] LABS: CALCIUM 7.2 mg/dL (8.5-10.1)
[2017-01-15 08:06] LABS: ANION GAP 8 (8-16); CO2 25 mmol/L (21-32); CREATININE 0.2 mg/dL (0.55-1.02); GLUCOSE,RANDOM 61 mg/dL (74-106); MAGNESIUM 1.8 mg/dL (1.8-2.4)
[2017-01-15] MEDS: AMOX TR/POT CLAV 875MG/125MG TABLETS (FP) PO SCH (08:27)
[2017-01-15] MEDS: AMINO ACIDS/PROTEIN HYDROLYS 30 ML LIQUID.PKT PO SCH ×2 (08:27→18:45)
[2017-01-15 08:55] LABS: PHOSPHOROUS 3.7 mg/dL (2.5-4.9)
[2017-01-15] MEDS: MESALAMINE 4 GM/60 ML ENEMA PR SCH (11:26)
[2017-01-15] MEDS: D5-1/2NS+40 MEQ KCL - 40 MEQ/1,000 ML INFUS.BAG IV SCH (11:26)
[2017-01-15] MEDS ORDERED: PT OWN MED DRAWER 7, Y5N ONE ×4 (11:33→22:16)
[2017-01-15] MEDS: MEGESTROL ACETATE 40 MG TABLET PO SCH ×4 (11:36→22:49)
[2017-01-15] MEDS: amLODIPine BESYLATE 5 MG TABLET (FP) PO SCH (11:36)
[2017-01-15] MEDS: RANITIDINE HCL 150 MG TABLET (FP) PO SCH (11:36)
[2017-01-15] MEDS: MUPIROCIN 2% TOPICAL OINTMENT 22 GM TUBE TP SCH ×2 (11:36→22:49)
[2017-01-15] MEDS: PORTA CATH FLUSH 10 ML IVPUSH PRN (11:37)
--- NOTE | 2017-01-15 13:50 | PN ---
Physical Exam: SUBJECTIVE: Patient seen and examined. Feels the same. States appetite is the same. No new complaints. OBJECTIVE: Vital Signs Period Temp Pulse Resp BP Sys/Mulligan Pulse Ox Last 24 Hr 97.7 F-99.3 F 98-116 18-20 101-137/53-78 96 GEN: AAOx3, NAD, Not ill appearing, not cachectic HEENT: PERRLA, EOMi CV: S1, S2, tachycardic rate and rhythm LUNG: CTABL ABD: Soft, NT, ND, normoactive BS : 4cm soft tissue ulceration in the external labial skin, not in the vulva. Non purulent, non erythematous. No surrounding erythema or pustules MSK: No edema, no erythema NEURO: No sensation or MSK deficits. No facial droop Active Medications Generic Name Dose Route Start Last Admin Trade Name Freq PRN Reason Stop Dose Admin Amino Acids 30 ml 01/08/17 17:30 01/15/17 08:27 Prosource No Carb Liquid Pkt PO 30 ml BID@0800,1730 CYNTHIA Administration Amlodipine Besylate 5 mg 01/07/17 10:00 01/15/17 11:36 Norvasc - PO 5 mg DAILY [facility] Administration Amoxicillin/Clavulanate Potassium 1 tab 01/10/17 09:45 01/15/17 08:27 Augmentin - 875mg Tablet PO 1 tab BID@0800,1730 CYNTHIA Administration IV Flush 10 ml 01/08/17 19:00 01/15/17 11:37 Mikel-Cath Flush IVPUSH 10 ml PRN PRN Administration flush mikel cath IV Flush 10 ml 01/12/17 16:14 Mikel-Cath Flush IVPUSH PRN PRN after each use Dextrose/Sodium Chloride 40 meq in 1,000 mls @ 42 mls/hr 01/11/17 08:30 01/15 11:26 D5-1/2ns+40 Meq Kcl - IV Not Given ASDIR CYNTHIA Megestrol Acetate 40 mg 01/11/17 14:00 01/15/17 11:36 Megace - PO 40 mg QID CYNTHIA Administration Mesalamine 800 mg 01/08/17 13:15 01/15/17 06:15 Asacol Hd - PO 800 mg TID CYNTHIA Administration Mesalamine 4 gm 01/12/17 21:00 01/15/17 11:26 Rowasa Enema - [place] Not Given DAILY [facility] Mupirocin 1 applic 01/06/17 20:15 01/15/17 11:36 Bactroban 2% Ointment - TP 1 applic BID [facility] Administration Ranitidine HCl 150 mg 01/12/17 10:00 01/15/17 11:36 Zantac - PO 150 mg DAILY [facility] Administration ASSESSMENT/PLAN: 61yo F with significant history of Rt. Breast carcinoma (first diagnosed in 1998 via lumpectomy followed by RT/chemo/5yrs of tamoxifen and arimedex with multiple mets including brain found in 03/2016) who presented to the ED for PO intolerance and generalized weakness which has improved with diet and fluids. # Weakness - Poor appetite, likely from metastatic cancer, on Megace 40 TID # Ulcerative Colitis - Panulcerative rectosigmoid colitis on scope. On Mesalamine PO 800 TID and enema. # R Breast CA with Mets - Includes multiple brain mets. Undergoing WBRT. Currently off Xeloda for time being. Not on prednisone. # Labial Ulcer - Cultures growing MSSA, doesn't look infected, ?skin marilou, can d/c after tomorrow will have completed 7 day course # Sinus Tachycardia - Improved since we switched Marinol to Megace. # Hypokalemia - Likely from the bowel prep and BMs. Repleting daily # Normocytic Anemia - Anemia of chronic disease, improved s/p 1 PRBC. Had one bloody BM this hospitalization, resolved. # Thrombocytopenia - Improved after switching to ranitidine. Likely from tumor burden not hemolysis # FEN - D5 1/2 NS w/ 40meq KCl at 42 cc/hr; elec wnl; regular diet # PPx - No pharmacologic AC due to extensive brain mets # Dispo - Patient will have daily whole brain radiation treatments x10. First treatment 01/13. Walked 35 feet with PT yest, if walks +50 feet, can safely dc home and complete WBRT as outpatient d/w Dr Rachel Underwood MD - PGY1 Internal Medicine Visit type - Emergency Visit Emergency Visit: No - New Patient This patient is new to me today: No - Critical Care Critical Care patient: No - Discharge Referral Referred to [facility] No
--- NOTE | 2017-01-15 14:31 | PN ---
Progress Note, Physician History of Present Illness: no events, no melena, hematochezia. Refuses enema. - Current Medication List Current Medications: Active Medications Amino Acids (Prosource No Carb Liquid Pkt) 30 ml PO BID@0800,1730 [facility] Last Admin: 01/15/17 08:27 Dose: 30 ml Amlodipine Besylate (Norvasc -) 5 mg PO DAILY [facility] Last Admin: 01/15/17 11:36 Dose: 5 mg Amoxicillin/Clavulanate Potassium (Augmentin - 875mg Tablet) 1 tab PO BID@0800, 1730 [facility] Last Admin: 01/15/17 08:27 Dose: 1 tab IV Flush (Kirill-Cath Flush) 10 ml IVPUSH PRN PRN PRN Reason: flush kirill cath Last Admin: 01/15/17 11:37 Dose: 10 ml IV Flush (Kirill-Cath Flush) 10 ml IVPUSH PRN PRN PRN Reason: after each use Dextrose/Sodium Chloride (D5-1/2ns+40 Meq Kcl -) 40 meq in 1,000 mls @ 42 mls/ hr IV ASDIR [facility] Last Admin: 01/15/17 11:26 Dose: Not Given Megestrol Acetate (Megace -) 40 mg PO QID [facility] Last Admin: 01/15/17 11:36 Dose: 40 mg Mesalamine (Asacol Hd -) 800 mg PO TID [facility] Last Admin: 01/15/17 06:15 Dose: 800 mg Mesalamine (Rowasa Enema -) 4 gm [place] DAILY [facility] Last Admin: 01/15/17 11:26 Dose: Not Given Mupirocin (Bactroban 2% Ointment -) 1 applic TP BID [facility] Last Admin: 01/15/17 11:36 Dose: 1 applic Ranitidine HCl (Zantac -) 150 mg PO DAILY [facility] Last Admin: 01/15/17 11:36 Dose: 150 mg - Objective Vital Signs: Vital Signs Temperature 97.7 F 01/15/17 11:05 Pulse Rate 99 H 01/15/17 11:05 Respiratory Rate 18 01/15/17 11:05 Blood Pressure 135/78 01/15/17 11:05 O2 Sat by Pulse Oximetry (%) 96 01/14/17 21:00 Constitutional: Yes: No Distress, Calm Gastrointestinal: Yes: Soft. No: Melena, Rectal Bleeding, Tenderness Labs: CBC, BMP 01/15/17 07:20 01/15/17 07:20 INR, PTT INR 1.47 (0.82-1.09) H 01/11/17 06:40 Laboratory Results - last 24 hr 01/11/17 01/14/17 01/15/17 12:45 22:00 07:20 WBC 6.4 RBC 2.52 L Hgb 7.4 L Hct 21.9 L MCV 86.7 MCH 29.2 MCHC 33.7 RDW 18.3 H Plt Count 129 L MPV 6.9 L Sodium Potassium Chloride Carbon Dioxide Anion Gap BUN Creatinine Random Glucose Calcium Phosphorus Magnesium Stool O & P Wet Mount Cancelled O & P Permanent Slide Cancelled Blood Type A POSITIVE Antibody Screen Negative Crossmatch See Detail 01/15/17 01/15/17 07:20 08:10 WBC RBC Hgb Hct MCV MCH MCHC RDW Plt Count MPV Sodium 136 Potassium 3.6 Chloride 103 Carbon Dioxide 25 Anion Gap 8 BUN 13 Creatinine 0.2 L Random Glucose 61 L Calcium 7.2 L Phosphorus 3.7 D Cancelled Magnesium 1.8 Stool O & P Wet Mount O & P Permanent Slide Blood Type Antibody Screen Crossmatch Problem List - Problems (1) Ulcerative colitis Code(s): K51.90 - ULCERATIVE COLITIS, UNSPECIFIED, WITHOUT COMPLICATIONS (2) Hematochezia Code(s): K92.1 - MELENA (3) Anemia Code(s): D64.9 - ANEMIA, UNSPECIFIED Assessment/Plan Asacol HD 800 mg po TID +Rowasa qhd. Monitor lipase, and Cr Office in 1-2 weeks
--- NOTE | 2017-01-15 16:30 | PN ---
Teaching Attending Note Name of Resident: Tanya Underwood ATTENDING PHYSICIAN STATEMENT Time of evaluation: 7:30 AM I saw and evaluated the patient. I reviewed the resident's note and discussed the case with the resident. I agree with the resident's findings and plan as documented. SUBJECTIVE: Patient seen and examined. no complaints, worked with PT yesterday. OBJECTIVE: Vital Signs Period Temp Pulse Resp BP Sys/Mulligan Pulse Ox Last 24 Hr 97.4 F-99.3 F 98-112 18-20 101-135/53-78 96 Intake & Output 01/12/17 01/13/17 01/14/17 01/15/17 23:59 23:59 23:59 23:59 Intake Total 1874 1760 1880 920 Balance 1874 1760 1880 920 General: sitting in bed in no acute distress CVS:S1S2 regular Chest: CTAB, no rales or wheezing abdomen: soft, NT, ND Home Medication List Medication Instructions Recorded Confirmed Type Amlodipine Besylate 5 mg PO DAILY 01/06/17 01/06/17 History Capecitabine 500 mg PO ASDIR 01/06/17 01/07/17 History Loperamide HCl [Loperamide] 2 mg PO PRN 01/06/17 01/07/17 History Pantoprazole Sodium 40 mg PO DAILY 01/06/17 01/06/17 History Potassium Chloride 20 meq PO ASDIR 01/06/17 01/07/17 History Active Medications Generic Name Dose Route Start Last Admin Trade Name Freq PRN Reason Stop Dose Admin Amino Acids 30 ml 01/08/17 17:30 01/15/17 08:27 Prosource No Carb Liquid Pkt PO 30 ml BID@0800,1730 CYNTHIA Administration Amlodipine Besylate 5 mg 01/07/17 10:00 01/15/17 11:36 Norvasc - PO 5 mg DAILY CYNTHIA Administration Amoxicillin/Clavulanate Potassium 1 tab 01/10/17 09:45 01/15/17 08:27 Augmentin - 875mg Tablet PO 1 tab BID@0800,1730 CYNTHIA Administration IV Flush 10 ml 01/08/17 19:00 01/15/17 11:37 Mikel-Cath Flush IVPUSH 10 ml PRN PRN Administration flush mikel cath IV Flush 10 ml 01/12/17 16:14 Mikel-Cath Flush IVPUSH PRN PRN after each use Dextrose/Sodium Chloride 40 meq in 1,000 mls @ 42 mls/hr 01/11/17 08:30 01/15 11:26 D5-1/2ns+40 Meq Kcl - IV Not Given ASDIR CYNTHIA Megestrol Acetate 40 mg 01/11/17 14:00 01/15/17 16:28 Megace - PO 40 mg QID CYNTHIA Administration Mesalamine 800 mg 01/08/17 13:15 01/15/17 16:28 Asacol Hd - PO 800 mg TID CYNTHIA Administration Mesalamine 4 gm 01/12/17 21:00 01/15/17 11:26 Rowasa Enema - [place] Not Given DAILY [facility] Mupirocin 1 applic 01/06/17 20:15 01/15/17 11:36 Bactroban 2% Ointment - TP 1 applic BID CYNTHIA Administration Ranitidine HCl 150 mg 01/12/17 10:00 01/15/17 11:36 Zantac - PO 150 mg DAILY CYNTHIA Administration Laboratory Results - last 24 hr 01/11/17 01/14/17 01/15/17 12:45 22:00 07:20 WBC 6.4 RBC 2.52 L Hgb 7.4 L Hct 21.9 L MCV 86.7 MCH 29.2 MCHC 33.7 RDW 18.3 H Plt Count 129 L MPV 6.9 L Sodium Potassium Chloride Carbon Dioxide Anion Gap BUN Creatinine Random Glucose Calcium Phosphorus Magnesium Stool O & P Wet [place] Cancelled O & P Permanent Slide Cancelled Blood Type A POSITIVE Antibody Screen Negative Crossmatch See Detail 01/15/17 01/15/17 07:20 08:10 WBC RBC Hgb Hct MCV MCH MCHC RDW Plt Count MPV Sodium 136 Potassium 3.6 Chloride 103 Carbon Dioxide 25 Anion Gap 8 BUN 13 Creatinine 0.2 L Random Glucose 61 L Calcium 7.2 L Phosphorus 3.7 D Cancelled Magnesium 1.8 Stool O & P Wet [place] O & P Permanent Slide Blood Type Antibody Screen Crossmatch ASSESSMENT AND PLAN: 61yo F with significant history of Rt. Breast carcinoma (first diagnosed in 1998 via lumpectomy followed by RT/chemo/5yrs of tamoxifen and arimedex with multiple mets including brain found in 03/2016) who presented to the ED for PO intolerance and generalized weakness which has improved with diet and fluids. also with ulcerative colitis flare, electrolyte abnormalities. -Generalized weakness -Failure to thrive -Acute ulcerative colitis flare -Acute on chronic anemia, suspect from hematochezia/Anemia of chronic disease -Thrombocytopenia -Genital ulcer, healed with no concerns for infection -severe hypokalemia, from bowel prep -Hypomagnesemia -Hypophosphatemia -Leucocytosis, likely reactive, resolved, -Hypotension, from hypovolumia -Sinus tachycardia, improved, suspect multifactorial from hypovolumia, marinol, BRBPR, anemia, UC flare. No hypoxia, chest pain, respiratory symptoms and with a strong explanation for her tachycardia currently make PE unlikely Plan: Started on WBRT inpatient 01/13, discuss with oncology if needs steroids. Approprite response to PRBC transfusion, H/h stable. Colonoscopy suggestive of UC flare, patient informed. continue PO mesalamine, mesalamine enema. Oncology input appreciated. CBC stable now, further w/u and follow up outpatient. No concerns for hemolysis. ?chemotherapy contributory. PLan for outpatient WBRT. Augmentin day 6, however, no fevers, leucocytosis or concerns for infection. D/ c antibiotics and monitor. Replete K, phos, Mg aggressively as needed. Lytes overall improved. D/c IVF. Encourage oral intake, marinol d/alyson. Megace, nutrition input. PT eval. Encouraged patient to work with PT D/c planning to SNF when disposition arranged vs home with PT if continues to improve over next few days. Inpatient WBRT for now. Plan discussed with patient in detail, all questions answered.
--- NOTE | 2017-01-15 21:38 | PN ---
Progress Note (short form) - Note Progress Note: Patient seen and examined feels slightly better afvss Cor: RSR, No murmurs, No gallops Lungs: Clear to P&A Abd: Soft, Normal bowel sounds, No organomegaly Ext:No significant edema Abnormal Lab Results 01/15/17 01/15/17 07:20 07:20 RBC 2.52 L Hgb 7.4 L Hct 21.9 L RDW 18.3 H Plt Count 129 L MPV 6.9 L Creatinine 0.2 L Random Glucose 61 L Calcium 7.2 L Active Medications Generic Name Dose Route Start Last Admin Trade Name Freq PRN Reason Stop Dose Admin Acetaminophen 650 mg 01/16/17 01:35 01/16/17 01:59 Tylenol - PO 650 mg Q6H PRN Administration FEVER OR PAIN Amino Acids 30 ml 01/08/17 17:30 01/15/17 18:45 Prosource No Carb Liquid Pkt PO 30 ml BID@0800,1730 CYNTHIA Administration Amlodipine Besylate 5 mg 01/07/17 10:00 01/15/17 11:36 Norvasc - PO 5 mg DAILY CYNTHIA Administration IV Flush 10 ml 01/08/17 19:00 01/15/17 11:37 Kirill-Cath Flush IVPUSH 10 ml PRN PRN Administration flush kirill cath IV Flush 10 ml 01/12/17 16:14 Kirill-Cath Flush IVPUSH PRN PRN after each use Dextrose/Sodium Chloride 40 meq in 1,000 mls @ 42 mls/hr 01/11/17 08:30 01/15 11:26 D5-1/2ns+40 Meq Kcl - IV Not Given ASDIR CYNTHIA Megestrol Acetate 40 mg 01/11/17 14:00 01/15/17 22:49 Megace - PO 40 mg QID CYNTHIA Administration Mesalamine 800 mg 01/08/17 13:15 01/15/17 22:49 Asacol Hd - PO 800 mg TID CYNTHIA Administration Mesalamine 4 gm 01/12/17 21:00 01/15/17 11:26 Rowasa Enema - [place] Not Given DAILY CYNTHIA Mupirocin 1 applic 01/06/17 20:15 01/15/17 22:49 Bactroban 2% Ointment - TP 1 applic BID CYNTHIA Administration Ranitidine HCl 150 mg 01/12/17 10:00 01/15/17 11:36 Zantac - PO 150 mg DAILY CYNTHIA Administration a/p 61 y/o patient with metastatic breast cancer, brain mets, getting wbrt start dexamethasone 4mg bid physicl therapy
[2017-01-16] MEDS: ACETAMINOPHEN 325 MG TABLET (FP) PO PRN (01:59)
[2017-01-16] MEDS ORDERED: PT OWN MED DRAWER 7, Y5N ONE ×6 (06:16→21:49)
[2017-01-16] MEDS: MESALAMINE 800 MG TABLET.DR PO SCH ×3 (06:28→21:51)
[2017-01-16 07:13] LABS: MCH 29.3 pg (25.7-33.7); MCHC 33.6 g/dl (32.0-36.0); MEAN CELL VOLUME 87.1 fl (80-96); MEAN PLT VOLUME 6.6 fl (7.5-11.1); PLATELET COUNT 142 K/MM3 (134-434); RDW 18.2 % (11.6-15.6); WHITE BLOOD COUNT 7.5 K/mm3 (4.0-10.0)
[2017-01-16 07:45] LABS: ALBUMIN 1.5 g/dl (3.4-5.0); ALK PHOS 334 U/L (45-117); ANION GAP 8 (8-16); BILIRUBIN,TOTAL 0.5 mg/dL (0.2-1.0); CALCIUM 8.2 mg/dL (8.5-10.1); CO2 27 mmol/L (21-32); CREATININE 0.3 mg/dL (0.55-1.02); GLUCOSE,RANDOM 62 mg/dL (74-106); MAGNESIUM 1.5 mg/dL (1.8-2.4); PHOSPHOROUS 2.3 mg/dL (2.5-4.9); SGOT/AST 28 U/L (15-37); SGPT/ALT 10 U/L (12-78); TOT PROT 4.7 g/dl (6.4-8.2)
[2017-01-16] MEDS: AMINO ACIDS/PROTEIN HYDROLYS 30 ML LIQUID.PKT PO SCH ×2 (09:19→18:07)
[2017-01-16] MEDS: amLODIPine BESYLATE 5 MG TABLET (FP) PO SCH (09:20)
[2017-01-16] MEDS: RANITIDINE HCL 150 MG TABLET (FP) PO SCH (09:22)
[2017-01-16 09:35] LABS: ANISOCYTOSIS 1+; HYPOCHROMIA 1+; METAMYELOCYTE 4 % (0-2); MICROCYTOSIS 1+; NUCLEATED RED BLOOD CELL 1 % (0-0); PLATELET COMMENTS NO CLUMPING NOTED; PLATELET ESTIMATE ADEQUATE; POLYCHROMASIA 1+; TOTAL CELLS COUNTED 100
[2017-01-16] MEDS: D5-1/2NS+40 MEQ KCL - 40 MEQ/1,000 ML INFUS.BAG IV SCH (10:02)
[2017-01-16] MEDS: DEXAMETHASONE SOD PHOSPHATE 4 MG/1 ML VIAL IVPB SCH ×2 (10:07→18:06)
[2017-01-16] MEDS ORDERED: MAGNESIUM SULF 50% (8.12 MEQ/2 ML-1 GM VIAL) IVPB ONE (11:00)
[2017-01-16] MEDS: MUPIROCIN 2% TOPICAL OINTMENT 22 GM TUBE TP SCH ×2 (11:46→21:55)
[2017-01-16] MEDS: MESALAMINE 4 GM/60 ML ENEMA PR SCH (11:46)
[2017-01-16] MEDS: MEGESTROL ACETATE 40 MG TABLET PO SCH ×4 (11:48→21:56)
[2017-01-16] MEDS: MAGNESIUM OXIDE 400 MG TABLET (FP) PO SCH ×2 (11:48→21:50)
--- NOTE | 2017-01-16 12:37 | PN ---
Teaching Attending Note Name of Resident: . Time of evaluation: 8:45 AM SUBJECTIVE: patient seen and examined, no complaints. OBJECTIVE: Vital Signs Period Temp Pulse Resp BP Sys/Mulligan Pulse Ox Last 24 Hr 97.4 F-98.9 F 101-109 18-20 121-133/67-78 Intake & Output 01/13/17 01/14/17 01/15/17 01/16/17 23:59 23:59 23:59 23:59 Intake Total 1760 1880 920 400 Balance 1760 1880 920 400 General: lying in bed in no acute distress CVS:S1s2 regular Chest: CTAB, no rales or wheezing abdomen: soft, NT Home Medication List Medication Instructions Recorded Confirmed Type Amlodipine Besylate 5 mg PO DAILY 01/06/17 01/06/17 History Capecitabine 500 mg PO ASDIR 01/06/17 01/07/17 History Loperamide HCl [Loperamide] 2 mg PO PRN 01/06/17 01/07/17 History Pantoprazole Sodium 40 mg PO DAILY 01/06/17 01/06/17 History Potassium Chloride 20 meq PO ASDIR 01/06/17 01/07/17 History Active Medications Generic Name Dose Route Start Last Admin Trade Name Freq PRN Reason Stop Dose Admin Acetaminophen 650 mg 01/16/17 01:35 01/16/17 01:59 Tylenol - PO 650 mg Q6H PRN Administration FEVER OR PAIN Amino Acids 30 ml 01/08/17 17:30 01/16/17 09:19 Prosource No Carb Liquid Pkt PO 30 ml BID@0800,1730 CYNTHIA Administration Amlodipine Besylate 5 mg 01/07/17 10:00 01/16/17 09:20 Norvasc - PO 5 mg DAILY CYNTHIA Administration Dexamethasone Sodium Phosphate 4 mg 01/16/17 10:00 01/16/17 10:07 Decadron Injection - IVPB 4 mg Q8H-IV CYNTHIA Administration IV Flush 10 ml 01/08/17 19:00 01/15/17 11:37 Mikel-Cath Flush IVPUSH 10 ml PRN PRN Administration flush mikel cath IV Flush 10 ml 01/12/17 16:14 Mikel-Cath Flush IVPUSH PRN PRN after each use Dextrose/Sodium Chloride 40 meq in 1,000 mls @ 42 mls/hr 01/11/17 08:30 01/16 10:02 D5-1/2ns+40 Meq Kcl - IV 42 mls/hr ASDIR CYNTHIA Administration Magnesium Oxide 400 mg 01/16/17 10:00 01/16/17 11:48 Mag-Ox - PO 400 mg BID CYNTHIA Administration Megestrol Acetate 40 mg 01/11/17 14:00 01/16/17 11:48 Megace - PO 40 mg QID CYNTHIA Administration Mesalamine 800 mg 01/08/17 13:15 01/16/17 06:28 Asacol Hd - PO 800 mg TID CYNTHIA Administration Mesalamine 4 gm 01/12/17 21:00 01/16/17 11:46 Rowasa Enema - [place] Not Given DAILY [facility] Mupirocin 1 applic 01/06/17 20:15 01/16/17 11:46 Bactroban 2% Ointment - TP 1 applic BID CYNTHIA Administration Ranitidine HCl 150 mg 01/12/17 10:00 01/16/17 09:22 Zantac - PO 150 mg DAILY CYNTHIA Administration Laboratory Results - last 24 hr 01/16/17 01/16/17 06:30 06:30 WBC 7.5 RBC 2.64 L Hgb 7.7 L Hct 23.0 L MCV 87.1 MCH 29.3 MCHC 33.6 RDW 18.2 H Plt Count 142 MPV 6.6 L Total Counted 100 Neutrophils % No Result Required. Neutrophils % (Manual) 66.0 Band Neutrophils % 15.0 Lymphocytes % No Result Required. Lymphocytes % (Manual) 10.0 D Monocytes % (Manual) 5 D Nucleated RBC % 1 H Metamyelocytes 4 H D Hypochromia 1+ Platelet Estimate Adequate Platelet Comment No clumping noted Polychromasia 1+ Anisocytosis 1+ Microcytosis 1+ Sodium 138 Potassium 3.9 Chloride 103 Carbon Dioxide 27 Anion Gap 8 BUN 15 Creatinine 0.3 L D Creat Clearance w eGFR > 60 Random Glucose 62 L Calcium 8.2 L Phosphorus 2.3 L D Magnesium 1.5 L Total Bilirubin 0.5 AST 28 ALT 10 L D Alkaline Phosphatase 334 H Total Protein 4.7 L Albumin 1.5 L Microbiology 01/06/17 16:00 Blood - Peripheral Venous Blood Culture - Final NO GROWTH AFTER 5 DAYS INCUBATION 01/06/17 16:00 Blood - Peripheral Venous Blood Culture - Final NO GROWTH AFTER 5 DAYS INCUBATION 01/06/17 23:39 Wound Gram Stain - Final 01/06/17 23:39 Wound Wound Culture - Final Staphylococcus Aureus 01/07/17 00:53 Urine - Urine Clean Catch Urine Culture - Final ASSESSMENT AND PLAN: 61yo F with significant history of Rt. Breast carcinoma (first diagnosed in 1998 via lumpectomy followed by RT/chemo/5yrs of tamoxifen and arimedex with multiple mets including brain found in 03/2016) who presented to the ED for PO intolerance and generalized weakness which has improved with diet and fluids. also with ulcerative colitis flare, electrolyte abnormalities. -Generalized weakness -Failure to thrive -Acute ulcerative colitis flare -Acute on chronic anemia, suspect from hematochezia/Anemia of chronic disease -Thrombocytopenia -Genital ulcer, healed with no concerns for infection -severe hypokalemia, from bowel prep -Hypomagnesemia -Hypophosphatemia -Leucocytosis, likely reactive, resolved, -Hypotension, from hypovolumia -Sinus tachycardia, improved, suspect multifactorial from hypovolumia, marinol, BRBPR, anemia, UC flare. No hypoxia, chest pain, respiratory symptoms and with a strong explanation for her tachycardia currently make PE unlikely Plan: Started on WBRT inpatient 01/13, Oncology input noted, placed on decadron, discuss if can change to PO. Approprite response to PRBC transfusion, H/h stable. Colonoscopy suggestive of UC flare, patient informed. continue PO mesalamine, mesalamine enema as patient agrees. Oncology input appreciated. CBC stable now, further w/u and follow up outpatient. No concerns for hemolysis. ?chemotherapy contributory. PLan for outpatient WBRT. Discuss with hematology for PRBC transfusion as low stable augmentin d/alyson after 6 days on 01/15/2017, no new concerns. Replete K, phos, Mg aggressively as needed. Lytes overall improved. off IVF. Place on standing Mg supplementation. Encourage oral intake, marinol d/alyson. Sully, nutrition input. PT evashli. Encouraged patient to work with PT D/c planning to SNF when disposition arranged vs home with PT if continues to improve over next few days. Inpatient WBRT for now. Plan discussed with patient in detail, all questions answered.
--- NOTE | 2017-01-16 17:58 | PN ---
Progress Note (short form) - Note Progress Note: Patient seen and examined feels slightly better Last Vital Signs Temp Pulse Resp BP Pulse Ox 97.4 F L 99 H 18 130/78 96 01/16/17 18:00 01/16/17 18:00 01/16/17 18:00 01/16/17 18:00 01/16/17 09:00 Cor: RSR, No murmurs, No gallops Lungs: Clear to P&A Abd: Soft, Normal bowel sounds, No organomegaly Ext:No significant edema Labs/Meds reviewed a/p 61 y/o patient with metastatic breast cancer, brain mets, getting wbrt on dexamethasone---to change to bid physical therapy would consider short term rehab based on radiattion schedule
[2017-01-17] MEDS: DEXAMETHASONE SOD PHOSPHATE 4 MG/1 ML VIAL IVPB SCH ×3 (01:22→19:59)
[2017-01-17] MEDS ORDERED: PT OWN MED DRAWER 7, Y5N ONE ×4 (05:17→21:23)
[2017-01-17] MEDS: MESALAMINE 800 MG TABLET.DR PO SCH ×3 (05:23→21:28)
[2017-01-17 07:03] LABS: MCHC 33.3 g/dl (32.0-36.0); MEAN PLT VOLUME 6.8 fl (7.5-11.1); PLATELET COUNT 153 K/MM3 (134-434); WHITE BLOOD COUNT 8.9 K/mm3 (4.0-10.0)
[2017-01-17 07:29] LABS: ANION GAP 11 (8-16); CALCIUM 8.1 mg/dL (8.5-10.1); CO2 22 mmol/L (21-32); CREATININE 0.3 mg/dL (0.55-1.02); GLUCOSE,RANDOM 88 mg/dL (74-106)
[2017-01-17] MEDS: AMINO ACIDS/PROTEIN HYDROLYS 30 ML LIQUID.PKT PO SCH ×2 (09:26→17:42)
[2017-01-17] MEDS: RANITIDINE HCL 150 MG TABLET (FP) PO SCH (09:27)
[2017-01-17] MEDS: amLODIPine BESYLATE 5 MG TABLET (FP) PO SCH (09:27)
[2017-01-17] MEDS: MAGNESIUM OXIDE 400 MG TABLET (FP) PO SCH (09:27)
[2017-01-17] MEDS: MEGESTROL ACETATE 40 MG TABLET PO SCH ×4 (09:27→21:28)
[2017-01-17] MEDS: D5-1/2NS+40 MEQ KCL - 40 MEQ/1,000 ML INFUS.BAG IV SCH (09:28)
[2017-01-17] MEDS: MESALAMINE 4 GM/60 ML ENEMA PR SCH (09:28)
[2017-01-17] MEDS: MUPIROCIN 2% TOPICAL OINTMENT 22 GM TUBE TP SCH ×2 (09:29→21:31)
--- NOTE | 2017-01-17 10:16 | PN ---
Teaching Attending Note Name of Resident: . Time of evaluation: 8:20 AM SUBJECTIVE: Patient seen and examined. No complaints. OBJECTIVE: Vital Signs Period Temp Pulse Resp BP Sys/Mulligan Pulse Ox Last 24 Hr 97.4 F-98.5 F 90-104 18-18 125-140/77-80 100 Intake & Output 01/14/17 01/15/17 01/16/17 01/17/17 23:59 23:59 23:59 23:59 Intake Total 1547 074 0408 504 Balance 1637 849 8884 504 General: lying in bed in no acute distress CVS:S1S2 regular Chest: no rales or wheezing abdomen: soft, NT, ND Active Medications Acetaminophen (Tylenol -) 650 mg PO Q6H PRN PRN Reason: FEVER OR PAIN Last Admin: 01/16/17 01:59 Dose: 650 mg Amino Acids (Prosource No Carb Liquid Pkt) 30 ml PO BID@0800,1730 [facility] Last Admin: 01/17/17 09:26 Dose: 30 ml Amlodipine Besylate (Norvasc -) 5 mg PO DAILY [facility] Last Admin: 01/17/17 09:27 Dose: 5 mg Dexamethasone Sodium Phosphate (Decadron Injection -) 4 mg IVPB Q12H [facility] Last Admin: 01/17/17 10:13 Dose: 4 mg IV Flush (Kirill-Cath Flush) 10 ml IVPUSH PRN PRN PRN Reason: flush kirill cath Last Admin: 01/15/17 11:37 Dose: 10 ml IV Flush (Kirill-Cath Flush) 10 ml IVPUSH PRN PRN PRN Reason: after each use Dextrose/Sodium Chloride (D5-1/2ns+40 Meq Kcl -) 40 meq in 1,000 mls @ 42 mls/ hr IV ASDIR [facility] Last Admin: 01/17/17 09:28 Dose: Not Given Magnesium Oxide (Mag-Ox -) 400 mg PO BID [facility] Last Admin: 01/17/17 09:27 Dose: 400 mg Megestrol Acetate (Megace -) 40 mg PO QID [facility] Last Admin: 01/17/17 09:27 Dose: 40 mg Mesalamine (Asacol Hd -) 800 mg PO TID [facility] Last Admin: 01/17/17 05:23 Dose: 800 mg Mesalamine (Rowasa Enema -) 4 gm [place] DAILY [facility] Last Admin: 01/17/17 09:28 Dose: Not Given Mupirocin (Bactroban 2% Ointment -) 1 applic TP BID [facility] Last Admin: 01/17/17 09:29 Dose: 1 applic Ranitidine HCl (Zantac -) 150 mg PO DAILY [facility] Last Admin: 01/17/17 09:27 Dose: 150 mg Laboratory Results - last 24 hr 01/17/17 01/17/17 06:20 06:20 WBC 8.9 RBC 2.79 L Hgb 8.1 L Hct 24.3 L MCV 87.0 MCH 29.0 MCHC 33.3 RDW 18.0 H Plt Count 153 MPV 6.8 L Neutrophils % No Result Required. Lymphocytes % No Result Required. Sodium 137 Potassium 4.1 Chloride 104 Carbon Dioxide 22 Anion Gap 11 BUN 17 Creatinine 0.3 L Random Glucose 88 D Calcium 8.1 L ASSESSMENT AND PLAN: 61yo F with significant history of Rt. Breast carcinoma (first diagnosed in 1998 via lumpectomy followed by RT/chemo/5yrs of tamoxifen and arimedex with multiple mets including brain found in 03/2016) who presented to the ED for PO intolerance and generalized weakness which has improved with diet and fluids. also with ulcerative colitis flare, electrolyte abnormalities. -Generalized weakness -Failure to thrive -Acute ulcerative colitis flare -Acute on chronic anemia, suspect from hematochezia/Anemia of chronic disease -Thrombocytopenia -Genital ulcer, healed with no concerns for infection -severe hypokalemia, from bowel prep -Hypomagnesemia -Hypophosphatemia -Leucocytosis, likely reactive, resolved, -Hypotension, from hypovolumia -Sinus tachycardia, improved, suspect multifactorial from hypovolumia, marinol, BRBPR, anemia, UC flare. No hypoxia, chest pain, respiratory symptoms and with a strong explanation for her tachycardia currently make PE unlikely Plan: Started on WBRT inpatient 01/13, Oncology input noted, placed on decadron, discuss if can change to PO. Change to BID per their recs. Approprite response to PRBC transfusion, H/h stable. Colonoscopy suggestive of UC flare, patient informed. continue PO mesalamine, mesalamine enema as patient agrees. Oncology input appreciated. CBC stable now, further w/u and follow up outpatient. No concerns for hemolysis. ?chemotherapy contributory. PLan for outpatient WBRT. Discuss with hematology for PRBC transfusion as low stable augmentin d/alyson after 6 days on 01/15/2017, no new concerns. Replete K, phos, Mg aggressively as needed. Lytes overall improved. off IVF. Place on standing Mg supplementation. Follow up levels. Encourage oral intake, marinol d/alyson. Megace, nutrition input. PT evashli. Encouraged patient to work with PT D/c planning to SNF when disposition arranged vs home with PT if continues to improve over next few days. Inpatient WBRT for now. Plan discussed with patient in detail, all questions answered.
[2017-01-17 10:22] LABS: MYELOCYTE 2 % (0-2); PLATELET ESTIMATE ADEQUATE; TOTAL CELLS COUNTED 100
[2017-01-17 11:16] LABS: MAGNESIUM 2.1 mg/dL (1.8-2.4); PHOSPHOROUS 2.6 mg/dL (2.5-4.9)
[2017-01-17 13:49] LABS: MAGNESIUM 2.1 mg/dL (1.8-2.4); PHOSPHOROUS 2.2 mg/dL (2.5-4.9)
[2017-01-18] MEDS: MESALAMINE 800 MG TABLET.DR PO SCH ×3 (06:01→22:48)
[2017-01-18] MEDS: DEXAMETHASONE SOD PHOSPHATE 4 MG/1 ML VIAL IVPB SCH (06:49)
[2017-01-18 07:32] LABS: MCH 29.1 pg (25.7-33.7); MCHC 33.4 g/dl (32.0-36.0); MEAN CELL VOLUME 87.2 fl (80-96); MEAN PLT VOLUME 6.8 fl (7.5-11.1); PLATELET COUNT 170 K/MM3 (134-434); WHITE BLOOD COUNT 8.9 K/mm3 (4.0-10.0)
--- NOTE | 2017-01-18 07:32 | PN ---
Physical Exam: SUBJECTIVE: Patient seen and examined. Doing well, slept well. Endorses diarrhea , but decreased from previous. Otherwise asymptomatic. Explained that patient needs to continue working w/ PT. She agrees OBJECTIVE: Vital Signs Period Temp Pulse Resp BP Sys/Mulligan Pulse Ox Last 24 Hr 98.5 F-98.7 F 100-105 18-18 133-140/75-87 97-100 GEN: AAOx3, NAD, Not ill appearing HEENT: PERRLA, EOMi CV: S1, S2, tachycardic rate and rhythm LUNG: CTABL ABD: Soft, NT, ND, normoactive BS : 4cm soft tissue ulceration in the external labial skin, not in the vulva. Mild purulence, no surrounding redness MSK: No edema, no erythema NEURO: No sensation or MSK deficits. No facial droop Active Medications Generic Name Dose Route Start Last Admin Trade Name Freq PRN Reason Stop Dose Admin Acetaminophen 650 mg 01/16/17 01:35 01/16/17 01:59 Tylenol - PO 650 mg Q6H PRN Administration FEVER OR PAIN Amino Acids 30 ml 01/08/17 17:30 01/17/17 17:42 Prosource No Carb Liquid Pkt PO 30 ml BID@0800,1730 CYNTHIA Administration Amlodipine Besylate 5 mg 01/07/17 10:00 01/17/17 09:27 Norvasc - PO 5 mg DAILY CYNTHIA Administration Dexamethasone Sodium Phosphate 4 mg 01/17/17 07:45 01/18/17 06:49 Decadron Injection - IVPB 4 mg Q12H CYNTHIA Administration IV Flush 10 ml 01/08/17 19:00 01/15/17 11:37 Kirill-Cath Flush IVPUSH 10 ml PRN PRN Administration flush kirill cath IV Flush 10 ml 01/12/17 16:14 Kirill-Cath Flush IVPUSH PRN PRN after each use Dextrose/Sodium Chloride 40 meq in 1,000 mls @ 42 mls/hr 01/11/17 08:30 01/17 09:28 D5-1/2ns+40 Meq Kcl - IV Not Given ASDIR CYNTHIA Magnesium Oxide 400 mg 01/18/17 10:00 Mag-Ox - PO DAILY CYNTHIA Megestrol Acetate 40 mg 01/11/17 14:00 01/17/17 21:28 Megace - PO 40 mg QID CYNTHIA Administration Mesalamine 800 mg 01/08/17 13:15 01/18/17 06:01 Asacol Hd - PO 800 mg TID CYNTHIA Administration Mesalamine 4 gm 01/12/17 21:00 01/17/17 09:28 Rowasa Enema - [place] Not Given DAILY CYNTHIA Mupirocin 1 applic 01/06/17 20:15 01/17/17 21:31 Bactroban 2% Ointment - TP 1 applic BID CYNTHIA Administration Ranitidine HCl 150 mg 01/12/17 10:00 01/17/17 09:27 Zantac - PO 150 mg DAILY CYNTHIA Administration ASSESSMENT/PLAN: 61yo F with significant history of Rt. Breast carcinoma (first diagnosed in 1998 via lumpectomy followed by RT/chemo/5yrs of tamoxifen and arimedex with multiple mets including brain found in 03/2016) who presented to the ED for PO intolerance and generalized weakness which has improved with diet and fluids. # Weakness - Poor appetite, likely from metastatic cancer, on Megace 40 TID, mild improvement. # Ulcerative Colitis - Panulcerative rectosigmoid colitis on scope. On Mesalamine PO 800 TID. Refuses mesalamine enema # Diarrhea - Patient has had diarrhea since bowel prep, improving, unlikely infectious cause, replete electrolytes as necessary # R Breast CA with Mets - Includes multiple brain mets. Undergoing WBRT. Currently off Xeloda for time being. Started on Dexamethasone IVP 4mg BID # Labial Ulcer - Cultures growing MSSA, completed 6 day course of Augmentin, topical antibiotics only # Sinus Tachycardia - Improved since we switched Marinol to Megace. # Hypokalemia - Likely from the bowel prep and BMs. Repleting daily # Normocytic Anemia - Anemia of chronic disease, improved s/p 1 PRBC. Had one bloody BM this hospitalization, resolved. # Thrombocytopenia - Improved after switching to ranitidine. Likely from tumor burden not hemolysis # FEN - No IVF; elec wnl; regular diet # PPx - No pharmacologic AC due to extensive brain mets # Dispo - Patient will have daily whole brain radiation treatments x10. First treatment 01/13. 7 treatments left. Walked 30 feet with PT, if walks +50 feet, can safely dc home and complete WBRT as outpatient. d/w Dr Rachel Underwood MD - [email or web address] Resident Internal Medicine Visit type - Emergency Visit Emergency Visit: No - New Patient This patient is new to me today: No - Critical Care Critical Care patient: No - Discharge Referral Referred to [facility] Med P.C.: No
[2017-01-18 08:24] LABS: ANION GAP 10 (8-16); CALCIUM 8.7 mg/dL (8.5-10.1); CO2 24 mmol/L (21-32); CREATININE 0.4 mg/dL (0.55-1.02); GLUCOSE,RANDOM 91 mg/dL (74-106)
[2017-01-18] MEDS: AMINO ACIDS/PROTEIN HYDROLYS 30 ML LIQUID.PKT PO SCH ×2 (08:25→17:25)
--- NOTE | 2017-01-18 08:33 | PN ---
Teaching Attending Note Name of Resident: Tanya Underwood ATTENDING PHYSICIAN STATEMENT Time of evaluation: 9:35 AM I saw and evaluated the patient. I reviewed the resident's note and discussed the case with the resident. I agree with the resident's findings and plan as documented. SUBJECTIVE: Patient seen and examined. No complaints. OBJECTIVE: Vital Signs Period Temp Pulse Resp BP Sys/Mulligan Pulse Ox Last 24 Hr 98.5 F-98.7 F 100-105 18-18 133-140/75-87 97-100 Intake & Output 01/15/17 01/16/17 01/17/17 01/18/17 23:59 23:59 23:59 23:59 Intake Total 920 1510 1054 Balance 920 1510 1054 General: lying in bed in no acute distress Chest:CTAB, no rales or wheezing CVS:S1s2 regular Abdomen:soft, NT, ND, positive bowel sounds Extremities: no edema Home Medication List Medication Instructions Recorded Confirmed Type Amlodipine Besylate 5 mg PO DAILY 01/06/17 01/06/17 History Capecitabine 500 mg PO ASDIR 01/06/17 01/07/17 History Loperamide HCl [Loperamide] 2 mg PO PRN 01/06/17 01/07/17 History Pantoprazole Sodium 40 mg PO DAILY 01/06/17 01/06/17 History Potassium Chloride 20 meq PO ASDIR 01/06/17 01/07/17 History Active Medications Generic Name Dose Route Start Last Admin Trade Name Freq PRN Reason Stop Dose Admin Acetaminophen 650 mg 01/16/17 01:35 01/16/17 01:59 Tylenol - PO 650 mg Q6H PRN Administration FEVER OR PAIN Amino Acids 30 ml 01/08/17 17:30 01/18/17 08:25 Prosource No Carb Liquid Pkt PO 30 ml BID@0800,1730 CYNTHIA Administration Amlodipine Besylate 5 mg 01/07/17 10:00 01/17/17 09:27 Norvasc - PO 5 mg DAILY CYNTHIA Administration Dexamethasone Sodium Phosphate 4 mg 01/17/17 07:45 01/18/17 06:49 Decadron Injection - IVPB 4 mg Q12H CYNTHIA Administration IV Flush 10 ml 01/08/17 19:00 01/15/17 11:37 Mikel-Cath Flush IVPUSH 10 ml PRN PRN Administration flush mikel cath IV Flush 10 ml 01/12/17 16:14 Mikel-Cath Flush IVPUSH PRN PRN after each use Dextrose/Sodium Chloride 40 meq in 1,000 mls @ 42 mls/hr 01/11/17 08:30 01/17 09:28 D5-1/2ns+40 Meq Kcl - IV Not Given ASDIR CYNTHIA Magnesium Oxide 400 mg 01/18/17 10:00 Mag-Ox - PO DAILY CYNTHIA Megestrol Acetate 40 mg 01/11/17 14:00 01/17/17 21:28 Megace - PO 40 mg QID CYNTHIA Administration Mesalamine 800 mg 01/08/17 13:15 01/18/17 06:01 Asacol Hd - PO 800 mg TID CYNTHIA Administration Mesalamine 4 gm 01/12/17 21:00 01/17/17 09:28 Rowasa Enema - [place] Not Given DAILY CYNTHIA Mupirocin 1 applic 01/06/17 20:15 01/17/17 21:31 Bactroban 2% Ointment - TP 1 applic BID CYNTHIA Administration Ranitidine HCl 150 mg 01/12/17 10:00 01/17/17 09:27 Zantac - PO 150 mg DAILY CYNTHIA Administration Laboratory Results - last 24 hr 01/18/17 01/18/17 01/18/17 06:30 06:30 06:30 WBC 8.9 RBC 2.80 L Hgb 8.1 L Hct 24.4 L MCV 87.2 MCH 29.1 MCHC 33.4 RDW 18.0 H Plt Count 170 MPV 6.8 L Neutrophils % No Result Required. Neutrophils % (Manual) 74.5 Band Neutrophils % 4.3 Lymphocytes % No Result Required. Lymphocytes % (Manual) 8.5 Monocytes % (Manual) 2 L D Basophils % (Manual) 0.0 Myelocytes % (Man) 1 D Nucleated RBC % 2 H Metamyelocytes 7 H D Hypochromia 0 Platelet Estimate Normal Polychromasia 0 Poikilocytosis 0 Anisocytosis 0 Microcytosis 1+ Macrocytosis 0 Sodium 137 Potassium 4.0 Chloride 103 Carbon Dioxide 24 Anion Gap 10 BUN 23 H D Creatinine 0.4 L D Random Glucose 91 Calcium 8.7 Phosphorus 2.1 L Cancelled Magnesium 2.1 Cancelled Microbiology 01/06/17 16:00 Blood - Peripheral Venous Blood Culture - Final NO GROWTH AFTER 5 DAYS INCUBATION 01/06/17 16:00 Blood - Peripheral Venous Blood Culture - Final NO GROWTH AFTER 5 DAYS INCUBATION 01/06/17 23:39 Wound Gram Stain - Final 01/06/17 23:39 Wound Wound Culture - Final Staphylococcus Aureus 01/07/17 00:53 Urine - Urine Clean Catch Urine Culture - Final ASSESSMENT AND PLAN: 61yo F with significant history of Rt. Breast carcinoma (first diagnosed in 1998 via lumpectomy followed by RT/chemo/5yrs of tamoxifen and arimedex with multiple mets including brain found in 03/2016) who presented to the ED for PO intolerance and generalized weakness which has improved with diet and fluids. also with ulcerative colitis flare, electrolyte abnormalities. -Generalized weakness -Failure to thrive -Acute ulcerative colitis flare -Acute on chronic anemia, suspect from hematochezia/Anemia of chronic disease -Thrombocytopenia -Genital ulcer, healed with no concerns for infection -severe hypokalemia, from bowel prep -Hypomagnesemia -Hypophosphatemia -Leucocytosis, likely reactive, resolved, -Hypotension, from hypovolumia -Sinus tachycardia, improved, suspect multifactorial from hypovolumia, marinol, BRBPR, anemia, UC flare. No hypoxia, chest pain, respiratory symptoms and with a strong explanation for her tachycardia currently make PE unlikely Plan: Started on WBRT inpatient 01/13, Oncology input noted, placed on decadron, discuss if can change to PO. Changed to BID per their recs. Approprite response to PRBC transfusion, H/h stable. Colonoscopy suggestive of UC flare, patient informed. continue PO mesalamine, mesalamine enema as patient agrees. Oncology input appreciated. CBC stable now, further w/u and follow up outpatient. No concerns for hemolysis. ?chemotherapy contributory. augmentin d/alyson after 6 days on 01/15/2017, no new concerns. Wound care in the area with diarrhea. Replete K, phos, Mg aggressively as needed. Lytes overall improved. off IVF. Standing Mg supplementation. Follow up levels. Encourage oral intake, marinol d/alyson. Megace, nutrition input. PT eval. Encouraged patient to work with PT D/c planning to SNF when disposition arranged vs home with PT if continues to improve over next few days. Inpatient WBRT for now. Plan discussed with patient in detail, all questions answered
[2017-01-18 09:15] LABS: MAGNESIUM 2.1 mg/dL (1.8-2.4); PHOSPHOROUS 2.1 mg/dL (2.5-4.9)
[2017-01-18] MEDS ORDERED: NAPH,MB-DB/K PH,MBDB POWDER PACKET PO ONE ×2 (09:20→13:00)
[2017-01-18 09:27] LABS: ANISOCYTOSIS 0; BAND % 4.3 %; HYPOCHROMIA 0; MACROCYTOSIS 0; MICROCYTOSIS 1+; MYELOCYTE 1 % (0-2); PLATELET ESTIMATE NORMAL; POIKILOCYTOSIS 0; POLYCHROMASIA 0; REACTIVE LYMPHOCYTES 2 % (0-80)
[2017-01-18] MEDS ORDERED: PT OWN MED DRAWER 7, Y5N ONE ×4 (10:10→21:34)
[2017-01-18 10:20] LABS: METAMYELOCYTE 7 % (0-2); NUCLEATED RED BLOOD CELL 2 % (0-0)
[2017-01-18] MEDS: MAGNESIUM OXIDE 400 MG TABLET (FP) PO SCH (10:20)
[2017-01-18] MEDS: MEGESTROL ACETATE 40 MG TABLET PO SCH ×4 (10:21→22:48)
[2017-01-18] MEDS: RANITIDINE HCL 150 MG TABLET (FP) PO SCH (10:22)
[2017-01-18] MEDS: amLODIPine BESYLATE 5 MG TABLET (FP) PO SCH (10:22)
[2017-01-18] MEDS: MUPIROCIN 2% TOPICAL OINTMENT 22 GM TUBE TP SCH ×2 (10:23→22:48)
[2017-01-18] MEDS: MESALAMINE 4 GM/60 ML ENEMA PR SCH (10:23)
--- NOTE | 2017-01-18 12:26 | PN ---
Progress Note, Physician History of Present Illness: no events, no melena, hematochezia. Feels well - Current Medication List Current Medications: Active Medications Acetaminophen (Tylenol -) 650 mg PO Q6H PRN PRN Reason: FEVER OR PAIN Last Admin: 01/16/17 01:59 Dose: 650 mg Amino Acids (Prosource No Carb Liquid Pkt) 30 ml PO BID@0800,1730 [facility] Last Admin: 01/18/17 08:25 Dose: 30 ml Amlodipine Besylate (Norvasc -) 5 mg PO DAILY [facility] Last Admin: 01/18/17 10:22 Dose: 5 mg Dexamethasone Sodium Phosphate (Decadron Injection -) 4 mg IVPB Q12H [facility] Last Admin: 01/18/17 06:49 Dose: 4 mg IV Flush (Kirill-Cath Flush) 10 ml IVPUSH PRN PRN PRN Reason: flush kirill cath Last Admin: 01/15/17 11:37 Dose: 10 ml IV Flush (Kirill-Cath Flush) 10 ml IVPUSH PRN PRN PRN Reason: after each use Dextrose/Sodium Chloride (D5-1/2ns+40 Meq Kcl -) 40 meq in 1,000 mls @ 42 mls/ hr IV ASDIR [facility] Last Admin: 01/17/17 09:28 Dose: Not Given Magnesium Oxide (Mag-Ox -) 400 mg PO DAILY [facility] Last Admin: 01/18/17 10:20 Dose: 400 mg Megestrol Acetate (Megace -) 40 mg PO QID [facility] Last Admin: 01/18/17 10:21 Dose: 40 mg Mesalamine (Asacol Hd -) 800 mg PO TID [facility] Last Admin: 01/18/17 06:01 Dose: 800 mg Mesalamine (Rowasa Enema -) 4 gm [place] DAILY [facility] Last Admin: 01/18/17 10:23 Dose: Not Given Mupirocin (Bactroban 2% Ointment -) 1 applic TP BID [facility] Last Admin: 01/18/17 10:23 Dose: 1 applic Ranitidine HCl (Zantac -) 150 mg PO DAILY [facility] Last Admin: 01/18/17 10:22 Dose: 150 mg - Objective Vital Signs: Vital Signs Temperature 98.2 F 01/18/17 08:30 Pulse Rate 90 01/18/17 08:30 Respiratory Rate 18 12/11/17 08:30 Blood Pressure 141/81 01/18/17 08:30 O2 Sat by Pulse Oximetry (%) 97 01/17/17 21:00 Constitutional: Yes: No Distress, Calm Eyes: Yes: Conjunctiva Clear HENT: Yes: Atraumatic Cardiovascular: Yes: Regular Rate and Rhythm Respiratory: Yes: Regular Gastrointestinal: Yes: Soft. No: Melena, Rectal Bleeding, Tenderness Labs: CBC, BMP 01/18/17 06:30 01/18/17 06:30 INR, PTT INR 1.47 (0.82-1.09) H 01/11/17 06:40 Problem List - Problems (1) Ulcerative colitis Code(s): K51.90 - ULCERATIVE COLITIS, UNSPECIFIED, WITHOUT COMPLICATIONS (2) Hematochezia Code(s): K92.1 - MELENA (3) Anemia Code(s): D64.9 - ANEMIA, UNSPECIFIED Assessment/Plan Asacol HD 800 mg po TID +Rowasa qhd. Monitor lipase, and Cr Office in 1-2 weeks
--- NOTE | 2017-01-18 15:57 | PN ---
Progress Note (short form) - Note Progress Note: Radiation Oncology Tolerating WBRT @ 12Gy Stage IV breast cancer with progression of FAMILY [employer] mets and probable LMD. Will cont RT as tolerated, 6 fx remaining. Cont PT. Cont decadron. May cont outpatient RT. D/C planning.
[2017-01-18] MEDS: ACETAMINOPHEN 325 MG TABLET (FP) PO PRN (17:30)
--- NOTE | 2017-01-18 22:15 | PN ---
Progress Note (short form) - Note Progress Note: Patient seen and examined feels slightly better Last Vital Signs Temp Pulse Resp BP Pulse Ox 98.4 F 108 H 18 100/77 97 01/18/17 22:00 01/18/17 22:00 01/18/17 22:00 01/18/17 22:00 01/17/17 21:00 Cor: RSR, No murmurs, No gallops Lungs: Clear to P&A Abd: Soft, Normal bowel sounds, No organomegaly Ext:No significant edema Abnormal Lab Results 01/18/17 01/18/17 06:30 06:30 RBC 2.80 L Hgb 8.1 L Hct 24.4 L RDW 18.0 H MPV 6.8 L Monocytes % (Manual) 2 L D Nucleated RBC % 2 H Metamyelocytes 7 H D BUN 23 H D Creatinine 0.4 L D Phosphorus 2.1 L Active Medications Acetaminophen (Tylenol -) 650 mg PO Q6H PRN PRN Reason: FEVER OR PAIN Last Admin: 01/18/17 17:30 Dose: 650 mg Amino Acids (Prosource No Carb Liquid Pkt) 30 ml PO BID@0800,1730 [facility] Last Admin: 01/18/17 17:25 Dose: 30 ml Amlodipine Besylate (Norvasc -) 5 mg PO DAILY [facility] Last Admin: 01/18/17 10:22 Dose: 5 mg Dexamethasone (Decadron -) 4 mg PO BID [facility] Last Admin: 01/18/17 22:47 Dose: 4 mg IV Flush (Kirill-Cath Flush) 10 ml IVPUSH PRN PRN PRN Reason: flush kirill cath Last Admin: 01/15/17 11:37 Dose: 10 ml IV Flush (Kirill-Cath Flush) 10 ml IVPUSH PRN PRN PRN Reason: after each use Magnesium Oxide (Mag-Ox -) 400 mg PO DAILY [facility] Last Admin: 01/18/17 10:20 Dose: 400 mg Megestrol Acetate (Megace -) 40 mg PO QID [facility] Last Admin: 01/18/17 22:48 Dose: 40 mg Mesalamine (Asacol Hd -) 800 mg PO TID [facility] Last Admin: 01/18/17 22:48 Dose: 800 mg Mesalamine (Rowasa Enema -) 4 gm MO DAILY [facility] Last Admin: 01/18/17 10:23 Dose: Not Given Mupirocin (Bactroban 2% Ointment -) 1 applic TP BID [facility] Last Admin: 01/18/17 22:48 Dose: 1 applic Ranitidine HCl (Zantac -) 150 mg PO DAILY [facility] Last Admin: 01/18/17 10:22 Dose: 150 mg a/p 61 y/o patient with metastatic breast cancer, brain mets, getting wbrt on dexamethasone---to change to bid physical therapy would consider short term rehab based on radiattion schedule
[2017-01-18] MEDS: DEXAMETHASONE 4 MG TABLET (FP) PO SCH (22:47)
[2017-01-19] MEDS ORDERED: PT OWN MED DRAWER 7, Y5N ONE ×5 (06:15→22:04)
[2017-01-19] MEDS: MESALAMINE 800 MG TABLET.DR PO SCH ×3 (06:18→22:10)
--- NOTE | 2017-01-19 07:41 | PN ---
Physical Exam: SUBJECTIVE: Patient seen and examined. Doing fine. Asymptomatic. Refused PT last night. Will try again today OBJECTIVE: Vital Signs Period Temp Pulse Resp BP Sys/Mulligan Pulse Ox Last 24 Hr 98 F-98.6 F 90-111 18-20 100-141/72-81 97 GEN: AAOx3, NAD, Not ill appearing HEENT: PERRLA, EOMi CV: S1, S2, tachycardic rate and rhythm LUNG: CTABL ABD: Soft, NT, ND, normoactive BS : 4cm soft tissue ulceration in the external labial skin, not in the vulva. Mild purulence, no surrounding redness MSK: No edema, no erythema NEURO: No sensation or MSK deficits. No facial droop Active Medications Generic Name Dose Route Start Last Admin Trade Name Freq PRN Reason Stop Dose Admin Acetaminophen 650 mg 01/16/17 01:35 01/18/17 17:30 Tylenol - PO 650 mg Q6H PRN Administration FEVER OR PAIN Amino Acids 30 ml 01/08/17 17:30 01/18/17 17:25 Prosource No Carb Liquid Pkt PO 30 ml BID@0800,1730 CYNTHIA Administration Amlodipine Besylate 5 mg 01/07/17 10:00 01/18/17 10:22 Norvasc - PO 5 mg DAILY CYNTHIA Administration Dexamethasone 4 mg 01/18/17 22:00 01/18/17 22:47 Decadron - PO 4 mg BID CYNTHIA Administration IV Flush 10 ml 01/08/17 19:00 01/15/17 11:37 Kirill-Cath Flush IVPUSH 10 ml PRN PRN Administration flush kirill cath IV Flush 10 ml 01/12/17 16:14 Kirill-Cath Flush IVPUSH PRN PRN after each use Magnesium Oxide 400 mg 01/18/17 10:00 01/18/17 10:20 Mag-Ox - PO 400 mg DAILY CYNTHIA Administration Megestrol Acetate 40 mg 01/11/17 14:00 01/18/17 22:48 Megace - PO 40 mg QID CYNTHIA Administration Mesalamine 800 mg 01/08/17 13:15 01/19/17 06:18 Asacol Hd - PO 800 mg TID CYNTHIA Administration Mesalamine 4 gm 01/12/17 21:00 01/18/17 10:23 Rowasa Enema - [place] Not Given DAILY CYNTHIA Mupirocin 1 applic 01/06/17 20:15 01/18/17 22:48 Bactroban 2% Ointment - TP 1 applic BID CYNTHIA Administration Ranitidine HCl 150 mg 01/12/17 10:00 01/18/17 10:22 Zantac - PO 150 mg DAILY CYNTHIA Administration ASSESSMENT/PLAN: 61yo F with significant history of Rt. Breast carcinoma (first diagnosed in 1998 via lumpectomy followed by RT/chemo/5yrs of tamoxifen and arimedex with multiple mets including brain found in 03/2016) who presented to the ED for PO intolerance and generalized weakness which has improved with diet and fluids. # Weakness - Poor appetite, likely from metastatic cancer, on Megace 40 TID, mild improvement. # Ulcerative Colitis - Panulcerative rectosigmoid colitis on scope. On Mesalamine PO 800 TID. Refuses mesalamine enema, but no more bloody BMs # Diarrhea - Patient has had diarrhea since bowel prep, improving, unlikely infectious cause, added Immodium. Replete electrolytes as necessary # R Breast CA with Mets - Includes multiple brain mets. Undergoing WBRT. Currently off Xeloda for time being. Started on Dexamethasone PO 4mg BID # Labial Ulcer - Cultures growing MSSA, completed 6 day course of Augmentin, topical antibiotics only # Sinus Tachycardia - Improved since we switched Marinol to Megace. # Hypokalemia - Likely from the bowel prep and BMs. Repleting daily # Normocytic Anemia - Anemia of chronic disease, improved s/p 1 PRBC. Had one bloody BM this hospitalization, resolved. # Thrombocytopenia - Improved after switching to ranitidine. Likely from tumor burden not hemolysis # FEN - No IVF; elec wnl; regular diet # PPx - No pharmacologic AC due to extensive brain mets # Dispo - Patient will have daily whole brain radiation treatments x10. First treatment 01/13. 5 treatments left. Walked 30 feet w/ PT. If walk 50 feet, can do WBRT as an outpatient. Continue PT and WBRT. d/w Dr Lane Underwood MD - pGY1 Resident Internal Medicine Visit type - Emergency Visit Emergency Visit: No - New Patient This patient is new to me today: No - Critical Care Critical Care patient: No - Discharge Referral Referred to [facility] Med P.C[facility] No
[2017-01-19] MEDS: AMINO ACIDS/PROTEIN HYDROLYS 30 ML LIQUID.PKT PO SCH ×2 (08:29→17:20)
[2017-01-19 09:07] LABS: MCH 28.2 pg (25.7-33.7); MCHC 32.1 g/dl (32.0-36.0); MEAN CELL VOLUME 87.8 fl (80-96); MEAN PLT VOLUME 6.7 fl (7.5-11.1); PLATELET COUNT 162 K/MM3 (134-434); WHITE BLOOD COUNT 11.3 K/mm3 (4.0-10.0)
[2017-01-19 09:34] LABS: ANION GAP 9 (8-16); CALCIUM 8.1 mg/dL (8.5-10.1); CO2 24 mmol/L (21-32); CREATININE 0.4 mg/dL (0.55-1.02); GLUCOSE,RANDOM 77 mg/dL (74-106); MAGNESIUM 2.3 mg/dL (1.8-2.4); PHOSPHOROUS 2.4 mg/dL (2.5-4.9)
[2017-01-19] MEDS: DEXAMETHASONE 4 MG TABLET (FP) PO SCH ×2 (10:55→22:09)
[2017-01-19] MEDS: RANITIDINE HCL 150 MG TABLET (FP) PO SCH (10:57)
[2017-01-19] MEDS: MAGNESIUM OXIDE 400 MG TABLET (FP) PO SCH (10:57)
[2017-01-19] MEDS: amLODIPine BESYLATE 5 MG TABLET (FP) PO SCH (10:57)
[2017-01-19] MEDS: MEGESTROL ACETATE 40 MG TABLET PO SCH ×4 (10:57→22:10)
[2017-01-19] MEDS: MUPIROCIN 2% TOPICAL OINTMENT 22 GM TUBE TP SCH ×2 (10:58→22:11)
[2017-01-19] MEDS: MESALAMINE 4 GM/60 ML ENEMA PR SCH (10:58)
[2017-01-19] MEDS: ACETAMINOPHEN 325 MG TABLET (FP) PO PRN (11:43)
[2017-01-19 14:30] LABS: ANISOCYTOSIS 1+; BAND % 7.1 %; HYPOCHROMIA 0; MACROCYTOSIS 0; METAMYELOCYTE 4 % (0-2); MICROCYTOSIS 1+; MYELOCYTE 3 % (0-2); PLATELET ESTIMATE NORMAL; POIKILOCYTOSIS 0; POLYCHROMASIA 0; REACTIVE LYMPHOCYTES 0 % (0-80)
--- NOTE | 2017-01-19 14:40 | PN ---
Teaching Attending Note Name of Resident: Tanya Underwood ATTENDING PHYSICIAN STATEMENT I saw and evaluated the patient. I reviewed the resident's note and discussed the case with the resident. I agree with the resident's findings and plan as documented. SUBJECTIVE:asymptomatic. states she is much improved. appetite improved. continues to have diarrhea. denies CP, SOB, fever, chills OBJECTIVE: Last Vital Signs Temp Pulse Resp BP Pulse Ox 98.9 F 91 H 20 128/85 97 01/19/17 08:15 01/19/17 08:15 01/19/17 08:15 01/19/17 08:15 01/18/17 21:00 General NAD CV S1 S2 RRR no murmur/rub/gallop Lungs CTA B/L no wheezing/crackles/rales ASSESSMENT AND PLAN: 61yo F with PMH R breast ca with (mets to brain, bone, pleura) s/p lumpectomy, RTx and Chemo whom completed hormonal therapy and on Xeloda currently every other week presented with generalized weakness and anorexia 1. Generalized weakness- likely due to dehydration vs progression of disease. improved. awaiting PT assessment to evaluate if safe for home discharge 2. R breat malignancy with diffuse mets including brain- started WBRT 01/13. started on decadron to prevent swelling. cont 3. Ulcerative colitis- s/p colonoscopy. no recurrent BRBPR. on mesalamine. pt is refusing mesalamine enema 4. Diarrhea-possible neutraphos induced. no assoc pain or fever. start loperamide. 5. hypophospahtemia- hold phos repletion as not that low. monitor for improvement of loose BM 6. Thrombocytopenia-resolved. 7. Acute anemia- likely anemia of chronic disease. s/p 2 units PRBC this admission. no signs of bleeding. no indication for txn. 8. Genital ulcer- +MSSA from the wound. completed augmentin x7 days. 9. Malnutrition- due to body habitus with temporal wasting, prominent clavicles and significant weight loss. likely due to malignancy. improved on megace. cont ensures and prosource, gentle hydration. 10. Hypomagnesemia- resolved 11. Hypokalemia- resolved 12. DVT ppx- place SCD. hold pharmacolgic anticoagulation. 13. awaiting PT assessment. would benefit from [facility] however can not go while on RTx therapy. will see if pt is safe to be d/c home to complete rtx vs staying here to complete rtx and then can go to [facility].
[2017-01-19 15:30] LABS: NUCLEATED RED BLOOD CELL 6 % (0-0); TOTAL CELLS COUNTED 98
--- NOTE | 2017-01-19 18:37 | PN ---
Progress Note (short form) - Note Progress Note: patient seen and examined. Feels better than the last few days She did well with PT she said, she walked. O/E Cor: RSR, No murmurs, No gallops Lungs: Clear to P&A Abd: Soft, Normal bowel sounds, No organomegaly Ext:No significant edema Last Vital Signs Temp Pulse Resp BP Pulse Ox 98.9 F 91 H 20 128/85 97 01/19/17 08:15 01/19/17 08:15 01/19/17 08:15 01/19/17 08:15 01/18/17 21:00 CBC, BMP 01/19/17 08:30 01/19/17 08:30 Current Medications Generic Name Dose Route Start Last Admin Trade Name Freq PRN Reason Stop Dose Admin Acetaminophen 650 mg 01/16/17 01:35 01/19/17 11:43 Tylenol - PO 650 mg Q6H PRN Administration FEVER OR PAIN Amino Acids 30 ml 01/08/17 17:30 01/19/17 17:20 Prosource No Carb Liquid Pkt PO 30 ml BID@0800,1730 CYNTHIA Administration Amlodipine Besylate 5 mg 01/07/17 10:00 01/19/17 10:57 Norvasc - PO 5 mg DAILY CYNTHIA Administration Dexamethasone 4 mg 01/18/17 22:00 01/19/17 10:55 Decadron - PO 4 mg BID CYNTHIA Administration IV Flush 10 ml 01/08/17 19:00 01/15/17 11:37 Kirill-Cath Flush IVPUSH 10 ml PRN PRN Administration flush kirill cath IV Flush 10 ml 01/12/17 16:14 Kirill-Cath Flush IVPUSH PRN PRN after each use Loperamide HCl 2 mg 01/19/17 12:30 Imodium - PO Q8H PRN DIARRHEA Magnesium Oxide 400 mg 01/18/17 10:00 01/19/17 10:57 Mag-Ox - PO 400 mg DAILY CYNTHIA Administration Megestrol Acetate 40 mg 01/11/17 14:00 01/19/17 17:21 Megace - PO 40 mg QID CYNTHIA Administration Mesalamine 800 mg 01/08/17 13:15 01/19/17 14:27 Asacol Hd - PO 800 mg TID CYNTHIA Administration Mesalamine 4 gm 01/12/17 21:00 01/19/17 10:58 Rowasa Enema - [place] Not Given DAILY [facility] Mupirocin 1 applic 01/06/17 20:15 01/19/17 10:58 Bactroban 2% Ointment - TP 1 applic BID CYNTHIA Administration Ranitidine HCl 150 mg 01/12/17 10:00 01/19/17 10:57 Zantac - PO 150 mg DAILY CYNTHIA Administration 61 y/o patient with metastatic breast cancer, brain mets, getting wbrt on dexamethasone- 4mg bid physical therapy would consider short term rehab or if she gets better with in house PT , to consider OP treatment.
--- NOTE | 2017-01-19 20:52 | PN ---
Progress Note (short form) - Note Progress Note: Radiation Oncology Tolerating WBRT @ 15Gy Stage IV breast cancer with progression of [employer] M[employer]ER mets and probable LMD. Will cont RT as tolerated, 5 fx remaining. Cont PT. Cont decadron. May cont outpatient RT when stable for d/c. D/C planning.
[2017-01-20] MEDS ORDERED: PT OWN MED DRAWER 7, Y5N ONE ×2 (05:36→21:11)
[2017-01-20] MEDS: MESALAMINE 800 MG TABLET.DR PO SCH ×3 (05:51→22:22)
--- NOTE | 2017-01-20 08:07 | PN ---
Physical Exam: SUBJECTIVE: Patient seen and examined. Doing well. Asymptomatic. States that she is eating better. Walked with PT yesterday 30 feet. Diarrhea improved with immodium. OBJECTIVE: Vital Signs Period Temp Pulse Resp BP Sys/Mulligan Pulse Ox Last 24 Hr 97.9 F-98.9 F 91-703 18-20 126-134/69-85 97 GEN: AAOx3, NAD, Not ill appearing HEENT: PERRLA, EOMi CV: S1, S2, tachycardic rate and rhythm LUNG: CTABL ABD: Soft, NT, ND, normoactive BS : 4cm soft tissue ulceration in the external labial skin, not in the vulva. Mild purulence, no surrounding redness MSK: No edema, no erythema NEURO: No sensation or MSK deficits. No facial droop Active Medications Generic Name Dose Route Start Last Admin Trade Name Freq PRN Reason Stop Dose Admin Acetaminophen 650 mg 01/16/17 01:35 01/19/17 11:43 Tylenol - PO 650 mg Q6H PRN Administration FEVER OR PAIN Amino Acids 30 ml 01/08/17 17:30 01/19/17 17:20 Prosource No Carb Liquid Pkt PO 30 ml BID@0800,1730 CYNTHIA Administration Amlodipine Besylate 5 mg 01/07/17 10:00 01/19/17 10:57 Norvasc - PO 5 mg DAILY CYNTHIA Administration Dexamethasone 4 mg 01/18/17 22:00 01/19/17 22:09 Decadron - PO 4 mg BID CYNTHIA Administration IV Flush 10 ml 01/08/17 19:00 01/15/17 11:37 Kirill-Cath Flush IVPUSH 10 ml PRN PRN Administration flush kirill cath IV Flush 10 ml 01/12/17 16:14 Kirill-Cath Flush IVPUSH PRN PRN after each use Loperamide HCl 2 mg 01/19/17 12:30 Imodium - PO Q8H PRN DIARRHEA Megestrol Acetate 40 mg 01/11/17 14:00 01/19/17 22:10 Megace - PO 40 mg QID CYNTHIA Administration Mesalamine 800 mg 01/08/17 13:15 01/20/17 05:51 Asacol Hd - PO 800 mg TID CYNTHIA Administration Mesalamine 4 gm 01/12/17 21:00 01/19/17 10:58 Rowasa Enema - [place] Not Given DAILY CYNTHIA Mupirocin 1 applic 01/06/17 20:15 01/19/17 22:11 Bactroban 2% Ointment - TP 1 applic BID CYNTHIA Administration Ranitidine HCl 150 mg 01/12/17 10:00 01/19/17 10:57 Zantac - PO 150 mg DAILY CYNTHIA Administration ASSESSMENT/PLAN: 61yo F with significant history of Rt. Breast carcinoma (first diagnosed in 1998 via lumpectomy followed by RT/chemo/5yrs of tamoxifen and arimedex with multiple mets including brain found in 03/2016) who presented to the ED for PO intolerance and generalized weakness which has improved with diet and fluids. # Weakness - Poor appetite likely from metastatic cancer, improving with Megace 40 TID # R Breast CA with Mets - Includes multiple brain mets. Undergoing whole brain rad tx. Off Xeloda for time being. Started on Dexamethasone PO 4mg BID # Ulcerative Colitis - Panulcerative rectosigmoid colitis on scope. On Mesalamine PO 800 TID. Continues to refuses mesalamine enema, but no more bloody BMs # Diarrhea - Patient has had diarrhea since bowel prep, improving, unlikely infectious cause, added Immodium. Replete electrolytes as necessary # Labial Ulcer - Cultures growing MSSA, completed 6 day course of Augmentin, topical antibiotics only # Sinus Tachycardia - Improved since we switched Marinol to Megace. # Hypokalemia - Likely from the bowel prep and BMs. Repleting daily # Normocytic Anemia - Anemia of chronic disease, improved s/p 1 PRBC. Had one bloody BM this hospitalization, resolved. # Thrombocytopenia - Improved after switching to ranitidine. Likely from tumor burden not hemolysis # FEN - No IVF; elec wnl; regular diet # PPx - No pharmacologic AC due to extensive brain mets # Dispo - Patient will have daily whole brain radiation treatments x10. First treatment 01/13. After today's treatment, she has 4 left, no tx on weekends, so ends end Friday 01/26. F/u with PT. If walk 50 feet, can do WBRT as an outpatient. Continue PT and WBRT. d/w Dr Lane Underwood MD - pGY1 Resident Internal Medicine Visit type - Emergency Visit Emergency Visit: No - New Patient This patient is new to me today: No - Critical Care Critical Care patient: No - Discharge Referral Referred to [facility] Med P.C.: No
[2017-01-20 08:12] LABS: MCH 28.8 pg (25.7-33.7); MCHC 32.7 g/dl (32.0-36.0); MEAN CELL VOLUME 88.1 fl (80-96); MEAN PLT VOLUME 6.9 fl (7.5-11.1); PLATELET COUNT 167 K/MM3 (134-434); RDW 18.1 % (11.6-15.6); WHITE BLOOD COUNT 15.6 K/mm3 (4.0-10.0)
[2017-01-20 08:36] LABS: ANION GAP 7 (8-16); CALCIUM 8.1 mg/dL (8.5-10.1); CO2 27 mmol/L (21-32); GLUCOSE,RANDOM 82 mg/dL (74-106); MAGNESIUM 2.4 mg/dL (1.8-2.4)
[2017-01-20 08:37] LABS: CREATININE 0.4 mg/dL (0.55-1.02); PHOSPHOROUS 2.2 mg/dL (2.5-4.9)
[2017-01-20] MEDS: amLODIPine BESYLATE 5 MG TABLET (FP) PO SCH (11:26)
[2017-01-20] MEDS: DEXAMETHASONE 4 MG TABLET (FP) PO SCH ×2 (11:26→22:22)
[2017-01-20] MEDS: RANITIDINE HCL 150 MG TABLET (FP) PO SCH (11:26)
[2017-01-20] MEDS: AMINO ACIDS/PROTEIN HYDROLYS 30 ML LIQUID.PKT PO SCH ×2 (11:26→17:42)
[2017-01-20] MEDS: MESALAMINE 4 GM/60 ML ENEMA PR SCH (11:27)
[2017-01-20] MEDS: PORTA CATH FLUSH 10 ML IVPUSH PRN (11:27)
[2017-01-20] MEDS: MUPIROCIN 2% TOPICAL OINTMENT 22 GM TUBE TP SCH (11:27)
[2017-01-20] MEDS: MEGESTROL ACETATE 40 MG TABLET PO SCH ×4 (11:27→22:22)
--- NOTE | 2017-01-20 13:53 | PN ---
Teaching Attending Note Name of Resident: Tanya Underwood ATTENDING PHYSICIAN STATEMENT I saw and evaluated the patient. I reviewed the resident's note and discussed the case with the resident. I agree with the resident's findings and plan as documented. SUBJECTIVE:did not see the patient today as she was in RTx therapy OBJECTIVE: Last Vital Signs Temp Pulse Resp BP Pulse Ox 98.4 F 703 H 20 134/69 97 01/20/17 06:58 01/20/17 06:58 01/20/17 06:58 01/20/17 06:58 01/19/17 21:00 ASSESSMENT AND PLAN: 61yo F with PMH R breast ca with (mets to brain, bone, pleura) s/p lumpectomy, RTx and Chemo whom completed hormonal therapy and on Xeloda currently every other week presented with generalized weakness and anorexia 1. Generalized weakness- likely due to dehydration vs progression of disease. improved. able to ambulate with PT 30 feet. will assess daily and monitor for improvement. 2. R breast malignancy with diffuse mets including brain- started WBRT 01/13. started on decadron to prevent swelling. cont 3. Ulcerative colitis- s/p colonoscopy. no recurrent BRBPR. on mesalamine. pt is refusing mesalamine enema 4. Diarrhea-possible neutraphos induced. no assoc pain or fever. improved per RN. cont loperamide prn. 5. hypophospahtemia- hold phos repletion as not that low. monitor for improvement of loose BM 6. Thrombocytopenia-resolved. 7. Acute anemia- likely anemia of chronic disease. s/p 2 units PRBC this admission. no signs of bleeding. no indication for txn. 8. Genital ulcer- +MSSA from the wound. completed augmentin x7 days. 9. Malnutrition- due to body habitus with temporal wasting, prominent clavicles and significant weight loss. likely due to malignancy. improved on megace. cont ensures and prosource, gentle hydration. 10. Hypomagnesemia- resolved 11. Hypokalemia- resolved 12. DVT ppx- place SCD. hold pharmacolgic anticoagulation. 13. unsafe for discharge home. unable to go to [facility] as on RTx treatments. will cont to assess daily for improvement till patient is safe for discharge home
--- NOTE | 2017-01-20 13:58 | PN ---
Progress Note (short form) - Note Progress Note: patient seen and examined. Feels better than the last few days She did well with PT she said, she walked. O/E Cor: RSR, No murmurs, No gallops Lungs: Clear to P&A Abd: Soft, Normal bowel sounds, No organomegaly Ext:No significant edema Last Vital Signs Temp Pulse Resp BP Pulse Ox 98.4 F 103 H 20 134/69 97 01/20/17 06:58 01/20/17 06:58 01/20/17 06:58 01/20/17 06:58 01/19/17 21:00 CBC, BMP 01/20/17 06:30 01/20/17 06:30 61 y/o patient with metastatic breast cancer, brain mets, getting wbrt on dexamethasone- 4mg bid leucocytosis likely from steroids, will monitor monitor crit. physical therapy would consider short term rehab or if she gets better with in house PT , to consider OP treatment.
--- NOTE | 2017-01-20 21:22 | PN ---
Progress Note (short form) - Note Progress Note: Radiation Oncology Ambulating with PT. Tolerating WBRT @ 18Gy without significant adverse side effects. Stage IV breast cancer with progression of [employer]TER mets and probable LMD. Will cont RT, 4 fx remaining. Cont PT. Cont decadron. May reduce to once a day. May cont outpatient RT when stable for d/c. D/C planning.
[2017-01-21] MEDS: MUPIROCIN 2% TOPICAL OINTMENT 22 GM TUBE TP SCH ×3 (03:05→21:12)
[2017-01-21] MEDS: MESALAMINE 800 MG TABLET.DR PO SCH ×3 (06:04→21:13)
[2017-01-21 08:36] LABS: MCH 28.2 pg (25.7-33.7); MCHC 31.8 g/dl (32.0-36.0); MEAN CELL VOLUME 88.7 fl (80-96); PLATELET COUNT 175 K/MM3 (134-434); RDW 18.1 % (11.6-15.6); WHITE BLOOD COUNT 14.5 K/mm3 (4.0-10.0)
[2017-01-21] MEDS: AMINO ACIDS/PROTEIN HYDROLYS 30 ML LIQUID.PKT PO SCH ×2 (09:26→17:15)
[2017-01-21] MEDS: RANITIDINE HCL 150 MG TABLET (FP) PO SCH (09:26)
[2017-01-21] MEDS: amLODIPine BESYLATE 5 MG TABLET (FP) PO SCH (09:26)
[2017-01-21] MEDS: DEXAMETHASONE 4 MG TABLET (FP) PO SCH ×2 (09:26→21:13)
[2017-01-21] MEDS: MEGESTROL ACETATE 40 MG TABLET PO SCH ×4 (09:26→21:13)
[2017-01-21] MEDS: PORTA CATH FLUSH 10 ML IVPUSH PRN (09:26)
[2017-01-21] MEDS: MESALAMINE 4 GM/60 ML ENEMA PR SCH (09:28)
--- NOTE | 2017-01-21 13:58 | PN ---
Physical Exam: SUBJECTIVE: Patient seen and examined. Doing well. Asymptomatic. Will try to walk with PT today OBJECTIVE: Vital Signs Period Temp Pulse Resp BP Sys/Mulligan Pulse Ox Last 24 Hr 97.9 F-98.2 F 90-109 18-109 125-133/76-84 99 GEN: AAOx3, NAD, Not ill appearing HEENT: PERRLA, EOMi CV: S1, S2, tachycardic rate and rhythm LUNG: CTABL ABD: Soft, NT, ND, normoactive BS : 4cm soft tissue ulceration in the external labial skin, not in the vulva. Mild purulence, no surrounding redness MSK: No edema, no erythema NEURO: No sensation or MSK deficits. No facial droop Active Medications Generic Name Dose Route Start Last Admin Trade Name Freq PRN Reason Stop Dose Admin Acetaminophen 650 mg 01/16/17 01:35 01/19/17 11:43 Tylenol - PO 650 mg Q6H PRN Administration FEVER OR PAIN Amino Acids 30 ml 01/08/17 17:30 01/21/17 09:26 Prosource No Carb Liquid Pkt PO 30 ml BID@0800,1730 CYNTHIA Administration Amlodipine Besylate 5 mg 01/07/17 10:00 01/21/17 09:26 Norvasc - PO 5 mg DAILY CYNTHIA Administration Dexamethasone 4 mg 01/18/17 22:00 01/21/17 09:26 Decadron - PO 4 mg BID CYNTHIA Administration IV Flush 10 ml 01/08/17 19:00 01/21/17 09:26 Kirill-Cath Flush IVPUSH 10 ml PRN PRN Administration flush kirill cath IV Flush 10 ml 01/12/17 16:14 Kirill-Cath Flush IVPUSH PRN PRN after each use Loperamide HCl 2 mg 01/19/17 12:30 Imodium - PO Q8H PRN DIARRHEA Megestrol Acetate 40 mg 01/11/17 14:00 01/21/17 09:26 Megace - PO 40 mg QID CYNTHIA Administration Mesalamine 800 mg 01/08/17 13:15 01/21/17 06:04 Asacol Hd - PO 800 mg TID CYNTHIA Administration Mesalamine 4 gm 01/12/17 21:00 01/21/17 09:28 Rowasa Enema - [place] Not Given DAILY CYNTHIA Mupirocin 1 applic 01/06/17 20:15 01/21/17 09:31 Bactroban 2% Ointment - TP Not Given BID [facility] Ranitidine HCl 150 mg 01/12/17 10:00 01/21/17 09:26 Zantac - PO 150 mg DAILY CYNTHIA Administration ASSESSMENT/PLAN: 61yo F with significant history of Rt. Breast carcinoma (first diagnosed in 1998 via lumpectomy followed by RT/chemo/5yrs of tamoxifen and arimedex with multiple mets including brain found in 03/2016) who presented to the ED for PO intolerance and generalized weakness which has improved with diet and fluids. # Weakness - Poor appetite likely from metastatic cancer, improving with Megace 40 TID # R Breast CA with Brain Mets - Undergoing WBRT. 3 left. Off Xeloda for time being. On dexamethasone PO 4mg BID # Ulcerative Colitis - Panulcerative rectosigmoid colitis on scope. On Mesalamine PO 800 TID. Continues to refuses mesalamine enema # Diarrhea - Resolved with immodium. # Labial Ulcer - Cultures growing MSSA, completed 6 day course of Augmentin, topical antibiotics only # Sinus Tachycardia - Improved since we switched Marinol to Megace. # Normocytic Anemia - Anemia of chronic disease, improved s/p 1 PRBC. Had one bloody BM this hospitalization, resolved. # FEN - No IVF; elec wnl; regular diet # PPx - No pharmacologic AC due to extensive brain mets # Dispo - Patient will have daily whole brain radiation treatments x10. First treatment 01/13. After today's treatment, she has 3 left, no tx on weekends, so ends end Friday 01/26. Walked 35 feet with PT. If walk 50 feet, can do WBRT as an outpatient. Continue PT and WBRT. d/w Dr Lane Underwood MD - pGY1 Resident Internal Medicine Visit type - Emergency Visit Emergency Visit: No - New Patient This patient is new to me today: No - Critical Care Critical Care patient: No - Discharge Referral Referred to [facility] Med P.C.: No
--- NOTE | 2017-01-21 14:36 | PN ---
Teaching Attending Note Name of Resident: Tanya Underwood ATTENDING PHYSICIAN STATEMENT I saw and evaluated the patient. I reviewed the resident's note and discussed the case with the resident. I agree with the resident's findings and plan as documented. SUBJECTIVE:asymptomatic. states diarrhea has improved. dneies CP, SOB, fever, chills, N/V/C OBJECTIVE: Last Vital Signs Temp Pulse Resp BP Pulse Ox 98.4 F 74 16 130/62 99 01/21/17 14:16 01/21/17 14:16 01/21/17 14:16 01/21/17 14:16 01/20/17 21:00 General NAD ASSESSMENT AND PLAN: 61yo F with PMH R breast ca with (mets to brain, bone, pleura) s/p lumpectomy, RTx and Chemo whom completed hormonal therapy and on Xeloda currently every other week presented with generalized weakness and anorexia 1. Generalized weakness- likely due to dehydration vs progression of disease. improved. able to ambulate with PT 35 feet. will assess daily and monitor for improvement. 2. R breast malignancy with diffuse mets including brain- started WBRT 01/13. on decadron to prevent swelling. cont 3. Ulcerative colitis- s/p colonoscopy. no recurrent BRBPR. on mesalamine. pt is refusing mesalamine enema 4. Diarrhea-possible neutraphos induced. no assoc pain or fever. improved per RN. cont loperamide prn. 5. hypophospahtemia- hold phos repletion as not that low. monitor for improvement of loose BM 6. Thrombocytopenia-resolved. 7. Acute anemia- likely anemia of chronic disease. s/p 2 units PRBC this admission. no signs of bleeding. no indication for txn. 8. Genital ulcer- +MSSA from the wound. completed augmentin x7 days. 9. Malnutrition- due to body habitus with temporal wasting, prominent clavicles and significant weight loss. likely due to malignancy. improved on megace. cont ensures and prosource, gentle hydration. 10.stage II sacral ulcer- not visualized by me. frequent turning. barrier protection. 11. Hypokalemia- resolved 12. DVT ppx- place SCD. hold pharmacolgic anticoagulation. 13. unsafe for discharge home. unable to go to [facility] as on RTx treatments. will cont to assess daily for improvement till patient is safe for discharge home
--- NOTE | 2017-01-21 22:36 | PN ---
Progress Note (short form) - Note Progress Note: Patient seen and examined feels slightly better Last Vital Signs Temp Pulse Resp BP Pulse Ox 98.3 F 96 H 18 132/78 99 01/21/17 16:52 01/21/17 16:52 01/21/17 16:52 01/21/17 16:52 01/21/17 09:00 Cor: RSR, No murmurs, No gallops Lungs: Clear to P&A Abd: Soft, Normal bowel sounds, No organomegaly Ext:No significant edema Abnormal Lab Results 01/21/17 06:00 WBC 14.5 H RBC 2.78 L Hgb 7.8 L Hct 24.6 L MCHC 31.8 L RDW 18.1 H MPV 7.0 L Active Medications Generic Name Dose Route Start Last Admin Trade Name Freq PRN Reason Stop Dose Admin Acetaminophen 650 mg 01/16/17 01:35 01/19/17 11:43 Tylenol - PO 650 mg Q6H PRN Administration FEVER OR PAIN Amino Acids 30 ml 01/08/17 17:30 01/21/17 17:15 Prosource No Carb Liquid Pkt PO 30 ml BID@0800,1730 CYNTHIA Administration Amlodipine Besylate 5 mg 01/07/17 10:00 01/21/17 09:26 Norvasc - PO 5 mg DAILY CYNTHIA Administration Dexamethasone 4 mg 01/18/17 22:00 01/21/17 21:13 Decadron - PO 4 mg BID CYNTHIA Administration IV Flush 10 ml 01/08/17 19:00 01/21/17 09:26 Kirill-Cath Flush IVPUSH 10 ml PRN PRN Administration flush kirill cath IV Flush 10 ml 01/12/17 16:14 Kirill-Cath Flush IVPUSH PRN PRN after each use Loperamide HCl 2 mg 01/19/17 12:30 Imodium - PO Q8H PRN DIARRHEA Megestrol Acetate 40 mg 01/11/17 14:00 01/21/17 21:13 Megace - PO 40 mg QID CYNTHIA Administration Mesalamine 800 mg 01/08/17 13:15 01/21/17 21:13 Asacol Hd - PO 800 mg TID CYNTHIA Administration Mesalamine 4 gm 01/12/17 21:00 01/21/17 09:28 Rowasa Enema - [place] Not Given DAILY CYNTHIA Mupirocin 1 applic 01/06/17 20:15 01/21/17 21:12 Bactroban 2% Ointment - TP 1 applic BID CYNTHIA Administration Ranitidine HCl 150 mg 01/12/17 10:00 01/21/17 09:26 Zantac - PO 150 mg DAILY CYNTHIA Administration a/p 61 y/o patient with metastatic breast cancer, brain mets, getting wbrt on dexamethasone physical therapy would consider rehab placement Patient aware of poor prognosis. says she has discussed it with her anemia of chronic disease transfusion support as necessary
[2017-01-22] MEDS ORDERED: PT OWN MED DRAWER 7, Y5N ONE ×2 (05:21→22:19)
[2017-01-22] MEDS: MESALAMINE 800 MG TABLET.DR PO SCH ×3 (05:30→22:16)
[2017-01-22 07:49] LABS: MCH 28.7 pg (25.7-33.7); MCHC 32.4 g/dl (32.0-36.0); MEAN CELL VOLUME 88.7 fl (80-96); PLATELET COUNT 196 K/MM3 (134-434); RDW 17.8 % (11.6-15.6)
--- NOTE | 2017-01-22 07:50 | PN ---
Physical Exam: SUBJECTIVE: Patient seen and examined. Doing well. Still states she has diarrhea , less than yesterday. But patient not asking for immodium. Encouraged to ask. Will get WBRT and PT today OBJECTIVE: Vital Signs Period Temp Pulse Resp BP Sys/Mulligan Pulse Ox Last 24 Hr 98.3 F-98.6 F 74-122 16-20 120-136/62-78 99-99 GEN: AAOx3, NAD, Not ill appearing HEENT: PERRLA, EOMi CV: S1, S2, tachycardic rate and rhythm LUNG: CTABL ABD: Soft, NT, ND, normoactive BS : 4cm soft tissue ulceration in the external labial skin, not in the vulva. Mild purulence, no surrounding redness MSK: No edema, no erythema NEURO: No sensation or MSK deficits. No facial droop Active Medications Generic Name Dose Route Start Last Admin Trade Name Freq PRN Reason Stop Dose Admin Acetaminophen 650 mg 01/16/17 01:35 01/19/17 11:43 Tylenol - PO 650 mg Q6H PRN Administration FEVER OR PAIN Amino Acids 30 ml 01/08/17 17:30 01/21/17 17:15 Prosource No Carb Liquid Pkt PO 30 ml BID@0800,1730 CYNTHIA Administration Amlodipine Besylate 5 mg 01/07/17 10:00 01/21/17 09:26 Norvasc - PO 5 mg DAILY CYNTHIA Administration Dexamethasone 4 mg 01/18/17 22:00 01/21/17 21:13 Decadron - PO 4 mg BID CYNTHIA Administration IV Flush 10 ml 01/08/17 19:00 01/21/17 09:26 Mikel-Cath Flush IVPUSH 10 ml PRN PRN Administration flush mikel cath IV Flush 10 ml 01/12/17 16:14 Mikel-Cath Flush IVPUSH PRN PRN after each use Loperamide HCl 2 mg 01/19/17 12:30 Imodium - PO Q8H PRN DIARRHEA Megestrol Acetate 40 mg 01/11/17 14:00 01/21/17 21:13 Megace - PO 40 mg QID CYNTHIA Administration Mesalamine 800 mg 01/08/17 13:15 01/22/17 05:30 Asacol Hd - PO 800 mg TID CYNTHIA Administration Mesalamine 4 gm 01/12/17 21:00 01/21/17 09:28 Rowasa Enema - [place] Not Given DAILY [facility] Mupirocin 1 applic 01/06/17 20:15 01/21/17 21:12 Bactroban 2% Ointment - TP 1 applic BID CYNTHIA Administration Ranitidine HCl 150 mg 01/12/17 10:00 01/21/17 09:26 Zantac - PO 150 mg DAILY CYNTHIA Administration ASSESSMENT/PLAN: 61yo F with significant history of Rt. Breast carcinoma (first diagnosed in 1998 via lumpectomy followed by RT/chemo/5yrs of tamoxifen and arimedex with multiple mets including brain found in 03/2016) who presented to the ED for PO intolerance and generalized weakness which has improved with diet and fluids. # Weakness - Poor appetite likely from metastatic cancer, improving with Megace 40 TID. # R Breast CA with Brain Mets - Undergoing WBRT. 2 left. Off Xeloda for time being. On dexamethasone PO 4mg BID # Leukocytosis - Likely secondary to steroids, but since patient still having diarrhea, will r/o C. diff and stop Immodium for now. # Ulcerative Colitis - Panulcerative rectosigmoid colitis on scope. On Mesalamine PO 800 TID. Continues to refuses mesalamine enema # Labial Ulcer - Cultures growing MSSA, completed 6 day course of Augmentin, topical antibiotics only # Sinus Tachycardia - Improved since we switched Marinol to Megace. # Normocytic Anemia - Anemia of chronic disease, improved s/p 1 PRBC. Had one bloody BM this hospitalization, resolved. # FEN - No IVF; elec wnl; regular diet # PPx - No pharmacologic AC due to extensive brain mets # Dispo - 2 WBRT left, ends end Friday 01/26. Walks only 35 feet. Dispo is [facility] vs home Physical therapy depending on patient request. d/w Dr Lane Underwood MD - pGY1 Resident Internal Medicine Visit type - Emergency Visit Emergency Visit: No - New Patient This patient is new to me today: No - Critical Care Critical Care patient: No - Discharge Referral Referred to [facility] Med P.C.: No
[2017-01-22] MEDS: AMINO ACIDS/PROTEIN HYDROLYS 30 ML LIQUID.PKT PO SCH ×2 (08:19→17:01)
[2017-01-22 08:20] LABS: ALBUMIN 2.1 g/dl (3.4-5.0); ALK PHOS 291 U/L (45-117); ANION GAP 9 (8-16); BILIRUBIN,TOTAL 0.7 mg/dL (0.2-1.0); CALCIUM 7.9 mg/dL (8.5-10.1); CO2 26 mmol/L (21-32); CREATININE 0.4 mg/dL (0.55-1.02); GLUCOSE,RANDOM 73 mg/dL (74-106); SGOT/AST 22 U/L (15-37); SGPT/ALT 11 U/L (12-78); TOT PROT 5.4 g/dl (6.4-8.2)
[2017-01-22] MEDS: LOPERAMIDE HCL 2 MG CAPSULE PO PRN (09:02)
[2017-01-22] MEDS: RANITIDINE HCL 150 MG TABLET (FP) PO SCH (09:02)
[2017-01-22] MEDS: amLODIPine BESYLATE 5 MG TABLET (FP) PO SCH (09:02)
[2017-01-22] MEDS: DEXAMETHASONE 4 MG TABLET (FP) PO SCH ×2 (09:02→22:16)
[2017-01-22] MEDS: MUPIROCIN 2% TOPICAL OINTMENT 22 GM TUBE TP SCH ×2 (09:02→22:16)
[2017-01-22] MEDS: MEGESTROL ACETATE 40 MG TABLET PO SCH ×4 (09:04→22:19)
[2017-01-22] MEDS: MESALAMINE 4 GM/60 ML ENEMA PR SCH (09:09)
[2017-01-22 10:45] LABS: ANISOCYTOSIS 1+; BAND % 16.1 %; HYPOCHROMIA 0; MACROCYTOSIS 1+; MICROCYTOSIS 0; OVALOCYTE 1+; PLATELET ESTIMATE NORMAL; POIKILOCYTOSIS 0; POLYCHROMASIA 1+; REACTIVE LYMPHOCYTES 1 % (0-80); TEAR DROP CELLS 1+
[2017-01-22 11:47] LABS: METAMYELOCYTE 9 % (0-2); MYELOCYTE 7 % (0-2); PLATELET COMMENTS PRESENT; TOTAL CELLS COUNTED 100
[2017-01-22 11:49] LABS: NUCLEATED RED BLOOD CELL 24 % (0-0)
[2017-01-22] MEDS ORDERED: LOPERAMIDE HCL 2 MG CAPSULE PO ONE (12:00)
--- NOTE | 2017-01-22 14:04 | PN ---
Teaching Attending Note Name of Resident: Tanya Underwood ATTENDING PHYSICIAN STATEMENT I saw and evaluated the patient. I reviewed the resident's note and discussed the case with the resident. I agree with the resident's findings and plan as documented. SUBJECTIVE:asymptomatic. continues to have diarrhea but no abdominal cramping. denies Cp, SOB, fever, chills, N/V/C OBJECTIVE: Last Vital Signs Temp Pulse Resp BP Pulse Ox 97.4 F L 118 H 16 130/79 97 01/22/17 10:00 01/22/17 10:00 01/22/17 12:48 01/22/17 10:00 01/22/17 12:48 General NAD ASSESSMENT AND PLAN: 61yo F with PMH R breast ca with (mets to brain, bone, pleura) s/p lumpectomy, RTx and Chemo whom completed hormonal therapy and on Xeloda currently every other week presented with generalized weakness and anorexia 1. Generalized weakness- likely due to dehydration vs progression of disease. improved. able to ambulate with PT 35 feet. will assess daily and monitor for improvement. 2. leukocytosis- trending up.most likely due to steroids and malignancy. has no symptoms other than diarrhea. most likely not cause however will check cdiff to r/o infectious possibility 3. R breast malignancy with diffuse mets including brain- started WBRT 01/13. on decadron to prevent swelling. cont 4. Ulcerative colitis- s/p colonoscopy. no recurrent BRBPR. on mesalamine. pt is refusing mesalamine enema 5. Diarrhea-possible neutraphos induced. check cdiff although low suspicion as pt is afebrile with no abdominal pain. cont loperamide prn. 6. hypophospahtemia- hold phos repletion as not that low. monitor for improvement of loose BM 7. Thrombocytopenia-resolved. 8. Acute anemia- likely anemia of chronic disease. s/p 2 units PRBC this admission. no signs of bleeding. no indication for txn. iron studies pending 9. Genital ulcer- +MSSA from the wound. completed augmentin x7 days. 10. Malnutrition- due to body habitus with temporal wasting, prominent clavicles and significant weight loss. likely due to malignancy. improved on megace. cont ensures and prosource, gentle hydration. 11.stage II sacral ulcer- not visualized by me. frequent turning. barrier protection. 12. Hypokalemia- resolved 13. DVT ppx- place SCD. hold pharmacolgic anticoagulation. 14. unsafe for discharge home. unable to go to [facility] as on RTx treatments. will cont to assess daily for improvement till patient is safe for discharge home
--- NOTE | 2017-01-22 16:47 | PN ---
Progress Note (short form) - Note Progress Note: Patient seen and examined feels slightly better Last Vital Signs Temp Pulse Resp BP Pulse Ox 98.6 F 110 H 16 129/71 97 01/22/17 15:36 01/22/17 15:36 01/22/17 15:36 01/22/17 15:36 01/22/17 12:48 Cor: RSR, No murmurs, No gallops Lungs: Clear to P&A Abd: Soft, Normal bowel sounds, No organomegaly Ext:No significant edema Abnormal Lab Results 01/22/17 01/22/17 01/22/17 06:00 06:00 06:00 WBC 19.0 H D RBC 2.78 L Hgb 8.0 L Hct 24.6 L RDW 17.8 H MPV 7.0 L Myelocytes % (Man) 7 H D Nucleated RBC % 24 H* Metamyelocytes 9 H D BUN 24 H Creatinine 0.4 L Random Glucose 73 L Calcium 7.9 L Phosphorus Ferritin 2431.552 H ALT 11 L Alkaline Phosphatase 291 H Total Protein 5.4 L Albumin 2.1 L D 01/22/17 06:30 WBC RBC Hgb Hct RDW MPV Myelocytes % (Man) Nucleated RBC % Metamyelocytes BUN Creatinine Random Glucose Calcium Phosphorus 2.2 L Ferritin ALT Alkaline Phosphatase Total Protein Albumin Active Medications Generic Name Dose Route Start Last Admin Trade Name Freq PRN Reason Stop Dose Admin Acetaminophen 650 mg 01/16/17 01:35 01/19/17 11:43 Tylenol - PO 650 mg Q6H PRN Administration FEVER OR PAIN Amino Acids 30 ml 01/08/17 17:30 01/22/17 08:19 Prosource No Carb Liquid Pkt PO 30 ml BID@0800,1730 CYNTHIA Administration Amlodipine Besylate 5 mg 01/07/17 10:00 01/22/17 09:02 Norvasc - PO 5 mg DAILY CYNTHIA Administration Dexamethasone 4 mg 01/18/17 22:00 01/22/17 09:02 Decadron - PO 4 mg BID CYNTHIA Administration IV Flush 10 ml 01/08/17 19:00 01/21/17 09:26 Kirill-Cath Flush IVPUSH 10 ml PRN PRN Administration flush kirill cath IV Flush 10 ml 01/12/17 16:14 Kirill-Cath Flush IVPUSH PRN PRN after each use Loperamide HCl 2 mg 01/19/17 12:30 01/22/17 09:02 Imodium - PO 2 mg Q8H PRN Administration DIARRHEA Megestrol Acetate 40 mg 01/11/17 14:00 01/22/17 13:46 Megace - PO 40 mg QID CYNTHIA Administration Mesalamine 800 mg 01/08/17 13:15 01/22/17 13:46 Asacol Hd - PO 800 mg TID CYNTHIA Administration Mesalamine 4 gm 01/12/17 21:00 01/22/17 09:09 Rowasa Enema - [place] Not Given DAILY CYNTHIA Mupirocin 1 applic 01/06/17 20:15 01/22/17 09:02 Bactroban 2% Ointment - TP 1 applic BID CYNTHIA Administration Ranitidine HCl 150 mg 01/12/17 10:00 01/22/17 09:02 Zantac - PO 150 mg DAILY CYNTHIA Administration a/p 61 y/o patient with metastatic breast cancer, brain mets, getting wbrt on dexamethasone Patient aware of poor prognosis. says she has discussed it with her says she would consider [facility] in future but not yet. Agreeable to rehab placement at this time anemia of chronic disease transfusion support as necessary would transfuse prior to discharge
--- NOTE | 2017-01-22 22:34 | PN ---
Progress Note (short form) - Note Progress Note: Radiation Oncology Ambulating with PT. Tolerating WBRT @ 24Gy. Stage IV breast cancer with progression of [employer] mets and probable LMD. Will cont RT, 2 fx remaining. Cont PT. Cont decadron. May reduce to once a day. May cont outpatient RT when stable for d/c. D/C planning.
[2017-01-23] MEDS: MESALAMINE 800 MG TABLET.DR PO SCH ×3 (06:07→21:55)
[2017-01-23 07:34] LABS: MCH 28.6 pg (25.7-33.7); MCHC 31.8 g/dl (32.0-36.0); PLATELET COUNT 215 K/MM3 (134-434); RDW 18.6 % (11.6-15.6); WHITE BLOOD COUNT 16.9 K/mm3 (4.0-10.0)
[2017-01-23 08:10] LABS: SERUM IRON 157 ug/dL (27-159); TOTAL IRON BINDING CAPACITY < 174 ug/dL (250-450); UIBC < 17 ug/dL (131-425)
[2017-01-23] MEDS ORDERED: PT OWN MED DRAWER 7, Y5N ONE (10:02)
[2017-01-23] MEDS: DEXAMETHASONE 4 MG TABLET (FP) PO SCH ×2 (10:37→21:55)
[2017-01-23] MEDS: RANITIDINE HCL 150 MG TABLET (FP) PO SCH (10:37)
[2017-01-23] MEDS: amLODIPine BESYLATE 5 MG TABLET (FP) PO SCH (10:37)
[2017-01-23] MEDS: AMINO ACIDS/PROTEIN HYDROLYS 30 ML LIQUID.PKT PO SCH ×2 (10:37→18:05)
[2017-01-23] MEDS: MEGESTROL ACETATE 40 MG TABLET PO SCH ×4 (10:38→21:55)
[2017-01-23] MEDS: MESALAMINE 4 GM/60 ML ENEMA PR SCH (10:38)
--- NOTE | 2017-01-23 11:31 | PN ---
Progress Note (short form) - Note Progress Note: asymptomatic. continues to have loose BM. denies CP, SOB, fever, chills, N/v/C/D , melena or BRBPR Current Medications Generic Name Dose Route Start Last Admin Trade Name Freq PRN Reason Stop Dose Admin Acetaminophen 650 mg 01/16/17 01:35 01/19/17 11:43 Tylenol - PO 650 mg Q6H PRN Administration FEVER OR PAIN Amino Acids 30 ml 01/08/17 17:30 01/23/17 10:37 Prosource No Carb Liquid Pkt PO 30 ml BID@0800,1730 CYNTHIA Administration Amlodipine Besylate 5 mg 01/07/17 10:00 01/23/17 10:37 Norvasc - PO 5 mg DAILY CYNTHIA Administration Dexamethasone 4 mg 01/18/17 22:00 01/23/17 10:37 Decadron - PO 4 mg BID CYNTHIA Administration IV Flush 10 ml 01/08/17 19:00 01/21/17 09:26 Kirill-Cath Flush IVPUSH 10 ml PRN PRN Administration flush kirill cath IV Flush 10 ml 01/12/17 16:14 Kirill-Cath Flush IVPUSH PRN PRN after each use Loperamide HCl 2 mg 01/19/17 12:30 01/22/17 09:02 Imodium - PO 2 mg Q8H PRN Administration DIARRHEA Megestrol Acetate 40 mg 01/11/17 14:00 01/23/17 10:38 Megace - PO 40 mg QID CYNTHIA Administration Mesalamine 800 mg 01/08/17 13:15 01/23/17 06:07 Asacol Hd - PO 800 mg TID CYNTHIA Administration Mesalamine 4 gm 01/12/17 21:00 01/23/17 10:38 Rowasa Enema - [place] Not Given DAILY CYNTHIA Mupirocin 1 applic 01/06/17 20:15 01/22/17 22:16 Bactroban 2% Ointment - TP 1 applic BID CYNTHIA Administration Ranitidine HCl 150 mg 01/12/17 10:00 01/23/17 10:37 Zantac - PO 150 mg DAILY CYNTHIA Administration Last Vital Signs Temp Pulse Resp BP Pulse Ox 97.6 F 96 H 18 128/75 97 01/23/17 08:42 01/23/17 08:42 01/23/17 08:42 01/23/17 08:42 01/22/17 21:00 General NAD CV S1 S2 RRR no murmur/rub/gallop Lungs CTA B/L no wheezing Abdomen soft NT/ND CBCD WBC 16.9 K/mm3 (4.0-10.0) H 01/23/17 06:00 RBC 2.71 M/mm3 (3.60-5.2) L 01/23/17 06:00 Hgb 7.7 GM/dL (10.7-15.3) L 01/23/17 06:00 Hct 24.4 % (32.4-45.2) L 01/23/17 06:00 MCV 90.0 fl (80-96) 01/23/17 06:00 MCHC 31.8 g/dl (32.0-36.0) L 01/23/17 06:00 RDW 18.6 % (11.6-15.6) H 01/23/17 06:00 Plt Count 215 K/MM3 (134-434) 01/23/17 06:00 MPV 7.0 fl (7.5-11.1) L 01/23/17 06:00 ASSESSMENT AND PLAN: 61yo F with PMH R breast ca with (mets to brain, bone, pleura) s/p lumpectomy, RTx and Chemo whom completed hormonal therapy and on Xeloda currently every other week presented with generalized weakness and anorexia 1. Generalized weakness- likely due to dehydration vs progression of disease. improved. able to ambulate with PT 35 feet. will assess daily and monitor for improvement. 2. leukocytosis- trending down most likely not infectious and due to steroids. cdiff pending however low suspicion. 3. R breast malignancy with diffuse mets including brain- started WBRT 01/13. will complete on 01/26. on decadron to prevent swelling. cont 4. Ulcerative colitis- s/p colonoscopy. no recurrent BRBPR. on mesalamine. pt is refusing mesalamine enema 5. Diarrhea-possible neutraphos induced. check cdiff although low suspicion as pt is afebrile with no abdominal pain. cont loperamide prn. 6. hypophospahtemia- hold phos repletion as not that low. monitor for improvement of loose BM 7. Thrombocytopenia-resolved. 8. Acute anemia- likely anemia of chronic disease. s/p 2 units PRBC this admission. slight trend down. will likely need txn this admission will hold for now. Has high iron level. will need to speak with hematology about chelation therapy. no signs of bleeding. 9. Genital ulcer- +MSSA from the wound. completed augmentin x7 days. 10. Malnutrition- due to body habitus with temporal wasting, prominent clavicles and significant weight loss. likely due to malignancy. improved on megace. cont ensures and prosource, gentle hydration. 11.stage II sacral ulcer- not visualized by me. frequent turning. barrier protection. 12. Hypokalemia- resolved 13. DVT ppx- place SCD. hold pharmacolgic anticoagulation. 14. unsafe for discharge home. unable to go to [facility] as on RTx treatments. will cont to assess daily for improvement till patient is safe for discharge home. possible 01/26 or 01/27. Visit type - Emergency Visit Emergency Visit: Yes ED Registration Date: 01/06/17 Care time: The patient presented to the Emergency Department on the above date and was hospitalized for further evaluation of their emergent condition. - New Patient This patient is new to me today: No - Critical Care Critical Care patient: No - Discharge Referral Referred to [facility] Med P.C.: No
--- NOTE | 2017-01-23 14:10 | PN ---
Progress Note (short form) - Note Progress Note: Patient sleeping well Vital Signs Period Temp Pulse Resp BP Sys/Mulligan Pulse Ox Last 24 Hr 97.6 F-98.6 F 94-110 16-18 119-129/70-77 97 CBC, BMP 01/23/17 06:00 01/22/17 06:00 Active Medications Generic Name Dose Route Start Last Admin Trade Name Freq PRN Reason Stop Dose Admin Acetaminophen 650 mg 01/16/17 01:35 01/19/17 11:43 Tylenol - PO 650 mg Q6H PRN Administration FEVER OR PAIN Amino Acids 30 ml 01/08/17 17:30 01/23/17 10:37 Prosource No Carb Liquid Pkt PO 30 ml BID@0800,1730 CYNTHIA Administration Amlodipine Besylate 5 mg 01/07/17 10:00 01/23/17 10:37 Norvasc - PO 5 mg DAILY CYNTHIA Administration Dexamethasone 4 mg 01/18/17 22:00 01/23/17 10:37 Decadron - PO 4 mg BID CYNTHIA Administration IV Flush 10 ml 01/08/17 19:00 01/21/17 09:26 Kirill-Cath Flush IVPUSH 10 ml PRN PRN Administration flush kirill cath IV Flush 10 ml 01/12/17 16:14 Kirill-Cath Flush IVPUSH PRN PRN after each use Loperamide HCl 2 mg 01/19/17 12:30 01/22/17 09:02 Imodium - PO 2 mg Q8H PRN Administration DIARRHEA Megestrol Acetate 40 mg 01/11/17 14:00 01/23/17 10:38 Megace - PO 40 mg QID CYNTHIA Administration Mesalamine 800 mg 01/08/17 13:15 01/23/17 06:07 Asacol Hd - PO 800 mg TID CYNTHIA Administration Mesalamine 4 gm 01/12/17 21:00 01/23/17 10:38 Rowasa Enema - [place] Not Given DAILY CYNTHIA Mupirocin 1 applic 01/06/17 20:15 01/22/17 22:16 Bactroban 2% Ointment - TP 1 applic BID CYNTHIA Administration Ranitidine HCl 150 mg 01/12/17 10:00 01/23/17 10:37 Zantac - PO 150 mg DAILY CYNTHIA Administration a/p 61 y/o patient with metastatic breast cancer, brain mets, getting wbrt on dexamethasone Agreeable to rehab placement at this time anemia of chronic disease transfusion support as necessary (if Hb less than 7 -8) or before discharge
[2017-01-23] MEDS: MUPIROCIN 2% TOPICAL OINTMENT 22 GM TUBE TP SCH ×2 (15:53→21:55)
[2017-01-24] MEDS: MESALAMINE 800 MG TABLET.DR PO SCH ×3 (06:28→23:13)
[2017-01-24 07:51] LABS: MCH 28.7 pg (25.7-33.7); MCHC 31.8 g/dl (32.0-36.0); MEAN CELL VOLUME 90.3 fl (80-96); PLATELET COUNT 243 K/MM3 (134-434); RDW 18.6 % (11.6-15.6)
[2017-01-24] MEDS: DEXAMETHASONE 4 MG TABLET (FP) PO SCH ×2 (09:50→23:13)
[2017-01-24] MEDS: AMINO ACIDS/PROTEIN HYDROLYS 30 ML LIQUID.PKT PO SCH ×2 (09:50→16:52)
[2017-01-24] MEDS: LOPERAMIDE HCL 2 MG CAPSULE PO PRN (09:50)
[2017-01-24] MEDS: MEGESTROL ACETATE 40 MG TABLET PO SCH ×5 (09:51→23:14)
[2017-01-24] MEDS: RANITIDINE HCL 150 MG TABLET (FP) PO SCH (09:51)
[2017-01-24] MEDS: MESALAMINE 4 GM/60 ML ENEMA PR SCH (09:53)
[2017-01-24] MEDS: MUPIROCIN 2% TOPICAL OINTMENT 22 GM TUBE TP SCH ×2 (09:53→23:14)
[2017-01-24] MEDS: amLODIPine BESYLATE 5 MG TABLET (FP) PO SCH (10:01)
--- NOTE | 2017-01-24 11:34 | PN ---
Progress Note (short form) - Note Progress Note: asymptomatic. continues to have loose BM (2 today) . denies CP, SOB, fever, chills, N/v/C/D, melena or BRBPR Current Medications Generic Name Dose Route Start Last Admin Trade Name Freq PRN Reason Stop Dose Admin Acetaminophen 650 mg 01/16/17 01:35 01/19/17 11:43 Tylenol - PO 650 mg Q6H PRN Administration FEVER OR PAIN Amino Acids 30 ml 01/08/17 17:30 01/24/17 09:50 Prosource No Carb Liquid Pkt PO 30 ml BID@0800,1730 CYNTHIA Administration Amlodipine Besylate 5 mg 01/07/17 10:00 01/24/17 10:01 Norvasc - PO 5 mg DAILY CYNTHIA Administration Dexamethasone 4 mg 01/18/17 22:00 01/24/17 09:50 Decadron - PO 4 mg BID CYNTHIA Administration IV Flush 10 ml 01/08/17 19:00 01/21/17 09:26 Kirill-Cath Flush IVPUSH 10 ml PRN PRN Administration flush kirill cath IV Flush 10 ml 01/12/17 16:14 Kirill-Cath Flush IVPUSH PRN PRN after each use Loperamide HCl 2 mg 01/19/17 12:30 01/24/17 09:50 Imodium - PO 2 mg Q8H PRN Administration DIARRHEA Megestrol Acetate 40 mg 01/11/17 14:00 01/24/17 09:51 Megace - PO 40 mg QID CYNTHIA Administration Mesalamine 800 mg 01/08/17 13:15 01/24/17 06:28 Asacol Hd - PO 800 mg TID CYNTHIA Administration Mesalamine 4 gm 01/12/17 21:00 01/24/17 09:53 Rowasa Enema - [place] Not Given DAILY CYNTHIA Mupirocin 1 applic 01/06/17 20:15 01/24/17 09:53 Bactroban 2% Ointment - TP 1 applic BID CYNTHIA Administration Ranitidine HCl 150 mg 01/12/17 10:00 01/24/17 09:51 Zantac - PO 150 mg DAILY CYNTHIA Administration Last Vital Signs Temp Pulse Resp BP Pulse Ox 98.3 F 98 H 18 113/70 99 01/23/17 22:00 01/23/17 22:00 01/23/17 22:00 01/23/17 22:00 01/23/17 21:00 General NAD CV S1 S2 RRR no murmur/rub/gallop Lungs CTA B/L no wheezing Abdomen soft NT/ND CBCD WBC 16.0 K/mm3 (4.0-10.0) H 01/24/17 07:00 RBC 2.76 M/mm3 (3.60-5.2) L 01/24/17 07:00 Hgb 7.9 GM/dL (10.7-15.3) L 01/24/17 07:00 Hct 25.0 % (32.4-45.2) L 01/24/17 07:00 MCV 90.3 fl (80-96) 01/24/17 07:00 MCHC 31.8 g/dl (32.0-36.0) L 01/24/17 07:00 RDW 18.6 % (11.6-15.6) H 01/24/17 07:00 Plt Count 243 K/MM3 (134-434) 01/24/17 07:00 MPV 7.0 fl (7.5-11.1) L 01/24/17 07:00 CMP Sodium 136 mmol/L (136-145) 01/22/17 06:00 Potassium 3.7 mmol/L (3.5-5.1) 01/22/17 06:00 Chloride 101 mmol/L (98-107) 01/22/17 06:00 Carbon Dioxide 26 mmol/L (21-32) 01/22/17 06:00 Anion Gap 9 (8-16) 01/22/17 06:00 BUN 24 mg/dL (7-18) H 01/22/17 06:00 Creatinine 0.4 mg/dL (0.55-1.02) L 01/22/17 06:00 Creat Clearance w eGFR > 60 (>60) 01/22/17 06:00 Calcium 7.9 mg/dL (8.5-10.1) L 01/22/17 06:00 Total Bilirubin 0.7 mg/dL (0.2-1.0) D 01/22/17 06:00 AST 22 U/L (15-37) D 01/22/17 06:00 ALT 11 U/L (12-78) L 01/22/17 06:00 Alkaline Phosphatase 291 U/L (45-117) H 01/22/17 06:00 Total Protein 5.4 g/dl (6.4-8.2) L 01/22/17 06:00 Albumin 2.1 g/dl (3.4-5.0) L D 01/22/17 06:00 ASSESSMENT AND PLAN: 61yo F with PMH R breast ca with (mets to brain, bone, pleura) s/p lumpectomy, RTx and Chemo whom completed hormonal therapy and on Xeloda currently every other week presented with generalized weakness and anorexia 1. Generalized weakness- likely due to dehydration vs progression of disease. improved. will assess daily and monitor for improvement. 2. leukocytosis- trending down most likely not infectious and due to steroids. continues to have loose stool but unable to collect for cdiff since its too liquidy. low concern for cdifff. will give loperamide RTC today and monitor for improvement. 3. R breast malignancy with diffuse mets including brain- started WBRT 01/13. will complete on 01/26. on decadron to prevent swelling. cont 4. Ulcerative colitis- s/p colonoscopy. no recurrent BRBPR. on mesalamine. pt is refusing mesalamine enema 5. Diarrhea-persists, loperamide RTC. 6. hypophospahtemia- hold phos repletion as can worsen diarrhea 7. Thrombocytopenia-resolved. 8. Acute anemia- likely anemia of chronic disease. s/p 2 units PRBC this admission. stable. will likely need txn this admission will hold for now. no signs of bleeding. 9. Genital ulcer- +MSSA from the wound. completed augmentin x7 days. 10. Malnutrition- due to body habitus with temporal wasting, prominent clavicles and significant weight loss. likely due to malignancy. improved on megace. cont ensures and prosource, gentle hydration. 11.stage II sacral ulcer- not visualized by me. frequent turning. barrier protection. 12. Hypokalemia- resolved 13. DVT ppx- place SCD. hold pharmacolgic anticoagulation. 14. unsafe for discharge home. unable to go to [facility] as on RTx treatments. will cont to assess daily for improvement till patient is safe for discharge home. possible 01/26 or 01/27. Visit type - Emergency Visit Emergency Visit: Yes ED Registration Date: 01/06/17 Care time: The patient presented to the Emergency Department on the above date and was hospitalized for further evaluation of their emergent condition. - New Patient This patient is new to me today: No - Critical Care Critical Care patient: No - Discharge Referral Referred to [facility] No
[2017-01-24] MEDS ORDERED: LOPERAMIDE HCL 2 MG CAPSULE PO ONE (14:00)
[2017-01-24] MEDS: LOPERAMIDE HCL 2 MG CAPSULE PO SCH ×2 (16:52→23:13)
[2017-01-25] MEDS: MESALAMINE 800 MG TABLET.DR PO SCH ×3 (05:50→21:35)
[2017-01-25] MEDS: LOPERAMIDE HCL 2 MG CAPSULE PO SCH ×3 (05:51→21:35)
[2017-01-25] MEDS ORDERED: PT OWN MED DRAWER 7, Y5N ONE ×2 (10:33→13:13)
[2017-01-25] MEDS: AMINO ACIDS/PROTEIN HYDROLYS 30 ML LIQUID.PKT PO SCH ×2 (10:34→18:11)
[2017-01-25] MEDS: DEXAMETHASONE 4 MG TABLET (FP) PO SCH (10:34)
[2017-01-25] MEDS: MUPIROCIN 2% TOPICAL OINTMENT 22 GM TUBE TP SCH ×2 (10:34→21:35)
[2017-01-25] MEDS: RANITIDINE HCL 150 MG TABLET (FP) PO SCH (10:35)
[2017-01-25] MEDS: MESALAMINE 4 GM/60 ML ENEMA PR SCH (10:35)
[2017-01-25] MEDS: amLODIPine BESYLATE 5 MG TABLET (FP) PO SCH (10:37)
[2017-01-25] MEDS: MEGESTROL ACETATE 40 MG TABLET PO SCH ×4 (10:38→21:35)
--- NOTE | 2017-01-25 15:33 | PN ---
Progress Note (short form) - Note Progress Note: asymptomatic. denies CP, SOB, fever, chills, N/v/C/D, melena or BRBPR Current Medications Generic Name Dose Route Start Last Admin Trade Name Freq PRN Reason Stop Dose Admin Acetaminophen 650 mg 01/16/17 01:35 01/19/17 11:43 Tylenol - PO 650 mg Q6H PRN Administration FEVER OR PAIN Amino Acids 30 ml 01/08/17 17:30 01/25/17 10:34 Prosource No Carb Liquid Pkt PO 30 ml BID@0800,1730 CYNTHIA Administration Amlodipine Besylate 5 mg 01/07/17 10:00 01/25/17 10:37 Norvasc - PO 5 mg DAILY CYNTHIA Administration Dexamethasone 4 mg 01/18/17 22:00 01/25/17 10:34 Decadron - PO 4 mg BID CYNTHIA Administration IV Flush 10 ml 01/08/17 19:00 01/21/17 09:26 Kirill-Cath Flush IVPUSH 10 ml PRN PRN Administration flush kirill cath IV Flush 10 ml 01/12/17 16:14 Kirill-Cath Flush IVPUSH PRN PRN after each use Loperamide HCl 2 mg 01/24/17 14:00 01/25/17 13:31 Imodium - PO 2 mg TID CYNTHIA Administration Megestrol Acetate 40 mg 01/11/17 14:00 01/25/17 13:37 Megace - PO 40 mg QID CYNTHIA Administration Mesalamine 800 mg 01/08/17 13:15 01/25/17 13:31 Asacol Hd - PO 800 mg TID CYNTHIA Administration Mesalamine 4 gm 01/12/17 21:00 01/25/17 10:35 Rowasa Enema - [place] Not Given DAILY CYNTHIA Mupirocin 1 applic 01/06/17 20:15 01/25/17 10:34 Bactroban 2% Ointment - TP 1 applic BID CYNTHIA Administration Ranitidine HCl 150 mg 01/12/17 10:00 01/25/17 10:35 Zantac - PO 150 mg DAILY CYNTHIA Administration Last Vital Signs Temp Pulse Resp BP Pulse Ox 98.8 F 105 H 20 132/82 99 01/25/17 14:42 01/25/17 14:42 01/25/17 14:42 01/25/17 14:42 01/24/17 21:00 General NAD CV S1 S2 RRR no murmur/rub/gallop Lungs CTA B/L no wheezing Abdomen soft NT/ND CBCD WBC 16.0 K/mm3 (4.0-10.0) H 01/24/17 07:00 RBC 2.76 M/mm3 (3.60-5.2) L 01/24/17 07:00 Hgb 7.9 GM/dL (10.7-15.3) L 01/24/17 07:00 Hct 25.0 % (32.4-45.2) L 01/24/17 07:00 MCV 90.3 fl (80-96) 01/24/17 07:00 MCHC 31.8 g/dl (32.0-36.0) L 01/24/17 07:00 RDW 18.6 % (11.6-15.6) H 01/24/17 07:00 Plt Count 243 K/MM3 (134-434) 01/24/17 07:00 MPV 7.0 fl (7.5-11.1) L 01/24/17 07:00 ASSESSMENT AND PLAN: 61yo F with PMH R breast ca with (mets to brain, bone, pleura) s/p lumpectomy, RTx and Chemo whom completed hormonal therapy and on Xeloda currently every other week presented with generalized weakness and anorexia 1. Generalized weakness- likely due to dehydration vs progression of disease. improved. will assess daily and monitor for improvement. 2. leukocytosis- trending down most likely not infectious and due to steroids. continues to have loose stool but unable to collect for cdiff since its too liquidy. low concern for cdiff. will give loperamide RTC today and monitor for improvement. 3. R breast malignancy with diffuse mets including brain- started WBRT 01/13. will complete on 01/26. on decadron to prevent swelling. will decrease to once a day. 4. Ulcerative colitis- s/p colonoscopy. no recurrent BRBPR. on mesalamine. pt is refusing mesalamine enema 5. Diarrhea-persists, loperamide RTC. 6. hypophospahtemia- hold phos repletion as can worsen diarrhea 7. Thrombocytopenia-resolved. 8. Acute anemia- likely anemia of chronic disease. s/p 2 units PRBC this admission. stable. will likely need txn prior to discharge. no signs of bleeding. 9. Genital ulcer- +MSSA from the wound. completed augmentin x7 days. 10. Malnutrition- due to body habitus with temporal wasting, prominent clavicles and significant weight loss. likely due to malignancy. improved on megace. cont ensures and prosource, gentle hydration. 11.stage II sacral ulcer- not visualized by me. frequent turning. barrier protection. 12. Hypokalemia- resolved 13. DVT ppx- place SCD. hold pharmacolgic anticoagulation. 14. Final cycle of WBRT tomorrow, will likely require Blood Txn prior to discharge. [facility] on discharge. CM aware. Visit type - Emergency Visit Emergency Visit: Yes ED Registration Date: 01/06/17 Care time: The patient presented to the Emergency Department on the above date and was hospitalized for further evaluation of their emergent condition. - New Patient This patient is new to me today: No - Critical Care Critical Care patient: No - Discharge Referral Referred to [facility] No
--- NOTE | 2017-01-25 23:16 | PN ---
Progress Note (short form) - Note Progress Note: Patient seen and examined feels slightly better AFVSS Cor: RSR, No murmurs, No gallops Lungs: Clear to P&A Abd: Soft, Normal bowel sounds, No organomegaly Ext:No significant edema Labs/meds reviewed a/p 61 y/o patient with metastatic breast cancer, brain mets, getting wbrt on dexamethasone Patient aware of poor prognosis. says she has discussed it with her says she would consider calvary in future but not yet. Agreeable to rehab placement at this time anemia of chronic disease Would transfuse prior to discharge taper decadron over 1 week post RT would start arimidex 1mg daily prior too discharge f/u in the office from rehab
[2017-01-26] MEDS: MESALAMINE 800 MG TABLET.DR PO SCH ×3 (05:54→21:58)
[2017-01-26] MEDS: LOPERAMIDE HCL 2 MG CAPSULE PO SCH ×3 (05:54→21:58)
--- NOTE | 2017-01-26 06:48 | PN ---
Physical Exam: SUBJECTIVE: No acute events overnight. Pt pleasant and continues to eat and take ensure products. Pt tolerating diet without complication. Pt to receive last treatment of WBR today. OBJECTIVE: Vital Signs Period Temp Pulse Resp BP Sys/Mulligan Pulse Ox Last 24 Hr 97.9 F-98.8 F 99-108 20-20 119-132/55-82 99 GENERAL: NAD, awake, alert HEENT: No JVD, AC/NT, EOMI, DEXTER, [id number] mucosa LUNGS: CTA bilaterally, no wheezes, rales, rhonchi. no accessory muscle use. HEART: RRR, S1, S2 without murmur ABDOMEN: Soft, nontender, nondistended, normoactive bowel sounds, no guarding, no hepatosplenomegaly EXTREMITIES: 2+ DP pulses, warm, well-perfused, no edema. NEUROLOGICAL: Cranial nerves II through XII grossly intact. Normal speech, gait not observed. PSYCH: flat affect. SKIN: Warm, dry, no rashes or lesions noted Active Medications Generic Name Dose Route Start Last Admin Trade Name Freq PRN Reason Stop Dose Admin Acetaminophen 650 mg 01/16/17 01:35 01/19/17 11:43 Tylenol - PO 650 mg Q6H PRN Administration FEVER OR PAIN Amino Acids 30 ml 01/08/17 17:30 01/25/17 18:11 Prosource No Carb Liquid Pkt PO 30 ml BID@0800,1730 CYNTHIA Administration Amlodipine Besylate 5 mg 01/07/17 10:00 01/25/17 10:37 Norvasc - PO 5 mg DAILY CYNTHIA Administration Dexamethasone 4 mg 01/26/17 10:00 Decadron - PO DAILY CYNTHIA IV Flush 10 ml 01/08/17 19:00 01/21/17 09:26 Mikel-Cath Flush IVPUSH 10 ml PRN PRN Administration flush mikel cath IV Flush 10 ml 01/12/17 16:14 Mikel-Cath Flush IVPUSH PRN PRN after each use Loperamide HCl 2 mg 01/24/17 14:00 01/26/17 05:54 Imodium - PO 2 mg TID CYNTHIA Administration Megestrol Acetate 40 mg 01/11/17 14:00 01/25/17 21:35 Megace - PO 40 mg QID CYNTHIA Administration Mesalamine 800 mg 01/08/17 13:15 01/26/17 05:54 Asacol Hd - PO 800 mg TID CYNTHIA Administration Mesalamine 4 gm 01/12/17 21:00 01/25/17 10:35 Rowasa Enema - [place] Not Given DAILY CYNTHIA Mupirocin 1 applic 01/06/17 20:15 01/25/17 21:35 Bactroban 2% Ointment - TP 1 applic BID CYNTHIA Administration Ranitidine HCl 150 mg 01/12/17 10:00 01/25/17 10:35 Zantac - PO 150 mg DAILY CYNTHIA Administration ASSESSMENT/PLAN: 61yo F with h/o R breast ca with (dx '99; mets to brain, bone) s/p lumpectomy, radiation and chemo and whom completed hormonal therapy and on Xeloda currently every other week presented with generalized weakness and anorexia. Pt was found with ulcerative colitis with flare. Underwent complete brain mets WBRT. 1) Weakness --2/2 poor PO intake and metastatic cancer --Improving with Megace 40TID --Continue Ensure supplementation 2) R Breast Ca with brain mets --Completed WBRT --Off Xeloda for time being --Dexamethasone 4mg BID, however will begin to taper --Oncology input appreciated 3) Ulcerative Colitis --Panulcerative rectosigmoid colitis on scope --MEsalamine PO 800 TID due to refusal of mesalamine enema --GI input appreciated on outpt continuation of medications 4) Normocytic anemia --No evidence of bleed currently --H/H stablization and improved by itself --No need for transfusion at this time FEN: Fluids: No fluids currently Electrolyte abnormalities: Resolved; will replete as needed Nutrition: Ensure supplementation PPX DVT - SCDs; no pharm AC due to bleed Dispo: D/C pending social work placement; emphasized to pt need to walk/work with physical therapy and pt agreed Case discussed with Dr. Rachel Thomas, DO - Internal Medicine PGY-1 Visit type - Emergency Visit Emergency Visit: No - New Patient This patient is new to me today: No - Critical Care Critical Care patient: No
[2017-01-26 08:16] LABS: MCHC 31.8 g/dl (32.0-36.0); MEAN CELL VOLUME 91.3 fl (80-96); MEAN PLT VOLUME 6.7 fl (7.5-11.1); PLATELET COUNT 286 K/MM3 (134-434); RDW 18.6 % (11.6-15.6); WHITE BLOOD COUNT 11.8 K/mm3 (4.0-10.0)
[2017-01-26] MEDS: AMINO ACIDS/PROTEIN HYDROLYS 30 ML LIQUID.PKT PO SCH ×2 (11:07→18:50)
[2017-01-26] MEDS: MUPIROCIN 2% TOPICAL OINTMENT 22 GM TUBE TP SCH ×2 (11:07→21:59)
[2017-01-26] MEDS: DEXAMETHASONE 4 MG TABLET (FP) PO SCH (11:08)
[2017-01-26] MEDS: MESALAMINE 4 GM/60 ML ENEMA PR SCH (11:09)
[2017-01-26] MEDS: MEGESTROL ACETATE 40 MG TABLET PO SCH ×4 (11:09→21:58)
[2017-01-26] MEDS: RANITIDINE HCL 150 MG TABLET (FP) PO SCH (11:09)
[2017-01-26] MEDS: amLODIPine BESYLATE 5 MG TABLET (FP) PO SCH (11:09)
[2017-01-26] MEDS ORDERED: PT OWN MED DRAWER 7, Y5N ONE (13:38)
--- NOTE | 2017-01-26 14:03 | PN ---
Teaching Attending Note Name of Resident: Dakota Thomas ATTENDING PHYSICIAN STATEMENT: Time of evaluation: 10:30 AM I saw and evaluated the patient. I reviewed the resident's note and discussed the case with the resident. I agree with the resident's findings and plan as documented. SUBJECTIVE: Patient seen and examined, pleasant and interactive in bed, no new complaints. OBJECTIVE: Vital Signs Period Temp Pulse Resp BP Sys/Mulligan Pulse Ox Last 24 Hr 97.9 F-98.8 F 99-108 20-20 119-132/55-82 Intake & Output 01/23/17 01/24/17 01/25/17 01/26/17 23:59 23:59 23:59 23:59 Intake Total 457 535 7107 360 Balance 731 856 2945 360 General: lying in bed in no acute distress CVS;S1S2 regular Chest: no rales or wheezing abdomen: soft, NT, ND Home Medication List Medication Instructions Recorded Confirmed Type Amlodipine Besylate 5 mg PO DAILY 01/06/17 01/06/17 History Capecitabine 500 mg PO ASDIR 01/06/17 01/07/17 History Loperamide HCl [Loperamide] 2 mg PO PRN 01/06/17 01/07/17 History Pantoprazole Sodium 40 mg PO DAILY 01/06/17 01/06/17 History Potassium Chloride 20 meq PO ASDIR 01/06/17 01/07/17 History Active Medications Generic Name Dose Route Start Last Admin Trade Name Freq PRN Reason Stop Dose Admin Acetaminophen 650 mg 01/16/17 01:35 01/19/17 11:43 Tylenol - PO 650 mg Q6H PRN Administration FEVER OR PAIN Amino Acids 30 ml 01/08/17 17:30 01/26/17 11:07 Prosource No Carb Liquid Pkt PO 30 ml BID@0800,1730 CYNTHIA Administration Amlodipine Besylate 5 mg 01/07/17 10:00 01/26/17 11:09 Norvasc - PO 5 mg DAILY CYNTHIA Administration Dexamethasone 4 mg 01/26/17 10:00 01/26/17 11:08 Decadron - PO 4 mg DAILY CYNTHIA Administration IV Flush 10 ml 01/08/17 19:00 01/21/17 09:26 Mikel-Cath Flush IVPUSH 10 ml PRN PRN Administration flush mikel cath IV Flush 10 ml 01/12/17 16:14 Mikel-Cath Flush IVPUSH PRN PRN after each use Loperamide HCl 2 mg 01/24/17 14:00 01/26/17 13:27 Imodium - PO 2 mg TID CYNTHIA Administration Megestrol Acetate 40 mg 01/11/17 14:00 01/26/17 13:26 Megace - PO 40 mg QID CYNTHIA Administration Mesalamine 800 mg 01/08/17 13:15 01/26/17 13:26 Asacol Hd - PO 800 mg TID CYNTHIA Administration Mesalamine 4 gm 01/12/17 21:00 01/26/17 11:09 Rowasa Enema - [place] Not Given DAILY CYNTHIA Mupirocin 1 applic 01/06/17 20:15 01/26/17 11:07 Bactroban 2% Ointment - TP 1 applic BID CYNTHIA Administration Ranitidine HCl 150 mg 01/12/17 10:00 01/26/17 11:09 Zantac - PO 150 mg DAILY CYNTHIA Administration Laboratory Results - last 24 hr 01/26/17 06:40 WBC 11.8 H RBC 2.96 L Hgb 8.6 L Hct 27.0 L MCV 91.3 MCH 29.0 MCHC 31.8 L RDW 18.6 H Plt Count 286 MPV 6.7 L ASSESSMENT AND PLAN: 61yo F with PMH R breast ca with (mets to brain, bone, pleura) s/p lumpectomy, RTx and Chemo whom completed hormonal therapy and on Xeloda currently every other week presented with generalized weakness and anorexia, found with ulcerative colitis with flare, also brain mets s/p WBRT now for placement. -generalized weakness, suspect from failure to thrive/dehydration/progression of disease, improved. -Leucocytosis, suspect steroid induced, improved now, no clinical evidence of infection -Breast Cancer with diffuse mets including brain s/p WBRT (startd 01/13, last today). -Acute ulcerative colitis flare -Acute on chronic anemia, likely from anemia of chronic disease compounded by blood draws and UC flare, s/p 2units pRBC, transfuse prn. -Genital ulcer, +MSSA in woun, s/p 6 days of augmentin, no concerns now, wound care -Hypokalemia, resolved -Hypomagnesemia, resolved -Hypophosphatemia, replete prn. -Malnutrition -Thrombcocytopenia, resolved. -Stage II sacral decubitus ulcer Plan: PO intake improved. electrolyte abnormalities resolved S/p 10 sessions of WBRT completed today. Discuss with heme/onc for decadron taper and outpatient follow up. Start arimidex on d/c. WBC improved. H/h overall stable with no clinical evidence of bleed. DVTPPX with SCDs plan for d/c to [facility] pending CM input and disposition arrangements. Patient agreable.
--- NOTE | 2017-01-26 17:48 | PN ---
Progress Note (short form) - Note Progress Note: Patient completed radiation to the whole brani yesterday. No headaches, nausea, vomiting. may be discharged. Will follow as an out-patient
[2017-01-27] MEDS: MESALAMINE 800 MG TABLET.DR PO SCH ×3 (06:02→21:39)
[2017-01-27] MEDS: LOPERAMIDE HCL 2 MG CAPSULE PO SCH ×3 (06:02→21:38)
[2017-01-27 08:24] LABS: MCH 29.8 pg (25.7-33.7); MCHC 32.4 g/dl (32.0-36.0); PLATELET COUNT 266 K/MM3 (134-434); RDW 19.1 % (11.6-15.6); WHITE BLOOD COUNT 8.4 K/mm3 (4.0-10.0)
[2017-01-27 10:59] LABS: ANISOCYTOSIS 3+; BAND % 6.1 %; HYPOCHROMIA 1+; MACROCYTOSIS 0; MICROCYTOSIS 3+; MYELOCYTE 1 % (0-2); PLATELET ESTIMATE NORMAL; POIKILOCYTOSIS 1+; POLYCHROMASIA 2+; REACTIVE LYMPHOCYTES 0 % (0-80); TEAR DROP CELLS 1+
[2017-01-27] MEDS ORDERED: PT OWN MED DRAWER 7, Y5N ONE ×4 (11:31→19:09)
[2017-01-27] MEDS: MEGESTROL ACETATE 40 MG TABLET PO SCH ×4 (11:37→21:39)
[2017-01-27] MEDS: amLODIPine BESYLATE 5 MG TABLET (FP) PO SCH (11:37)
[2017-01-27] MEDS: RANITIDINE HCL 150 MG TABLET (FP) PO SCH (11:37)
[2017-01-27] MEDS: AMINO ACIDS/PROTEIN HYDROLYS 30 ML LIQUID.PKT PO SCH ×2 (11:37→17:28)
[2017-01-27] MEDS: DEXAMETHASONE 4 MG TABLET (FP) PO SCH (11:37)
[2017-01-27] MEDS: MESALAMINE 4 GM/60 ML ENEMA PR SCH (11:38)
[2017-01-27] MEDS: MUPIROCIN 2% TOPICAL OINTMENT 22 GM TUBE TP SCH ×2 (11:38→21:40)
[2017-01-27 12:06] LABS: METAMYELOCYTE 6 % (0-2)
[2017-01-27] MEDS ORDERED: ANASTROZOLE 1 MG TABLET PO SCH (16:45)
--- NOTE | 2017-01-27 17:06 | DS ---
Physical Exam: SUBJECTIVE: Patient seen and examined OBJECTIVE: Vital Signs Period Temp Pulse Resp BP Sys/Mulligan Pulse Ox Last 24 Hr 98.3 F-98.7 F 100-110 18-20 111-124/68-74 98 PHYSICAL EXAM GENERAL: The patient is awake, alert, and fully oriented, in no acute distress. HEAD: Normal with no signs of trauma. EYES: PERRL, extraocular movements intact, sclera anicteric, conjunctiva clear. ENT: Ears normal, nares patent, oropharynx clear without exudates, moist mucous membranes. NECK: Trachea midline, full range of motion, supple. LUNGS: Breath sounds equal, clear to auscultation bilaterally, no wheezes, no crackles, no accessory muscle use. HEART: Regular rate and rhythm, S1, S2 without murmur, rub or gallop. ABDOMEN: Soft, nontender, nondistended, normoactive bowel sounds, no guarding, no rebound, no hepatosplenomegaly, no masses. EXTREMITIES: 2+ pulses, warm, well-perfused, no edema. NEUROLOGICAL: Cranial nerves II through XII grossly intact. Normal speech, gait not observed. PSYCH: Normal mood, normal affect. SKIN: Warm, dry, normal turgor, no rashes or lesions noted. LABS Laboratory Results - last 24 hr 01/27/17 01/27/17 06:30 06:30 WBC 8.4 RBC 2.74 L Hgb 8.2 L Hct 25.2 L MCV 92.0 MCH 29.8 MCHC 32.4 RDW 19.1 H Plt Count 266 MPV 7.0 L Neutrophils % (Manual) 56.1 Band Neutrophils % 6.1 Lymphocytes % (Manual) 8.2 Monocytes % (Manual) 13 H D Eosinophils % (Manual) 1.0 D Basophils % (Manual) 0.0 Myelocytes % (Man) 1 D Metamyelocytes 6 H D Hypochromia 1+ Platelet Estimate Normal Polychromasia 2+ Poikilocytosis 1+ Basophilic Stippling 1+ Anisocytosis 3+ Microcytosis 3+ Macrocytosis 0 Tear Drop Cells 1+ Fragmented RBCs 1+ Blood Type A POSITIVE Antibody Screen Negative Crossmatch See Detail HOSPITAL COURSE: Date of Admission:01/06/17 Date of Discharge: 01/27/17 Discharge Summary Reason For Visit: HYPOKALEMIA, FAILURE TO THRIVE Current Active Problems Anemia (Acute) Breast cancer metastasized to multiple sites (Acute) Dehydration, mild (Acute) Leukocytosis (Acute) Ulcerative colitis (Chronic) Condition: Improved - Instructions Diet, Activity, Other Instructions: Please follow-up with Dr. Worley/Dr. Mon on February 04 at her office ( the number has been provided to you in the packet) Please follow-up with your general doctor --If you do not have a general medical doctor feel free to schedule with Dr. Flynn and Dr. Thomas at [phone] Please follow-up with Dr. Bell in 1-2 weeks regarding your Ulcerative Colitis If your symptoms worsen please call your general doctor or return to the nearest ER for further evaluation Medication: You will be given Mesalamin 800mg to be taken THREE times per day until you see Dr. Bell in office You will be given Arimadex to take ONCE per day until you see Dr. Worley or Dr. Mon in office A Decadron taper has been given to you --Please take 4mg once per day for the next 2 days --Afterwards take 2mg once per day until you see the oncologists in office Referrals: Bryan Flynn MD [Staff Physician] - Dat Linder MD [Primary Care Provider] - Eliel Bell MD [Staff Physician] - Amanda Hobson MD [Staff Physician] - Disposition: VNS/HOME HEALTH CARE - Home Medications Comprehensive Discharge Medication List: Ambulatory Orders Amlodipine Besylate 5 mg PO DAILY 01/06/17 Capecitabine 500 mg PO ASDIR 01/06/17 Loperamide HCl [Loperamide] 2 mg PO PRN 01/06/17 Pantoprazole Sodium 40 mg PO DAILY 01/06/17 Potassium Chloride 20 meq PO ASDIR 01/06/17 Anastrozole [Arimidex -] 1 mg PO DAILY #8 tablet 01/27/17 Dexamethasone [Decadron -] See Taper PO DAILY #8 tablet 01/27/17 Mesalamine [Asacol HD -] 800 mg PO TID #27 tablet. 01/27/17 Miscellaneous Medical Supply [Outpatient Order] 1 each ASDIR #1 misc This patient is new to me today: No Emergency Visit: No Critical Care patient: No - Discharge Referral Referred to [facility] No
--- NOTE | 2017-01-27 17:10 | PN ---
Progress Note (short form) - Note Progress Note: patient seen and examined. she denies any complains receiving blood O/E Cor: RSR, No murmurs, No gallops Lungs: Clear to P&A Abd: Soft, Normal bowel sounds, No organomegaly Ext:No significant edema Last Vital Signs Temp Pulse Resp BP Pulse Ox 98.7 F 110 H 18 111/68 98 01/27/17 15:29 01/27/17 15:29 01/27/17 15:29 01/27/17 15:29 01/26/17 21:00 CBC, BMP 01/27/17 06:30 01/22/17 06:00 Current Medications Generic Name Dose Route Start Last Admin Trade Name Freq PRN Reason Stop Dose Admin Acetaminophen 650 mg 01/16/17 01:35 01/19/17 11:43 Tylenol - PO 650 mg Q6H PRN Administration FEVER OR PAIN Amino Acids 30 ml 01/08/17 17:30 01/27/17 11:37 Prosource No Carb Liquid Pkt PO 30 ml BID@0800,1730 CYNTHIA Administration Amlodipine Besylate 5 mg 01/07/17 10:00 01/27/17 11:37 Norvasc - PO 5 mg DAILY CYNTHIA Administration Anastrozole 1 mg 01/27/17 16:45 Arimidex - PO DAILY CYNTHIA Dexamethasone 4 mg 01/26/17 10:00 01/27/17 11:37 Decadron - PO 4 mg DAILY CYNTHIA Administration IV Flush 10 ml 01/08/17 19:00 01/21/17 09:26 Kirill-Cath Flush IVPUSH 10 ml PRN PRN Administration flush kirill cath IV Flush 10 ml 01/12/17 16:14 Kirill-Cath Flush IVPUSH PRN PRN after each use Loperamide HCl 2 mg 01/24/17 14:00 01/27/17 15:27 Imodium - PO 2 mg TID CYNTHIA Administration Megestrol Acetate 40 mg 01/11/17 14:00 01/27/17 15:27 Megace - PO 40 mg QID CYNTHIA Administration Mesalamine 800 mg 01/08/17 13:15 01/27/17 15:27 Asacol Hd - PO 800 mg TID CYNTHIA Administration Mesalamine 4 gm 01/12/17 21:00 01/27/17 11:38 Rowasa Enema - [place] 4 gm DAILY CYNTHIA Administration Mupirocin 1 applic 01/06/17 20:15 01/27/17 11:38 Bactroban 2% Ointment - TP 1 applic BID CYNTHIA Administration Ranitidine HCl 150 mg 01/12/17 10:00 01/27/17 11:37 Zantac - PO 150 mg DAILY CYNTHIA Administration 61 y/o patient with metastatic breast cancer, brain mets, getting wbrt on dexamethasone for PRBC today dex 4mg until wednesday and then 2mg to taper as an OP started arimedex. to be continued through. Must be on the med-rec for Rehab, d/ w resident f/u in the office from rehab.
--- NOTE | 2017-01-27 18:13 | PN ---
Physical Exam: SUBJECTIVE: No acute events overnight. Pt has no complaints voiced. OBJECTIVE: Vital Signs Period Temp Pulse Resp BP Sys/Mulligan Pulse Ox Last 24 Hr 98.3 F-98.7 F 100-110 18-18 111-114/68-74 98 GENERAL: NAD, awake, alert HEENT: No JVD, AC/NT, EOMI, DEXTER, [id number] mucosa LUNGS: CTA bilaterally, no wheezes, rales, rhonchi. no accessory muscle use. HEART: RRR, S1, S2 without murmur ABDOMEN: Soft, nontender, nondistended, normoactive bowel sounds, no guarding, no hepatosplenomegaly EXTREMITIES: 2+ DP pulses, warm, well-perfused, no edema. NEUROLOGICAL: Cranial nerves II through XII grossly intact. Normal speech, gait not observed. PSYCH: flat affect. SKIN: Warm, dry, no rashes or lesions noted Laboratory Results - last 24 hr 01/27/17 01/27/17 06:30 06:30 WBC 8.4 RBC 2.74 L Hgb 8.2 L Hct 25.2 L MCV 92.0 MCH 29.8 MCHC 32.4 RDW 19.1 H Plt Count 266 MPV 7.0 L Neutrophils % (Manual) 56.1 Band Neutrophils % 6.1 Lymphocytes % (Manual) 8.2 Monocytes % (Manual) 13 H D Eosinophils % (Manual) 1.0 D Basophils % (Manual) 0.0 Myelocytes % (Man) 1 D Metamyelocytes 6 H D Hypochromia 1+ Platelet Estimate Normal Polychromasia 2+ Poikilocytosis 1+ Basophilic Stippling 1+ Anisocytosis 3+ Microcytosis 3+ Macrocytosis 0 Tear Drop Cells 1+ Fragmented RBCs 1+ Blood Type A POSITIVE Antibody Screen Negative Crossmatch See Detail Active Medications Generic Name Dose Route Start Last Admin Trade Name Freq PRN Reason Stop Dose Admin Acetaminophen 650 mg 01/16/17 01:35 01/19/17 11:43 Tylenol - PO 650 mg Q6H PRN Administration FEVER OR PAIN Amino Acids 30 ml 01/08/17 17:30 01/27/17 17:28 Prosource No Carb Liquid Pkt PO 30 ml BID@0800,1730 CYNTHIA Administration Amlodipine Besylate 5 mg 01/07/17 10:00 01/27/17 11:37 Norvasc - PO 5 mg DAILY CYNTHIA Administration Anastrozole 1 mg 01/27/17 16:45 Arimidex - PO DAILY CYNTHIA Dexamethasone 4 mg 01/26/17 10:00 01/27/17 11:37 Decadron - PO 4 mg DAILY CYNTHIA Administration IV Flush 10 ml 01/08/17 19:00 01/21/17 09:26 Mikel-Cath Flush IVPUSH 10 ml PRN PRN Administration flush mikel cath IV Flush 10 ml 01/12/17 16:14 Mikel-Cath Flush IVPUSH PRN PRN after each use Loperamide HCl 2 mg 01/24/17 14:00 01/27/17 15:27 Imodium - PO 2 mg TID CYNTHIA Administration Megestrol Acetate 40 mg 01/11/17 14:00 01/27/17 17:29 Megace - PO 40 mg QID CYNTHIA Administration Mesalamine 800 mg 01/08/17 13:15 01/27/17 15:27 Asacol Hd - PO 800 mg TID CYNTHIA Administration Mesalamine 4 gm 01/12/17 21:00 01/27/17 11:38 Rowasa Enema - [place] 4 gm DAILY CYNTHIA Administration Mupirocin 1 applic 01/06/17 20:15 01/27/17 11:38 Bactroban 2% Ointment - TP 1 applic BID CYNTHIA Administration Ranitidine HCl 150 mg 01/12/17 10:00 01/27/17 11:37 Zantac - PO 150 mg DAILY CYNTHIA Administration ASSESSMENT/PLAN: 61yo F with h/o R breast ca with (dx '99; mets to brain, bone) s/p lumpectomy, radiation and chemo and whom completed hormonal therapy and on Xeloda currently every other week presented with generalized weakness and anorexia. Pt was found with ulcerative colitis with flare. Underwent complete brain mets WBRT. 1) Weakness --2/2 poor PO intake and metastatic cancer --Improving with Megace 40TID --Continue Ensure supplementation 2) R Breast Ca with brain mets --Completed WBRT --Oncology and rad-onc on board --Will start Arimadex 1mg qDaily per oncology --Dexamethasone taper: 4mg x2 days, 2mg until seen in oncology offices 3) Ulcerative Colitis --Panulcerative rectosigmoid colitis on scope --MEsalamine PO 800 TID to be continued --GI outpatient follow-up 4) Normocytic anemia --No evidence of bleed currently --s/p 1UPRBC per oncology with appropriate increase in H/H FEN: Fluids: No fluids currently Electrolyte abnormalities: Resolved Nutrition: Ensure supplementation PPX DVT - SCDs; no pharm AC due to bleed risk Dispo: D/C to [facility] within 24hrs; pt and family agreeable on disposition Case discussed with Dr. Rachel Thomas, DO - Internal Medicine PGY-1 Visit type - Emergency Visit Emergency Visit: No - New Patient This patient is new to me today: No - Critical Care Critical Care patient: No
--- NOTE | 2017-01-27 19:12 | PN ---
Teaching Attending Note Name of Resident: Dakota Thomas ATTENDING PHYSICIAN STATEMENT Time of evaluation: 12:15 PM I saw and evaluated the patient. I reviewed the resident's note and discussed the case with the resident. I agree with the resident's findings and plan as documented. SUBJECTIVE: Patient seen and examined, no complaints. OBJECTIVE: Vital Signs Period Temp Pulse Resp BP Sys/Mulligan Pulse Ox Last 24 Hr 98.3 F-98.7 F 100-110 18-18 111-114/68-74 98 Intake & Output 01/24/17 01/25/17 01/26/17 01/27/17 23:59 23:59 23:59 23:59 Intake Total 880 1010 596 590 Balance 880 1010 596 590 General: sitting in bed in no acute distress CVS:S1S2 regular Chest: No rales or wheezing Abdomen: soft, NT, ND, positive bowel sounds Home Medication List Medication Instructions Recorded Confirmed Type Amlodipine Besylate 5 mg PO DAILY 01/06/17 01/06/17 History Capecitabine 500 mg PO ASDIR 01/06/17 01/07/17 History Loperamide HCl [Loperamide] 2 mg PO PRN 01/06/17 01/07/17 History Pantoprazole Sodium 40 mg PO DAILY 01/06/17 01/06/17 History Potassium Chloride 20 meq PO ASDIR 01/06/17 01/07/17 History Active Medications Generic Name Dose Route Start Last Admin Trade Name Freq PRN Reason Stop Dose Admin Acetaminophen 650 mg 01/16/17 01:35 01/19/17 11:43 Tylenol - PO 650 mg Q6H PRN Administration FEVER OR PAIN Amino Acids 30 ml 01/08/17 17:30 01/27/17 17:28 Prosource No Carb Liquid Pkt PO 30 ml BID@0800,1730 CYNTHIA Administration Amlodipine Besylate 5 mg 01/07/17 10:00 01/27/17 11:37 Norvasc - PO 5 mg DAILY CYNTHIA Administration Anastrozole 1 mg 01/27/17 16:45 Arimidex - PO DAILY CYNTHIA Dexamethasone 4 mg 01/26/17 10:00 01/27/17 11:37 Decadron - PO 4 mg DAILY CYNTHIA Administration IV Flush 10 ml 01/08/17 19:00 01/21/17 09:26 Mikel-Cath Flush IVPUSH 10 ml PRN PRN Administration flush mikel cath IV Flush 10 ml 01/12/17 16:14 Mikel-Cath Flush IVPUSH PRN PRN after each use Loperamide HCl 2 mg 01/24/17 14:00 01/27/17 15:27 Imodium - PO 2 mg TID CYNTHIA Administration Megestrol Acetate 40 mg 01/11/17 14:00 01/27/17 17:29 Megace - PO 40 mg QID CYNTHIA Administration Mesalamine 800 mg 01/08/17 13:15 01/27/17 15:27 Asacol Hd - PO 800 mg TID CYNTHIA Administration Mesalamine 4 gm 01/12/17 21:00 01/27/17 11:38 Rowasa Enema - WI 4 gm DAILY CYNTHIA Administration Mupirocin 1 applic 01/06/17 20:15 01/27/17 11:38 Bactroban 2% Ointment - TP 1 applic BID CYNTHIA Administration Ranitidine HCl 150 mg 01/12/17 10:00 01/27/17 11:37 Zantac - PO 150 mg DAILY CYNTHIA Administration Laboratory Results - last 24 hr 01/27/17 01/27/17 06:30 06:30 WBC 8.4 RBC 2.74 L Hgb 8.2 L Hct 25.2 L MCV 92.0 MCH 29.8 MCHC 32.4 RDW 19.1 H Plt Count 266 MPV 7.0 L Neutrophils % (Manual) 56.1 Band Neutrophils % 6.1 Lymphocytes % (Manual) 8.2 Monocytes % (Manual) 13 H D Eosinophils % (Manual) 1.0 D Basophils % (Manual) 0.0 Myelocytes % (Man) 1 D Metamyelocytes 6 H D Hypochromia 1+ Platelet Estimate Normal Polychromasia 2+ Poikilocytosis 1+ Basophilic Stippling 1+ Anisocytosis 3+ Microcytosis 3+ Macrocytosis 0 Tear Drop Cells 1+ Fragmented RBCs 1+ Blood Type A POSITIVE Antibody Screen Negative Crossmatch See Detail ASSESSMENT AND PLAN: 61yo F with PMH R breast ca with (mets to brain, bone, pleura) s/p lumpectomy, RTx and Chemo whom completed hormonal therapy and on Xeloda currently every other week presented with generalized weakness and anorexia, found with ulcerative colitis with flare, also brain mets s/p WBRT now for placement. -generalized weakness, suspect from failure to thrive/dehydration/progression of disease, improved. -Leucocytosis, suspect steroid induced, improved now, no clinical evidence of infection -Breast Cancer with diffuse mets including brain s/p WBRT (startd 01/13, last today). -Acute ulcerative colitis flare -Acute on chronic anemia, likely from anemia of chronic disease compounded by blood draws and UC flare, s/p 2units pRBC, transfuse prn. -Genital ulcer, +MSSA in woun, s/p 6 days of augmentin, no concerns now, wound care -Hypokalemia, resolved -Hypomagnesemia, resolved -Hypophosphatemia, replete prn. -Malnutrition -Thrombcocytopenia, resolved. -Stage II sacral decubitus ulcer Plan: PO intake improved. electrolyte abnormalities resolved S/p 10 sessions of WBRT completed today. Discuss with heme/onc for decadron taper and outpatient follow up. Start arimidex on d/c. WBC improved. H/h overall stable with no clinical evidence of bleed. s/p 1unit PRBC per heme/ onc today. started on arimidex. Decadron taper over 1 week. DVTPPX with SCDs plan for d/c to [facility] in 24 hours, disposition arranged. discussed with patient, silva.
[2017-01-28] MEDS: LOPERAMIDE HCL 2 MG CAPSULE PO SCH (06:15)
[2017-01-28] MEDS: MESALAMINE 800 MG TABLET.DR PO SCH (06:15)
[2017-01-28 06:16] VITALS: BP 134/77; PULSE 94; TEMP 98.1
--- NOTE | 2017-01-28 06:46 | DS ---
Physical Exam: SUBJECTIVE: No complaints last night. Pt eager to go to rehab. No acute events overnight OBJECTIVE: Vital Signs Period Temp Pulse Resp BP Sys/Mulligan Pulse Ox Last 24 Hr 98.1 F-98.7 F 93-110 18-20 111-134/68-79 98-99 PHYSICAL EXAM GENERAL: NAD, awake, alert HEENT: No JVD, AC/NT, EOMI, DEXTER, [id number] mucosa LUNGS: CTA bilaterally, no wheezes, rales, rhonchi. no accessory muscle use. HEART: RRR, S1, S2 without murmur ABDOMEN: Soft, nontender, nondistended, normoactive bowel sounds, no guarding, no hepatosplenomegaly EXTREMITIES: 2+ DP pulses, warm, well-perfused, no edema. NEUROLOGICAL: Cranial nerves II through XII grossly intact. Normal speech, gait not observed. PSYCH: flat affect. SKIN: Warm, dry, no rashes or lesions noted LABS Laboratory Results - last 24 hr 01/27/17 01/27/17 06:30 06:30 WBC 8.4 RBC 2.74 L Hgb 8.2 L Hct 25.2 L MCV 92.0 MCH 29.8 MCHC 32.4 RDW 19.1 H Plt Count 266 MPV 7.0 L Neutrophils % (Manual) 56.1 Band Neutrophils % 6.1 Lymphocytes % (Manual) 8.2 Monocytes % (Manual) 13 H D Eosinophils % (Manual) 1.0 D Basophils % (Manual) 0.0 Myelocytes % (Man) 1 D Metamyelocytes 6 H D Hypochromia 1+ Platelet Estimate Normal Polychromasia 2+ Poikilocytosis 1+ Basophilic Stippling 1+ Anisocytosis 3+ Microcytosis 3+ Macrocytosis 0 Tear Drop Cells 1+ Fragmented RBCs 1+ Blood Type A POSITIVE Antibody Screen Negative Crossmatch See Detail Microbiology 01/06/17 16:00 Blood - Peripheral Venous Blood Culture - Final NO GROWTH AFTER 5 DAYS INCUBATION 01/06/17 16:00 Blood - Peripheral Venous Blood Culture - Final NO GROWTH AFTER 5 DAYS INCUBATION 01/06/17 23:39 Wound Gram Stain - Final 01/06/17 23:39 Wound Wound Culture - Final Staphylococcus Aureus 01/07/17 00:53 Urine - Urine Clean Catch Urine Culture - Final Additional Imaging: Vascular study 12/11 - No evidence of DVT and L popliteal Noland's cyst noted to be 2.5x2.5x1.0 HOSPITAL COURSE: Date of Admission:01/06/17 Date of Discharge: 01/28/17 61yo F with significant history of Rt. Breast carcinoma (first diagnosed in 1998 via lumpectomy followed by RT/chemo/5yrs of tamoxifen and arimedex with multiple mets including brain found in 03/2016) who was found to be dehyrdated and having decreased PO tolerance due to decreased appetite. Pt was rehydrated and given ensure supplementation which corrected her dehydration. Pt was also found to have a L genital ulceration that when cultures was found to have MSSA. Pt received a full course of 7 days of Augmentin. In addition pt had recent diagnosis of brain metastases noted on a recent outpatient basis and during her hospital stay she received WBRT for a full course of 10 treatments via radiation -oncology consultation. Per oncology pt was started on Decadron 4mg qDaily and will receive a taper upon discharge. Pt also received one dose of Arimadex prior to discharge with instructions per oncology to continue until her office visit on Feb 11. Unfortunately pt's hemoglobin decreased to a minimum of 7.7 during her stay, however without intervention she improved to 8.2. Per oncology pt was administered 1UPRBC with resolution of hemoglobin to 9.0. Pt's hospitalization was also complicated by a UC flare which was confirmed by colonoscopy showing: colitis found in rectum and sigmoid colon with friable nodular, and edematous mucosa dispalying loss of vascularity. Pt was started on Mesalamine enemas, however refused the enemas prompting us to administered Mesalamine 800mg TID PO. In addition pt's hemoglobin decreased to a trough of 7.7, however pt improved to 8.2 without intervention. Pt is being discharged in a stable condition to a [facility] facility with instructions to follow-up with GI and oncology on an outpatient basis. She is being discharged on a Decadron taper, Arimadex, and Mesalamine PO. Pt understands instructions and agrees to plan. Minutes to complete discharge: 36 Discharge Summary Reason For Visit: HYPOKALEMIA, FAILURE TO THRIVE Current Active Problems Anemia (Acute) Breast cancer metastasized to multiple sites (Acute) Dehydration, mild (Acute) Leukocytosis (Acute) Ulcerative colitis (Chronic) Condition: Improved - Instructions Diet, Activity, Other Instructions: Please follow-up with Dr. Worley/Dr. Mon on February 11 at her office ( the number has been provided to you in the packet) Please follow-up with your general doctor --If you do not have a general medical doctor feel free to schedule with Dr. Flynn and Dr. Thomas at [phone] Please follow-up with Dr. Bell in 1-2 weeks regarding your Ulcerative Colitis If your symptoms worsen please call your general doctor or return to the nearest ER for further evaluation Medication: You will be given Mesalamin 800mg to be taken THREE times per day until you see Dr. Bell in office You will be given Arimadex to take ONCE per day until you see Dr. Worley or Dr. Mon in office A Decadron taper has been given to you --Please take 4mg once per day for the next 2 days --Afterwards take 2mg once per day until you see the oncologists in office 24 hour supervision and assistance with activities needed. CBC, Chem-7, Mg, Phos (blood work with your doctor in 1 week). Referrals: Bryan Flynn MD [Staff Physician] - Dat Linder MD [Primary Care Provider] - Eliel Bell MD [Staff Physician] - Amanda Hobson MD [Staff Physician] - Disposition: [facility] - Home Medications Comprehensive Discharge Medication List: Ambulatory Orders Amlodipine Besylate 5 mg PO DAILY 01/06/17 Capecitabine 500 mg PO ASDIR 01/06/17 Loperamide HCl [Loperamide] 2 mg PO PRN 01/06/17 Pantoprazole Sodium 40 mg PO DAILY 01/06/17 Potassium Chloride 20 meq PO ASDIR 01/06/17 Anastrozole [Arimidex -] 1 mg PO DAILY #8 tablet 01/27/17 Dexamethasone [Decadron -] See Taper PO DAILY #8 tablet 01/27/17 Mesalamine [Asacol HD -] 800 mg PO TID #27 tablet. 01/27/17 Miscellaneous Medical Supply [Outpatient Order] 1 each ASDIR #1 misc This patient is new to me today: No Emergency Visit: No Critical Care patient: No - Discharge Referral Referred to [facility] Med P.C.: No
[2017-01-28 08:08] LABS: MCH 29.7 pg (25.7-33.7); MCHC 33.7 g/dl (32.0-36.0); MEAN CELL VOLUME 88.2 fl (80-96); MEAN PLT VOLUME 6.8 fl (7.5-11.1); PLATELET COUNT 256 K/MM3 (134-434); RDW 17.2 % (11.6-15.6); WHITE BLOOD COUNT 7.9 K/mm3 (4.0-10.0)
[2017-01-28 08:34] LABS: ANION GAP 9 (8-16); CALCIUM 8.3 mg/dL (8.5-10.1); CO2 29 mmol/L (21-32); CREATININE 0.3 mg/dL (0.55-1.02); GLUCOSE,RANDOM 69 mg/dL (74-106)
[2017-01-28] MEDS: AMINO ACIDS/PROTEIN HYDROLYS 30 ML LIQUID.PKT PO SCH (09:00)
[2017-01-28] MEDS ORDERED: POTASSIUM CHLORIDE TABS 20 MEQ TABLET.ER (FP) PO ONE (09:00)
== END 2017-01-28 10:14 | DRG 641 ==
LOC: JER 14:17 → JERBED 20:33 → J8W 01-07 03:51
PROVIDERS: ADMIT Internal Medicine; ATTEND Hospitalist
PROC: 30233H1 Transfusion of Nonautologous Whole Blood into Peripheral Vein, Percutaneous Approach (ICD-10-PCS; principal; 2017-01-07)
DX: E87.6 Hypokalemia (principal); C79.51 Secondary malignant neoplasm of bone; N17.9 Acute kidney failure, unspecified; C79.32 Secondary malignant neoplasm of cerebral meninges; E46 Unspecified protein-calorie malnutrition; K51.90 Ulcerative colitis, unspecified, without complications; L89.152 Pressure ulcer of sacral region, stage 2; R62.7 Adult failure to thrive; E87.2 Acidosis; E86.0 Dehydration; Z85.3 Personal history of malignant neoplasm of breast; Z87.891 Personal history of nicotine dependence; I45.81 Long QT syndrome; R51 Headache; D50.9 Iron deficiency anemia, unspecified; N76.6 Ulceration of vulva; D63.8 Anemia in other chronic diseases classified elsewhere; E83.52 Hypercalcemia; Z68.24 Body mass index [BMI] 24.0-24.9, adult; B95.61 Methicillin susceptible Staphylococcus aureus infection as the cause of diseases classified elsewhere; E83.42 Hypomagnesemia; R00.0 Tachycardia, unspecified; D69.6 Thrombocytopenia, unspecified; E83.39 Other disorders of phosphorus metabolism; D72.829 Elevated white blood cell count, unspecified
CPT/HCPCS: 36415; 36430; 36511; 71010-TC; 80048; 80053; 81003; 81015; 82550; 82728; 83010; 83540; 83550; 83605; 83615; 83690; 83735; 84100; 84439; 84443; 84484; 84550; 85025; 85027; 85610; 86593; 86850; 86880; 86900; 86901; 86922; 87040; 87070; 87086; 87177; 87186; 87205; 87209; 88305-TC; 93005; 93010; 93970-TC; 97116-GP; 97161-GP; 99285-25; J1644; J8999; P9038; P9058

== ENCOUNTER 2017-02-17 15:31 | Inpatient (IN) | payer OTHER ==
--- NOTE | 2017-02-17 15:41 | PDOC ---
Rapid Medical Evaluation Time Seen by Provider: 02/17/17 15:36 Medical Evaluation: Allergies Allergy/AdvReac Type Severity Reaction Status Date / Time No Known Allergies Allergy Verified 01/06/17 14:28 02/17/17 15:36 I have performed a brief in-person evaluation of this patient. The patient presents with a chief complaint of: weakness x 1 month, seen by GI MD Dr. Bell today, sent for dehydration, hx of ulcerative colitis and breast cancer Pertinent physical exam findings: weak appearing, dry mucus membranes I have ordered the following: EKG, CBC, CMP, PT/INR, Mg, Phos, IV The patient will proceed to the ED for further evaluation. Discharge Disposition - Diagnosis Weakness - Referrals - Patient Instructions - Post Discharge Activity
[2017-02-17 15:44] VITALS: BMI 23.3
--- NOTE | 2017-02-17 16:15 | PDOC ---
History of Present Illness - General Chief Complaint: Weakness Stated Complaint: DEHYDRATED Time Seen by Provider: 02/17/17 15:36 - History of Present Illness Initial Comments: 02/17/17 16:15 Ms. Matthews is a 61 yo female w/ pmh of breast cancer likely metastatic currently on Xeloda who presents from GI clinic for dehydration. She currently has no complaints however says she does barely has any PO intake. The patient denies chest pain, shortness of breath, headache and dizziness. Denies fever, chills, nausea, vomit, diarrhea and constipation. Denies dysuria, frequency, urgency and hematuria. Allergies: NKDA Past History - Past Medical History Allergies/Adverse Reactions: Allergies Allergy/AdvReac Type Severity Reaction Status Date / Time No Known Allergies Allergy Verified 01/06/17 14:28 Home Medications: Ambulatory Orders Amlodipine Besylate 5 mg PO DAILY 01/06/17 Capecitabine 500 mg PO ASDIR 01/06/17 Loperamide HCl [Loperamide] 2 mg PO PRN 01/06/17 Pantoprazole Sodium 40 mg PO DAILY 01/06/17 Potassium Chloride 20 meq PO ASDIR 01/06/17 Acetaminophen [Tylenol .Regular Strength -] 650 mg PO Q6H PRN tablet 01/28/17 Amino Acids/Protein Hydrolys [Prosource No Carb Liquid Pkt] 30 ml PO BID@0800, 1730 packet 01/28/17 Anastrozole [Arimidex -] 1 mg PO DAILY tablet 01/28/17 Dexamethasone [Decadron -] See Taper PO DAILY #8 tablet 01/28/17 Megestrol Acetate [Megace -] 40 mg PO QID tablet 01/28/17 Mesalamine [Asacol HD -] 800 mg PO TID tablet. 01/28/17 Kirill-Cath Flush [Kirill-Cath Flush -] 10 ml IVPUSH PRN PRN ml 01/28/17 Anemia: No Cancer: Yes (Breast CA) COPD: No GI Disorders: Yes (ULCERATIVE COLITIS.) Other medical history: Ulcerative Colitis - Suicide/Smoking/Psychosocial Hx Smoking Status: Yes Smoking History: Former smoker Have you smoked in the past 12 months: No Number of Cigarettes Smoked Daily: 0 If you are a former smoker, when did you quit?: 15 YRS Information on smoking cessation initiated: No 'Breaking Loose' booklet given: 07/09/15 Hx Alcohol Use: No Drug/Substance Use Hx: No Substance Use Type: None Hx Substance Use Treatment: No Review of Systems - Review of Systems Comments:: 02/17/17 19:58 GENERAL/CONSTITUTIONAL: +Generalized chronic weakness. No fever or chills. HEAD, EYES, EARS, NOSE AND THROAT: No change in vision. No ear pain or discharge. No sore throat. CARDIOVASCULAR: No chest pain or shortness of breath RESPIRATORY: No cough, wheezing, or hemoptysis. GASTROINTESTINAL: No nausea, vomiting, diarrhea or constipation. GENITOURINARY: No dysuria, frequency, or change in urination. MUSCULOSKELETAL: No joint or muscle swelling or pain. No neck or back pain. SKIN: No rash NEUROLOGIC: No headache, vertigo, loss of consciousness, or change in strength/ sensation. ENDOCRINE: No increased thirst. No abnormal weight change HEMATOLOGIC/LYMPHATIC: No anemia, easy bleeding, or history of blood clots. ALLERGIC/IMMUNOLOGIC: No hives or skin allergy. *Physical Exam - Vital Signs Last Vital Signs Temp Pulse Resp BP Pulse Ox 120 H 22 122/65 99 02/17/17 15:35 02/17/17 15:35 02/17/17 15:35 02/17/17 15:35 - Physical Exam Comments: 02/17/17 19:58 GENERAL: +Patient very thin and frail appearing. Awake, alert, and fully oriented, in no acute distress HEAD: No signs of trauma, normocephalic, atraumatic EYES: PERRLA, EOMI, sclera anicteric, conjunctiva clear ENT: Auricles normal inspection, hearing grossly normal, nares patent, oropharynx clear without exudates. Moist mucosa NECK: Normal ROM, supple, no lymphadenopathy, JVD, or masses LUNGS: No distress, speaks full sentences, clear to auscultation bilaterally HEART: Regular rate and rhythm, normal S1 and S2, no murmurs, rubs or gallops, peripheral pulses normal and equal bilaterally. ABDOMEN: Soft, nontender, normoactive bowel sounds. No guarding, no rebound. No masses EXTREMITIES: Normal inspection, Normal range of motion, no edema. No clubbing or cyanosis. NEUROLOGICAL: Cranial nerves II through XII grossly intact. Normal speech, no focal sensorimotor deficits SKIN: Warm, Dry, normal turgor, no rashes or lesions noted. ED Treatment Course - LABORATORY CBC & Chemistry Diagram: 02/17/17 16:50 02/17/17 16:50 Medical Decision Making - Medical Decision Making 02/17/17 19:29 Ms. Matthews is a 61 yo female w/ pmh of breast cancer who presents from GI clinic with tachycardia. On exam found to have QTc prolongation on EKG as well as elevated troponin levels. Patient admitted for further cardiac workup. Chest CTA also ordered for PE r/o. *DC/Admit/Observation/Transfer Diagnosis at time of Disposition: Weakness, Elevated troponin - Discharge Dispostion Admit: Yes - Referrals Referrals: Dat Linder MD [Primary Care Provider] - - Patient Instructions - Post Discharge Activity
[2017-02-17] MEDS ORDERED: SODIUM CHLORIDE 1,000 ML IV STA (16:25)
--- NOTE | 2017-02-17 16:26 | PDOC ---
Attending Attestation - HPI HPI: 02/17/17 20:09 Patient is a 61 year old female with a significant past medical history of Breast Cancer, Colitis, who presents to the ED after being sent by MD for dehydration. As per patient's , patient was taken to her GI appointment this morning when she was referred to the ED for increased dehydration as well as increased heart rate, and weakness. Patient reports her next chemo appointment is scheduled for February 26. Denies chest pain, SOB. Denies nausea, vomiting. Denies fevers, chills. Denies contact with sick individuals, out of state travelling. Denies any other symptoms. Allergies: None Social history: Lives with . Former smoker (15 years). No alcohol. No illicit drugs. Surgical history: colonoscopy (2 weeks ago) PMD: Dr. Linder Oncologist: Dr. Lopez - Physicial Exam PE: 02/17/17 20:09 GENERAL: Awake, alert, and fully oriented, in no acute distress HEAD: No signs of trauma EYES: PERRLA, EOMI, sclera anicteric, conjunctiva clear ENT: +Dry mucous membrane. Auricles normal inspection, hearing grossly normal, nares patent, oropharynx clear without exudates. NECK: Normal ROM, supple, no lymphadenopathy, JVD, or masses CHEST: +Port catheter on right side. No erythema. LUNGS: Breath sounds equal, clear to auscultation bilaterally. No wheezes, and no crackles HEART: +Tachycardic. Regular rate and rhythm, normal S1 and S2, no murmurs, rubs or gallops ABDOMEN: Soft, nontender, normoactive bowel sounds. No guarding, no rebound. No masses EXTREMITIES: Normal range of motion, no edema. No clubbing or cyanosis. No cords, erythema, or tenderness NEUROLOGICAL: Cranial nerves II through XII grossly intact. Normal speech, normal gait SKIN: +Tinted skin Warm, Dry, no rashes or lesions noted. - Medical Decision Making 02/17/17 20:09 Documentation prepared by Giles Pastrana, acting as chief medical physicist for Irma Boothe DO, MD/. <Giles Pastrana - Last Filed: 02/17/17 20:09> - Resident Resident Name: Jack Velásquez - ED Attending Attestation I have performed the following: I have examined & evaluated the patient, The case was reviewed & discussed with the resident, I agree w/resident's findings & plan, Exceptions are as noted - Medical Decision Making 02/17/17 16:26 I, Dr. Irma Boothe, DO, attest that this document has been prepared under my direction and personally reviewed by me in its entirety. I further attest, that it accurately reflects all work, treatment, procedures and medical decision -making performed by me. 02/17/17 16:44 a/p: 61yo female with breast ca - next treatment is Feb 26 -sent from GI for eval of dehydration and generalized weakness -appears dry and tachy on exam -no fevers/chills -will check labs, ekg, cxr, ua -will give ivf hydration -will check electrolytes -limited PO intake recently 02/17/17 16:47 pt with ischemic lateral changes on ekg, will add cardiac enzymes 02/17/17 17:21 cbc reviewed - no acute findings from prior cxr clear pending ua and chem ivf hydration running 02/17/17 19:14 pt will need admission for NSTEMI elevated troponin dehydration low potassium prolonged qt on ekg 02/17/17 19:35 pt will be admitted to dr. larios call placed to dr. cabezas for cardiology family updated and agrees with the plan 02/18/17 01:02 pt with RLL infiltrate on ct will start abx, cultures, ivf hydration continued, tylenol will obtain rectal temp <Irma Boothe - Last Filed: 02/18/17 01:02> Heart Score/ECG Review - ECG Intrepretation Comment:: 02/17/17 16:45 sinus tach at 134, nl axis, qtc 561, mild st depression lateral leads, abnl ekg <Irma Boothe - Last Filed: 02/18/17 01:02>
[2017-02-17 17:00] LABS: HEMATOCRIT 36.3 % (32.4-45.2); HEMOGLOBIN 11.6 GM/dL (10.7-15.3); MCH 30.2 pg (25.7-33.7); MCHC 32.1 g/dl (32.0-36.0); MEAN CELL VOLUME 94.2 fl (80-96); PLATELET COUNT 309 K/MM3 (134-434); RBC 3.85 M/mm3 (3.60-5.2); RDW 22.2 % (11.6-15.6); WHITE BLOOD COUNT 9.3 K/mm3 (4.0-10.0)
[2017-02-17 17:01] LABS: ADD RBC MORPHOLOGY YES
[2017-02-17 17:48] LABS: ANION GAP 18 (8-16); BLOOD UREA NITROGEN 38 mg/dL (7-18); CALCIUM 8.6 mg/dL (8.5-10.1); CHLORIDE 96 mmol/L (98-107); CO2 22 mmol/L (21-32); GLUCOSE,RANDOM 108 mg/dL (74-106); PHOSPHOROUS 4.5 mg/dL (2.5-4.9); SGOT/AST 22 U/L (15-37); SGPT/ALT 7 U/L (12-78); SODIUM 136 mmol/L (136-145)
[2017-02-17 17:51] LABS: ALK PHOS 381 U/L (45-117); TOT PROT 5.8 g/dl (6.4-8.2)
[2017-02-17] MEDS ORDERED: POTASSIUM CHLORIDE ORAL LIQUID 20 MEQ/15 ML PO ONE (18:09)
[2017-02-17] MEDS ORDERED: MAGNESIUM SULF 50% (8.12 MEQ/2 ML-1 GM VIAL) IVPB ONE (18:10)
[2017-02-17] MEDS ORDERED: KCL 10 MEQ IVPB 10 MEQ/100 ML INFUS.BAG IVPB SCH (18:15)
[2017-02-17] MEDS ORDERED: MAGNESIUM SULF 50% (8.12 MEQ/2 ML-1 GM VIAL) ONE (18:45)
[2017-02-17] MEDS ORDERED: POTASSIUM CHLORIDE ORAL LIQUID 20 MEQ/15 ML ONE (18:45)
[2017-02-17] MEDS ORDERED: KCL 10 MEQ IVPB 10 MEQ/100 ML INFUS.BAG IVPB ONE (18:46)
[2017-02-17] MEDS ORDERED: ASPIRIN 81 MG CHEWABLE TABLETS PO ONE (19:14)
[2017-02-17] MEDS ORDERED: SODIUM CHLORIDE 0.9% 1000 ML INFUS.BAG IV ONE (19:14)
--- NOTE | 2017-02-17 20:02 | HP ---
CHIEF COMPLAINT: severe dehydration PCP: Dr. Linder HISTORY OF PRESENT ILLNESS: 61yo F with significant PMHx of Rt. Breast carcinoma (first diagnosed in 1998 via lumpectomy followed by RT/chemo/5yrs of tamoxifen and arimedex with multiple mets including brain found in 03/2016) who presented to the ED for PO intolerance and generalized weakness. Her states she has chronically decreased PO intake secondary to malignancy and has consistently lost weight for the past year and a half. She denies any pain, headache, blurry vision, pain in legs, diarrhea, nausea, vomiting, palpitations, heart racing, SOB. ER course was notable for: (1) CBC, CMP (2) CXR negative for acute process (3) CTA to R/o PE - Wells Score 2.5 (4) Trop 0.39, AG 18, LA 5.3 Recent Travel:denies PAST MEDICAL HISTORY: as per HPI PAST SURGICAL HISTORY: Thyroidectomy, ? Social History: Smoking:former, socially Alcohol:former, socially Drugs: never Family History: Allergies No Known Allergies Allergy (Verified 01/06/17 14:28) HOME MEDICATIONS: Home Medications Medication Instructions Recorded Amlodipine Besylate 5 mg PO DAILY 01/06/17 Capecitabine 500 mg PO ASDIR 01/06/17 Loperamide HCl [Loperamide] 2 mg PO PRN 01/06/17 Pantoprazole Sodium 40 mg PO DAILY 01/06/17 Potassium Chloride 20 meq PO ASDIR 01/06/17 Acetaminophen [Tylenol .Regular 650 mg PO Q6H PRN tablet 01/28/17 Strength -] Amino Acids/Protein Hydrolys 30 ml PO BID@0800,1730 packet 01/28/17 [Prosource No Carb Liquid Pkt] Anastrozole [Arimidex -] 1 mg PO DAILY tablet 01/28/17 Dexamethasone [Decadron -] See Taper PO DAILY #8 tablet 01/28/17 Megestrol Acetate [Megace -] 40 mg PO QID tablet 01/28/17 Mesalamine [Asacol HD -] 800 mg PO TID tablet. 01/28/17 Kirill-Cath Flush [Kirill-Cath Flush 10 ml IVPUSH PRN PRN ml 01/28/17 -] REVIEW OF SYSTEMS CONSTITUTIONAL: Absent: fever, chills, diaphoresis, generalized weakness, malaise, loss of appetite, weight change HEENT: Absent: rhinorrhea, nasal congestion, throat pain, throat swelling, difficulty swallowing, mouth swelling, ear pain, eye pain, visual changes CARDIOVASCULAR: Absent: chest pain, syncope, palpitations, irregular heart rate, lightheadedness , peripheral edema upper ext RESPIRATORY: Absent: cough, shortness of breath, dyspnea with exertion, orthopnea, wheezing, stridor, hemoptysis GASTROINTESTINAL: Absent: abdominal pain, abdominal distension, nausea, vomiting, diarrhea, constipation, melena, hematochezia GENITOURINARY: Absent: dysuria, frequency, urgency, hesitancy, hematuria, flank pain, genital pain MUSCULOSKELETAL: Absent: myalgia, arthralgia, joint swelling, back pain, neck pain SKIN: Absent: rash, itching, pallor HEMATOLOGIC/IMMUNOLOGIC: Absent: easy bleeding, easy bruising, lymphadenopathy, frequent infections ENDOCRINE: Absent: unexplained weight gain, unexplained weight loss, heat intolerance, cold intolerance NEUROLOGIC: Absent: headache, focal weakness or paresthesias, dizziness, unsteady gait, seizure, mental status changes, bladder or bowel incontinence PSYCHIATRIC: Absent: anxiety, depression, suicidal or homicidal ideation, hallucinations. PHYSICAL EXAMINATION Vital Signs - 24 hr 02/17/17 15:35 Pulse Rate 120 H Respiratory 22 Rate Blood Pressure 122/65 O2 Sat by Pulse 99 Oximetry (%) GENERAL: Awake, alert, and fully oriented, in mild distress. with generalized fatigue HEAD: Normal with no signs of trauma. EYES: Pupils equal, round and reactive to light, sclera anicteric, conjunctiva pallor EARS, NOSE, THROAT: dry mucous membranes. NECK: Normal range of motion, supple without lymphadenopathy, LUNGS: Anteriorly Breath sounds equal, clear to auscultation bilaterally. No wheezes, and no crackles. No accessory muscle use. HEART: sinus tachy, normal S1 and S2 without murmur, rub or gallop. ABDOMEN: Soft, nontender, not distended, normoactive bowel sounds, MU UPPER EXTREMITIES: 2+ pulses, cold, No cyanosis. No clubbing. + peripheral edema.IV in place LOWER EXTREMITIES: 2+ pulses, cold, well-perfused. No calf tenderness. No peripheral edema. NEUROLOGICAL: no focal deficit. slow speech. very weak PSYCHIATRIC: Cooperative. poor eye contact. flat mood and affect. SKIN: cold dry, , no rashes or lesions noted, Laboratory Results - last 24 hr 02/17/17 02/17/17 02/17/17 16:46 16:50 16:50 WBC 9.3 RBC 3.85 Hgb 11.6 Hct 36.3 MCV 94.2 D MCH 30.2 MCHC 32.1 RDW 22.2 H D Plt Count 309 D MPV 7.0 L Neutrophils % No Result Required. Lymphocytes % No Result Required. Sodium 136 Potassium 3.0 L Chloride 96 L Carbon Dioxide 22 D Anion Gap 18 H BUN 38 H D Creatinine 1.0 D Creat Clearance w eGFR 56.75 Random Glucose 108 H D Calcium 8.6 Phosphorus 4.5 D Magnesium Total Bilirubin 1.0 D AST 22 ALT 7 L D Alkaline Phosphatase 381 H D Creatine Kinase 54 Troponin I 0.39 H Total Protein 5.8 L Albumin 2.0 L 02/17/17 16:50 WBC RBC Hgb Hct MCV MCH MCHC RDW Plt Count MPV Neutrophils % Lymphocytes % Sodium Potassium Chloride Carbon Dioxide Anion Gap BUN Creatinine Creat Clearance w eGFR Random Glucose Calcium Phosphorus Magnesium 2.3 Total Bilirubin AST ALT Alkaline Phosphatase Creatine Kinase Troponin I Total Protein Albumin CBC, BMP 02/17/17 16:50 EKG: Stach 134 with PVC. possible LAE, Non-specific St-t abnormality QtC 561 CXR- [facility] CT chest : RLL infiltrate ASSESSMENT/PLAN: 61yo F with significant history of Rt. Breast carcinoma (first diagnosed in 1998 via lumpectomy followed by RT/chemo/5yrs of tamoxifen and arimedex with multiple mets including brain found in 03/2016) who presented to the ED from her GI clinic due to sever dehydration and generalized weakness. # Sever sepsis * CT : RLL infiltrate , tachycardic, tachypnech, LA 5.3 * started Vanco/zosyn in ED (avoid meds that prolong QT ) * Repeat LA * IV fluids NS bolus X2 , maintain with NS @ 100 cc/hr * ID consult * repeat CBC, CMP ,trend LA * Gregorio cx (blood, urine , sputum ) * Urine Legionella AG # Elevated trop likely demand ischemia * trend trop/EKG * ASA 325 daily * BB if chest pain develop * Nitroglycerin and morphine for chest pain * O2 as needed # dehydration 2/2 low oral intake * IV fluids 1L bolus in ED , NS @ 100 CC/hr maintenance * trend BUN/Cr * LA 5.3 , trend #Sinus Tach * Most likely due to dehydration * With SOB and Malignancy, Wells 2.5 * CTA to ro PE #Hypokalemia * K 3.0 * EKG changes noted with prolonged QTc 561 * KCL 40 meq and 20 meq in ED ,repeat lab #prolonged qt on ekg 561 * avoid meds prolong #UE Edema * DUplex UE # Breast cancer with brain mets * continue home meds * No neurological deficits noted on exam * # FEN * F: NS boluses , maintain NS@ 100 CC/hr * E: Hypokalemia ,replenish * N: low sodium diet # proph * DVT, SCDS , lovenox 40 SQ daily * GI: continue home meds Protonix 40 mg po daily # Dispo * Admit to tele * Full code Visit type - Emergency Visit Emergency Visit: Yes ED Registration Date: 02/17/17 Care time: The patient presented to the Emergency Department on the above date and was hospitalized for further evaluation of their emergent condition. - New Patient This patient is new to me today: Yes Date on this admission: 02/17/17 - Critical Care Critical Care patient: No
[2017-02-17 20:10] LABS: PLATELET ESTIMATE ADEQUATE
[2017-02-17 20:27] LABS: INR 1.44 (0.82-1.09); PROTHROMBIN TIME (PATIENT) 16.3 SEC (9.98-11.88)
--- NOTE | 2017-02-17 21:34 | PN ---
Teaching Attending Note Name of Resident: Chao Prado ATTENDING PHYSICIAN STATEMENT I saw and evaluated the patient. I reviewed the resident's note and discussed the case with the resident. I agree with the resident's findings and plan as documented. SUBJECTIVE: 61 yo F with Pmhx of breast ca on Xeloda, found to be dehydrated at her GI physician's office and found to have a elevated troponin. Pt reports weakness, but states she otherwise feels well. She did not go into further detail and was a poor historian at bedside OBJECTIVE: Physical: VS: Vital Signs Period Temp Pulse Resp BP Sys/Mulligan Pulse Ox Last 24 Hr 120 22 122/65 99 GEN: NAD, resting in bed, AA0X3 HEENT: NCAT, PERRL, throat without erythema or exudates CARD: RRR S1, S2 RESP: CTAB ABD: BSx4, NTD to palpation EXT: Bilateral UE edema CBCD WBC 9.3 K/mm3 (4.0-10.0) 02/17/17 16:50 RBC 3.85 M/mm3 (3.60-5.2) 02/17/17 16:50 Hgb 11.6 GM/dL (10.7-15.3) 02/17/17 16:50 Hct 36.3 % (32.4-45.2) 02/17/17 16:50 MCV 94.2 fl (80-96) D 02/17/17 16:50 MCHC 32.1 g/dl (32.0-36.0) 02/17/17 16:50 RDW 22.2 % (11.6-15.6) H D 02/17/17 16:50 Plt Count 309 K/MM3 (134-434) D 02/17/17 16:50 MPV 7.0 fl (7.5-11.1) L 02/17/17 16:50 CMP Sodium 136 mmol/L (136-145) 02/17/17 16:50 Potassium 3.0 mmol/L (3.5-5.1) L 02/17/17 16:50 Chloride 96 mmol/L (98-107) L 02/17/17 16:50 Carbon Dioxide 22 mmol/L (21-32) D 02/17/17 16:50 Anion Gap 18 (8-16) H 02/17/17 16:50 BUN 38 mg/dL (7-18) H D 02/17/17 16:50 Creatinine 1.0 mg/dL (0.55-1.02) D 02/17/17 16:50 Creat Clearance w eGFR 56.75 (>60) 02/17/17 16:50 Random Glucose 108 mg/dL (74-106) H D 02/17/17 16:50 Calcium 8.6 mg/dL (8.5-10.1) 02/17/17 16:50 Total Bilirubin 1.0 mg/dL (0.2-1.0) D 02/17/17 16:50 AST 22 U/L (15-37) 02/17/17 16:50 ALT 7 U/L (12-78) L D 02/17/17 16:50 Alkaline Phosphatase 381 U/L (45-117) H D 02/17/17 16:50 Total Protein 5.8 g/dl (6.4-8.2) L 02/17/17 16:50 Albumin 2.0 g/dl (3.4-5.0) L 02/17/17 16:50 CARDIAC ENZYMES Creatine Kinase 54 IU/L (26-192) 02/17/17 16:46 Troponin I 0.39 ng/ml (0.00-0.05) H 02/17/17 16:46 EKG: Stach 134 with PVC. possible LAE, Non-specific St-t abnormality QtC 561 CXR- [facility] CT- RLL Infilterate ASSESSMENT AND PLAN: 61 yo F with Pmhx of breast ca on Xeloda, found to be dehydrated and to have a elevated troponin, being admitted for Sepsis due to Pneumonia 1.) Severe Sepsis- - RLL Infilterate on CT - Vancomycin/Zosyn- Started - Urine AG - Flu Swab - ID consult - Blood cx, UA, Ucx - Trend LA - IVF - Urien AGs - Sputum Cx 2.) Elevated Troponin - Most likely Demand - Trend Trop/EkG - ASA - 02 - Nitro/Morphine if Chest pain occurs - BB if chest pain 3.) Dehydration - IVF 4.) Breast Ca w Mets - On Xeloda - Most Likely cause of Lactic Acidosis 5.) Sinus Tach - Most likely due to dehydration - With SOB and Malignancy, Wells 2.5 - Needs CTA to ro PE 6.) UE Edema - DUplex UE 7.) Hypokalemia - Repelete 8.) Dvt Ppx - Lovenox [address] in Med-Tel
[2017-02-17] MEDS ORDERED: SODIUM CHLORIDE 1,000 ML IV SCH (21:45)
[2017-02-17] MEDS ORDERED: POTASSIUM CHLORIDE TABS 20 MEQ TABLET.ER (FP) PO ONE (21:53)
[2017-02-17] MEDS ORDERED: ACETAMINOPHEN 325 MG TABLET (FP) PO PRN (21:55)
[2017-02-17] MEDS ORDERED: PORTA CATH FLUSH 10 ML IVPUSH PRN (21:55)
[2017-02-17] MEDS ORDERED: LOPERAMIDE HCL 2 MG PO SCH (22:00)
[2017-02-17] MEDS ORDERED: ENOXAPARIN NA (PORCINE) 40 MG/0.4 ML DISP.SYRIN SQ SCH (22:15)
[2017-02-17] MEDS: MESALAMINE 800 MG TABLET.DR PO SCH (23:40)
[2017-02-17] MEDS: MEGESTROL ACETATE 40 MG TABLET PO SCH (23:41)
[2017-02-18] MEDS ORDERED: SODIUM CHLORIDE 1,000 ML IV STA ×3 (00:49→21:04)
[2017-02-18] MEDS ORDERED: PIPERACILLIN/TAZOB 4.5 GM/100 ML PREMIX BAG IVPB ONE (00:57)
[2017-02-18] MEDS ORDERED: VANCOMYCIN 1 GRAM (PRE-DOCKED) 1,000 MG/250 ML BAG IVPB ONE ×2 (00:57→00:58)
[2017-02-18] MEDS ORDERED: ACETAMINOPHEN 1000 MG/100 ML VIAL (NON FORMULARY) IVPB ONE (00:58)
[2017-02-18] MEDS ORDERED: SODIUM CHLORIDE 0.9% 1000 ML INFUS.BAG IV ONE (00:58)
[2017-02-18] MEDS ORDERED: ACETAMINOPHEN INJECTION 100 ML IVPB ONE (00:58)
[2017-02-18] MEDS ORDERED: PIPERACILLIN/TAZOB 4.5 GM 4.5 GM/100 ML BAG IVPB ONE (00:58)
[2017-02-18] MEDS ORDERED: POTASSIUM CHLORIDE TABS 20 MEQ TABLET.ER (FP) PO ONE (01:54)
[2017-02-18 03:00] LABS: URINE APPEARANCE CLEAR; URINE BILIRUBIN NEGATIVE (NEGATIVE); URINE BLOOD 1+ (NEGATIVE); URINE COLOR AMBER; URINE GLUCOSE (UA) NEGATIVE (NEGATIVE); URINE KETONE NEGATIVE (NEGATIVE); URINE LEUK ESTERASE NEGATIVE (NEGATIVE); URINE NITRITE NEGATIVE (NEGATIVE); URINE PROTEIN NEGATIVE (NEGATIVE)
[2017-02-18 03:07] LABS: EPI CELLS RARE /HPF (FEW); URINE BACTERIA RARE /hpf (NONE SEEN)
[2017-02-18 05:53] LABS: MCH 29.3 pg (25.7-33.7); MEAN CELL VOLUME 93.8 fl (80-96); WHITE BLOOD COUNT 11.9 K/mm3 (4.0-10.0)
[2017-02-18 06:01] LABS: HEMATOCRIT 28.6 % (32.4-45.2); HEMOGLOBIN 8.9 GM/dL (10.7-15.3); MCHC 31.3 g/dl (32.0-36.0); MEAN PLT VOLUME 6.8 fl (7.5-11.1); PLATELET COUNT 214 K/MM3 (134-434); RBC 3.05 M/mm3 (3.60-5.2); RDW 21.8 % (11.6-15.6)
[2017-02-18 06:05] LABS: ADD RBC MORPHOLOGY YES
[2017-02-18 06:11] LABS: INR 1.43 (0.82-1.09); PROTHROMBIN TIME (PATIENT) 16.2 SEC (9.98-11.88)
[2017-02-18 06:22] LABS: ALBUMIN 1.7 g/dl (3.4-5.0); ANION GAP 12 (8-16); BILIRUBIN,TOTAL 0.7 mg/dL (0.2-1.0); BLOOD UREA NITROGEN 42 mg/dL (7-18); CALCIUM 7.5 mg/dL (8.5-10.1); CHLORIDE 104 mmol/L (98-107); CO2 23 mmol/L (21-32); CREATININE 0.8 mg/dL (0.55-1.02); GLUCOSE,RANDOM 104 mg/dL (74-106); MAGNESIUM 2.4 mg/dL (1.8-2.4); PHOSPHOROUS 3.6 mg/dL (2.5-4.9); POTASSIUM 3.6 mmol/L (3.5-5.1); SGOT/AST 21 U/L (15-37); SGPT/ALT 6 U/L (12-78); SODIUM 139 mmol/L (136-145); TOT PROT 4.9 g/dl (6.4-8.2)
[2017-02-18 06:25] LABS: ALK PHOS 310 U/L (45-117)
[2017-02-18] MEDS: MESALAMINE 800 MG TABLET.DR PO SCH ×3 (07:08→22:53)
--- NOTE | 2017-02-18 09:01 | PN ---
Physical Exam: SUBJECTIVE: Patient seen and examined OBJECTIVE: Vital Signs Period Temp Pulse Resp BP Sys/Mulligan Pulse Ox Last 24 Hr 97.5 F-100.7 F 98-130 20-22 93-122/65-79 97-100 GENERAL: The patient is awake, alert, and fully oriented, in no acute distress. HEAD: Normal with no signs of trauma. EYES: PERRL, extraocular movements intact, sclera anicteric, conjunctiva clear. No ptosis. ENT: Ears normal, nares patent, oropharynx clear without exudates, moist mucous membranes. NECK: Trachea midline, full range of motion, supple. LUNGS: Breath sounds equal, clear to auscultation bilaterally, no wheezes, no crackles, no accessory muscle use. HEART: Regular rate and rhythm, S1, S2 without murmur, rub or gallop. ABDOMEN: Soft, nontender, nondistended, normoactive bowel sounds, no guarding, no rebound, no hepatosplenomegaly, no masses. EXTREMITIES: 2+ pulses, warm, well-perfused, no edema. NEUROLOGICAL: Cranial nerves II through XII grossly intact. Normal speech, gait not observed. PSYCH: Normal mood, normal affect. SKIN: Warm, dry, normal turgor, no rashes or lesions noted Laboratory Results - last 24 hr 02/17/17 02/17/17 02/17/17 16:46 16:50 16:50 WBC 9.3 RBC 3.85 Hgb 11.6 Hct 36.3 MCV 94.2 D MCH 30.2 MCHC 32.1 RDW 22.2 H D Plt Count 309 D MPV 7.0 L Neutrophils % No Result Required. Neutrophils % (Manual) 63.0 Band Neutrophils % 7.0 Lymphocytes % No Result Required. Lymphocytes % (Manual) 20.0 D Monocytes % (Manual) 7 Platelet Estimate Adequate PT with INR INR Sodium 136 Potassium 3.0 L Chloride 96 L Carbon Dioxide 22 D Anion Gap 18 H BUN 38 H D Creatinine 1.0 D Creat Clearance w eGFR 56.75 Random Glucose 108 H D Lactic Acid Calcium 8.6 Phosphorus 4.5 D Magnesium Total Bilirubin 1.0 D AST 22 ALT 7 L D Alkaline Phosphatase 381 H D Creatine Kinase 54 Troponin I 0.39 H Total Protein 5.8 L Albumin 2.0 L Urine Color Urine Appearance Urine pH Ur Specific Selby Urine Protein Urine Glucose (UA) Urine Ketones Urine Blood Urine Nitrite Urine Bilirubin Urine Urobilinogen Ur Leukocyte Esterase Urine WBC (Auto) Urine RBC (Auto) Ur Epithelial Cells Urine Bacteria 02/17/17 02/17/17 02/17/17 16:50 19:50 19:50 WBC RBC Hgb Hct MCV MCH MCHC RDW Plt Count MPV Neutrophils % Neutrophils % (Manual) Band Neutrophils % Lymphocytes % Lymphocytes % (Manual) Monocytes % (Manual) Platelet Estimate PT with INR 16.30 H INR 1.44 H Sodium Potassium Chloride Carbon Dioxide Anion Gap BUN Creatinine Creat Clearance w eGFR Random Glucose Lactic Acid 5.4 H* Calcium Phosphorus Magnesium 2.3 Total Bilirubin AST ALT Alkaline Phosphatase Creatine Kinase Troponin I Total Protein Albumin Urine Color Urine Appearance Urine pH Ur Specific Selby Urine Protein Urine Glucose (UA) Urine Ketones Urine Blood Urine Nitrite Urine Bilirubin Urine Urobilinogen Ur Leukocyte Esterase Urine WBC (Auto) Urine RBC (Auto) Ur Epithelial Cells Urine Bacteria 02/17/17 02/18/17 02/18/17 23:45 01:29 02:40 WBC RBC Hgb Hct MCV MCH MCHC RDW Plt Count MPV Neutrophils % Neutrophils % (Manual) Band Neutrophils % Lymphocytes % Lymphocytes % (Manual) Monocytes % (Manual) Platelet Estimate PT with INR INR Sodium Potassium Chloride Carbon Dioxide Anion Gap BUN Creatinine Creat Clearance w eGFR Random Glucose Lactic Acid 4.9 H* Calcium Phosphorus Magnesium Total Bilirubin AST ALT Alkaline Phosphatase Creatine Kinase 85 Troponin I 0.34 H Total Protein Albumin Urine Color Aundrea Urine Appearance Clear Urine pH 5.0 Ur Specific Selby 1.046 H Urine Protein Negative Urine Glucose (UA) Negative Urine Ketones Negative Urine Blood 1+ H Urine Nitrite Negative Urine Bilirubin Negative Urine Urobilinogen 2.0 H Ur Leukocyte Esterase Negative Urine WBC (Auto) 3 Urine RBC (Auto) 28 Ur Epithelial Cells Rare Urine Bacteria Rare 02/18/17 02/18/17 02/18/17 05:45 05:45 05:45 WBC 11.9 H RBC 3.05 L D Hgb 8.9 L D Hct 28.6 L D MCV 93.8 MCH 29.3 MCHC 31.3 L RDW 21.8 H Plt Count 214 D MPV 6.8 L Neutrophils % No Result Required. Neutrophils % (Manual) Band Neutrophils % Lymphocytes % No Result Required. Lymphocytes % (Manual) Monocytes % (Manual) Platelet Estimate PT with INR 16.20 H INR 1.43 H Sodium 139 Potassium 3.6 Chloride 104 Carbon Dioxide 23 Anion Gap 12 BUN 42 H Creatinine 0.8 Creat Clearance w eGFR > 60 Random Glucose 104 Lactic Acid Calcium 7.5 L Phosphorus 3.6 Magnesium 2.4 Total Bilirubin 0.7 D AST 21 ALT 6 L Alkaline Phosphatase 310 H Creatine Kinase Troponin I 0.34 H Total Protein 4.9 L Albumin 1.7 L Urine Color Urine Appearance Urine pH Ur Specific Selby Urine Protein Urine Glucose (UA) Urine Ketones Urine Blood Urine Nitrite Urine Bilirubin Urine Urobilinogen Ur Leukocyte Esterase Urine WBC (Auto) Urine RBC (Auto) Ur Epithelial Cells Urine Bacteria 02/18/17 05:45 WBC RBC Hgb Hct MCV MCH MCHC RDW Plt Count MPV Neutrophils % Neutrophils % (Manual) Band Neutrophils % Lymphocytes % Lymphocytes % (Manual) Monocytes % (Manual) Platelet Estimate PT with INR INR Sodium Potassium Chloride Carbon Dioxide Anion Gap BUN Creatinine Creat Clearance w eGFR Random Glucose Lactic Acid 3.6 H* Calcium Phosphorus Magnesium Total Bilirubin AST ALT Alkaline Phosphatase Creatine Kinase Troponin I Total Protein Albumin Urine Color Urine Appearance Urine pH Ur Specific Selby Urine Protein Urine Glucose (UA) Urine Ketones Urine Blood Urine Nitrite Urine Bilirubin Urine Urobilinogen Ur Leukocyte Esterase Urine WBC (Auto) Urine RBC (Auto) Ur Epithelial Cells Urine Bacteria Active Medications Generic Name Dose Route Start Last Admin Trade Name Freq PRN Reason Stop Dose Admin Acetaminophen 650 mg 02/17/17 21:55 Tylenol - PO Q6H PRN FEVER Amino Acids 30 ml 02/18/17 08:00 Prosource No Carb Liquid Pkt PO BID@0800,1730 [facility] Anastrozole 1 mg 02/18/17 10:00 Arimidex - PO DAILY [facility] Aspirin 325 mg 02/18/17 10:00 Asa - PO DAILY [facility] Enoxaparin Sodium 40 mg 02/18/17 10:00 Lovenox - SQ DAILY CYNTHIA IV Flush 10 ml 02/17/17 21:55 Kirill-Cath Flush IVPUSH PRN PRN flush kirill cath Sodium Chloride 1,000 mls @ 100 mls/hr 02/17/17 21:45 02/18/17 01:44 Normal Saline - IV 100 mls/hr ASDIR CYNTHIA Administration Piperacillin Sod/Tazobactam 100 mls @ 200 mls/hr 02/18/17 10:00 Sod 4.5 gm/ Dextrose IVPB 02/18/17 10:29 ONCE ONE Protocol Megestrol Acetate 40 mg 02/17/17 22:00 02/17/17 23:41 Megace - PO Not Given QID CYNTHIA Mesalamine 800 mg 02/17/17 22:00 02/18/17 07:08 Asacol Hd - PO 800 mg TID CYNTHIA Administration Non-Formulary Medication 2 mg 02/17/17 22:00 Loperamide Hcl [Loperamide] PO PRN CYNTHIA Non-Formulary Medication 20 meq 02/17/17 22:00 Potassium Chloride [Potassium Chloride] PO ASDIR CYNTHIA Pantoprazole Sodium 40 mg 02/18/17 10:00 Protonix - PO DAILY [facility] ASSESSMENT/PLAN:
--- NOTE | 2017-02-18 09:11 | EKG ---
Test Reason : Blood Pressure : / mmHG Vent. Rate : 134 BPM Atrial Rate : 134 BPM P-R Int : 124 ms QRS Dur : 064 ms QT Int : 376 ms P-R-T Axes : 073 036 070 degrees QTc Int : 561 ms SINUS TACHYCARDIA WITH OCCASIONAL PREMATURE VENTRICULAR COMPLEXES POSSIBLE LEFT ATRIAL ENLARGEMENT NONSPECIFIC ST AND T WAVE ABNORMALITY ABNORMAL ECG WHEN COMPARED WITH ECG OF 11-JAN-2017 12:33, PREMATURE VENTRICULAR COMPLEXES ARE NOW PRESENT NONSPECIFIC T WAVE ABNORMALITY NOW EVIDENT IN ANTERIOR LEADS Confirmed by RENAY SANTOS, MAICOL ([id number]) on 02/18/2017 9:10:53 AM Referred By: Confirmed By:MAICOL NIÑO MD
[2017-02-18] MEDS ORDERED: PIPERACILLIN/TAZOB 4.5 GM 4.5 GM in DEXTROSE 5%-WATER - 100 ML IVPB ONE (10:00)
[2017-02-18] MEDS ORDERED: amLODIPine BESYLATE 5 MG TABLET (FP) PO SCH (10:00)
[2017-02-18] MEDS: AMINO ACIDS/PROTEIN HYDROLYS 30 ML LIQUID.PKT PO SCH ×2 (10:29→21:06)
[2017-02-18] MEDS: PANTOPRAZOLE 40 MG TABLET (FP) PO SCH (10:29)
[2017-02-18] MEDS: MEGESTROL ACETATE 40 MG TABLET PO SCH ×4 (10:29→22:53)
[2017-02-18] MEDS: ANASTROZOLE 1 MG TABLET PO SCH (10:29)
[2017-02-18] MEDS: ASPIRIN 325 MG TABLET PO SCH (10:29)
[2017-02-18] MEDS: ENOXAPARIN NA (PORCINE) 40 MG/0.4 ML DISP.SYRIN SQ SCH (10:29)
[2017-02-18 11:26] LABS: ACANTHOCYTES 1+; ANISOCYTOSIS 2+; MACROCYTOSIS 0; PLATELET ESTIMATE NORMAL; TEAR DROP CELLS 2+
--- NOTE | 2017-02-18 12:20 | CONSULT ---
Admitting History and Physical - Primary Care Physician PCP: Dyesi Sherman - Admission History of Present Illness: 61yo F with significant history of Rt. Breast carcinoma brought to ER with severe dehydration and generalized weakness. Pt being admitted for Sepsis due to Pneumonia CT chest-RLL infiltrate Pt has always been a "picky eater" however has not been eating for a while. She accepts some Ensure at [facility] but little food, per her . This is my first consult with [facility]. 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 Limited cooperation. Thinks she is in [facility]. [facility]. XMAS. 1976. 2017), Flat Affect Attention: Distractible, Mild Impairment Ability to Follow Directions: Fair Head/Neck Control: Fair - Hearing Hearing: Functional Speech Evaluation - Communication Primary Language: MACEDONIAN Communication: Yes: Simple Responses - Speech Production Able to Make Needs Known: Yes: WNL - Speech Characteristics Voice Loudness: Normal Voice Pitch: Yes: Normal Voice Phonatory-based Quality: Yes: Normal Speech Clarity: < 100% Nasal Resonance: Normal Articulation: Yes: Precise - Language/Auditory Comprehension Follows: Yes: 1 Stage Simple Commands - Language/Verbal Expression Able to Communicate Wants and Needs: Yes: WNL Functional Communication Status: Yes: WNL - Swallow Evaluation/Bedside Assessment Current Nutritional Intake: Regular, Thin Liquids, Other (Ensure Enlive Vanilla ) Oral Secretions: Yes: WFL Dentition: Yes: Missing Teeth Facial Symmetry at Rest: Facial Droop Right Pucker Lips: Normal Smile: Normal Lingual Movement: Normal, Symmetric Lingual Speed of Movement: Normal Lingual Movement Strgth Against Opposition: Normal Lingual Movement Characteristics: Normal Laryngeal Movement: Labored,delay initiation Rate of Intake: Slow/Holding (with puree, needing reminders to swallow repeatedly.) Labial Seal: WFL Chewing: Impaired (Limited mastication with small piece of cookie, needing repeated reminders to chew and swallo with significant oral holding, likely sec to cognitive deficits, not weakness) Oral Prep Time: Increased A-P Transit: Impaired Timing of Swallow: Delayed Coughing/Throat Clear: Yes (once with thin liquid, likely sec to oral holding) Recommendations - Speech Evaluation, Impression/Plan Impression: Limited mastication with small piece of cookie, needing repeated reminders to chew and swallow with significant oral holding, likely sec to cognitive deficits, not weakness. Oral holding with puree as well, and less with thin liquid. One brief cough with thin liquid, suspected oral holding with spillage over base of tongue into airway. - Dysphagia Impressions/Plan Swallowing Skills: Impaired Dysphagia Impressions: Moderate Impairment, Risk of Aspiration *Silent aspiration: cannot be R/O at bedside Dysphagia Treatment Plan: Small Bites, Chin Tuck/Down, Clear Pocket Food, 1/2 tsp. at a time, Elevate HOB during feed, Other (Pt needs to be reminded to swallow with each bite. Alternate puree with liquid.) Recommendations: Palliative Care (May benefit from PEG/supplemental TF. Prognosis? Pt is full code. End of life wishes?), Modified Barium Swallow, Other (Calorie count. Monitor PO acceptance.) - Recommendations Diet Consistency: Dysphagia Pureed Medication Administration: Crushed with applesauce Liquids: Thin Liquids (if cough, congestion, downgrade to nectar until MBS performed) Supplement: Ensure, Magic Cup
--- NOTE | 2017-02-18 12:31 | PN ---
Teaching Attending Note Name of Resident: Dakota Thomas ATTENDING PHYSICIAN STATEMENT I saw and evaluated the patient. I reviewed the resident's note and discussed the case with the resident. I agree with the resident's findings and plan as documented. SUBJECTIVE:states she has been having difficulty breathing which improved. continues to feel weak. claims appetite is improved. denies CP, cough, fever, chills, night sweats. still currently at [facility] OBJECTIVE: Last Vital Signs Temp Pulse Resp BP Pulse Ox 98 F 94 H 18 116/88 98 02/18/17 10:25 02/18/17 10:25 02/18/17 10:25 02/18/17 10:25 02/18/17 10:25 General NAD. A&O x3, bitemporal wasting, prominent clavicles CV S1 S2 tachy R chest port with no surrouding erythema/tenderness Lungs decreased breath sound R base., no wheezing or crackles Abdomen soft NT/ND Extremities trace pitting edema ASSESSMENT AND PLAN: 61yo F with PMH R breast ca with (mets to brain, bone, pleura) s/p lumpectomy, RTx and Chemo whom completed hormonal therapy and on Xeloda currently every other week presented with generalized weakness and difficulty breathing 1. Severe sepsis due to RLL PNA- Tm 100.7. concern for aspiration. was recently hospitalized. started on Vanco/ Zosyn. ID evaluation. will have LEGAL PARAPROFESSIONAL evaluation if aspiration risk. spoke with present at bedside who states he has been considering PEG as she has continued to decline these past few months. cont IVF. trend lactate. CTA negative for PE. Flu negative. f/u cx 2. Demand ischemia- flat trend of troponins. 0.39-0.34-0.34. no chest pain. likely due to sepsis. no indication for cardiac workup at this time 3. Sinus tachycardia- due to sepsis and dehydration 4. Hypokalemia- Kcl po 5. Severe malnutrition- as per not eating well. on appetite stimulant. encourage po intake. obtain new weight. may need PEG to sustain enough calories. cont megace, start prosource, ensure enlive, 6. R breast ca with diffuse mets including recent brain- s/p WBR and dex now tapered off. futher workup outpatient 7. Anemia of chronic disease- hgb at baseline. no signs of bleeding. 8. DVT ppx- lovenox
--- NOTE | 2017-02-18 12:44 | EKG ---
Test Reason : Blood Pressure : / mmHG Vent. Rate : 128 BPM Atrial Rate : 128 BPM P-R Int : 120 ms QRS Dur : 074 ms QT Int : 322 ms P-R-T Axes : 072 047 054 degrees QTc Int : 470 ms SINUS TACHYCARDIA NONSPECIFIC ST AND T WAVE ABNORMALITY ABNORMAL ECG WHEN COMPARED WITH ECG OF 17-FEB-2017 16:34, PREMATURE VENTRICULAR COMPLEXES ARE NO LONGER PRESENT NONSPECIFIC T WAVE ABNORMALITY NO LONGER EVIDENT IN ANTERIOR LEADS Confirmed by STEFANY SANTOS, DONNIE ([id number]) on 02/18/2017 12:43:59 PM Referred By: Confirmed By:DONNIE MCCALL MD
--- NOTE | 2017-02-18 13:40 | CON.ID ---
Consult Consult Specialty:: infectious diseases Reason for Consultation:: pna - History of Present Illness Chief Complaint: weakness,unable to eat History of Present Illness: Patient is a 61 year old female with a significant past medical history of Breast Cancer, Colitis, who presents to the ED after being sent by for dehydration. As per patient's , patient was taken to her GI appointment this morning when she was referred to the ED for increased dehydration as well as increased heart rate, and weakness. Patient reports her next chemo appointment is scheduled for February 26. according to the patient is a very picky eater and has not eaten well for a long time i was called because infiltrate was seen in the lungs and the though process is patient probably also has pneumonia patient has got vanco and zosyn Denies chest pain, SOB. Denies nausea, vomiting. Denies fevers, chills. Denies contact with sick individuals, out of state travelling. Denies any other symptoms. at the bed side according to the PMD patient was lethargic patient is essentially bed bound - History Source History Provided By: Patient, Family Member Limitations to Obtaining History: No Limitations - Past Medical History Gastrointestinal: Yes: Cancer, Ulcerative Colitis - Past Surgical History Past Surgical History: Yes: None - Alcohol/Substance Use Hx Alcohol Use: No History of Substance Use: reports: None - Smoking History Smoking history: Former smoker Have you smoked in the past 12 months: No Aproximately how many cigarettes per day: 0 If you are a former smoker, when did you quit?: 15 YRS - Social History ADL: Independent 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 History of Recent Travel: No Home Medications - Allergies Allergies/Adverse Reactions: Allergies Allergy/AdvReac Type Severity Reaction Status Date / Time No Known Allergies Allergy Verified 02/17/17 22:34 - Home Medications Home Medications: Ambulatory Orders Amlodipine Besylate 5 mg PO DAILY 01/06/17 Capecitabine 500 mg PO ASDIR 01/06/17 Loperamide HCl [Loperamide] 2 mg PO PRN 01/06/17 Pantoprazole Sodium 40 mg PO DAILY 01/06/17 Potassium Chloride 20 meq PO ASDIR 01/06/17 Acetaminophen [Tylenol .Regular Strength -] 650 mg PO Q6H PRN tablet 01/28/17 Amino Acids/Protein Hydrolys [Prosource No Carb Liquid Pkt] 30 ml PO BID@0800, 1730 packet 01/28/17 Anastrozole [Arimidex -] 1 mg PO DAILY tablet 01/28/17 Dexamethasone [Decadron -] See Taper PO DAILY #8 tablet 01/28/17 Megestrol Acetate [Megace -] 40 mg PO QID tablet 01/28/17 Mesalamine [Asacol HD -] 800 mg PO TID tablet. 01/28/17 Kirill-Cath Flush [Kirill-Cath Flush -] 10 ml IVPUSH PRN PRN ml 01/28/17 Family Disease History - Family Disease History Family Disease History: CA: Mother Review of Systems - Review of Systems Constitutional: reports: Weakness Eyes: reports: No Symptoms HENT: reports: No Symptoms Neck: reports: No Symptoms Cardiovascular: reports: No Symptoms Respiratory: reports: No Symptoms Gastrointestinal: reports: Other Genitourinary: reports: No Symptoms Musculoskeletal: reports: No Symptoms Integumentary: reports: No Symptoms Neurological: reports: No Symptoms Endocrine: reports: No Symptoms Hematology/Lymphatic: reports: No Symptoms Psychiatric: reports: No Symptoms Physical Exam Vital Signs: Vital Signs Temperature 98 F 02/18/17 10:25 Pulse Rate 94 H 02/18/17 10:25 Respiratory Rate 18 02/18/17 10:25 Blood Pressure 116/88 02/18/17 10:25 O2 Sat by Pulse Oximetry (%) 98 02/18/17 10:25 Constitutional: Yes: No Distress, Calm Eyes: Yes: Conjunctiva Clear Cardiovascular: Yes: Regular Rate and Rhythm Respiratory: Yes: Regular, CTA Bilaterally Gastrointestinal: Yes: Normal Bowel Sounds, Soft Musculoskeletal: Yes: WNL Extremities: Yes: WNL Neurological: Yes: Alert, Oriented Psychiatric: Yes: Alert, Oriented Labs: CBC, BMP 02/18/17 05:45 02/18/17 05:45 Imaging - Results Chest X-ray: Report Reviewed, Image Reviewed Cat Scan: Report Reviewed, Image Reviewed Assessment/Plan clinically patient looks stable has received couple of doses of zosyn a pna according to ct scan, rest patient does not ahve any symptoms.chance patient might have asp pna Problem List - Problems (1) PNA (pneumonia) Code(s): J18.9 - PNEUMONIA, UNSPECIFIED ORGANISM (2) Elevated troponin Code(s): R74.8 - ABNORMAL LEVELS OF OTHER SERUM ENZYMES (3) Weakness Code(s): R53.1 - WEAKNESS (4) Breast cancer metastasized to multiple sites Code(s): C50.919 - MALIGNANT NEOPLASM OF UNSP SITE OF UNSPECIFIED FEMALE BREAST Qualifiers: Laterality: left Qualified Code(s): C50.912 - Malignant neoplasm of unspecified site of left female breast (5) Dehydration, mild Code(s): E86.0 - DEHYDRATION (6) Leukocytosis Code(s): D72.829 - ELEVATED WHITE BLOOD CELL COUNT, UNSPECIFIED (7) Ulcerative colitis Code(s): K51.90 - ULCERATIVE COLITIS, UNSPECIFIED, WITHOUT COMPLICATIONS plan will down grade patient to ceftriaxone tomorrow will watch how patient does if patient remains stable will switch to oral by sat rest as per primary team
--- NOTE | 2017-02-18 14:37 | CON.GI ---
Consult Consult Specialty:: GI - History of Present Illness History of Present Illness: The pt is know to our service from prior admissions and outpatient follow ups. The patient was seen in the office yesterday for a routine UC follow up. She appeared lethargic, unable to maintain conversation and keep her eyes open. She was not in distress, pain , or discomfort. She had no specific GI complaints. Her stated that Su wasn't herself lately, she has been sleepy and had very poor appetite. In ED, yesterday in the evening, she was found to be dehydrated and had evidence of PNA on imaging. At the time of this encounter, the patient appears much more alert. She had no bms since yesterday and, again, reports no abdominal symptoms. She takes Ascol 800 mg tid and refuses to take rowasa enemas. 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 History of Recent Travel: No Home Medications - Allergies Allergies/Adverse Reactions: Allergies Allergy/AdvReac Type Severity Reaction Status Date / Time No Known Allergies Allergy Verified 02/17/17 22:34 - Home Medications Home Medications: Ambulatory Orders Amlodipine Besylate 5 mg PO DAILY 01/06/17 Capecitabine 500 mg PO ASDIR 01/06/17 Loperamide HCl [Loperamide] 2 mg PO PRN 01/06/17 Pantoprazole Sodium 40 mg PO DAILY 01/06/17 Potassium Chloride 20 meq PO ASDIR 01/06/17 Acetaminophen [Tylenol .Regular Strength -] 650 mg PO Q6H PRN tablet 01/28/17 Amino Acids/Protein Hydrolys [Prosource No Carb Liquid Pkt] 30 ml PO BID@0800, 1730 packet 01/28/17 Anastrozole [Arimidex -] 1 mg PO DAILY tablet 01/28/17 Dexamethasone [Decadron -] See Taper PO DAILY #8 tablet 12/21/17 Megestrol Acetate [Megace -] 40 mg PO QID tablet 01/28/17 Mesalamine [Asacol HD -] 800 mg PO TID tablet. 01/28/17 Kirill-Cath Flush [Kirill-Cath Flush -] 10 ml IVPUSH PRN PRN ml 01/28/17 Family Disease History - Family Disease History Family History: Unremarkable Family Disease History: CA: Mother Review of Systems Findings/Remarks: As per H&P, HPI Physical Exam-GI Vital Signs: Vital Signs Temperature 98 F 02/18/17 10:25 Pulse Rate 94 H 02/18/17 10:25 Respiratory Rate 18 02/18/17 10:25 Blood Pressure 116/88 02/18/17 10:25 O2 Sat by Pulse Oximetry (%) 98 02/18/17 10:25 Constitutional: Yes: Calm, Cachectic, Thin Eyes: Yes: Conjunctiva Clear HENT: Yes: Atraumatic Neck: Yes: Supple Cardiovascular: Yes: Regular Rate and Rhythm Respiratory: Yes: Regular Gastrointestinal Inspection: No: Ascites, Distention ...Auscultate: Yes: Normoactive Bowel Sounds ...Palpate: No: Firm/Rigid, Guarding, Mass, Soft, Tenderness, Tenderness, Epigastium, Tenderness, Rebound ...Percussion: No: Fluid Wave Neurological: Yes: Alert, Oriented Labs: CBC, BMP 02/18/17 05:45 02/18/17 05:45 INR, PTT INR 1.43 (0.82-1.09) H 02/18/17 05:45 Laboratory Results - last 24 hr 02/17/17 02/17/17 02/17/17 16:46 16:50 16:50 WBC 9.3 RBC 3.85 Hgb 11.6 Hct 36.3 MCV 94.2 D MCH 30.2 MCHC 32.1 RDW 22.2 H D Plt Count 309 D MPV 7.0 L Neutrophils % No Result Required. Neutrophils % (Manual) 63.0 Band Neutrophils % 7.0 Lymphocytes % No Result Required. Lymphocytes % (Manual) 20.0 D Monocytes % (Manual) 7 Eosinophils % (Manual) Basophils % (Manual) Myelocytes % (Man) Nucleated RBC % Metamyelocytes Hypochromia Platelet Estimate Adequate Polychromasia Poikilocytosis Anisocytosis Microcytosis Macrocytosis Tear Drop Cells Acanthocytes (Spur) Fragmented RBCs PT with INR INR Sodium 136 Potassium 3.0 L Chloride 96 L Carbon Dioxide 22 D Anion Gap 18 H BUN 38 H D Creatinine 1.0 D Creat Clearance w eGFR 56.75 Random Glucose 108 H D Lactic Acid Calcium 8.6 Phosphorus 4.5 D Magnesium Total Bilirubin 1.0 D AST 22 ALT 7 L D Alkaline Phosphatase 381 H D Creatine Kinase 54 Troponin I 0.39 H Total Protein 5.8 L Albumin 2.0 L Urine Color Urine Appearance Urine pH Ur Specific [place] Urine Protein Urine Glucose (UA) Urine Ketones Urine Blood Urine Nitrite Urine Bilirubin Urine Urobilinogen Ur Leukocyte Esterase Urine WBC (Auto) Urine RBC (Auto) Ur Epithelial Cells Urine Bacteria 02/17/17 02/17/17 02/17/17 16:50 19:50 19:50 WBC RBC Hgb Hct MCV MCH MCHC RDW Plt Count MPV Neutrophils % Neutrophils % (Manual) Band Neutrophils % Lymphocytes % Lymphocytes % (Manual) Monocytes % (Manual) Eosinophils % (Manual) Basophils % (Manual) Myelocytes % (Man) Nucleated RBC % Metamyelocytes Hypochromia Platelet Estimate Polychromasia Poikilocytosis Anisocytosis Microcytosis Macrocytosis Tear Drop Cells Acanthocytes (Spur) Fragmented RBCs PT with INR 16.30 H INR 1.44 H Sodium Potassium Chloride Carbon Dioxide Anion Gap BUN Creatinine Creat Clearance w eGFR Random Glucose Lactic Acid 5.4 H* Calcium Phosphorus Magnesium 2.3 Total Bilirubin AST ALT Alkaline Phosphatase Creatine Kinase Troponin I Total Protein Albumin Urine Color Urine Appearance Urine pH Ur Specific [place] Urine Protein Urine Glucose (UA) Urine Ketones Urine Blood Urine Nitrite Urine Bilirubin Urine Urobilinogen Ur Leukocyte Esterase Urine WBC (Auto) Urine RBC (Auto) Ur Epithelial Cells Urine Bacteria 02/17/17 02/18/17 02/18/17 23:45 01:29 02:40 WBC RBC Hgb Hct MCV MCH MCHC RDW Plt Count MPV Neutrophils % Neutrophils % (Manual) Band Neutrophils % Lymphocytes % Lymphocytes % (Manual) Monocytes % (Manual) Eosinophils % (Manual) Basophils % (Manual) Myelocytes % (Man) Nucleated RBC % Metamyelocytes Hypochromia Platelet Estimate Polychromasia Poikilocytosis Anisocytosis Microcytosis Macrocytosis Tear Drop Cells Acanthocytes (Spur) Fragmented RBCs PT with INR INR Sodium Potassium Chloride Carbon Dioxide Anion Gap BUN Creatinine Creat Clearance w eGFR Random Glucose Lactic Acid 4.9 H* Calcium Phosphorus Magnesium Total Bilirubin AST ALT Alkaline Phosphatase Creatine Kinase 85 Troponin I 0.34 H Total Protein Albumin Urine Color [place] Urine Appearance Clear Urine pH 5.0 Ur Specific [place] 1.046 H Urine Protein Negative Urine Glucose (UA) Negative Urine Ketones Negative Urine Blood 1+ H Urine Nitrite Negative Urine Bilirubin Negative Urine Urobilinogen 2.0 H Ur Leukocyte Esterase Negative Urine WBC (Auto) 3 Urine RBC (Auto) 28 Ur Epithelial Cells Rare Urine Bacteria Rare 02/18/17 02/18/17 02/18/17 05:45 05:45 05:45 WBC 11.9 H RBC 3.05 L D Hgb 8.9 L D Hct 28.6 L D MCV 93.8 MCH 29.3 MCHC 31.3 L RDW 21.8 H Plt Count 214 D MPV 6.8 L Neutrophils % No Result Required. Neutrophils % (Manual) 82.8 D Band Neutrophils % 4.0 Lymphocytes % No Result Required. Lymphocytes % (Manual) 4.1 L D Monocytes % (Manual) 6 Eosinophils % (Manual) 0.0 D Basophils % (Manual) 0.0 Myelocytes % (Man) 2 D Nucleated RBC % 2 H Metamyelocytes 1 D Hypochromia 0 Platelet Estimate Normal Polychromasia 0 Poikilocytosis 3+ Anisocytosis 2+ Microcytosis 1+ Macrocytosis 0 Tear Drop Cells 2+ Acanthocytes (Spur) 1+ Fragmented RBCs 2+ PT with INR 16.20 H INR 1.43 H Sodium 139 Potassium 3.6 Chloride 104 Carbon Dioxide 23 Anion Gap 12 BUN 42 H Creatinine 0.8 Creat Clearance w eGFR > 60 Random Glucose 104 Lactic Acid Calcium 7.5 L Phosphorus 3.6 Magnesium 2.4 Total Bilirubin 0.7 D AST 21 ALT 6 L Alkaline Phosphatase 310 H Creatine Kinase Troponin I 0.34 H Total Protein 4.9 L Albumin 1.7 L Urine Color Urine Appearance Urine pH Ur Specific [place] Urine Protein Urine Glucose (UA) Urine Ketones Urine Blood Urine Nitrite Urine Bilirubin Urine Urobilinogen Ur Leukocyte Esterase Urine WBC (Auto) Urine RBC (Auto) Ur Epithelial Cells Urine Bacteria 02/18/17 02/18/17 02/18/17 05:45 12:35 12:35 WBC RBC Hgb Hct MCV MCH MCHC RDW Plt Count MPV Neutrophils % Neutrophils % (Manual) Band Neutrophils % Lymphocytes % Lymphocytes % (Manual) Monocytes % (Manual) Eosinophils % (Manual) Basophils % (Manual) Myelocytes % (Man) Nucleated RBC % Metamyelocytes Hypochromia Platelet Estimate Polychromasia Poikilocytosis Anisocytosis Microcytosis Macrocytosis Tear Drop Cells Acanthocytes (Spur) Fragmented RBCs PT with INR INR Sodium Potassium Chloride Carbon Dioxide Anion Gap BUN Creatinine Creat Clearance w eGFR Random Glucose Lactic Acid 3.6 H* 4.8 H* Calcium Phosphorus Magnesium Total Bilirubin AST ALT Alkaline Phosphatase Creatine Kinase Troponin I 0.29 H Total Protein Albumin Urine Color Urine Appearance Urine pH Ur Specific [place] Urine Protein Urine Glucose (UA) Urine Ketones Urine Blood Urine Nitrite Urine Bilirubin Urine Urobilinogen Ur Leukocyte Esterase Urine WBC (Auto) Urine RBC (Auto) Ur Epithelial Cells Urine Bacteria Imaging - Results Cat Scan: Report Reviewed Problem List - Problems (1) PNA (pneumonia) Code(s): J18.9 - PNEUMONIA, UNSPECIFIED ORGANISM (2) Elevated troponin Code(s): R74.8 - ABNORMAL LEVELS OF OTHER SERUM ENZYMES (3) Weakness Code(s): R53.1 - WEAKNESS (4) Breast cancer metastasized to multiple sites Code(s): C50.919 - MALIGNANT NEOPLASM OF UNSP SITE OF UNSPECIFIED FEMALE BREAST Qualifiers: Laterality: left Qualified Code(s): C50.912 - Malignant neoplasm of unspecified site of left female breast (5) Dehydration, mild Code(s): E86.0 - DEHYDRATION (6) Leukocytosis Code(s): D72.829 - ELEVATED WHITE BLOOD CELL COUNT, UNSPECIFIED (7) Ulcerative colitis Code(s): K51.90 - ULCERATIVE COLITIS, UNSPECIFIED, WITHOUT COMPLICATIONS Assessment/Plan Continue asacol at previous dose as it appears to control UC/GI symptoms. PNA management as per primary team Metastatic breast cancer Supportive care Prognosis is very poor.
--- NOTE | 2017-02-18 14:44 | CON.CARD ---
Consult Consult Specialty:: Cardiology Referred by:: Robert Reason for Consultation:: elevated troponin - History of Present Illness Chief Complaint: lethargy History of Present Illness: She si a 61yo woman with history of Rt. Breast carcinoma 1998 s/p lumpectomy and XRT/chemo with multiple mets including brain found in 03/2016 who presented to the ED for PO intolerance and generalized weakness. She denies any pain, headache, blurry vision, pain in legs, diarrhea, nausea, vomiting, palpitations , heart racing, SOB. Found with elevated troponin. CTA no PE. 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 History of Recent Travel: No Home Medications - Allergies Allergies/Adverse Reactions: Allergies Allergy/AdvReac Type Severity Reaction Status Date / Time No Known Allergies Allergy Verified 02/17/17 22:34 - Home Medications Home Medications: Ambulatory Orders Amlodipine Besylate 5 mg PO DAILY 01/06/17 Capecitabine 500 mg PO ASDIR 01/06/17 Loperamide HCl [Loperamide] 2 mg PO PRN 01/06/17 Pantoprazole Sodium 40 mg PO DAILY 01/06/17 Potassium Chloride 20 meq PO ASDIR 01/06/17 Acetaminophen [Tylenol .Regular Strength -] 650 mg PO Q6H PRN tablet 01/28/17 Amino Acids/Protein Hydrolys [Prosource No Carb Liquid Pkt] 30 ml PO BID@0800, 1730 packet 01/28/17 Anastrozole [Arimidex -] 1 mg PO DAILY tablet 01/28/17 Dexamethasone [Decadron -] See Taper PO DAILY #8 tablet 01/28/17 Megestrol Acetate [Megace -] 40 mg PO QID tablet 01/28/17 Mesalamine [Asacol HD -] 800 mg PO TID tablet. 01/28/17 Kirill-Cath Flush [Kirill-Cath Flush -] 10 ml IVPUSH PRN PRN ml 01/28/17 Family Disease History - Family Disease History Family Disease History: CA: Mother Vital Signs: Vital Signs Temperature 98 F 02/18/17 10:25 Pulse Rate 94 H 02/18/17 10:25 Respiratory Rate 18 02/18/17 10:25 Blood Pressure 116/88 02/18/17 10:25 O2 Sat by Pulse Oximetry (%) 98 02/18/17 10:25 Constitutional: Yes: No Distress Eyes: Yes: Conjunctiva Clear, EOM Intact HENT: Yes: Atraumatic, Normocephalic Neck: Yes: Supple, Trachea Midline Respiratory: Yes: CTA Bilaterally Gastrointestinal: Yes: Normal Bowel Sounds, Soft Cardiovascular: Yes: Regular Rate and Rhythm JVD: No Carotid Bruit: No PMI: Non-Displaced Heart Sounds: Yes: S1, S2 Edema: No Peripheral Pulses WNL: Yes - Other Data Labs, Other Data: CBC, BMP 02/18/17 05:45 02/18/17 05:45 INR, PTT INR 1.43 (0.82-1.09) H 02/18/17 05:45 Troponin, BNP 02/17/17 02/17/17 02/18/17 16:46 23:45 05:45 Troponin I 0.39 H 0.34 H 0.34 H 02/18/17 12:35 Troponin I 0.29 H Troponin, BNP 02/17/17 02/17/17 02/18/17 16:46 23:45 05:45 Troponin I 0.39 H 0.34 H 0.34 H 02/18/17 12:35 Troponin I 0.29 H Imaging - Results EKG: Report Reviewed (nsr pvcs nssttw changes.) Other: Report Reviewed (CTA no pe) Assessment/Plan Elevated troponin with a nonischemic pattern. Likely demand ischemia. She has cancer with mets and a lactic acidosis, pre renal azotemia in the setting of RLL pneumonia. Not a candidate for ischemia workup. Echo ordered.
[2017-02-18] MEDS: SODIUM CHLORIDE 1,000 ML IV SCH (16:38)
[2017-02-19] MEDS ORDERED: THIAMINE HCL 100 MG TABLET (FP) PO ONE (02:16)
[2017-02-19] MEDS: MESALAMINE 800 MG TABLET.DR PO SCH ×3 (08:01→21:57)
[2017-02-19 09:09] LABS: HEMATOCRIT 23.7 % (32.4-45.2); HEMOGLOBIN 7.6 GM/dL (10.7-15.3); MCH 29.7 pg (25.7-33.7); MCHC 32.1 g/dl (32.0-36.0); MEAN CELL VOLUME 92.5 fl (80-96); MEAN PLT VOLUME 6.9 fl (7.5-11.1); PLATELET COUNT 186 K/MM3 (134-434); RBC 2.57 M/mm3 (3.60-5.2); WHITE BLOOD COUNT 7.3 K/mm3 (4.0-10.0)
[2017-02-19 09:24] LABS: ALBUMIN 1.5 g/dl (3.4-5.0); ALK PHOS 263 U/L (45-117); ANION GAP 13 (8-16); BILIRUBIN,TOTAL 0.6 mg/dL (0.2-1.0); BLOOD UREA NITROGEN 31 mg/dL (7-18); CALCIUM 8.1 mg/dL (8.5-10.1); CHLORIDE 108 mmol/L (98-107); CO2 22 mmol/L (21-32); CREATININE 0.3 mg/dL (0.55-1.02); GLUCOSE,RANDOM 59 mg/dL (74-106); PHOSPHOROUS 2.7 mg/dL (2.5-4.9); SGOT/AST 24 U/L (15-37); SGPT/ALT 8 U/L (12-78); SODIUM 143 mmol/L (136-145); TOT PROT 4.4 g/dl (6.4-8.2)
[2017-02-19 10:31] LABS: POTASSIUM 2.7 mmol/L (3.5-5.1)
[2017-02-19] MEDS: AMINO ACIDS/PROTEIN HYDROLYS 30 ML LIQUID.PKT PO SCH ×2 (10:34→18:00)
[2017-02-19] MEDS: ASPIRIN 325 MG TABLET PO SCH (10:41)
[2017-02-19] MEDS: ANASTROZOLE 1 MG TABLET PO SCH (10:41)
[2017-02-19] MEDS: ENOXAPARIN NA (PORCINE) 40 MG/0.4 ML DISP.SYRIN SQ SCH (10:41)
[2017-02-19] MEDS: PANTOPRAZOLE 40 MG TABLET (FP) PO SCH (10:42)
[2017-02-19] MEDS: MEGESTROL ACETATE 40 MG TABLET PO SCH ×3 (10:42→21:57)
[2017-02-19] MEDS: SODIUM CHLORIDE 1,000 ML IV SCH (10:42)
[2017-02-19] MEDS ORDERED: POTASSIUM CHLORIDE TABS 20 MEQ TABLET.ER (FP) PO ONE ×2 (11:00→18:00)
--- NOTE | 2017-02-19 12:45 | PN ---
Progress Note, [employer] - Note Progress Note: Pt has been refusing most PO intake. Regular diet should be downgraded to puree and magic cup although PO acceptance may not change. Reviewed with ER nurse. Selected Entries 02/17/17 02/17/17 02/18/17 18:00 22:00 01:05 Temperature 97.8 F 98.1 F 100.7 F H 02/18/17 02/18/17 02/18/17 03:44 07:06 10:25 Temperature 99.6 F 97.5 F L 98 F 02/18/17 02/19/17 02/19/17 22:00 05:33 06:00 Temperature 99.0 F 99.2 F 97.2 F L Laboratory Tests 02/17/17 02/18/17 02/19/17 16:50 05:45 08:45 WBC 9.3 11.9 H 7.3 D Consider Palliative care consult regarding pt's end of life wishes/ tube feeding. She is presently a full code.
[2017-02-19] MEDS: THIAMINE HCL 100 MG TABLET (FP) PO SCH (13:00)
--- NOTE | 2017-02-19 13:26 | PN ---
Progress Note, Physician Chief Complaint: no new complaints tele dcd in ER. History of Present Illness: She is a 61yo woman with history of Rt. Breast carcinoma 1999 s/p lumpectomy and XRT/chemo with multiple mets including brain found in 03/2016 who presented to the ED for PO intolerance and generalized weakness. She denies any pain, headache, blurry vision, pain in legs, diarrhea, nausea, vomiting, palpitations , heart racing, SOB. Found with elevated troponin. CTA no PE. Echo 02/18/17 tds normal EF trace tr - Current Medication List Current Medications: Active Medications Acetaminophen (Tylenol -) 650 mg PO Q6H PRN PRN Reason: FEVER Amino Acids (Prosource No Carb Liquid Pkt) 30 ml PO BID@0800,1730 [facility] [place] Last Admin: 02/19/17 10:34 Dose: Not Given Anastrozole (Arimidex -) 1 mg PO DAILY [facility] [place] Last Admin: 02/19/17 10:41 Dose: 1 mg Aspirin (Asa -) 325 mg PO DAILY [facility] [place] Last Admin: 02/19/17 10:41 Dose: 325 mg Enoxaparin Sodium (Lovenox -) 40 mg SQ DAILY [facility] [place] Last Admin: 02/19/17 10:41 Dose: 40 mg IV Flush (Kirill-Cath Flush) 10 ml IVPUSH PRN PRN PRN Reason: flush kirill cath Sodium Chloride (Normal Saline -) 1,000 mls @ 150 mls/hr IV ASDIR [facility] [place] Last Admin: 02/19/17 10:42 Dose: 150 mls/hr Megestrol Acetate (Megace -) 40 mg PO QID [facility] [place] Last Admin: 02/19/17 10:42 Dose: 40 mg Mesalamine (Asacol Hd -) 800 mg PO TID [facility] [place] Last Admin: 02/19/17 08:01 Dose: Not Given Non-Formulary Medication (Loperamide Hcl [Loperamide]) 2 mg PO PRN [facility] [place] Non-Formulary Medication (Potassium Chloride [Potassium Chloride]) 20 meq PO ASDIR [facility] [place] Pantoprazole Sodium (Protonix -) 40 mg PO DAILY [facility] [place] Last Admin: 02/19/17 10:42 Dose: 40 mg Potassium Chloride (K-Dur -) 40 meq PO ONCE ONE Stop: 02/19/17 18:01 Thiamine HCl (Vitamin B1 -) 100 mg PO DAILY CYNTHIA - Objective Vital Signs: Vital Signs Temperature 98.0 F 02/19/17 10:00 Pulse Rate 97 H 02/19/17 10:00 Respiratory Rate 18 02/19/17 10:00 Blood Pressure 145/71 02/19/17 10:00 O2 Sat by Pulse Oximetry (%) 100 02/19/17 09:50 Constitutional: Yes: No Distress, Calm Eyes: Yes: Conjunctiva Clear, EOM Intact HENT: Yes: Atraumatic, Normocephalic Neck: Yes: Supple, Trachea Midline Cardiovascular: Yes: Regular Rate and Rhythm Respiratory: Yes: CTA Bilaterally Gastrointestinal: Yes: Normal Bowel Sounds, Soft Edema: No Peripheral Pulses WNL: Yes Labs: CBC, BMP 02/19/17 08:45 02/19/17 08:55 INR, PTT INR 1.43 (0.82-1.09) H 02/18/17 05:45 Assessment/Plan Elevated troponin with a nonischemic pattern. Likely demand ischemia. She has cancer with mets and a lactic acidosis, pre renal azotemia in the setting of RLL pneumonia now improving. Not a candidate for ischemia workup. Echo normal EF no wall motion abnormalities. No need for tele or further cardiac testing. Will see as needed.
--- NOTE | 2017-02-19 14:13 | PN ---
Progress Note, Physician History of Present Illness: stable no new issues says she is feeling well - Current Medication List Current Medications: Active Medications Acetaminophen (Tylenol -) 650 mg PO Q6H PRN PRN Reason: FEVER Amino Acids (Prosource No Carb Liquid Pkt) 30 ml PO BID@0800,1730 [facility] Last Admin: 02/19/17 10:34 Dose: Not Given Anastrozole (Arimidex -) 1 mg PO DAILY [facility] Last Admin: 02/19/17 10:41 Dose: 1 mg Aspirin (Asa -) 325 mg PO DAILY [facility] Last Admin: 02/19/17 10:41 Dose: 325 mg Enoxaparin Sodium (Lovenox -) 40 mg SQ DAILY [facility] Last Admin: 02/19/17 10:41 Dose: 40 mg IV Flush (Kirill-Cath Flush) 10 ml IVPUSH PRN PRN PRN Reason: flush kirill cath Sodium Chloride (Normal Saline -) 1,000 mls @ 150 mls/hr IV ASDIR [facility] Last Admin: 02/19/17 10:42 Dose: 150 mls/hr Megestrol Acetate (Megace -) 40 mg PO QID [facility] Last Admin: 02/19/17 10:42 Dose: 40 mg Mesalamine (Asacol Hd -) 800 mg PO TID [facility] Last Admin: 02/19/17 08:01 Dose: Not Given Non-Formulary Medication (Loperamide Hcl [Loperamide]) 2 mg PO PRN [facility] Non-Formulary Medication (Potassium Chloride [Potassium Chloride]) 20 meq PO ASDIR [facility] Pantoprazole Sodium (Protonix -) 40 mg PO DAILY [facility] Last Admin: 02/19/17 10:42 Dose: 40 mg Potassium Chloride (K-Dur -) 40 meq PO ONCE ONE Stop: 02/19/17 18:01 Thiamine HCl (Vitamin B1 -) 100 mg PO DAILY [facility] - Objective Vital Signs: Vital Signs Temperature 98.0 F 02/19/17 10:00 Pulse Rate 97 H 02/19/17 10:00 Respiratory Rate 18 02/19/17 10:00 Blood Pressure 145/71 02/19/17 10:00 O2 Sat by Pulse Oximetry (%) 100 02/19/17 09:50 Constitutional: Yes: No Distress, Calm Cardiovascular: Yes: Regular Rate and Rhythm Respiratory: Yes: Regular, CTA Bilaterally Gastrointestinal: Yes: Normal Bowel Sounds, Soft Musculoskeletal: Yes: WNL Extremities: Yes: WNL Neurological: Yes: Alert, Oriented Psychiatric: Yes: Alert, Oriented Labs: CBC, BMP 02/19/17 08:45 02/19/17 08:55 INR, PTT INR 1.43 (0.82-1.09) H 02/18/17 05:45 Assessment/Plan clinically patient looks stable has received couple of doses of zosyn a pna according to ct scan, rest patient does not ahve any symptoms.chance patient might have asp pna Problem List - Problems (1) PNA (pneumonia) Code(s): J18.9 - PNEUMONIA, UNSPECIFIED ORGANISM (2) Elevated troponin Code(s): R74.8 - ABNORMAL LEVELS OF OTHER SERUM ENZYMES (3) Weakness Code(s): R53.1 - WEAKNESS (4) Breast cancer metastasized to multiple sites Code(s): C50.919 - MALIGNANT NEOPLASM OF UNSP SITE OF UNSPECIFIED FEMALE BREAST Qualifiers: Laterality: left Qualified Code(s): C50.912 - Malignant neoplasm of unspecified site of left female breast (5) Dehydration, mild Code(s): E86.0 - DEHYDRATION (6) Leukocytosis Code(s): D72.829 - ELEVATED WHITE BLOOD CELL COUNT, UNSPECIFIED (7) Ulcerative colitis Code(s): K51.90 - ULCERATIVE COLITIS, UNSPECIFIED, WITHOUT COMPLICATIONS plan continue current mgmt nutrition rest as per primary team
[2017-02-19] MEDS ORDERED: SODIUM CHLORIDE 1,000 ML IV SCH (15:25)
[2017-02-19] MEDS: CEFTRIAXONE 1 G/50 ML PREMIX 50 ML IVPB SCH (15:47)
--- NOTE | 2017-02-19 19:25 | PN ---
Teaching Attending Note Name of Resident: Dakota Thomas ATTENDING PHYSICIAN STATEMENT I saw and evaluated the patient. I reviewed the resident's note and discussed the case with the resident. I agree with the resident's findings and plan as documented. SUBJECTIVE: Patient denies chest pain, SOB. OBJECTIVE: Vital Signs Period Temp Pulse Resp BP Sys/Mulligan Pulse Ox Last 24 Hr 97.2 F-99.2 F 71-99 16-18 101-145/48-76 96-100 HEART: S1S2, RRR LUNGS: Clear ABDOMEN: Soft, non-tender, non-distended, normal BS EXTREMITIES: Trace edema Laboratory Results - last 24 hr 02/18/17 02/19/17 02/19/17 19:46 01:30 08:45 WBC 7.3 D RBC 2.57 L Hgb 7.6 L D Hct 23.7 L D MCV 92.5 MCH 29.7 MCHC 32.1 RDW 21.0 H Plt Count 186 MPV 6.9 L Sodium Potassium Chloride Carbon Dioxide Anion Gap BUN Creatinine Creat Clearance w eGFR Random Glucose Lactic Acid 5.9 H* 3.3 H* Calcium Phosphorus Magnesium Total Bilirubin AST ALT Alkaline Phosphatase Total Protein Albumin 02/19/17 02/19/17 08:55 08:55 WBC RBC Hgb Hct MCV MCH MCHC RDW Plt Count MPV Sodium 143 Potassium 2.7 L* Chloride 108 H Carbon Dioxide 22 Anion Gap 13 BUN 31 H Creatinine 0.3 L Creat Clearance w eGFR > 60 Random Glucose 59 L Lactic Acid 1.5 Calcium 8.1 L Phosphorus 2.7 D Magnesium 2.0 Total Bilirubin 0.6 AST 24 ALT 8 L D Alkaline Phosphatase 263 H D Total Protein 4.4 L Albumin 1.5 L Current Medications Generic Name Dose Route Start Last Admin Trade Name Freq PRN Reason Stop Dose Admin Acetaminophen 650 mg 02/17/17 21:55 Tylenol - PO Q6H PRN FEVER Amino Acids 30 ml 02/18/17 08:00 02/19/17 18:00 Prosource No Carb Liquid Pkt PO 30 ml BID@0800,1730 CYNTHIA Administration Anastrozole 1 mg 02/18/17 10:00 02/19/17 10:41 Arimidex - PO 1 mg DAILY CYNTHIA Administration Aspirin 325 mg 02/18/17 10:00 02/19/17 10:41 Asa - PO 325 mg DAILY CYNTHIA Administration Enoxaparin Sodium 40 mg 02/18/17 10:00 02/19/17 10:41 Lovenox - SQ 40 mg DAILY CYNTHIA Administration IV Flush 10 ml 02/17/17 21:55 Kirill-Cath Flush IVPUSH PRN PRN flush kirill cath CEFTRIAXONE 1 G/50 ML PREMIX 50 mls @ 100 mls/hr 02/19/17 14:45 02/19/17 15: 47 Ceftriaxone 1 Gm-D5w Bag IVPB 100 mls/hr DAILY CYNTHIA Administration Sodium Chloride 1,000 mls @ 83 mls/hr 02/19/17 15:25 02/19/17 17:58 Normal Saline - IV 83 mls/hr ASDIR CYNTHIA Administration Megestrol Acetate 40 mg 02/17/17 22:00 02/19/17 17:48 Megace - PO 40 mg QID YCNTHIA Administration Mesalamine 800 mg 02/17/17 22:00 02/19/17 17:40 Asacol Hd - PO 800 mg TID CYNTHIA Administration Non-Formulary Medication 2 mg 02/17/17 22:00 Loperamide Hcl [Loperamide] PO PRN CYNTHIA Pantoprazole Sodium 40 mg 02/18/17 10:00 02/19/17 10:42 Protonix - PO 40 mg DAILY CYNTHIA Administration Thiamine HCl 100 mg 02/19/17 10:00 02/19/17 13:00 Vitamin B1 - PO 100 mg DAILY CYNTHIA Administration ASSESSMENT AND PLAN: This is a 61 yo woman with history of metastatic breast cancer, ulcerative colitis who presented to the ED with generalized weakness and difficulty breathing. 1. Severe sepsis secondary to pneumonia - Afebrile - On Rocephin 2. Dysphagia with possible aspiration 3. Demand ischemia - No indication for further cardiac evaluation 4. Hypokalemia - Improved 5. Severe malnutrition secondary to anorexia - Continue Megace, Ensure Enlive, ProSource 6. Metastatic breast cancer, history of lumpectomy, chemotherapy, XRT - Continue Arimidex 7. Anemia secondary to chronic illness 8. Ulcerative colitis - Continue Asacol
--- NOTE | 2017-02-19 19:47 | PN ---
Physical Exam: SUBJECTIVE: Patient seen and examined OBJECTIVE: Vital Signs Period Temp Pulse Resp BP Sys/Mulligan Pulse Ox Last 24 Hr 97.2 F-99.2 F 71-99 16-18 101-145/48-76 96-100 GENERAL: The patient is awake, alert, and fully oriented, in no acute distress. HEAD: Normal with no signs of trauma. EYES: PERRL, extraocular movements intact, sclera anicteric, conjunctiva clear. No ptosis. ENT: Ears normal, nares patent, oropharynx clear without exudates, moist mucous membranes. NECK: Trachea midline, full range of motion, supple. LUNGS: Breath sounds equal, clear to auscultation bilaterally, no wheezes, no crackles, no accessory muscle use. HEART: Regular rate and rhythm, S1, S2 without murmur, rub or gallop. ABDOMEN: Soft, nontender, nondistended, normoactive bowel sounds, no guarding, no rebound, no hepatosplenomegaly, no masses. EXTREMITIES: 2+ pulses, warm, well-perfused, no edema. NEUROLOGICAL: Cranial nerves II through XII grossly intact. Normal speech, gait not observed. PSYCH: Normal mood, normal affect. SKIN: Warm, dry, normal turgor, no rashes or lesions noted Laboratory Results - last 24 hr 02/18/17 02/19/17 02/19/17 19:46 01:30 08:45 WBC 7.3 D RBC 2.57 L Hgb 7.6 L D Hct 23.7 L D MCV 92.5 MCH 29.7 MCHC 32.1 RDW 21.0 H Plt Count 186 MPV 6.9 L Sodium Potassium Chloride Carbon Dioxide Anion Gap BUN Creatinine Creat Clearance w eGFR Random Glucose Lactic Acid 5.9 H* 3.3 H* Calcium Phosphorus Magnesium Total Bilirubin AST ALT Alkaline Phosphatase Total Protein Albumin 02/19/17 02/19/17 08:55 08:55 WBC RBC Hgb Hct MCV MCH MCHC RDW Plt Count MPV Sodium 143 Potassium 2.7 L* Chloride 108 H Carbon Dioxide 22 Anion Gap 13 BUN 31 H Creatinine 0.3 L Creat Clearance w eGFR > 60 Random Glucose 59 L Lactic Acid 1.5 Calcium 8.1 L Phosphorus 2.7 D Magnesium 2.0 Total Bilirubin 0.6 AST 24 ALT 8 L D Alkaline Phosphatase 263 H D Total Protein 4.4 L Albumin 1.5 L Active Medications Generic Name Dose Route Start Last Admin Trade Name Brendonq PRN Reason Stop Dose Admin Acetaminophen 650 mg 02/17/17 21:55 Tylenol - PO Q6H PRN FEVER Amino Acids 30 ml 02/18/17 08:00 02/19/17 18:00 Prosource No Carb Liquid Pkt PO 30 ml BID@0800,1730 CYNTHIA Administration Anastrozole 1 mg 02/18/17 10:00 02/19/17 10:41 Arimidex - PO 1 mg DAILY CYNTHIA Administration Aspirin 325 mg 02/18/17 10:00 02/19/17 10:41 Asa - PO 325 mg DAILY CYNTHIA Administration Enoxaparin Sodium 40 mg 02/18/17 10:00 02/19/17 10:41 Lovenox - SQ 40 mg DAILY CYNTHIA Administration IV Flush 10 ml 02/17/17 21:55 Kirill-Cath Flush IVPUSH PRN PRN flush kirill cath CEFTRIAXONE 1 G/50 ML PREMIX 50 mls @ 100 mls/hr 02/19/17 14:45 02/19/17 15: 47 Ceftriaxone 1 Gm-D5w Bag IVPB 100 mls/hr DAILY CYNTHIA Administration Sodium Chloride 1,000 mls @ 83 mls/hr 02/19/17 15:25 02/19/17 17:58 Normal Saline - IV 83 mls/hr ASDIR CYNTHIA Administration Megestrol Acetate 40 mg 02/17/17 22:00 02/19/17 17:48 Megace - PO 40 mg QID CYNTHIA Administration Mesalamine 800 mg 02/17/17 22:00 02/19/17 17:40 Asacol Hd - PO 800 mg TID CYNTHIA Administration Non-Formulary Medication 2 mg 02/17/17 22:00 Loperamide Hcl [Loperamide] PO PRN CYNTHIA Pantoprazole Sodium 40 mg 02/18/17 10:00 02/19/17 10:42 Protonix - PO 40 mg DAILY CYNTHIA Administration Thiamine HCl 100 mg 02/19/17 10:00 02/19/17 13:00 Vitamin B1 - PO 100 mg DAILY CYNTHIA Administration ASSESSMENT/PLAN:
[2017-02-19] MEDS ORDERED: PT OWN MED DRAWER 7, Y5N ONE (21:30)
[2017-02-19 22:06] LABS: CHLORIDE 111 mmol/L (98-107); POTASSIUM 3.9 mmol/L (3.5-5.1); SODIUM 141 mmol/L (136-145)
[2017-02-19 22:11] LABS: ANION GAP 12 (8-16); BLOOD UREA NITROGEN 24 mg/dL (7-18); CALCIUM 7.1 mg/dL (8.5-10.1); CO2 18 mmol/L (21-32); CREATININE 0.2 mg/dL (0.55-1.02); GLUCOSE,RANDOM 51 mg/dL (74-106)
[2017-02-20] MEDS: DEXTROSE 5%-WATER - 1,000 ML IV SCH ×2 (01:00→14:12)
[2017-02-20] MEDS: MESALAMINE 800 MG TABLET.DR PO SCH ×3 (05:38→22:20)
[2017-02-20 08:17] LABS: ALBUMIN 1.5 g/dl (3.4-5.0); ANION GAP 11 (8-16); BILIRUBIN,TOTAL 0.5 mg/dL (0.2-1.0); BLOOD UREA NITROGEN 21 mg/dL (7-18); CALCIUM 7.3 mg/dL (8.5-10.1); CHLORIDE 109 mmol/L (98-107); CO2 20 mmol/L (21-32); CREATININE 0.4 mg/dL (0.55-1.02); GLUCOSE,RANDOM 57 mg/dL (74-106); MAGNESIUM 1.6 mg/dL (1.8-2.4); PHOSPHOROUS 2.3 mg/dL (2.5-4.9); POTASSIUM 3.6 mmol/L (3.5-5.1); SGOT/AST 20 U/L (15-37); SGPT/ALT 8 U/L (12-78); SODIUM 140 mmol/L (136-145); TOT PROT 4.1 g/dl (6.4-8.2)
[2017-02-20 08:18] LABS: ALK PHOS 280 U/L (45-117)
[2017-02-20 08:33] LABS: HEMATOCRIT 22.8 % (32.4-45.2); HEMOGLOBIN 7.3 GM/dL (10.7-15.3); MCH 29.9 pg (25.7-33.7); MCHC 32.2 g/dl (32.0-36.0); PLATELET COUNT 188 K/MM3 (134-434); RBC 2.45 M/mm3 (3.60-5.2); RDW 21.5 % (11.6-15.6)
[2017-02-20] MEDS: AMINO ACIDS/PROTEIN HYDROLYS 30 ML LIQUID.PKT PO SCH ×2 (08:51→17:59)
--- NOTE | 2017-02-20 09:55 | PN ---
Progress Note (short form) - Note Progress Note: no complaints. denies CP, SOB, fever, chills, N/V/C/D, hematuria, melena or BRBPR Current Medications Generic Name Dose Route Start Last Admin Trade Name Freq PRN Reason Stop Dose Admin Acetaminophen 650 mg 02/17/17 21:55 Tylenol - PO Q6H PRN FEVER Amino Acids 30 ml 02/18/17 08:00 02/20/17 08:51 Prosource No Carb Liquid Pkt PO 30 ml BID@0800,1730 CYNTHIA Administration Anastrozole 1 mg 02/18/17 10:00 02/19/17 10:41 Arimidex - PO 1 mg DAILY CYNTHIA Administration Aspirin 325 mg 02/18/17 10:00 02/19/17 10:41 Asa - PO 325 mg DAILY CYNTHIA Administration Enoxaparin Sodium 40 mg 02/18/17 10:00 02/19/17 10:41 Lovenox - SQ 40 mg DAILY CYNTHIA Administration IV Flush 10 ml 02/17/17 21:55 Kirill-Cath Flush IVPUSH PRN PRN flush kirill cath CEFTRIAXONE 1 G/50 ML PREMIX 50 mls @ 100 mls/hr 02/19/17 14:45 02/19/17 15: 47 Ceftriaxone 1 Gm-D5w Bag IVPB 100 mls/hr DAILY CYNTHIA Administration Dextrose 1,000 mls @ 83 mls/hr 02/20/17 01:00 02/20/17 01:00 D5w - IV 83 mls/hr ASDIR CYNTHIA Administration Megestrol Acetate 40 mg 02/17/17 22:00 02/19/17 21:57 Megace - PO 40 mg QID CYNTHIA Administration Mesalamine 800 mg 02/17/17 22:00 02/20/17 05:38 Asacol Hd - PO 800 mg TID CYNTHIA Administration Non-Formulary Medication 2 mg 02/17/17 22:00 Loperamide Hcl [Loperamide] PO PRN CYNTHIA Pantoprazole Sodium 40 mg 02/18/17 10:00 02/19/17 10:42 Protonix - PO 40 mg DAILY CYNTHIA Administration Thiamine HCl 100 mg 02/19/17 10:00 02/19/17 13:00 Vitamin B1 - PO 100 mg DAILY CYNTHIA Administration Last Vital Signs Temp Pulse Resp BP Pulse Ox 98 F 101 H 18 107/69 100 02/20/17 06:00 02/20/17 06:00 02/20/17 06:00 02/20/17 06:00 02/19/17 21:00 General NAD. A&O x3, bitemporal wasting, prominent clavicles CV S1 S2 tachy R chest port with no surrouding erythema/tenderness Lungs decreased breath sound R base., no wheezing or crackles Abdomen soft NT/ND Extremities trace pitting edema CBCD WBC 7.0 K/mm3 (4.0-10.0) 02/20/17 06:00 RBC 2.45 M/mm3 (3.60-5.2) L 02/20/17 06:00 Hgb 7.3 GM/dL (10.7-15.3) L 02/20/17 06:00 Hct 22.8 % (32.4-45.2) L 02/20/17 06:00 MCV 93.0 fl (80-96) 02/20/17 06:00 MCHC 32.2 g/dl (32.0-36.0) 02/20/17 06:00 RDW 21.5 % (11.6-15.6) H 02/20/17 06:00 Plt Count 188 K/MM3 (134-434) 02/20/17 06:00 MPV 7.0 fl (7.5-11.1) L 02/20/17 06:00 CMP Sodium 140 mmol/L (136-145) 02/20/17 06:00 Potassium 3.6 mmol/L (3.5-5.1) 02/20/17 06:00 Chloride 109 mmol/L (98-107) H 02/20/17 06:00 Carbon Dioxide 20 mmol/L (21-32) L 02/20/17 06:00 Anion Gap 11 (8-16) 02/20/17 06:00 BUN 21 mg/dL (7-18) H 02/20/17 06:00 Creatinine 0.4 mg/dL (0.55-1.02) L 02/20/17 06:00 Creat Clearance w eGFR > 60 (>60) 02/20/17 06:00 Calcium 7.3 mg/dL (8.5-10.1) L 02/20/17 06:00 Total Bilirubin 0.5 mg/dL (0.2-1.0) 02/20/17 06:00 AST 20 U/L (15-37) 02/20/17 06:00 ALT 8 U/L (12-78) L 02/20/17 06:00 Alkaline Phosphatase 280 U/L (45-117) H D 02/20/17 06:00 Total Protein 4.1 g/dl (6.4-8.2) L 02/20/17 06:00 Albumin 1.5 g/dl (3.4-5.0) L 02/20/17 06:00 Microbiology 02/18/17 01:29 Blood Culture - Preliminary Blood - Arterial NO GROWTH OBTAINED AFTER 48 HOURS, INCUBATION TO CONTINUE FOR 3 DAYS. 02/18/17 01:29 Blood Culture - Preliminary Blood - Arterial NO GROWTH OBTAINED AFTER 48 HOURS, INCUBATION TO CONTINUE FOR 3 DAYS. 02/18/17 02:40 Urine Culture - Preliminary Urine - Urine - Catheterized Lactose Fermenting Neg Bacilli ASSESSMENT AND PLAN: 61yo F with PMH R breast ca with (mets to brain, bone, pleura) s/p lumpectomy, RTx and Chemo whom completed hormonal therapy and on Xeloda currently every other week presented with generalized weakness and difficulty breathing 1. Severe sepsis due to RLL PNA and GNR UTI- afebrile. leukocytosis resolved. on Ceftriaxone day 4 of abx. concern for aspiration. d/w on admission about PEG placement. 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 2. Demand ischemia- flat trend of troponins. 0.39-0.34-0.34. no chest pain. likely due to sepsis. no indication for cardiac workup at this time 3. Sinus tachycardia- due to sepsis and dehydration 4. Hypokalemia- resolved 5. Hypomagnesmeia- Mg 800 6. Hypophosphatemia- neutraphos 7. Severe malnutrition-reported by RN not eating. stressed importance of eating. explained she will rapidly deteriorate if she does not eat. on megace, prosource, ensure enlive, 8. R breast ca with diffuse mets including recent brain- s/p WBR and dex now tapered off. further workup outpatient 9. Anemia of chronic disease- slow trend down. no reports of melena or BRBPR per RN. will repeat Cbc this afternoon. txn as needed. 10. DVT ppx- lovenox Visit type - Emergency Visit Emergency Visit: Yes ED Registration Date: 02/17/17 Care time: The patient presented to the Emergency Department on the above date and was hospitalized for further evaluation of their emergent condition. - New Patient This patient is new to me today: No - Critical Care Critical Care patient: No - Discharge Referral Referred to [facility] Med P.C.: No
[2017-02-20] MEDS ORDERED: PT OWN MED DRAWER 7, Y5N ONE ×2 (10:10→20:33)
[2017-02-20] MEDS ORDERED: MAGNESIUM OXIDE 400 MG TABLET (FP) PO ONE (10:15)
[2017-02-20] MEDS ORDERED: NAPH,MB-DB/K PH,MBDB POWDER PACKET PO ONE (10:15)
[2017-02-20] MEDS: CEFTRIAXONE 1 G/50 ML PREMIX 50 ML IVPB SCH (11:32)
[2017-02-20] MEDS: ENOXAPARIN NA (PORCINE) 40 MG/0.4 ML DISP.SYRIN SQ SCH (11:32)
[2017-02-20] MEDS: PANTOPRAZOLE 40 MG TABLET (FP) PO SCH (11:32)
[2017-02-20] MEDS: ASPIRIN 325 MG TABLET PO SCH (11:32)
[2017-02-20] MEDS: MEGESTROL ACETATE 40 MG TABLET PO SCH ×5 (11:33→22:20)
[2017-02-20] MEDS: ANASTROZOLE 1 MG TABLET PO SCH (11:34)
[2017-02-20] MEDS: THIAMINE HCL 100 MG TABLET (FP) PO SCH (11:34)
[2017-02-20 13:05] LABS: HEMATOCRIT 24.9 % (32.4-45.2); HEMOGLOBIN 8.1 GM/dL (10.7-15.3); MCH 30.1 pg (25.7-33.7); MCHC 32.4 g/dl (32.0-36.0); MEAN CELL VOLUME 92.7 fl (80-96); MEAN PLT VOLUME 6.8 fl (7.5-11.1); PLATELET COUNT 205 K/MM3 (134-434); RBC 2.69 M/mm3 (3.60-5.2); RDW 21.3 % (11.6-15.6); WHITE BLOOD COUNT 8.8 K/mm3 (4.0-10.0)
--- NOTE | 2017-02-20 14:16 | PN ---
Progress Note, Physician History of Present Illness: stable no new issues says she is feeling well eating - Current Medication List Current Medications: Active Medications Acetaminophen (Tylenol -) 650 mg PO Q6H PRN PRN Reason: FEVER Amino Acids (Prosource No Carb Liquid Pkt) 30 ml PO BID@0800,1730 [facility] Last Admin: 02/20/17 08:51 Dose: 30 ml Anastrozole (Arimidex -) 1 mg PO DAILY [facility] Last Admin: 02/20/17 11:34 Dose: 1 mg Aspirin (Asa -) 325 mg PO DAILY [facility] Last Admin: 02/20/17 11:32 Dose: 325 mg Enoxaparin Sodium (Lovenox -) 40 mg SQ DAILY [facility] Last Admin: 02/20/17 11:32 Dose: 40 mg IV Flush (Kirill-Cath Flush) 10 ml IVPUSH PRN PRN PRN Reason: flush kirill cath CEFTRIAXONE 1 G/50 ML PREMIX (Ceftriaxone 1 Gm-D5w Bag) 50 mls @ 100 mls/hr IVPB DAILY [facility] Last Admin: 02/20/17 11:32 Dose: 100 mls/hr Dextrose (D5w -) 1,000 mls @ 83 mls/hr IV ASDIR [facility] Last Admin: 02/20/17 14:12 Dose: 83 mls/hr Megestrol Acetate (Megace -) 40 mg PO QID [facility] Last Admin: 02/20/17 14:09 Dose: 40 mg Mesalamine (Asacol Hd -) 800 mg PO TID [facility] Last Admin: 02/20/17 14:08 Dose: 800 mg Non-Formulary Medication (Loperamide Hcl [Loperamide]) 2 mg PO PRN [facility] Pantoprazole Sodium (Protonix -) 40 mg PO DAILY [facility] Last Admin: 02/20/17 11:32 Dose: 40 mg Thiamine HCl (Vitamin B1 -) 100 mg PO DAILY [facility] Last Admin: 02/20/17 11:34 Dose: 100 mg - Objective Vital Signs: Vital Signs Temperature 98.6 F 02/20/17 11:30 Pulse Rate 107 H 02/20/17 11:30 Respiratory Rate 18 02/20/17 11:30 Blood Pressure 139/72 02/20/17 11:30 O2 Sat by Pulse Oximetry (%) 100 02/19/17 21:00 Constitutional: Yes: No Distress, Calm Cardiovascular: Yes: Regular Rate and Rhythm Respiratory: Yes: Regular, CTA Bilaterally Gastrointestinal: Yes: Normal Bowel Sounds, Soft Musculoskeletal: Yes: Other Extremities: Yes: Other Labs: CBC, BMP 02/20/17 12:30 02/20/17 06:00 INR, PTT INR 1.43 (0.82-1.09) H 02/18/17 05:45 Assessment/Plan clinically patient looks stable has received couple of doses of zosyn a pna according to ct scan, rest patient does not ahve any symptoms.chance patient might have asp pna Problem List - Problems (1) PNA (pneumonia) Code(s): J18.9 - PNEUMONIA, UNSPECIFIED ORGANISM (2) Elevated troponin Code(s): R74.8 - ABNORMAL LEVELS OF OTHER SERUM ENZYMES (3) Weakness Code(s): R53.1 - WEAKNESS (4) Breast cancer metastasized to multiple sites Code(s): C50.919 - MALIGNANT NEOPLASM OF UNSP SITE OF UNSPECIFIED FEMALE BREAST Qualifiers: Laterality: left Qualified Code(s): C50.912 - Malignant neoplasm of unspecified site of left female breast (5) Dehydration, mild Code(s): E86.0 - DEHYDRATION (6) Leukocytosis Code(s): D72.829 - ELEVATED WHITE BLOOD CELL COUNT, UNSPECIFIED (7) Ulcerative colitis Code(s): K51.90 - ULCERATIVE COLITIS, UNSPECIFIED, WITHOUT COMPLICATIONS plan continue current mgmt nutrition rest as per primary team change to oral augmentin tomorrow
[2017-02-20] MEDS: PATIENT'S OWN MEDICATION (NON-FORMULARY) (Potassium Chloride [Potassium Chloride] 20 MEQ) PO SCH (20:22)
[2017-02-21] MEDS ORDERED: PT OWN MED DRAWER 7, Y5N ONE ×2 (05:22→20:38)
[2017-02-21] MEDS: DEXTROSE 5%-WATER - 1,000 ML IV SCH ×3 (05:31→17:30)
[2017-02-21] MEDS: MESALAMINE 800 MG TABLET.DR PO SCH ×3 (05:32→23:53)
[2017-02-21 07:38] LABS: HEMOGLOBIN 7.4 GM/dL (10.7-15.3); MCHC 32.3 g/dl (32.0-36.0); MEAN CELL VOLUME 93.1 fl (80-96); MEAN PLT VOLUME 6.9 fl (7.5-11.1); PLATELET COUNT 176 K/MM3 (134-434); RBC 2.47 M/mm3 (3.60-5.2); RDW 21.2 % (11.6-15.6); WHITE BLOOD COUNT 7.9 K/mm3 (4.0-10.0)
--- NOTE | 2017-02-21 08:04 | PN ---
Physical Exam: SUBJECTIVE: Patient seen and examined OBJECTIVE: Vital Signs Period Temp Pulse Resp BP Sys/Mulligan Pulse Ox Last 24 Hr 98 F-98.7 F 103-113 18-20 96-139/52-73 98-100 GENERAL: The patient is awake, alert, and fully oriented, in no acute distress. HEAD: Normal with no signs of trauma. EYES: PERRL, extraocular movements intact, sclera anicteric, conjunctiva clear. No ptosis. ENT: Ears normal, nares patent, oropharynx clear without exudates, moist mucous membranes. NECK: Trachea midline, full range of motion, supple. LUNGS: Breath sounds equal, clear to auscultation bilaterally, no wheezes, no crackles, no accessory muscle use. HEART: Regular rate and rhythm, S1, S2 without murmur, rub or gallop. ABDOMEN: Soft, nontender, nondistended, normoactive bowel sounds, no guarding, no rebound, no hepatosplenomegaly, no masses. EXTREMITIES: 2+ pulses, warm, well-perfused, no edema. NEUROLOGICAL: Cranial nerves II through XII grossly intact. Normal speech, gait not observed. PSYCH: Normal mood, normal affect. SKIN: Warm, dry, normal turgor, no rashes or lesions noted Laboratory Results - last 24 hr 02/20/17 02/20/17 02/20/17 06:00 06:00 12:30 WBC 7.0 8.8 RBC 2.45 L 2.69 L Hgb 7.3 L 8.1 L D Hct 22.8 L 24.9 L MCV 93.0 92.7 MCH 29.9 30.1 MCHC 32.2 32.4 RDW 21.5 H 21.3 H Plt Count 188 205 MPV 7.0 L 6.8 L Sodium 140 Potassium 3.6 Chloride 109 H Carbon Dioxide 20 L Anion Gap 11 BUN 21 H Creatinine 0.4 L Creat Clearance w eGFR > 60 Random Glucose 57 L Calcium 7.3 L Phosphorus 2.3 L Magnesium 1.6 L Total Bilirubin 0.5 AST 20 ALT 8 L Alkaline Phosphatase 280 H D Total Protein 4.1 L Albumin 1.5 L Active Medications Generic Name Dose Route Start Last Admin Trade Name Freq PRN Reason Stop Dose Admin Acetaminophen 650 mg 02/17/17 21:55 Tylenol - PO Q6H PRN FEVER Amino Acids 30 ml 02/18/17 08:00 02/20/17 17:59 Prosource No Carb Liquid Pkt PO 30 ml BID@0800,1730 CYNTHIA Administration Anastrozole 1 mg 02/18/17 10:00 02/20/17 11:34 Arimidex - PO 1 mg DAILY CYNTHIA Administration Aspirin 325 mg 02/18/17 10:00 02/20/17 11:32 Asa - PO 325 mg DAILY CYNTHIA Administration Enoxaparin Sodium 40 mg 02/18/17 10:00 02/20/17 11:32 Lovenox - SQ 40 mg DAILY CYNTHIA Administration IV Flush 10 ml 02/17/17 21:55 Kirill-Cath Flush IVPUSH PRN PRN flush kirill cath CEFTRIAXONE 1 G/50 ML PREMIX 50 mls @ 100 mls/hr 02/19/17 14:45 02/20/17 11: 32 Ceftriaxone 1 Gm-D5w Bag IVPB 100 mls/hr DAILY CYNTHIA Administration Dextrose 1,000 mls @ 83 mls/hr 02/20/17 01:00 02/21/17 05:31 D5w - IV 83 mls/hr ASDIR CYNTHIA Administration Megestrol Acetate 40 mg 02/17/17 22:00 02/20/17 22:20 Megace - PO 40 mg QID CYNTHIA Administration Mesalamine 800 mg 02/17/17 22:00 02/21/17 05:32 Asacol Hd - PO 800 mg TID CYNTHIA Administration Non-Formulary Medication 2 mg 02/17/17 22:00 Loperamide Hcl [Loperamide] PO PRN CYNTHIA Pantoprazole Sodium 40 mg 02/18/17 10:00 02/20/17 11:32 Protonix - PO 40 mg DAILY CYNTHIA Administration Thiamine HCl 100 mg 02/19/17 10:00 02/20/17 11:34 Vitamin B1 - PO 100 mg DAILY CYNTHIA Administration ASSESSMENT/PLAN:
[2017-02-21 08:21] LABS: ANION GAP 11 (8-16); BLOOD UREA NITROGEN 15 mg/dL (7-18); CALCIUM 7.4 mg/dL (8.5-10.1); CHLORIDE 104 mmol/L (98-107); CO2 23 mmol/L (21-32); CREATININE 0.3 mg/dL (0.55-1.02); GLUCOSE,RANDOM 59 mg/dL (74-106); POTASSIUM 3.2 mmol/L (3.5-5.1); SODIUM 138 mmol/L (136-145)
[2017-02-21] MEDS ORDERED: POTASSIUM CHLORIDE TABS 20 MEQ TABLET.ER (FP) PO ONE (08:23)
--- NOTE | 2017-02-21 08:58 | PN ---
Teaching Attending Note Name of Resident: Dakota Thomas ATTENDING PHYSICIAN STATEMENT I saw and evaluated the patient. I reviewed the resident's note and discussed the case with the resident. I agree with the resident's findings and plan as documented. SUBJECTIVE:no complaints. denies CP, SOB, fever, chills, n/V/C/D OBJECTIVE: Last Vital Signs Temp Pulse Resp BP Pulse Ox 98.7 F 103 H 18 119/73 98 02/21/17 05:38 02/21/17 05:38 02/21/17 05:38 02/21/17 05:38 02/20/17 21:00 General NAD CV S1 S2 tachy Lungs CTA B/L no wheezing/rales/rhonchi ASSESSMENT AND PLAN: 61yo F with PMH R breast ca with (mets to brain, bone, pleura) s/p lumpectomy, RTx and Chemo whom completed hormonal therapy and on Xeloda currently every other week presented with generalized weakness and difficulty breathing 1. Severe sepsis due to RLL PNA and GNR UTI- afebrile. leukocytosis resolved. Ceftriaxone switched to augmentin day 1 for additional 3 days. ID on board 2. Demand ischemia- flat trend of troponins. 0.39-0.34-0.34. no chest pain. likely due to sepsis. no indication for cardiac workup at this time 3. Sinus tachycardia- due to sepsis and dehydration. stable 4. Hypokalemia- resolved 5. Hypomagnesmeia- resolved 6. Hypophosphatemia- resolved 7. Severe malnutrition-reported by RN not eating. today breakfast tray untouched. only taking 1 or 2 bites per aid. increase D5w for hypoglycemia. d/w pt need for nutrition. PEG option discussed. states she wants to speak with . but seems to like idea. will switch megace to marinol. on prosource, ensure enlive, 8. R breast ca with diffuse mets including recent brain- s/p WBR and dex now tapered off. further workup outpatient 9. Anemia of chronic disease- slow trend down. no reports of melena or BRBPR per RN. on repeat improved. at baseline. txn as needed. 10. DVT ppx- lovenox
--- NOTE | 2017-02-21 09:10 | PN ---
Progress Note, Physician History of Present Illness: doing well no complaints - Current Medication List Current Medications: Active Medications Acetaminophen (Tylenol -) 650 mg PO Q6H PRN PRN Reason: FEVER Amino Acids (Prosource No Carb Liquid Pkt) 30 ml PO BID@0800,1730 [facility] Last Admin: 02/20/17 17:59 Dose: 30 ml Anastrozole (Arimidex -) 1 mg PO DAILY [facility] Last Admin: 02/20/17 11:34 Dose: 1 mg Aspirin (Asa -) 325 mg PO DAILY [facility] Last Admin: 02/20/17 11:32 Dose: 325 mg Enoxaparin Sodium (Lovenox -) 40 mg SQ DAILY [facility] Last Admin: 02/20/17 11:32 Dose: 40 mg IV Flush (Kirill-Cath Flush) 10 ml IVPUSH PRN PRN PRN Reason: flush kirill cath CEFTRIAXONE 1 G/50 ML PREMIX (Ceftriaxone 1 Gm-D5w Bag) 50 mls @ 100 mls/hr IVPB DAILY [facility] Last Admin: 02/20/17 11:32 Dose: 100 mls/hr Dextrose (D5w -) 1,000 mls @ 83 mls/hr IV ASDIR [facility] Last Admin: 02/21/17 05:31 Dose: 83 mls/hr Megestrol Acetate (Megace -) 40 mg PO QID [facility] Last Admin: 02/20/17 22:20 Dose: 40 mg Mesalamine (Asacol Hd -) 800 mg PO TID [facility] Last Admin: 02/21/17 05:32 Dose: 800 mg Non-Formulary Medication (Loperamide Hcl [Loperamide]) 2 mg PO PRN [facility] Pantoprazole Sodium (Protonix -) 40 mg PO DAILY [facility] Last Admin: 02/20/17 11:32 Dose: 40 mg Thiamine HCl (Vitamin B1 -) 100 mg PO DAILY [facility] Last Admin: 02/20/17 11:34 Dose: 100 mg - Objective Vital Signs: Vital Signs Temperature 98.7 F 02/21/17 05:38 Pulse Rate 103 H 02/21/17 05:38 Respiratory Rate 18 02/21/17 05:38 Blood Pressure 119/73 02/21/17 05:38 O2 Sat by Pulse Oximetry (%) 98 02/20/17 21:00 Constitutional: Yes: No Distress, Calm Cardiovascular: Yes: Regular Rate and Rhythm Respiratory: Yes: Regular, CTA Bilaterally Gastrointestinal: Yes: Normal Bowel Sounds, Soft Musculoskeletal: Yes: WNL Extremities: Yes: WNL Neurological: Yes: Alert, Oriented Psychiatric: Yes: Alert, Oriented Labs: CBC, BMP 02/21/17 06:00 02/21/17 06:00 INR, PTT INR 1.43 (0.82-1.09) H 02/18/17 05:45 Assessment/Plan clinically patient looks stable has received couple of doses of zosyn a pna according to ct scan, rest patient does not ahve any symptoms.chance patient might have asp pna Problem List - Problems (1) PNA (pneumonia) Code(s): J18.9 - PNEUMONIA, UNSPECIFIED ORGANISM (2) Elevated troponin Code(s): R74.8 - ABNORMAL LEVELS OF OTHER SERUM ENZYMES (3) Weakness Code(s): R53.1 - WEAKNESS (4) Breast cancer metastasized to multiple sites Code(s): C50.919 - MALIGNANT NEOPLASM OF UNSP SITE OF UNSPECIFIED FEMALE BREAST Qualifiers: Laterality: left Qualified Code(s): C50.912 - Malignant neoplasm of unspecified site of left female breast (5) Dehydration, mild Code(s): E86.0 - DEHYDRATION (6) Leukocytosis Code(s): D72.829 - ELEVATED WHITE BLOOD CELL COUNT, UNSPECIFIED (7) Ulcerative colitis Code(s): K51.90 - ULCERATIVE COLITIS, UNSPECIFIED, WITHOUT COMPLICATIONS plan changed to augmentin continue for another 3 days rest as per primary team nutrition
[2017-02-21 10:58] LABS: MAGNESIUM 1.5 mg/dL (1.8-2.4); PHOSPHOROUS 2.7 mg/dL (2.5-4.9)
[2017-02-21] MEDS: DRONABINOL 2.5 MG CAPSULE PO SCH ×2 (11:12→17:30)
[2017-02-21] MEDS: AMOX TR/POT CLAV 875MG/125MG TABLETS (FP) PO SCH ×2 (11:12→17:30)
[2017-02-21] MEDS: AMINO ACIDS/PROTEIN HYDROLYS 30 ML LIQUID.PKT PO SCH ×2 (11:13→17:30)
[2017-02-21] MEDS: ENOXAPARIN NA (PORCINE) 40 MG/0.4 ML DISP.SYRIN SQ SCH (11:13)
[2017-02-21] MEDS: THIAMINE HCL 100 MG TABLET (FP) PO SCH (11:14)
[2017-02-21] MEDS: PANTOPRAZOLE 40 MG TABLET (FP) PO SCH (11:14)
[2017-02-21] MEDS: ASPIRIN 325 MG TABLET PO SCH (11:14)
[2017-02-21] MEDS ORDERED: MAGNESIUM OXIDE 400 MG TABLET (FP) PO ONE (11:30)
[2017-02-21] MEDS: ANASTROZOLE 1 MG TABLET PO SCH (12:59)
[2017-02-21] MEDS ORDERED: PORTA CATH FLUSH 10 ML IVPUSH ONE (19:21)
[2017-02-22] MEDS ORDERED: PT OWN MED DRAWER 7, Y5N ONE ×2 (05:29→20:44)
[2017-02-22] MEDS: MESALAMINE 800 MG TABLET.DR PO SCH ×3 (05:39→21:00)
[2017-02-22] MEDS: AMINO ACIDS/PROTEIN HYDROLYS 30 ML LIQUID.PKT PO SCH ×2 (08:55→18:36)
[2017-02-22] MEDS: AMOX TR/POT CLAV 875MG/125MG TABLETS (FP) PO SCH (08:55)
--- NOTE | 2017-02-22 10:41 | CONSULT ---
Consult - text type - Consultation Consultation Note: 61yo F with significant PMHx of Rt. Breast carcinoma (first diagnosed in 1998 via lumpectomy followed by RT/chemo/5yrs of tamoxifen and arimedex with multiple mets including brain found in 03/2016) who presented to the ED for PO intolerance and generalized weakness. Her states she has chronically decreased PO intake secondary to malignancy. She denies any pain, headache, blurry vision, pain in legs, diarrhea, nausea, vomiting, palpitations, heart racing, SOB. No back pain PAST MEDICAL HISTORY: Right breast cancer s/p lumpectomy, chemotherapy,RT, hormones --1998 to 2008 widely metastatic disease in the bones for > 2yrs. s/p taxol/gemzar/Xeloda HAs leptomeningeal diseas PAST SURGICAL HISTORY: Thyroidectomy, ? 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 Home Medications - Allergies Allergies/Adverse Reactions: Allergies Allergy/AdvReac Type Severity Reaction Status Date / Time No Known Allergies Allergy Verified 02/17/17 22:34 - Home Medications Home Medications: Ambulatory Orders Amlodipine Besylate 5 mg PO DAILY 01/06/17 Capecitabine 500 mg PO ASDIR 01/06/17 Loperamide HCl [Loperamide] 2 mg PO PRN 01/06/17 Pantoprazole Sodium 40 mg PO DAILY 01/06/17 Potassium Chloride 20 meq PO ASDIR 01/06/17 Acetaminophen [Tylenol .Regular Strength -] 650 mg PO Q6H PRN tablet 01/28/17 Amino Acids/Protein Hydrolys [Prosource No Carb Liquid Pkt] 30 ml PO BID@0800, 1730 packet 01/28/17 Anastrozole [Arimidex -] 1 mg PO DAILY tablet 01/28/17 Dexamethasone [Decadron -] See Taper PO DAILY #8 tablet 01/28/17 Megestrol Acetate [Megace -] 40 mg PO QID tablet 01/28/17 Mesalamine [Asacol HD -] 800 mg PO TID tablet. 01/28/17 Kirill-Cath Flush [Kirill-Cath Flush -] 10 ml IVPUSH PRN PRN ml 01/28/17 Active Medications Acetaminophen (Tylenol -) 650 mg PO Q6H PRN PRN Reason: FEVER Amino Acids (Prosource No Carb Liquid Pkt) 30 ml PO BID@0800,1730 [facility] Last Admin: 02/22/17 08:55 Dose: 30 ml Amoxicillin/Clavulanate Potassium (Augmentin 600 Mg/5 Ml Oral Suspension -) 600 mg PO BID@0800,1730 [facility] Anastrozole (Arimidex -) 1 mg PO DAILY [facility] Last Admin: 02/21/17 12:59 Dose: 1 mg Dronabinol (Marinol -) 2.5 mg PO BIDLS [facility] Last Admin: 02/21/17 17:30 Dose: 2.5 mg Enoxaparin Sodium (Lovenox -) 40 mg SQ DAILY [facility] Last Admin: 02/21/17 11:13 Dose: 40 mg IV Flush (Kirill-Cath Flush) 10 ml IVPUSH PRN PRN PRN Reason: flush kirill cath Dextrose (D5w -) 1,000 mls @ 100 mls/hr IV ASDIR [facility] Last Admin: 02/21/17 17:30 Dose: 100 mls/hr Mesalamine (Asacol Hd -) 800 mg PO TID [facility] Last Admin: 02/22/17 05:39 Dose: 800 mg Thiamine HCl (Vitamin B1 -) 100 mg PO DAILY [facility] Last Admin: 02/21/17 11:14 Dose: 100 mg Family Disease History - Family Disease History Family History: Unremarkable Family Disease History: CA: Mother Vital Signs: Last Vital Signs Temp Pulse Resp BP Pulse Ox 98.6 F 104 H 18 95/65 100 02/22/17 09:25 02/22/17 09:25 02/22/17 09:25 02/22/17 09:25 02/21/17 21:00 Constitutional: Yes: Calm, Cachectic, Thin Eyes: Yes: Conjunctiva Clear HENT: Yes: Atraumatic Neck: Yes: Supple Cardiovascular: Yes: Regular Rate and Rhythm Respiratory: Yes: Regular Gastrointestinal Inspection: No: Ascites, Distention ...Auscultate: Yes: Normoactive Bowel Sounds Neurological: Yes: Alert, Oriented lower extrmity--sensation intact, poor motor strength Labs reviewed Assessment/Plan 61yo F with significant history of Rt. Breast carcinoma (first diagnosed in 1998 via lumpectomy followed by RT/chemo/5yrs of tamoxifen and arimedex -- completed 2008) . She has had widely metastatic disease in the bones diagnosed 11/22 . Also with leptomeningeal disease s/p taxol/gemzar/Xeloda Most recently progression of leptomeningeal disease on xeloda. s/p WBRT. Restarted arimidex 1mg daily Worsening performance status. Lower extremity weakness from deconditioning, overall disease burden, leptomeningeal disease Discussed with patient. She understands her overall poor prognosis. She wants nature to take its course. She does not want any aggressive interventions. She has clearly stated to me and Dr. Sherman that she would want to be DNR/DNI. She does not want the feeding tube. She does not want this discussed with her as she feels he would be too overwhelmed. She wants to make her decisions and is competent. Will request palliative care consult for ongoing discussions on end of life care
--- NOTE | 2017-02-22 11:04 | PN ---
Progress Note (short form) - Note Progress Note: c/o of being tired of being back and forth in the hospital. deneis Cp,SOB, fever , chills, N/v/c/D. +BM today Current Medications Generic Name Dose Route Start Last Admin Trade Name Freq PRN Reason Stop Dose Admin Acetaminophen 650 mg 02/17/17 21:55 Tylenol - PO Q6H PRN FEVER Amino Acids 30 ml 02/18/17 08:00 02/22/17 08:55 Prosource No Carb Liquid Pkt PO 30 ml BID@0800,1730 [facility] Administration Amoxicillin/Clavulanate Potassium 600 mg 02/22/17 17:30 Augmentin 600 Mg/5 Ml Oral Suspension - PO BID@0800,1730 [facility] Anastrozole 1 mg 02/18/17 10:00 02/21/17 12:59 Arimidex - PO 1 mg DAILY [facility] Administration Dronabinol 2.5 mg 02/21/17 12:00 02/21/17 17:30 Marinol - PO 2.5 mg BIDLS [facility] Administration Enoxaparin Sodium 40 mg 02/18/17 10:00 02/21/17 11:13 Lovenox - SQ 40 mg DAILY [facility] Administration IV Flush 10 ml 02/17/17 21:55 Kirill-Cath Flush IVPUSH PRN PRN flush kirill cath Dextrose 1,000 mls @ 100 mls/hr 02/21/17 09:30 02/21/17 17:30 D5w - IV 100 mls/hr ASDIR [facility] Administration Mesalamine 800 mg 02/17/17 22:00 02/22/17 05:39 Asacol Hd - PO 800 mg TID [facility] Administration Thiamine HCl 100 mg 02/19/17 10:00 02/21/17 11:14 Vitamin B1 - PO 100 mg DAILY [facility] Administration Last Vital Signs Temp Pulse Resp BP Pulse Ox 98.6 F 104 H 18 95/65 100 02/22/17 09:25 02/22/17 09:25 02/22/17 09:25 02/22/17 09:25 02/21/17 21:00 General NAD CV S1 S2 tachy Lungs CTA B/L no wheezing/rales/rhonchi adbomen soft NT/ND Extremities ASSESSMENT AND PLAN: 61yo F with PMH R breast ca with (mets to brain, bone, pleura) s/p lumpectomy, RTx and Chemo whom completed hormonal therapy and on Xeloda currently every other week presented with generalized weakness and difficulty breathing 1. Severe sepsis due to RLL PNA and GNR UTI- afebrile. leukocytosis resolved. Ceftriaxone switched to augmentin day 2 of 3. ID on board 2. Demand ischemia- flat trend of troponins. 0.39-0.34-0.34. no chest pain. likely due to sepsis. no indication for cardiac workup at this time 3. Sinus tachycardia- due to sepsis and dehydration. stable 4. Hypokalemia- resolved 5. Hypomagnesmeia- resolved 6. Hypophosphatemia- resolved 7. Severe malnutrition-reported by RN not eating. pt admits to having no desire to eat. discussed options of PEG tube and details of the procedure which she declined and is not interested in at this time. on marinol, prosource, ensure enlive, 8. R breast ca with diffuse mets including recent brain- s/p WBR and dex now tapered off. further workup outpatient 9. Anemia of chronic disease- slow trend down. no reports of melena or BRBPR per RN. on repeat improved. at baseline. txn as needed. 10. DVT ppx- lovenox 11. lengthy conversation with patient regarding goals of care. pt does not want to continue to go between hospital and rehab and desires to be home. adamantly refusing chest compressions/intubation. agreeable to speaking to someone about hospice but unsure if its something her and her family is ready for. DNR/DNI, palliative care consult placed. will inform SW that may be home hospice if pt and family agrees. spoke with Dr Mon. confirmed code status with patient. Visit type - Emergency Visit Emergency Visit: Yes ED Registration Date: 02/17/17 Care time: The patient presented to the Emergency Department on the above date and was hospitalized for further evaluation of their emergent condition. - New Patient This patient is new to me today: No - Critical Care Critical Care patient: No - Discharge Referral Referred to [facility] Med P.C.: No
[2017-02-22] MEDS: THIAMINE HCL 100 MG TABLET (FP) PO SCH (11:52)
[2017-02-22] MEDS: DRONABINOL 2.5 MG CAPSULE PO SCH ×2 (11:52→18:35)
[2017-02-22] MEDS: ANASTROZOLE 1 MG TABLET PO SCH (11:53)
[2017-02-22] MEDS: PANTOPRAZOLE 40 MG TABLET (FP) PO SCH (11:54)
[2017-02-22] MEDS: ASPIRIN 325 MG TABLET PO SCH (11:54)
--- NOTE | 2017-02-22 12:56 | PN ---
Progress Note, Physician History of Present Illness: events noted currently stable doing well no complaints - Current Medication List Current Medications: Active Medications Acetaminophen (Tylenol -) 650 mg PO Q6H PRN PRN Reason: FEVER Amino Acids (Prosource No Carb Liquid Pkt) 30 ml PO BID@0800,1730 [facility] Last Admin: 02/22/17 08:55 Dose: 30 ml Amoxicillin/Clavulanate Potassium (Augmentin 600 Mg/5 Ml Oral Suspension -) 600 mg PO BID@0800,1730 [facility] Anastrozole (Arimidex -) 1 mg PO DAILY [facility] Last Admin: 02/22/17 11:53 Dose: Not Given Dronabinol (Marinol -) 2.5 mg PO BIDLS [facility] Last Admin: 02/22/17 11:52 Dose: Not Given Enoxaparin Sodium (Lovenox -) 40 mg SQ DAILY [facility] Last Admin: 02/21/17 11:13 Dose: 40 mg IV Flush (Kirill-Cath Flush) 10 ml IVPUSH PRN PRN PRN Reason: flush kirill cath Dextrose (D5w -) 1,000 mls @ 100 mls/hr IV ASDIR [facility] Last Admin: 02/21/17 17:30 Dose: 100 mls/hr Mesalamine (Asacol Hd -) 800 mg PO TID [facility] Last Admin: 02/22/17 05:39 Dose: 800 mg Thiamine HCl (Vitamin B1 -) 100 mg PO DAILY [facility] Last Admin: 02/22/17 11:52 Dose: Not Given - Objective Vital Signs: Vital Signs Temperature 98.6 F 02/22/17 09:25 Pulse Rate 104 H 02/22/17 09:25 Respiratory Rate 18 02/22/17 09:25 Blood Pressure 95/65 02/22/17 09:25 O2 Sat by Pulse Oximetry (%) 100 02/21/17 21:00 Constitutional: Yes: No Distress, Calm Cardiovascular: Yes: Regular Rate and Rhythm Respiratory: Yes: Regular, CTA Bilaterally Gastrointestinal: Yes: Normal Bowel Sounds, Soft Musculoskeletal: Yes: WNL Extremities: Yes: WNL Neurological: Yes: Alert, Oriented Psychiatric: Yes: Alert Labs: CBC, BMP 02/21/17 06:00 02/21/17 06:00 INR, PTT INR 1.43 (0.82-1.09) H 02/18/17 05:45 Assessment/Plan clinically patient looks stable has received couple of doses of zosyn a pna according to ct scan, rest patient does not ahve any symptoms.chance patient might have asp pna Problem List - Problems (1) PNA (pneumonia) Code(s): J18.9 - PNEUMONIA, UNSPECIFIED ORGANISM (2) Elevated troponin Code(s): R74.8 - ABNORMAL LEVELS OF OTHER SERUM ENZYMES (3) Weakness Code(s): R53.1 - WEAKNESS (4) Breast cancer metastasized to multiple sites Code(s): C50.919 - MALIGNANT NEOPLASM OF UNSP SITE OF UNSPECIFIED FEMALE BREAST Qualifiers: Laterality: left Qualified Code(s): C50.912 - Malignant neoplasm of unspecified site of left female breast (5) Dehydration, mild Code(s): E86.0 - DEHYDRATION (6) Leukocytosis Code(s): D72.829 - ELEVATED WHITE BLOOD CELL COUNT, UNSPECIFIED (7) Ulcerative colitis Code(s): K51.90 - ULCERATIVE COLITIS, UNSPECIFIED, WITHOUT COMPLICATIONS plan can stop all abx tomorrow rest continue current mgmt failure to thrive nutrition
[2017-02-22] MEDS: DEXTROSE 5%-WATER - 1,000 ML IV SCH ×2 (14:29→18:00)
--- NOTE | 2017-02-22 14:41 | PN ---
Progress Note, Physician History of Present Illness: No acute events. No appetite - Current Medication List Current Medications: Active Medications Acetaminophen (Tylenol -) 650 mg PO Q6H PRN PRN Reason: FEVER Amino Acids (Prosource No Carb Liquid Pkt) 30 ml PO BID@0800,1730 [facility] Last Admin: 02/22/17 08:55 Dose: 30 ml Amoxicillin/Clavulanate Potassium (Augmentin 600 Mg/5 Ml Oral Suspension -) 600 mg PO BID@0800,1730 [facility] Anastrozole (Arimidex -) 1 mg PO DAILY [facility] Last Admin: 02/22/17 11:53 Dose: Not Given Dronabinol (Marinol -) 2.5 mg PO BIDLS [facility] Last Admin: 02/22/17 11:52 Dose: Not Given Enoxaparin Sodium (Lovenox -) 40 mg SQ DAILY [facility] Last Admin: 02/21/17 11:13 Dose: 40 mg IV Flush (Kirill-Cath Flush) 10 ml IVPUSH PRN PRN PRN Reason: flush kirill cath Dextrose (D5w -) 1,000 mls @ 100 mls/hr IV ASDIR [facility] Last Admin: 02/22/17 14:29 Dose: Not Given Mesalamine (Asacol Hd -) 800 mg PO TID [facility] Last Admin: 02/22/17 05:39 Dose: 800 mg Thiamine HCl (Vitamin B1 -) 100 mg PO DAILY [facility] Last Admin: 02/22/17 11:52 Dose: Not Given - Objective Vital Signs: Vital Signs Temperature 98.6 F 02/22/17 09:25 Pulse Rate 104 H 02/22/17 09:25 Respiratory Rate 18 02/22/17 09:25 Blood Pressure 95/65 02/22/17 09:25 O2 Sat by Pulse Oximetry (%) 100 02/21/17 21:00 Constitutional: Yes: No Distress, Calm, Cachectic, Thin Gastrointestinal: Yes: Soft. No: Melena, Rectal Bleeding, Tenderness, Vomiting Neurological: Yes: Alert, Oriented Labs: CBC, BMP 02/21/17 06:00 02/21/17 06:00 INR, PTT INR 1.43 (0.82-1.09) H 02/18/17 05:45 Problem List - Problems (1) PNA (pneumonia) Code(s): J18.9 - PNEUMONIA, UNSPECIFIED ORGANISM (2) Elevated troponin Code(s): R74.8 - ABNORMAL LEVELS OF OTHER SERUM ENZYMES (3) Weakness Code(s): R53.1 - WEAKNESS (4) Breast cancer metastasized to multiple sites Code(s): C50.919 - MALIGNANT NEOPLASM OF UNSP SITE OF UNSPECIFIED FEMALE BREAST Qualifiers: Laterality: left Qualified Code(s): C50.912 - Malignant neoplasm of unspecified site of left female breast (5) Dehydration, mild Code(s): E86.0 - DEHYDRATION (6) Leukocytosis Code(s): D72.829 - ELEVATED WHITE BLOOD CELL COUNT, UNSPECIFIED (7) Ulcerative colitis Code(s): K51.90 - ULCERATIVE COLITIS, UNSPECIFIED, WITHOUT COMPLICATIONS Assessment/Plan Continue asacol at previous dose as it appears to control UC/GI symptoms. PNA management as per primary team Metastatic breast cancer Supportive care Prognosis is very poor.
--- NOTE | 2017-02-22 15:26 | PN ---
Progress Note, [employer]TER - Note Progress Note: Pt's reported that she is eating a little, mainly Ensure and Magic cup. Poor prognosis for survival. Followed by Palliative care. Pt is DNR/DNI. End of life decisions/[place], being made. Upgrade diet without restrictions, as tolerated and desired. Continue to provide Ensure Plus and Magic cup, as desired.
[2017-02-22] MEDS: ENOXAPARIN NA (PORCINE) 40 MG/0.4 ML DISP.SYRIN SQ SCH (16:58)
[2017-02-22] MEDS: AMOX TR/POTASSIUM CLAVULANATE 600 MG/5 ML PO SCH (18:47)
[2017-02-23] MEDS: DEXTROSE 5%-WATER - 1,000 ML IV SCH ×2 (06:43→12:04)
[2017-02-23] MEDS: MESALAMINE 800 MG TABLET.DR PO SCH ×3 (06:44→23:02)
--- NOTE | 2017-02-23 07:23 | MSN ---
Progress Note (short form) - Note Progress Note: SUBJECTIVE CC: poor PO intake, generalized weakness, sepsis HPI: 61 y/o F with PMHx R breast ca (dx 1998) with mets to brain, leptomeninges , bone, pleura s/p lumpectomy, RT, hormonal therapy ([id number]) currently on Xeloda (capecitabine) every other week, and UC. She first presented to ED with poor PO intake and generalized weakness; after workup in ED, found to be septic with fever, leukocytosis and RLL PNA and UTI. No acute overnight events. Pt had 1 loose BM this AM and voided 2x in diaper. Pt was seen and examined today. Pt states her appetite is much improved since admission. She denies any headache, nausea, generalized pain in body, dysuria, SOB. She states her b/l leg edema "comes and goes". pt states at home, her loose BMs are intermittent. Pt requests to speak to doctor and asks, "Does everything look good?" I stated the hospitalist team will be by later to examine her and she can ask the attending. OBJECTIVE Last Vital Signs Temp Pulse Resp BP Pulse Ox 98.3 F 103 H 20 103/69 100 02/23/17 05:52 02/23/17 05:52 02/23/17 05:52 02/23/17 05:52 02/22/17 21:00 General: Pt is resting comfortably in bed, in no acute distress. Eyes: No scleroicterus; b/l senile arcus noted. Throat: Tongue mild dessication with no change in coloration, moist mucus membranes. Dentition intact without noticeable plaque on gross exam. Heart: Tachycardic rate, regular rhythm. No murmurs, rubs or gallops appreciated. Lungs: Clear to auscultation b/l anteriorly. Unable to listen posteriorly due to pt generalized weakness. Equal breath sounds. Pt unable to have good inspiratory, expiratory effort. Abdomen: Normoactive bowel sounds in all four quadrants. Nontender to light palpation, nondistended Extremities: 2+ pitting edema noted in b/L LE, worse at distal calf near malleoli and dorsum of feet. 3+ pitting edema near medial malleoli on R foot. 2 + DP pulses. CBC, BMP 02/23/17 06:00 02/23/17 06:00 Laboratory Results - last 24 hr 02/22/17 02/23/17 02/23/17 18:53 06:00 06:00 WBC 11.2 H D RBC 2.46 L Hgb 7.3 L Hct 22.7 L MCV 92.1 MCH 29.6 MCHC 32.1 RDW 20.7 H Plt Count 192 MPV 7.2 L Neutrophils % No Result Required. Neutrophils % (Manual) 70.1 Band Neutrophils % 5.2 Lymphocytes % No Result Required. Lymphocytes % (Manual) 9.3 D Monocytes % (Manual) 8 Eosinophils % (Manual) 1.0 D Basophils % (Manual) 0.0 Myelocytes % (Man) 1 D Metamyelocytes 2 D Hypochromia 1+ Platelet Estimate Normal Anisocytosis 2+ Microcytosis 1+ Sodium 137 Potassium 3.0 L Chloride 101 Carbon Dioxide 25 Anion Gap 11 BUN 10 Creatinine 0.2 L POC Glucometer 105 Random Glucose 60 L Calcium 7.3 L 02/23/17 06:43 WBC RBC Hgb Hct MCV MCH MCHC RDW Plt Count MPV Neutrophils % Neutrophils % (Manual) Band Neutrophils % Lymphocytes % Lymphocytes % (Manual) Monocytes % (Manual) Eosinophils % (Manual) Basophils % (Manual) Myelocytes % (Man) Metamyelocytes Hypochromia Platelet Estimate Anisocytosis Microcytosis Sodium Potassium Chloride Carbon Dioxide Anion Gap BUN Creatinine POC Glucometer 76 Random Glucose Calcium Intake & Output 02/20/17 02/21/17 02/22/17 02/23/17 23:59 23:59 23:59 23:59 Intake Total 2402 161 7897 1000 Balance 7993 046 4884 1000 Active Medications Generic Name Dose Route Start Last Admin Trade Name Maksim PRN Reason Stop Dose Admin Acetaminophen 650 mg 02/17/17 21:55 02/22/17 18:04 Tylenol - PO 650 mg Q6H PRN Administration FEVER Amino Acids 30 ml 02/18/17 08:00 02/22/17 18:36 Prosource No Carb Liquid Pkt PO Not Given BID@0800,1730 CYNTHIA Amoxicillin/Clavulanate Potassium 600 mg 02/22/17 17:30 02/22/17 18:47 Augmentin 600 Mg/5 Ml Oral Suspension - PO 5 ml BID@0800,1730 CYNTHIA Administration Anastrozole 1 mg 02/18/17 10:00 02/22/17 11:53 Arimidex - PO Not Given DAILY CYNTHIA Dronabinol 2.5 mg 02/21/17 12:00 02/22/17 18:35 Marinol - PO Not Given BIDLS CYNTHIA Enoxaparin Sodium 40 mg 02/18/17 10:00 02/22/17 16:58 Lovenox - SQ 40 mg DAILY CYNTHIA Administration IV Flush 10 ml 02/17/17 21:55 Mikel-Cath Flush IVPUSH PRN PRN flush mikel cath Dextrose 1,000 mls @ 100 mls/hr 02/21/17 09:30 02/23/17 06:43 D5w - IV 100 mls/hr ASDIR CYNTHIA Administration Mesalamine 800 mg 02/17/17 22:00 02/23/17 06:44 Asacol Hd - PO Not Given TID CYNTHIA Thiamine HCl 100 mg 02/19/17 10:00 02/22/17 11:52 Vitamin B1 - PO Not Given DAILY [facility] Home Medications Medication Instructions Recorded Amlodipine Besylate 5 mg PO DAILY 01/06/17 Capecitabine 500 mg PO ASDIR 01/06/17 Loperamide HCl [Loperamide] 2 mg PO PRN 01/06/17 Pantoprazole Sodium 40 mg PO DAILY 01/06/17 Potassium Chloride 20 meq PO ASDIR 01/06/17 Acetaminophen [Tylenol .Regular 650 mg PO Q6H PRN tablet 01/28/17 Strength -] Amino Acids/Protein Hydrolys 30 ml PO BID@0800,1730 packet 01/28/17 [Prosource No Carb Liquid Pkt] Anastrozole [Arimidex -] 1 mg PO DAILY tablet 01/28/17 Dexamethasone [Decadron -] See Taper PO DAILY #8 tablet 01/28/17 Megestrol Acetate [Megace -] 40 mg PO QID tablet 01/28/17 Mesalamine [Asacol HD -] 800 mg PO TID tablet. 01/28/17 Mikel-Cath Flush [Mikel-Cath Flush 10 ml IVPUSH PRN PRN ml 01/28/17 -] Microbiology 02/18/17 01:29 Blood - Arterial Blood Culture - Final NO GROWTH AFTER 5 DAYS INCUBATION 02/18/17 01:29 Blood - Arterial Blood Culture - Final NO GROWTH AFTER 5 DAYS INCUBATION 02/18/17 02:40 Urine - Urine - Catheterized Urine Culture - Final Escherichia Coli 02/18/17 02:40 Urine For Antigen Detection Legionella Antigen - Final 02/18/17 02:40 Urine For Antigen Detection Streptococcus pneumoniae Antigen (M - Final 02/18/17 02:40 Nasopharyngeal Swab Influenza Types A,B Antigen (AYANNA) - Final 02/18/17 02:40 Nasopharyngeal Swab - Final ASSESSMENT 61 y/o F with PMHx R breast ca (dx 1998) with mets to brain, leptomeninges, bone , pleura s/p lumpectomy, RT, hormonal therapy ([id number]) currently on Xeloda ( capecitabine) every other week. Pt presented to the ED for PO intolerance, generalized weakness, currently being treated for sepsis and RLL PNA, UTI. PLAN 1. Sepsis * likely 2/2 RLL PNA and UTI * UTI - urine culture grew bolaños sensitive E. coli * RLL PNA - discovered on admission with CXR. Leukocytosis has now resolved with change Zosyn/Vanc (x1 day) downgraded to Ceftriaxone (day 2/2) and currently on Augmentin 600mg PO BID (day 3/3). ID on board (Dr. Wills) * Currently afebrile, still tachycardic at 103 (range 96-123 since arrival) likely 2/2 dehydration, poor PO intake 2. Electrolyte abnormalities * likely 2/2 sepsis, poor PO intake * Will replete lytes as needed * Will need to order Mg for today. * Replete K+ with 10 mEq x 3 riders. * Low Cr likely due to muscle atrophy secondary to cachexia. 3. Cachexia * likely 2/2 poor PO intake secondary to malignancy * Oncology consult (Dr. Mon) - restarted Arimidex (anastrazole) due to progression of leptomeningeal disease on Xeloda. Recommended palliative care consult since pt is DNR/DNI, refused feeding tube. As per note, pt also does not want refusal of feeding tube discussed with because she feels he will be overwhelmed. * Natalie Wilde consult - ordered palliative care consult; recommended switching diet to upgrade diet with no restrictions, add Ensure + magic cup PRN * Switch from dysphagia puree diet to regular diet today 4. Ulcerative colitis * Dr. Bell consult - recommended continuing Asacol (mesalamine) home med since pt is stable and UC is well controlled. 5. Hypoglycemia * likely 2/2 poor PO intake due to malignancy * Currently on D5W 1000mls @100cc/hr; BGM BID to monitor for hypoglycemia 6. B/L LE pitting edema * likely 2/2 immobility vs. estrogen use (megestrol home med to stimulate appetite) * no erythema on PE or PMHx venous stasis * Unlikely lymphadema b/c B/L and no lymphadema on admission * On PE, pt does not seem fluid overloaded; no Lasix necessary, patt. given pt poor free fluid intake. 7. Anemia * likely 2/2 anemia of chronic disease given hx malignancy * Pt baseline Hb (8.9-7.4) based on prior draws and pt hospital hx. Last known H /H 02/23 7.3/22.7; no labs were drawn yesterday. * Stable at this time; lower transfusion threshold given pt hx of chronic anemia. * Monitor for active bleeding, melena, BRBPR patt given hx of UC 8. DVT PPX * Lovenox 9. GI PPX * None needed at this time; pt does not meet indications for stress ulcer PPX 10. FEN * Fluids: D5W 1000mls@100cc/hr * Electrolytes: replete lytes as needed * Nutrition: change diet from dysphagia puree to regular diet today 11. Dispo * may discharge to home hospice depending on conversation with family, as per notes * Pt requests we speak to her personally, she will let her know our goals of care * med team will converse with Palliative Care team to possible D/C to [facility]. * Coordination of care with Dr. Mon (oncology) Linda Stoo, OMS-3
[2017-02-23 07:40] LABS: HEMATOCRIT 22.7 % (32.4-45.2); HEMOGLOBIN 7.3 GM/dL (10.7-15.3); MCH 29.6 pg (25.7-33.7); MCHC 32.1 g/dl (32.0-36.0); MEAN CELL VOLUME 92.1 fl (80-96); MEAN PLT VOLUME 7.2 fl (7.5-11.1); PLATELET COUNT 192 K/MM3 (134-434); RBC 2.46 M/mm3 (3.60-5.2); RDW 20.7 % (11.6-15.6); WHITE BLOOD COUNT 11.2 K/mm3 (4.0-10.0)
[2017-02-23 08:03] LABS: ANION GAP 11 (8-16); BLOOD UREA NITROGEN 10 mg/dL (7-18); CALCIUM 7.3 mg/dL (8.5-10.1); CHLORIDE 101 mmol/L (98-107); CO2 25 mmol/L (21-32); CREATININE 0.2 mg/dL (0.55-1.02); GLUCOSE,RANDOM 60 mg/dL (74-106); SODIUM 137 mmol/L (136-145)
[2017-02-23 11:36] LABS: ANISOCYTOSIS 2+; PLATELET ESTIMATE NORMAL
[2017-02-23] MEDS: DRONABINOL 2.5 MG CAPSULE PO SCH ×2 (12:04→18:07)
[2017-02-23] MEDS: ENOXAPARIN NA (PORCINE) 40 MG/0.4 ML DISP.SYRIN SQ SCH (12:06)
[2017-02-23] MEDS: ANASTROZOLE 1 MG TABLET PO SCH (12:06)
[2017-02-23] MEDS: THIAMINE HCL 100 MG TABLET (FP) PO SCH (12:06)
[2017-02-23] MEDS: AMINO ACIDS/PROTEIN HYDROLYS 30 ML LIQUID.PKT PO SCH ×2 (12:07→18:07)
[2017-02-23] MEDS: AMOX TR/POTASSIUM CLAVULANATE 600 MG/5 ML PO SCH (12:21)
[2017-02-23] MEDS ORDERED: MAGNESIUM 1GM/D5W 100ML - 100 ML IVPB IVPB ONE (13:38)
[2017-02-23] MEDS ORDERED: DEXTROSE 5%-WATER - 1,000 ML with POTASSIUM CHLORIDE 10 MEQ IVPB SCH (13:42)
[2017-02-23] MEDS ORDERED: POTASSIUM CHLORIDE ORAL LIQUID 20 MEQ/15 ML PO ONE (14:00)
--- NOTE | 2017-02-23 14:20 | PN ---
Progress Note, Physician History of Present Illness: stable looks much better - Current Medication List Current Medications: Active Medications Acetaminophen (Tylenol -) 650 mg PO Q6H PRN PRN Reason: FEVER Last Admin: 02/22/17 18:04 Dose: 650 mg Amino Acids (Prosource No Carb Liquid Pkt) 30 ml PO BID@0800,1730 [facility] Last Admin: 02/23/17 12:07 Dose: Not Given Amoxicillin/Clavulanate Potassium (Augmentin 600 Mg/5 Ml Oral Suspension -) 600 mg PO BID@0800,1730 [facility] Last Admin: 02/23/17 12:21 Dose: 5 ml Anastrozole (Arimidex -) 1 mg PO DAILY [facility] Last Admin: 02/23/17 12:06 Dose: 1 mg Dronabinol (Marinol -) 2.5 mg PO BIDLS [facility] Last Admin: 02/23/17 12:04 Dose: 2.5 mg Enoxaparin Sodium (Lovenox -) 40 mg SQ DAILY [facility] Last Admin: 02/23/17 12:06 Dose: 40 mg IV Flush (Kirill-Cath Flush) 10 ml IVPUSH PRN PRN PRN Reason: flush kirill cath Potassium Chloride 10 meq/ (Dextrose) 1,005 mls @ 100 mls/hr IVPB ASDIR [facility] Mesalamine (Asacol Hd -) 800 mg PO TID [facility] Last Admin: 02/23/17 06:44 Dose: Not Given Thiamine HCl (Vitamin B1 -) 100 mg PO DAILY [facility] Last Admin: 02/23/17 12:06 Dose: 100 mg - Objective Vital Signs: Vital Signs Temperature 98.3 F 02/23/17 05:52 Pulse Rate 103 H 02/23/17 05:52 Respiratory Rate 20 02/23/17 05:52 Blood Pressure 103/69 02/23/17 05:52 O2 Sat by Pulse Oximetry (%) 100 02/22/17 21:00 Constitutional: Yes: No Distress, Calm Cardiovascular: Yes: Regular Rate and Rhythm Respiratory: Yes: Regular, CTA Bilaterally Gastrointestinal: Yes: Normal Bowel Sounds, Soft Musculoskeletal: Yes: WNL Extremities: Yes: WNL Neurological: Yes: Alert, Oriented Psychiatric: Yes: Alert Labs: CBC, BMP 02/23/17 06:00 02/23/17 06:00 INR, PTT INR 1.43 (0.82-1.09) H 02/18/17 05:45 Assessment/Plan clinically patient looks stable has received couple of doses of zosyn a pna according to ct scan, rest patient does not ahve any symptoms.chance patient might have asp pna Problem List - Problems (1) PNA (pneumonia) Code(s): J18.9 - PNEUMONIA, UNSPECIFIED ORGANISM (2) Elevated troponin Code(s): R74.8 - ABNORMAL LEVELS OF OTHER SERUM ENZYMES (3) Weakness Code(s): R53.1 - WEAKNESS (4) Breast cancer metastasized to multiple sites Code(s): C50.919 - MALIGNANT NEOPLASM OF UNSP SITE OF UNSPECIFIED FEMALE BREAST Qualifiers: Laterality: left Qualified Code(s): C50.912 - Malignant neoplasm of unspecified site of left female breast (5) Dehydration, mild Code(s): E86.0 - DEHYDRATION (6) Leukocytosis Code(s): D72.829 - ELEVATED WHITE BLOOD CELL COUNT, UNSPECIFIED (7) Ulcerative colitis Code(s): K51.90 - ULCERATIVE COLITIS, UNSPECIFIED, WITHOUT COMPLICATIONS plan will stop abx and monitor nutrition rest as per primary stable
--- NOTE | 2017-02-23 15:30 | PN ---
Teaching Attending Note Name of Resident: Gaviota Luo ATTENDING PHYSICIAN STATEMENT Time of evaluation: 10:15 AM I saw and evaluated the patient. I reviewed the resident's note and discussed the case with the resident. I agree with the resident's findings and plan as documented. SUBJECTIVE: Patient seen and examined. no complaints. Wants to be comfortable, wants information about her care relayed to her directly and to her through her only. OBJECTIVE: Vital Signs Period Temp Pulse Resp BP Sys/Mulligan Pulse Ox Last 24 Hr 98.1 F-98.9 F 103-111 16-20 103-128/62-82 100-100 Intake & Output 02/20/17 02/21/17 02/22/17 02/23/17 23:59 23:59 23:59 23:59 Intake Total 8908 404 0657 1000 Balance 0832 062 4312 1000 General: lying in bed in no acute distress CVS:S1S2 regular Abdomen: soft, NT, positive bowel sounds extremities: no edema Home Medication List Medication Instructions Recorded Confirmed Type Amlodipine Besylate 5 mg PO DAILY 01/06/17 02/17/17 History Capecitabine 500 mg PO ASDIR 01/06/17 02/17/17 History Loperamide HCl [Loperamide] 2 mg PO PRN 01/06/17 02/17/17 History Pantoprazole Sodium 40 mg PO DAILY 01/06/17 02/17/17 History Potassium Chloride 20 meq PO ASDIR 01/06/17 02/17/17 History Active Medications Generic Name Dose Route Start Last Admin Trade Name Freq PRN Reason Stop Dose Admin Acetaminophen 650 mg 02/17/17 21:55 02/22/17 18:04 Tylenol - PO 650 mg Q6H PRN Administration FEVER Amino Acids 30 ml 02/18/17 08:00 02/23/17 12:07 Prosource No Carb Liquid Pkt PO Not Given BID@0800,1730 CYNTHIA Anastrozole 1 mg 02/18/17 10:02/23/17 12:06 Arimidex - PO 1 mg DAILY CYNTHIA Administration Dronabinol 2.5 mg 02/21/17 12:00 02/23/17 12:04 Marinol - PO 2.5 mg BIDLS CYNTHIA Administration Enoxaparin Sodium 40 mg 02/18/17 10:00 02/23/17 12:06 Lovenox - SQ 40 mg DAILY CYNTHIA Administration IV Flush 10 ml 02/17/17 21:55 Mikel-Cath Flush IVPUSH PRN PRN flush mikel cath Potassium Chloride 10 meq/ 1,005 mls @ 100 mls/hr 02/23/17 13:42 Dextrose IVPB ASDIR CYNTHIA Mesalamine 800 mg 02/17/17 22:00 02/23/17 15:09 Asacol Hd - PO 800 mg TID CYNTHIA Administration Thiamine HCl 100 mg 02/19/17 10:00 02/23/17 12:06 Vitamin B1 - PO 100 mg DAILY CYNTHIA Administration Laboratory Results - last 24 hr 02/22/17 02/23/17 02/23/17 18:53 06:00 06:00 WBC 11.2 H D RBC 2.46 L Hgb 7.3 L Hct 22.7 L MCV 92.1 MCH 29.6 MCHC 32.1 RDW 20.7 H Plt Count 192 MPV 7.2 L Neutrophils % No Result Required. Neutrophils % (Manual) 70.1 Band Neutrophils % 5.2 Lymphocytes % No Result Required. Lymphocytes % (Manual) 9.3 D Monocytes % (Manual) 8 Eosinophils % (Manual) 1.0 D Basophils % (Manual) 0.0 Myelocytes % (Man) 1 D Metamyelocytes 2 D Hypochromia 1+ Platelet Estimate Normal Anisocytosis 2+ Microcytosis 1+ Sodium 137 Potassium 3.0 L Chloride 101 Carbon Dioxide 25 Anion Gap 11 BUN 10 Creatinine 0.2 L POC Glucometer 105 Random Glucose 60 L Calcium 7.3 L 02/23/17 06:43 WBC RBC Hgb Hct MCV MCH MCHC RDW Plt Count MPV Neutrophils % Neutrophils % (Manual) Band Neutrophils % Lymphocytes % Lymphocytes % (Manual) Monocytes % (Manual) Eosinophils % (Manual) Basophils % (Manual) Myelocytes % (Man) Metamyelocytes Hypochromia Platelet Estimate Anisocytosis Microcytosis Sodium Potassium Chloride Carbon Dioxide Anion Gap BUN Creatinine POC Glucometer 76 Random Glucose Calcium Microbiology 02/18/17 01:29 Blood - Arterial Blood Culture - Final NO GROWTH AFTER 5 DAYS INCUBATION 02/18/17 01:29 Blood - Arterial Blood Culture - Final NO GROWTH AFTER 5 DAYS INCUBATION 02/18/17 02:40 Urine - Urine - Catheterized Urine Culture - Final Escherichia Coli 02/18/17 02:40 Urine For Antigen Detection Legionella Antigen - Final 02/18/17 02:40 Urine For Antigen Detection Streptococcus pneumoniae Antigen (M - Final 02/18/17 02:40 Nasopharyngeal Swab Influenza Types A,B Antigen (AYANNA) - Final 02/18/17 02:40 Nasopharyngeal Swab - Final ASSESSMENT AND PLAN: 61yo F with PMH R breast ca with (mets to brain, bone, pleura) s/p lumpectomy, RTx and Chemo whom completed hormonal therapy and on Xeloda currently every other week presented with generalized weakness and difficulty breathing -Severe sepsis due to RLL PNA and GNR UTI -NSTEMI type II demand from above -Sinus tachycardia -Hypokalemia -Hypomagnesemia -Hypophosphatemia -Severe malnutrition -Right breast Ca with diffuse mets including recent brain radiation -Anemia of chronic disease Plan: -ceftriaxone switched to Augmentin, day 3/3 today. ID input appreciated. Flat troponins, no chest pain. No indication for cardiac w/u currently. Tachycardic on recent admission as well, suspect multifactorial. replete lytes prn. Add K to IVF. Montior blood glucose levels. patient wants to be comfortable. Prior MD discussions noted, confirmed with patient, wants to be comfortable and wants information relayed to her through her. H/h overall stable, no gross evidence of bleed. DVTPPx with lovenox. Palliative care input noted. referral sent out to [facility], dispo planning pending the same. Plan discussed with patient in detail, and all questions answered.
--- NOTE | 2017-02-23 19:13 | PN ---
Physical Exam: SUBJECTIVE: Patient seen and examined. No acute events overnight. Offers no new complaints. Denies pain, SOB, dizziness, nausea, and vomiting. OBJECTIVE: Vital Signs Period Temp Pulse Resp BP Sys/Mulligan Pulse Ox Last 24 Hr 98.3 F-98.9 F 103-107 20-20 103-125/62-73 100-100 GENERAL: Flat affect. a/o x 3, In no acute distress HEAD: Normal with no signs of trauma. EYES: PERRL, extraocular movements intact ENT: oropharynx clear without exudates, moist mucous membranes. LUNGS: Breath sounds equal, clear to auscultation bilaterally, no wheezes, no crackles, no accessory muscle use. HEART: Regular rate and rhythm, no murmurs appreciated ABDOMEN: Soft, nontender, nondistended, normoactive bowel sounds EXTREMITIES: 2+ pulses, warm, well-perfused, no edema. SKIN: Warm, dry, normal turgor, no rashes or lesions noted Laboratory Results - last 24 hr 02/22/17 02/23/17 02/23/17 18:53 06:00 06:00 WBC 11.2 H D RBC 2.46 L Hgb 7.3 L Hct 22.7 L MCV 92.1 MCH 29.6 MCHC 32.1 RDW 20.7 H Plt Count 192 MPV 7.2 L Neutrophils % No Result Required. Neutrophils % (Manual) 70.1 Band Neutrophils % 5.2 Lymphocytes % No Result Required. Lymphocytes % (Manual) 9.3 D Monocytes % (Manual) 8 Eosinophils % (Manual) 1.0 D Basophils % (Manual) 0.0 Myelocytes % (Man) 1 D Metamyelocytes 2 D Hypochromia 1+ Platelet Estimate Normal Anisocytosis 2+ Microcytosis 1+ Sodium 137 Potassium 3.0 L Chloride 101 Carbon Dioxide 25 Anion Gap 11 BUN 10 Creatinine 0.2 L POC Glucometer 105 Random Glucose 60 L Calcium 7.3 L 02/23/17 06:43 WBC RBC Hgb Hct MCV MCH MCHC RDW Plt Count MPV Neutrophils % Neutrophils % (Manual) Band Neutrophils % Lymphocytes % Lymphocytes % (Manual) Monocytes % (Manual) Eosinophils % (Manual) Basophils % (Manual) Myelocytes % (Man) Metamyelocytes Hypochromia Platelet Estimate Anisocytosis Microcytosis Sodium Potassium Chloride Carbon Dioxide Anion Gap BUN Creatinine POC Glucometer 76 Random Glucose Calcium Active Medications Generic Name Dose Route Start Last Admin Trade Name Freq PRN Reason Stop Dose Admin Acetaminophen 650 mg 02/17/17 21:55 02/22/17 18:04 Tylenol - PO 650 mg Q6H PRN Administration FEVER Amino Acids 30 ml 02/18/17 08:00 02/23/17 18:07 Prosource No Carb Liquid Pkt PO 30 ml BID@0800,1730 CYNTHIA Administration Anastrozole 1 mg 02/18/17 10:00 02/23/17 12:06 Arimidex - PO 1 mg DAILY CYNTHIA Administration Dronabinol 2.5 mg 02/21/17 12:00 02/23/17 18:07 Marinol - PO 2.5 mg BIDLS CYNTHIA Administration Enoxaparin Sodium 40 mg 02/18/17 10:00 02/23/17 12:06 Lovenox - SQ 40 mg DAILY CYNTHIA Administration IV Flush 10 ml 02/17/17 21:55 Kirill-Cath Flush IVPUSH PRN PRN flush kirill cath Potassium Chloride 10 meq/ 1,005 mls @ 100 mls/hr 02/23/17 13:42 02/23/17 18: 07 Dextrose IVPB 100 mls/hr ASDIR CYNTHIA Administration Mesalamine 800 mg 02/17/17 22:00 02/23/17 15:09 Asacol Hd - PO 800 mg TID CYNTHIA Administration Thiamine HCl 100 mg 02/19/17 10:00 02/23/17 12:06 Vitamin B1 - PO 100 mg DAILY CYNTHIA Administration ASSESSMENT/PLAN: 61yo F with PMH R breast ca with (mets to brain, bone, pleura) s/p lumpectomy, RTx and Chemo whom completed hormonal therapy and on Xeloda currently every other week presented with generalized weakness and difficulty breathing #Sepsis likely 2/2 RLL PNA and UTI -urine culture grew bolaños sensitive E. coli -Ceftriaxone switched to Augmentin 600mg PO BID (day 3). ID on board (Dr. Wills) -Currently afebrile, still tachycardic at 103 (range 96-123 since arrival) likely 2/2 dehydration, poor PO intake #Electrolyte abnormalities -likely 2/2 sepsis, poor PO intake -Oral potassium liquid 40mg -Replete K+ with 10 mEq in D5W -Magnesium repleted #Cachexia -likely 2/2 poor PO intake secondary to malignancy -Oncology on board (Dr. Mon) - restarted Arimidex (anastrazole - palliative care consult; plan to send to [facility] for comfort measures. #Ulcerative colitis -controlled -continue Home med: Mesalamine 800mg TID #Hypoglycemia -likely 2/2 poor PO intake due to malignancy -Currently on D5W 1000mls @100cc/hr; BGM BID to monitor for hypoglycemia #Anemia -likely 2/2 anemia of chronic disease given hx malignancy -Stable at this time; lower transfusion threshold given pt hx of chronic anemia. -Monitor for active bleeding #DVT PPX -Lovenox 40mg SQ #GI PPX None needed at this time; pt does not meet indications for stress ulcer PPX #FEN D5W 1000mls@100cc/hr Repleted dysphagia puree #Dispo: referral sent out to [facility], dispo planning pending. Plan discussed with patient in detail, and all questions answered. Visit type - Emergency Visit Emergency Visit: Yes ED Registration Date: 02/17/17 Care time: The patient presented to the Emergency Department on the above date and was hospitalized for further evaluation of their emergent condition. - New Patient This patient is new to me today: Yes Date on this admission: 02/23/17 - Critical Care Critical Care patient: No - Discharge Referral Referred to [facility] Med P.C.: No
[2017-02-24] MEDS ORDERED: DEXTROSE 5%-WATER - 1,000 ML with POTASSIUM CHLORIDE 10 MEQ IV SCH (04:00)
[2017-02-24] MEDS: MESALAMINE 800 MG TABLET.DR PO SCH (06:23)
[2017-02-24] MEDS: AMINO ACIDS/PROTEIN HYDROLYS 30 ML LIQUID.PKT PO SCH (08:27)
[2017-02-24 09:21] LABS: HEMATOCRIT 22.5 % (32.4-45.2); HEMOGLOBIN 7.2 GM/dL (10.7-15.3); MCH 29.7 pg (25.7-33.7); MCHC 31.9 g/dl (32.0-36.0); MEAN CELL VOLUME 92.9 fl (80-96); PLATELET COUNT 210 K/MM3 (134-434); RBC 2.42 M/mm3 (3.60-5.2); RDW 20.7 % (11.6-15.6); WHITE BLOOD COUNT 13.8 K/mm3 (4.0-10.0)
[2017-02-24 09:46] LABS: ANION GAP 11 (8-16); BLOOD UREA NITROGEN 7 mg/dL (7-18); CALCIUM 7.2 mg/dL (8.5-10.1); CHLORIDE 101 mmol/L (98-107); CO2 25 mmol/L (21-32); CREATININE 0.2 mg/dL (0.55-1.02); GLUCOSE,RANDOM 61 mg/dL (74-106); SODIUM 137 mmol/L (136-145)
[2017-02-24] MEDS: ANASTROZOLE 1 MG TABLET PO SCH (10:35)
[2017-02-24] MEDS: ENOXAPARIN NA (PORCINE) 40 MG/0.4 ML DISP.SYRIN SQ SCH (10:36)
[2017-02-24] MEDS: THIAMINE HCL 100 MG TABLET (FP) PO SCH (10:36)
[2017-02-24 10:56] LABS: POTASSIUM 2.9 mmol/L (3.5-5.1)
[2017-02-24] MEDS ORDERED: POTASSIUM CHLORIDE TABS 20 MEQ TABLET.ER (FP) PO ONE (13:10)
--- NOTE | 2017-02-24 14:06 | PN ---
Teaching Attending Note Name of Resident: Gaviota Luo ATTENDING PHYSICIAN STATEMENT Time of evaluation: 12:00 PM I saw and evaluated the patient. I reviewed the resident's note and discussed the case with the resident. I agree with the resident's findings and plan as documented. SUBJECTIVE: patient seen and examined. no complaints, aware is going to [facility] today. OBJECTIVE: Vital Signs Period Temp Pulse Resp BP Sys/Mulligan Pulse Ox Last 24 Hr 98.7 F-99.5 F 104-113 20-20 116-125/68-73 96 Intake & Output 02/21/17 02/22/17 02/23/17 02/24/17 23:59 23:59 23:59 23:59 Intake Total 500 1580 1500 700 Balance 500 1580 1500 700 General: lying in bed in no acute distress Chest: decreased effort, no rales or wheezing abdomen: soft, NT extremities: no edema Active Medications Generic Name Dose Route Start Last Admin Trade Name Freq PRN Reason Stop Dose Admin Acetaminophen 650 mg 02/17/17 21:55 02/22/17 18:04 Tylenol - PO 650 mg Q6H PRN Administration FEVER Amino Acids 30 ml 02/18/17 08:00 02/24/17 08:27 Prosource No Carb Liquid Pkt PO 30 ml BID@0800,1730 CYNTHIA Administration Anastrozole 1 mg 02/18/17 10:00 02/24/17 10:35 Arimidex - PO 1 mg DAILY CYNTHIA Administration Dronabinol 2.5 mg 02/21/17 12:00 02/23/17 18:07 Marinol - PO 2.5 mg BIDLS CYNTHIA Administration Enoxaparin Sodium 40 mg 02/18/17 10:00 02/24/17 10:36 Lovenox - SQ 40 mg DAILY CYNTHIA Administration IV Flush 10 ml 02/17/17 21:55 Mikel-Cath Flush IVPUSH PRN PRN flush mikel cath Potassium Chloride 10 meq/ 1,005 mls @ 100 mls/hr 02/24/17 04:00 02/24/17 04: 22 Dextrose IV 100 mls/hr Q10H CYNTHIA Administration Mesalamine 800 mg 02/17/17 22:00 02/24/17 06:23 Asacol Hd - PO 800 mg TID CYNTHIA Administration Thiamine HCl 100 mg 02/19/17 10:00 02/24/17 10:36 Vitamin B1 - PO 100 mg DAILY CYNTHIA Administration Laboratory Results - last 24 hr 02/24/17 02/24/17 02/24/17 06:03 08:30 08:30 WBC 13.8 H RBC 2.42 L Hgb 7.2 L Hct 22.5 L MCV 92.9 MCH 29.7 MCHC 31.9 L RDW 20.7 H Plt Count 210 MPV 7.0 L Sodium 137 Potassium 2.9 L* Chloride 101 Carbon Dioxide 25 Anion Gap 11 BUN 7 Creatinine 0.2 L POC Glucometer 75 Random Glucose 61 L Calcium 7.2 L Microbiology 02/18/17 01:29 Blood - Arterial Blood Culture - Final NO GROWTH AFTER 5 DAYS INCUBATION 02/18/17 01:29 Blood - Arterial Blood Culture - Final NO GROWTH AFTER 5 DAYS INCUBATION 02/18/17 02:40 Urine - Urine - Catheterized Urine Culture - Final Escherichia Coli 02/18/17 02:40 Urine For Antigen Detection Legionella Antigen - Final 02/18/17 02:40 Urine For Antigen Detection Streptococcus pneumoniae Antigen (M - Final 02/18/17 02:40 Nasopharyngeal Swab Influenza Types A,B Antigen (AYANNA) - Final 02/18/17 02:40 Nasopharyngeal Swab - Final ASSESSMENT AND PLAN: 61yo F with PMH R breast ca with (mets to brain, bone, pleura) s/p lumpectomy, RTx and Chemo whom completed hormonal therapy and on Xeloda currently every other week presented with generalized weakness and difficulty breathing -Severe sepsis due to RLL PNA and GNR UTI -NSTEMI type II demand from above -Sinus tachycardia -Hypokalemia -Hypomagnesemia -Hypophosphatemia -Severe malnutrition -Right breast Ca with diffuse mets including recent brain radiation -Anemia of chronic disease Plan: -ceftriaxone switched to Augmentin, finished antibiotics on 02/23. ID input appreciated. Flat troponins, no chest pain. No indication for cardiac w/u currently. Tachycardic on recent admission as well, suspect multifactorial. replete lytes prn. Add K to IVF. Montior blood glucose levels. patient wants to be comfortable. Prior MD discussions noted, confirmed with patient, wants to be comfortable and wants information relayed to her through her. H/h overall stable, no gross evidence of bleed. DVTPPx with lovenox. Palliative care input noted. patient accepted to [facility] today, plan for dc. Plan discussed with patient in detail, and all questions answered.
[2017-02-24 18:29] VITALS: BP 118/64; PULSE 104; TEMP 98.2
== END 2017-02-24 14:15 | disposition short-term general hospital (02) | DRG 871 ==
LOC: JER 15:31 → JERBED 19:28 → UNDOADMIN 19:50 → JERBED 19:50 → J7W 02-19 15:00
PROVIDERS: ADMIT Internal Medicine; ATTEND Hospitalist
DX: A41.9 Sepsis, unspecified organism (principal); I21.4 Non-ST elevation (NSTEMI) myocardial infarction; E43 Unspecified severe protein-calorie malnutrition; J18.9 Pneumonia, unspecified organism; C79.31 Secondary malignant neoplasm of brain; E87.2 Acidosis; C79.51 Secondary malignant neoplasm of bone; C78.2 Secondary malignant neoplasm of pleura; K51.90 Ulcerative colitis, unspecified, without complications; R64 Cachexia; R65.20 Severe sepsis without septic shock; E86.0 Dehydration; C50.911 Malignant neoplasm of unspecified site of right female breast; Z87.891 Personal history of nicotine dependence; I45.81 Long QT syndrome; R00.0 Tachycardia, unspecified; E87.6 Hypokalemia; D63.8 Anemia in other chronic diseases classified elsewhere; Z68.23 Body mass index [BMI] 23.0-23.9, adult; Z74.01 Bed confinement status; R13.10 Dysphagia, unspecified; E83.42 Hypomagnesemia; E83.39 Other disorders of phosphorus metabolism; E16.2 Hypoglycemia, unspecified
CPT/HCPCS: 36415; 71045-TC; 71275-TC; 80048; 80053; 81003; 81015; 82550; 82962; 83605; 83735; 84100; 84484; 85025; 85027; 85610; 87040; 87086; 87186; 87804; 87899; 93005; 93010; 93306-TC; 93970-TC; 99285-25; J8999